=== PATIENT | female | born 1945 | race Caucasian/White ===

== ENCOUNTER 2018-04-18 14:56 | Emergency (ER) | payer MEDICARE, SELFPAY ==
[2018-04-18 14:58] VITALS: BP 185/83; PULSE 73; RESP 18; TEMP 36.8; O2SAT 100; BMI 26.8
--- NOTE | 2018-04-18 15:25 | RAD_ITS ---
STUDY: X-RAY CHEST REASON FOR EXAM: Female, 73 years old. Fever TECHNIQUE: PA and lateral COMPARISON: None. FINDINGS: Lungs appear mildly hyperinflated and there is mild bilateral perihilar interstitial thickening. There is no demonstrated pleural abnormality. Heart is upper normal size Normal mediastinum and tanja. Normal visualized pulmonary arteries. Mildly calcified aortic arch and descending thoracic aorta. Dorsal spine demonstrates mild spondylosis. There appears to be a hemangioma within one of the mid dorsal vertebral bodies. Normal visualized ribs, clavicles, and shoulders. There is no demonstrated abnormality of the visualized soft tissue structures of the upper abdomen. RAD/Chest PA and Lateral IMPRESSION: Mild probable chronic interstitial changes. No focal infiltrates Electronically Signed: Maurice Bullock MD at 17:07 EDT , Service support ,
--- NOTE | 2018-04-18 15:39 | ED.DCSUM_ITS ---
- ER Visit Summary Date of Service: 04/18/18 Chief Complaint: [] Fever History of Present Illness: The patient is a 73 F [] complaining of subjective fever, mild sore throat, mild urinary symptoms, mild abdominal discomfort. Patient appears very well and is conversational. Denies difficulty swallowing. Denies dysuria. Denies nausea/vomiting. No other complaints at this time. Physical Examination: [] Afebrile, vital signs stable. Physical exam is unremarkable. Test Results: [] Chest x-ray 2 views: Labs: White blood cell count 12.7, otherwise negative. BMP negative. LFTs negative. Lipase negative. Urinalysis shows leukocytes with 5-10 white blood cells. Rapid strep negative. Chest x-ray 2 views negative per my interpretation. Emergency Department Course and Treatment: [] Patient evaluated for sore throat, fever, urinary symptoms. She does report that her at the bedside was diagnosed with flu several weeks ago. She appears well. She will be treated for a few days with Keflex 500 mg #12 for possible early UTI. She was encouraged to follow-up with her primary care physician. Treatment Plan: [] Outpatient antibiotics and outpatient follow-up. Disposition: [] Discharge, stable. Impression: [] UTI Sore throat This note was generated with [employer] dictation software. It may contain incorrect words, spelling, and punctuation that were not noted in review of the chart prior to signing ED Disposition - Plan for ED Patient: Disposition: Home or Assisted Living Chief Complaint: Fever Instructions: ED UTI Cystitis Female Prescriptions: Cephalexin [Keflex] 500 mg PO Q6 #12 cap Referrals: Venecia Hansen MD [Primary Care Provider] -
[2018-04-18 16:08] LABS: Bacteria 0 SEEN /hpf (None Seen); Mucous, Urine 0 SEEN /hpf (<or=2+)
[2018-04-18 16:15] LABS: Absolute Neutrophil Count 10.6 X10^3/uL (2.0-7.7); Basophil# 0.01 X10^3/uL; Basophil% 0.1 % (0-1); Eosinophil# 0.01 X10^3/uL; Eosinophils% 0.1 % (0-5); Hematocrit 38.3 % (37-47); Hemoglobin 12.7 g/dl (12.0-15.0); Lymphocyte % 11.1 % (19-41); Mean Corp Hgb Conc 33.2 g/gl (32-36); Mean Corpuscular Volume 96.5 fL (81-99); Mean Platelet Vol. 10.2 fl (6.2-12.0); Monocyte# 0.61 X10^3/uL; Monocyte% 4.8 % (0-10); Neutrophil % 83.7 % (47-70); Platelet Count 196 K/mm3 (150-450); RBC Distribution Width CV 12.1 % (11.6-14.6); RBC Distribution Width SD 42.6 fl (35.1-43.9); Red Blood Count 3.97 M/mm3 (4.2-5.4); White Blood Count 12.7 K/mm3 (4.4-11.0)
[2018-04-18 16:17] LABS: Color, Urine Straw (Yellow); Glucose, Dipstick Normal (Normal); Ketone-Dipstick Negative (Negative); Leukocyte Esterase-Dipstick 500 /ul (Negative); Nitrite-Dipstick Negative (Negative); Occult Blood-Urine 25 /ul (Negative); Protein-Dipstick Negative (Negative); Urine Bilirubin Dipstick Negative (Negative); Urine Clarity Sl. Cloudy (Clear); Urine Urobilinogen Normal (Normal)
[2018-04-18 16:19] LABS: POSITIVE COUNT NO; POSITIVE DIFFERENTIAL NO; POSITIVE MORPHOLOGY NO
[2018-04-18 16:23] LABS: Squamous Epithelial Cells - UA 0-5 SEEN /hpf (5-10)
[2018-04-18 16:25] LABS: ALB/GLOB Ratio 1.1 RATIO (0.9-2.4); AST(SGOT) 25 U/L (15-37); Alanine Aminotransfer ALT/SGPT 26 U/L (13-56); Albumin, Serum 4.3 g/dL (3.2-5.0); Alkaline Phosphatase 90 U/L (45-117); Anion Gap 8 (5-15); BUN 10 mg/dL (7-18); BUN/Creat Ratio 11.5 RATIO (10-20); Chloride 102 mmol/L (98-107); Creatinine, Serum 0.87 mg/dL (0.55-1.02); EST Glomerular Filtration Rate 68 mL/min (>60); Est Glom Filt Rate - Afr Amer 82 mL/min (>60); Estimated Creatinine Clearance 42.16 ml/min; Globulin 3.8 g/dL (2.2-4.2); Glucose 101 mg/dL (74-106); Lipase 233 U/L (73-393); Potassium 3.5 mmol/L (3.5-5.1); Protein, Total 8.1 g/dL (6.4-8.2); Red Blood Cells-Urine 0-5 SEEN /hpf (0-5); Sodium Level 137 mmol/L (136-145); White Blood Cells 5-10 SEEN /hpf (0-5)
--- NOTE | 2018-04-18 17:13 | ED.DEP ---
ED Disposition - Plan for ED Patient: Disposition: Home or Assisted Living Chief Complaint: Fever Instructions: ED UTI Cystitis Female Prescriptions: Cephalexin [Keflex] 500 mg PO Q6 #12 cap Referrals: Venecia Hansen MD [Primary Care Provider] -
[2018-04-18 17:49] VITALS: BP 159/91; PULSE 79; RESP 16; O2SAT 98
== END 2018-04-18 17:50 | disposition home or self-care (01) ==
PROVIDERS: Emergency Provider Emergency Medicine; Family Provider Internal Medicine; PCP Internal Medicine
DX: N39.0 Urinary tract infection, site not specified (principal); J02.9 Acute pharyngitis, unspecified; I10 Essential (primary) hypertension; F41.9 Anxiety disorder, unspecified; D18.02 Hemangioma of intracranial structures; Z79.899 Other long term (current) drug therapy
CPT/HCPCS: 71046; 80053; 81001; 83690; 85025; 87880; 99284; A4216

== ENCOUNTER 2019-06-12 22:16 | Emergency (ER) | payer MEDICARE, SELFPAY ==
[2019-06-12 22:17] VITALS: BP 209/82; PULSE 65; RESP 16; TEMP 36.4; O2SAT 100; BMI 27.0
[2019-06-12 22:38] VITALS: BP 222/93; PULSE 58; RESP 14; O2SAT 98
--- NOTE | 2019-06-12 22:38 | CT_ITS ---
STUDY: CT BRAIN WITHOUT CONTRAST REASON FOR EXAM: Female, 74 years old. Headache since yesterday RADIATION DOSAGE (If Supplied By Facility): CTDIvol = ( 44.99 ) mGy, DLP = ( 779.24 ) mGycm TECHNIQUE: Transaxial CT imaging of the brain was performed without administration of intravenous contrast material. Individualized dose optimization techniques were used for this CT. COMPARISON: 04/19/2015 FINDINGS: Normal soft tissue structures. Normal calvarium. Normal size ventricles and extra-axial spaces for the patient's age. Normal white matter tracts of the cerebral hemispheres. Normal basal ganglia and thalami. Normal brainstem. Stable subcentimeter calcification in the right cerebellum. There is no intracranial hemorrhage. There are no findings of an acute ischemic infarction. Normal visualized paranasal sinuses. CT/Brain/Head without Contrast IMPRESSION: No evidence of acute infarct or intracranial hemorrhage. Electronically Signed: Montana Wu MD at 23:45 EDT Tel , Service support ,
--- NOTE | 2019-06-12 22:44 | ED.VISSUMM ---
- ER Visit Summary Date of Service: 06/12/19 Chief Complaint: Headache History of Present Illness: The patient is a 74 F who presents with a headache that has been intermittent since yesterday. Patient states the pain is sharp and localized to the left samaritan area. Patient states the pain radiates to the top of her head. Patient states she has a history of cavernous hemangioma. Patient states this has been stable for approximately 5 years. Patient states the pain comes and goes. Patient states the pain lasts approximately 5 minutes. Patient states that yesterday it was only lasting approximately 30 seconds. Patient denies any fevers or chills. Patient denies any nausea or vomiting. Patient denies any sore throat or sinus pressure. Physical Examination: Vital signs are stable except for an elevated blood pressure of 209/82. Patient is afebrile. Patient is in no acute distress. Head is normocephalic. There is no tenderness over the temporal arteries. Pupils are equal, round, and reactive to light bilaterally. Extraocular muscles are intact. Funduscopic examination was benign. Oral mucosa is pink and moist. Neck is supple. Trachea is midline. There is no JVD noted. Heart was regular rate and rhythm. Lungs are clear and equal bilateral. Abdomen is soft. Bowel sounds are normal. There is no tenderness. There is no guarding noted. Skin is warm dry. Cranial nerves II through XII are intact. There are no focal motor or sensory deficits noted. The remaining physical exam is within normal limits. Test Results: CBC and basic metabolic profile were normal. Sed rate was normal at 6. CT scan of the brain was obtained. There is no acute intracranial bleeding noted. Emergency Department Course and Treatment: Patient was given Reglan and Benadryl here. Patient was initially ordered labetalol for her elevated blood pressure however, her blood pressure has improved without any medication. Patient felt better on reevaluation. Patient states her headache was gone. Given the intermittent nature of her headache and no meningeal signs, I do not feel this is a subarachnoid hemorrhage. Patient was instructed to follow-up with her primary care physician in 5 to 7 days. Patient understood and was agreeable with the plan. All questions were answered. Disposition: Discharge home Impression: Headache This note was generated with [employer] dictation software. It may contain incorrect words, spelling, and punctuation that were not noted in review of the chart prior to signing ED Disposition - Plan for ED Patient: Disposition: Home or Assisted Living Diagnosis: Headache Instructions: HEADACHE, Unspecified Referrals: Venecia Hansen MD [Primary Care Provider] - 5-7 Days
[2019-06-12] MEDS: Metoclopramide 10 MG/2 ML Vial IV (23:08)
[2019-06-12] MEDS: DiphenhydrAMINE 50 MG/ML Syringe 25 MG IV (23:08)
[2019-06-12 23:11] VITALS: BP 155/84
[2019-06-12 23:26] LABS: Absolute Lymphocyte Count 1.79 X10^3/ul (0.83-4.51); Absolute Neutrophil Count 2.5 X10^3/uL (2.0-7.7); Basophil# 0.02 X10^3/uL; Basophil% 0.4 % (0-1); Eosinophil# 0.12 X10^3/uL; Eosinophils% 2.5 % (0-5); Hematocrit 36.5 % (37-47); Hemoglobin 12.2 g/dl (12.0-15.0); Lymphocyte # 1.79 X10^3/ul (4.0); Lymphocyte % 36.8 % (19-41); Mean Corp Hgb Conc 33.4 g/gl (32-36); Mean Corpuscular Hgb 32.4 pg (27.0-32.0); Mean Corpuscular Volume 97.1 fL (81-99); Mean Platelet Vol. 10.5 fl (6.2-12.0); Monocyte# 0.44 X10^3/uL; Monocyte% 9.1 % (0-10); Neutrophil # 2.49 X10^3/uL (2.7-7.7); Neutrophil % 51.2 % (47-70); Platelet Count 204 K/mm3 (150-450); RBC Distribution Width CV 12.2 % (11.6-14.6); RBC Distribution Width SD 43.1 fl (35.1-43.9); Red Blood Count 3.76 M/mm3 (4.2-5.4); White Blood Count 4.9 K/mm3 (4.4-11.0)
[2019-06-12 23:31] LABS: POSITIVE COUNT NO; POSITIVE DIFFERENTIAL NO; POSITIVE MORPHOLOGY NO
[2019-06-12 23:32] LABS: Anion Gap 6 (5-15); BUN 19 mg/dL (7-18); BUN/Creat Ratio 19.7 RATIO (10-20); Calcium,Total 8.7 mg/dL (8.5-10.1); Chloride 104 mmol/L (98-107); Creatinine, Serum 0.97 mg/dL (0.55-1.02); EST Glomerular Filtration Rate 60 mL/min (>60); Erythrocyte Sedimentation Rate 6 mm/hr (0-30); Est Glom Filt Rate - Afr Amer 72 mL/min (>60); Estimated Creatinine Clearance 37.23 ml/min; Glucose 115 mg/dL (74-106); Potassium 4.3 mmol/L (3.5-5.1); Sodium Level 139 mmol/L (136-145)
[2019-06-13 00:11] VITALS: BP 124/56; PULSE 61; RESP 16; O2SAT 100
== END 2019-06-13 00:12 | disposition home or self-care (01) ==
PROVIDERS: Emergency Provider Emergency Medicine; Family Provider Internal Medicine; PCP Internal Medicine
DX: R51 Headache (principal); R19.7 Diarrhea, unspecified; I10 Essential (primary) hypertension; D18.00 Hemangioma unspecified site; F41.9 Anxiety disorder, unspecified; Z79.899 Other long term (current) drug therapy
CPT/HCPCS: 70450; 80048; 85025; 85652; 96374; 96375; 99283; A4216

== ENCOUNTER → 2023-02-12 | Outpatient (CLI) | payer MEDICARE, SELFPAY ==
--- NOTE | 2023-02-12 06:22 | ECHOD_ITS ---
Reason For Study: HTN Procedure This was a 2D Doppler, Color Flow transthoracic echocardiogram. Exam performed in department. Left Ventricle Normal LV size. Left ventricular systolic function is normal. The estimated ejection fraction is 55 %. Normal diastology for age. No regional wall motion abnormalities noted. Right Ventricle Normal RV size. Normal systolic function. Atria Normal left atrium. Normal right atrium. Mitral Valve Normal mitral valve. Mild-Moderate (1-2+) eccentric mitral valve insufficiency. Tricuspid Valve Normal tricuspid valve. Mild (1+) tricuspid valve insufficiency. Pulmonary artery systolic pressure is 40 mmHg. Aortic Valve Normal aortic valve. Trisinus/trileaflet aortic valve. Pulmonic Valve Normal pulmonic valve. Great Vessels Normal aortic root. The pulmonary artery is normal size. Normal inferior vena cava. Pericardium/Pleural No pericardial effusion. MMode/2D Measurements & Calculations LVIDd: 4.2 cm IVSd: 0.93 cm Ao root diam: 3.0 cm LVIDs: 2.6 cm LVPWd: 0.96 cm LA dimension: 3.5 cm RVDd: 3.3 cm FS: 38.6 % LAV(MOD-bp): 54.6 ml LVAd ap4: 23.4 cm2 SV(MOD-sp4): 41.1 ml LAV(MOD-bp) Indexed: 34.1 ml/m2 LVLd ap4: 7.3 cm LAV(MOD-sp2): 49.0 ml EDV(MOD-sp4): 62.6 ml LAV(MOD-sp4): 57.4 ml EDV(sp4-el): 64.2 ml LVAs ap4: 12.0 cm2 LVLs ap4: 5.9 cm ESV(MOD-sp4): 21.5 ml ESV(sp4-el): 20.9 ml EF(MOD-sp4): 65.7 % EF(sp4-el): 67.5 % SV(sp4-el): 43.3 ml LA A4 area: 19.0 cm2 RA A4 area: 15.2 cm2 Time Measurements MV dec time: 0.15 sec Doppler Measurements & Calculations MV E max brennan: 93.7 cm/sec Lat Peak E' Brennan: 6.7 cm/sec Med Peak E' Brennan: 8.3 cm/sec MV A max brennan: 74.0 cm/sec E/E' lat: 14.0 E/E' med: 11.3 MV E/A: 1.3 MV V2 max: 95.9 cm/sec Ao V2 max: 138.2 cm/sec MV max P.7 mmHg MV dec slope: 637.9 cm/sec2 Ao max P.6 mmHg MV V2 mean: 52.0 cm/sec Ao V2 mean: 92.6 cm/sec MV mean P.3 mmHg Ao mean P.9 mmHg MV V2 VTI: 40.0 cm Ao V2 VTI: 39.3 cm AV (velocity ratio): 0.72 LV V1 max: 93.9 cm/sec MR max brennan: 566.2 cm/sec PA V2 max: 82.8 cm/sec LV V1 max P.5 mmHg MR max P.2 mmHg LV V1 mean P.9 mmHg MR mean brennan: 492.8 cm/sec LV V1 mean: 64.8 cm/sec MR mean P.8 mmHg LV V1 VTI: 28.4 cm MR VTI: 264.7 cm TR max brennan: 302.4 cm/sec TR max P.6 mmHg ECHO/Echo Complete Interpretation Summary Normal LV size. Left ventricular systolic function is normal. The estimated ejection fraction is 55 %. Mild-Moderate (1-2+) eccentric mitral valve insufficiency. Pulmonary artery systolic pressure is 40 mmHg. Ordering Physician: Viviana Ojeda Referring Physician: Venecia Hansen M.D. Performed By: Brien Cortes RCS
--- NOTE | 2023-02-12 12:09 | STRESSREP ---
Stress Test Report Exercise myocardial perfusion stress test. 77-year-old lady with a history of chest pain Stress protocol: Resting EKG demonstrates sinus bradycardia with a rate of 58 bpm resting blood pressure is 116/82 mmHg. The patient exercised according to the regular Baron protocol for a total duration of 6 minutes and 15 seconds attaining a maximum heart rate of 123 bpm which was 87% of maximum predicted heart rate; the maximum workload was 7.7 metabolic equivalents. At rest there were no ST or T wave changes noted to suggest ischemia and at peak exercise upsloping ST changes only were noted which did not meet the criteria for ischemia. No clinical angina was noted the test was terminated due to the target heart rate being achieved/fatigue. The peak blood pressure was 170/70 mmHg. Rate-pressure product was [16,600]. Myocardial perfusion protocol. 11.0 mCi of technetium 99m sestamibi was injected at rest. The patient exercised according to regular Baron protocol for total duration of 6 minutes and 15 seconds and at peak exercise 36 mCi of technetium 99m sestamibi was injected stress images were obtained stress and rest images were reconstructed in comparing the short axis vertical long and horizontal long axis. Gated images were also obtained. Perfusion SPECT analysis: Review of the stress images demonstrate normal uptake of tracer noted in all areas of the myocardium. The resting images similarly demonstrate normal uptake of tracer noted in all areas of the myocardium. No areas of reversibility are noted to suggest ischemia no previous infarct was noted. Gated SPECT analysis: The gated ejection fraction is 83%. Conclusion: Normal exercise myocardial perfusion stress test at a moderate workload Preserved ejection fraction.
== END | disposition home or self-care (01) ==
LOC: CVS 06:15
PROVIDERS: PCP Internal Medicine; Referring Provider Nurse Practitioner Gerontology; Visit Provider Nurse Practitioner Gerontology
DX: I10 Essential (primary) hypertension (principal); I47.1 Supraventricular tachycardia; R94.31 Abnormal electrocardiogram [ECG] [EKG]
CPT/HCPCS: 78452; 93017; 93306; A9500

== ENCOUNTER 2024-02-20 11:49 | Emergency (ER) | payer MEDICARE, SELFPAY ==
[2024-02-20 11:49] VITALS: BP 155/78; PULSE 65; RESP 14; TEMP 36.2; O2SAT 99; BMI 26.2
--- NOTE | 2024-02-20 12:28 | EKG12_ITS ---
Test Reason : DIZZINESS Blood Pressure : / mmHG Vent. Rate : 059 BPM Atrial Rate : 059 BPM P-R Int : 160 ms QRS Dur : 078 ms QT Int : 462 ms P-R-T Axes : 052 032 064 degrees QTc Int : 457 ms Sinus bradycardia with sinus arrhythmia Otherwise normal ECG Confirmed by Agustín Castrejon ([id number]), greeting card editor SHANON PARRA ([id number]) on 02/23/2024 9:02:16 AM Referred By: Confirmed By:Agustín Castrejon
--- NOTE | 2024-02-20 12:31 | EX.ED.DYSGE1 ---
HPI <DICK Milner - Last Filed: 02/20/24 16:34> History of Present Illness Chief Complaint: Dizziness Narrative Narrative: 78-year-old female with PMH of HTN states she woke up around 4:30 AM and immediately felt the room spinning. She had to urinate and walk to the bathroom and felt slightly off balance due to the spinning. She states she had to urinate twice. The spinning would resolve when lying down and closing her eyes. She tried to take her blood pressure pill and lorazepam but developed dry heaving and threw it up. The spinning has completely resolved but she still feels nauseated. No chest pain or shortness of breath. She had similar vertiginous symptoms many years ago but does not recall the details of the workup. She states she has seen a neurologist in the past due to whooshing sound in her head and had MRI showing a small brain hemangioma. PFSH <DICK Milner - Last Filed: 02/20/24 16:34> [facility] Medical History Cerebellar hemangioma (2003) Epilepsy Essential hypertension Hiatal hernia History of depression Hyperlipidemia IBS (irritable bowel syndrome) Leiomyoma of uterus Mumps Nonsustained paroxysmal supraventricular tachycardia Occipital neuralgia Uterine prolapse Varicella Vitamin D deficiency Vitreous detachment Home Medications citalopram 20 mg tablet 20 mg PO DAILY 01/31/14 [History Last Taken Unknown] lorazepam 1 mg tablet 1 mg PO TID PRN Anxiety #10 TABLETS 09/26/16 [Rx Last Taken Unknown] losartan 100 mg tablet 100 mg PO QDAY #90 tabs 01/05/18 [Rx Last Taken Unknown] metoprolol succinate 50 mg tablet,extended release 24 hr 50 mg PO QDAY #90 tabs 12/14/18 [Rx Last Taken Unknown] calcium citrate 315 mg-vitamin D3 5 mcg (200 unit) tablet (Calcium Citrate + D) 1 tab PO DAILY 07/29/22 [History Last Taken Unknown] cholecalciferol (vitamin D3) 50 mcg (2,000 unit) tablet 50 mcg PO DAILY 07/29/22 [History Last Taken Unknown] zmkskyhc-rep-aznht ac 400 mcg-calcium carb 500 mg-vit K1 20 mcg tablet (Women's 50 Plus Multivitamin) 1 tab PO DAILY 07/29/22 [History Last Taken Unknown] spironolactone 25 mg tablet 25 mg PO DAILY 07/29/22 [History Last Taken Unknown] Allergy/AdvReac Type Severity Reaction Status Date / Time hydrochlorothiazide Allergy Unknown Rash Verified 02/20/24 11:51 Tetracyclines Allergy Unknown Diarrhea Verified 02/20/24 11:51 amlodipine AdvReac Hives Verified 02/20/24 11:51 erythromycin base AdvReac Abd Verified 02/20/24 11:51 [Erythromycin Base] cramps/diarrhea fluorescein AdvReac Hives Verified 02/20/24 11:51 Gadolinium-MRI Contrast AdvReac Other Verified 02/20/24 11:51 Medium [Gadolinium-Contrast Medium - MRI] Iodinated Contrast Media AdvReac Hives Verified 02/20/24 11:51 [iodine contrast] Sulfa (Sulfonamide AdvReac Abd Verified 02/20/24 11:51 Antibiotics) cramps/diarrhea tramadol AdvReac Unknown Verified 02/20/24 11:51 Family History Sister CAD (coronary artery disease) Thyroid disorder Diabetes Mother Hypertension Father Heart disease Myocardial infarction Hypertension Cancer skin Emphysema lung Brother Diabetes Paranoid schizophrenia Migraines Grandmother Diabetes Grandfather Cancer stomach Grandmother Leukemia Surgical History History of colonoscopy History of esophagogastroduodenoscopy (EGD) History of excision of lesion History of hand surgery History of tonsillectomy and adenoidectomy Social History Smoking Status: Never smoker alcohol intake: never substance use type: does not use ROS <DICK Milner - Last Filed: 02/20/24 16:34> ROS ED ROS Narrative Constitutional: Negative for fever, chills, malaise. Eyes: Negative for visual change. CVS: Negative for palpitations, chest pain, syncope. Respiratory: Negative for shortness of breath. GI: Positive for nausea, vomiting. Neuro: Negative for headache, motor/sensory dysfunction. EXAM <DICK Milner - Last Filed: 02/20/24 16:34> Physical Exam Narrative Exam Narrative: CONST: Patient sitting in no acute distress. EYES: Normal inspection. PERRL, 3 beats rightward horizontal nystagmus. ENT: Normal inspection, moist mucous membranes. Normal TMs bilaterally. NECK: Normal inspection. RESP: No respiratory distress, CTAB. CVS: Regular rate and rhythm, no murmur, no gallop. SKIN: Color normal, no rash, warm, dry, intact. EXTREMITIES: Normal appearance, no pedal edema. NEURO: Oriented x4. Face symmetric, cranial nerves II through XII intact. Mild chronic left arm tremor. 5/5 upper and lower extremity strength, normal finger-nose and [id number], normal gait. PSYCH: Normal affect. Const Vital Signs: 02/20/24 11:49 02/20/24 11:49 02/20/24 13:27 Temperature 97.2 F L 97.2 F L Temperature Source Temporal Temporal Pulse Rate 65 65 Respiratory Rate 14 14 Respiratory Effort Normal Respiratory Pattern Normal Blood Pressure 155/78 H 155/78 H Blood Pressure Mean 103 103 Pulse Ox 99 99 Oxygen Delivery Method Room Air Room Air 02/20/24 13:49 02/20/24 15:00 02/20/24 15:42 Temperature 98.6 F Temperature Source Pulse Rate 68 68 87 Respiratory Rate 15 17 17 Respiratory Effort Respiratory Pattern Blood Pressure 113/81 H 118/79 116/89 H Blood Pressure Mean 91 92 98 Pulse Ox 97 97 98 Oxygen Delivery Method Room Air Room Air <Dr. Solitario Oakes MD - Last Filed: 02/20/24 15:44> Physical Exam Const Vital Signs: 02/20/24 11:49 02/20/24 11:49 02/20/24 13:27 Temperature 97.2 F L 97.2 F L Temperature Source Temporal Temporal Pulse Rate 65 65 Respiratory Rate 14 14 Respiratory Effort Normal Respiratory Pattern Normal Blood Pressure 155/78 H 155/78 H Blood Pressure Mean 103 103 Pulse Ox 99 99 Oxygen Delivery Method Room Air Room Air 02/20/24 13:49 02/20/24 15:00 02/20/24 15:42 Temperature 98.6 F Temperature Source Pulse Rate 68 68 87 Respiratory Rate 15 17 17 Respiratory Effort Respiratory Pattern Blood Pressure 113/81 H 118/79 116/89 H Blood Pressure Mean 91 92 98 Pulse Ox 97 97 98 Oxygen Delivery Method Room Air Room Air MDM <DICK Milner - Last Filed: 02/20/24 16:34> MDM MDM Narrative Medical decision making narrative: History gathered from: Patient and spouse Patient had room spinning with head movements this morning that stopped with lying down and closing eyes. At symptoms have resolved on arrival but she still feels nauseated. No chest pain or shortness of breath. She appears well and nontoxic and is afebrile with normal vital signs. She has no focal neurological deficits. She has normal coordination and normal gait. CBC and BMP overall unremarkable. EKG sinus rhythm with no ischemic changes. Urinalysis negative. She has had similar symptoms in the past while and reports having an MRI for neurology for an unrelated issue which showed a small hemangioma but no other acute abnormalities. I do not think she requires emergent imaging. Symptoms sound consistent with BPPV and she has remained asymptomatic here. I discussed follow-up and return precautions and she was discharged in stable condition. Lab Data Attestation: I reviewed the patient's lab results. Labs: Laboratory Results - last 24 hr 02/20/24 02/20/24 12:51 14:30 WBC 7.1 RBC 3.88 L Hgb 12.4 Hct 37.8 MCV 97.4 MCH 32.0 MCHC 32.8 RDW Std Deviation 41.9 RDW Coeff of Myriam 11.8 Plt Count 241 MPV 10.7 Immature Gran % (Auto) 0.300 Neut % (Auto) 76.8 H Lymph % (Auto) 16.4 L [place] % (Auto) 5.2 Eos % (Auto) 0.7 Baso % (Auto) 0.6 Absolute Neuts (auto) 5.4 Absolute Lymphs (auto) 1.16 Nucleated RBC % 0 Sodium 138 Potassium 4.2 Chloride 106 Carbon Dioxide 26.0 Anion Gap 6 BUN 19 H Creatinine 1.07 H Estim Creat Clear Calc 35.63 Est GFR (MDRD) Af Amer 63 Est GFR (MDRD) Non-Af 52 L BUN/Creatinine Ratio 17.8 Glucose 121 H Calcium 8.9 Urine Color Yellow Urine Clarity Clear Urine pH 6.5 Ur Specific Barnhart 1.010 Urine Protein 15 H Urine Glucose (UA) Normal Urine Ketones Negative Urine Occult Blood 25 H Urine Nitrite Negative Urine Bilirubin Negative Urine Urobilinogen Normal Ur Leukocyte Esterase Negative Urine RBC 0-5 SEEN Urine WBC 0 SEEN Ur Squamous Epith Cells 0-5 SEEN Urine Bacteria 0 SEEN Urine Mucus 0 SEEN EKG Initial EKG: Attestation: I personally reviewed and interpreted this EKG as follows: Interpretation: Sinus Rhythm and No Acute Injury Pattern Comments: Sinus bradycardia with sinus arrhythmia at 59 bpm Normal intervals, no acute ischemic changes <Dr. Solitario Oakes MD - Last Filed: 02/20/24 15:44> [facility] Narrative Medical decision making narrative: History gathered from: Patient and spouse Patient had room spinning with head movements this morning that stopped with lying down and closing eyes. At symptoms have resolved on arrival but she still feels nauseated. No chest pain or shortness of breath. She appears well and nontoxic and is afebrile with normal vital signs. She has no focal neurological deficits. She has normal coordination and normal gait. CBC and BMP overall unremarkable. EKG sinus rhythm with no ischemic changes. Urinalysis negative. She has had similar symptoms in the past while and reports having an MRI for neurology for an unrelated issue which showed a small hemangioma but no other acute abnormalities. I do not think she requires emergent imaging. Symptoms sound consistent with BPPV and she has remained asymptomatic here. I discussed follow-up and return precautions and she was discharged in stable condition. I have personally performed a face to face assessment of the patient and have reviewed the [place] Note. I performed a substantive portion of the visit including all aspects of the following. My harmon findings include: History is remarkable for abrupt onset of vertigo upon arising from bed. Symptoms improved/resolved with closing her eyes. She had no double vision, blurred vision loss of vision. No trouble speech or swallowing. She was not diaphoretic. She had dry heaves according to patient and . She had recurrent symptoms for approximately an hour. She is presently symptom free. Exam is unremarkable. Initial blood pressure was elevated. Head is atraumatic normocephalic. Ears normal. TMs normal. Nares patent. Posterior pharynx normal. Alert orient x 3. Cranials 2 through 12 intact. No dysmetria. Negative eye askew test and hints test. Librado-Hallpike maneuver was negative as well. Medical Decision Making since symptoms were read current and related to change in position and the fact that she is symptom-free now with a normal neurologic exam imaging was not obtained. Blood work revealed no significant abnormality. She was discharged to home with diagnosis of benign paroxysmal positional vertigo. Other additions or changes: [None] Lab Data Lab results narrative: CBC is normal. Basic metabolic panel with slight elevation of creatinine of 1.07 with an estimated GFR 52. Glucose is elevated 121 with normal CO2 anion gap. UA is unremarkable. Labs: Laboratory Results - last 24 hr 02/20/24 02/20/24 12:51 14:30 WBC 7.1 RBC 3.88 L Hgb 12.4 Hct 37.8 MCV 97.4 MCH 32.0 MCHC 32.8 RDW Std Deviation 41.9 RDW Coeff of Myriam 11.8 Plt Count 241 MPV 10.7 Immature Gran % (Auto) 0.300 Neut % (Auto) 76.8 H Lymph % (Auto) 16.4 L [place] % (Auto) 5.2 Eos % (Auto) 0.7 Baso % (Auto) 0.6 Absolute Neuts (auto) 5.4 Absolute Lymphs (auto) 1.16 Nucleated RBC % 0 Sodium 138 Potassium 4.2 Chloride 106 Carbon Dioxide 26.0 Anion Gap 6 BUN 19 H Creatinine 1.07 H Estim Creat Clear Calc 35.63 Est GFR (MDRD) Af Amer 63 Est GFR (MDRD) Non-Af 52 L BUN/Creatinine Ratio 17.8 Glucose 121 H Calcium 8.9 Urine Color Yellow Urine Clarity Clear Urine pH 6.5 Ur Specific Barnhart 1.010 Urine Protein 15 H Urine Glucose (UA) Normal Urine Ketones Negative Urine Occult Blood 25 H Urine Nitrite Negative Urine Bilirubin Negative Urine Urobilinogen Normal Ur Leukocyte Esterase Negative Urine RBC 0-5 SEEN Urine WBC 0 SEEN Ur Squamous Epith Cells 0-5 SEEN Urine Bacteria 0 SEEN Urine Mucus 0 SEEN Discharge Plan Triage Chief Complaint: Dizziness ED Midlevel Provider: Jina Still ED Provider: Solitario Oakes Dx/Rx/DC Orders Clinical Impression: Benign paroxysmal positional vertigo Instructions: BPPV Prescriptions: No Action spironolactone 25 mg tablet 25 mg PO DAILY Women's 50 Plus Multivitamin 400 mcg-500 mg calcium-20 mcg tablet 1 tab PO DAILY calcium citrate-vitamin D3 [Calcium Citrate + D] 315 mg-5 mcg (200 unit) tablet 1 tab PO DAILY cholecalciferol (vitamin D3) 50 mcg (2,000 unit) tablet 50 mcg PO DAILY citalopram 20 MG tablet 20 mg PO DAILY lorazepam 1 MG tablet 1 mg PO TID PRN (Reason: Anxiety) Qty: 10 0RF losartan 100 mg tablet 100 mg PO QDAY Qty: 90 3RF metoprolol succinate 50 mg tablet extended release 24 hr 50 mg PO QDAY Qty: 90 3RF Primary Care Provider: Venecia Hansen Referrals: Venecia Hansen MD [Primary Care Provider] - Activity Restrictions/Additional Instructions: Your symptoms sound consistent with vertigo. Follow-up with your PCP, if symptoms worsen return to ER Disposition Disposition: Home, Self Care Discharge Date/Time: 02/20/24 15:45
[2024-02-20 12:58] LABS: Absolute Lymphocyte Count 1.16 X10^3/uL (0.83-4.51); Absolute Neutrophil Count 5.4 X10^3/uL (2.0-7.7); Basophil# 0.04 X10^3/uL; Basophil% 0.6 % (0-1); Eosinophil# 0.05 X10^3/uL; Eosinophils% 0.7 % (0-5); Hematocrit 37.8 % (37-47); Hemoglobin 12.4 g/dL (12.0-15.0); Lymphocyte # 1.16 X10^3/ul (0.83-4.51); Lymphocyte % 16.4 % (19-41); Mean Corp Hgb Conc 32.8 g/dL (32-36); Mean Corpuscular Volume 97.4 fL (81-99); Mean Platelet Vol. 10.7 fl (6.2-12.0); Monocyte# 0.37 X10^3/uL; Monocyte% 5.2 % (0-10); NRBC Flagged by Analyzer 0 % (0-5); Neutrophil # 5.43 X10^3/uL (2.7-7.7); Neutrophil % 76.8 % (47-70); Platelet Count 241 K/mm3 (150-450); RBC Distribution Width CV 11.8 % (11.6-14.6); RBC Distribution Width SD 41.9 fl (35.1-43.9); Red Blood Count 3.88 M/mm3 (4.2-5.4); White Blood Count 7.1 K/mm3 (4.4-11.0)
[2024-02-20 13:10] LABS: Anion Gap 6 (5-15); BUN 19 mg/dL (7-18); BUN/Creat Ratio 17.8 RATIO (10-20); Calcium,Total 8.9 mg/dL (8.5-10.1); Chloride 106 mmol/L (98-107); Creatinine, Serum 1.07 mg/dL (0.55-1.02); EST Glomerular Filtration Rate 52 mL/min (>60); Est Glom Filt Rate - Afr Amer 63 mL/min (>60); Estimated Creatinine Clearance 35.63 ml/min; Glucose 121 mg/dL (74-106); Potassium 4.2 mmol/L (3.5-5.1); Sodium Level 138 mmol/L (136-145)
[2024-02-20 13:49] VITALS: BP 113/81; PULSE 68; RESP 15; O2SAT 97
[2024-02-20 14:36] LABS: Bacteria 0 SEEN /hpf (None Seen); Mucous, Urine 0 SEEN /hpf (<or=2+); White Blood Cells 0 SEEN /hpf (0-5)
[2024-02-20 14:47] LABS: Color, Urine Yellow (Yellow); Glucose, Dipstick Normal (Normal); Ketone-Dipstick Negative (Negative); Leukocyte Esterase-Dipstick Negative /ul (Negative); Nitrite-Dipstick Negative (Negative); Occult Blood-Urine 25 /ul (Negative); Protein-Dipstick 15 mg/dl (Negative); Urine Bilirubin Dipstick Negative (Negative); Urine Clarity Clear (Clear); Urine Urobilinogen Normal (Normal); Urine pH 6.5 (5.0 - 8.0)
[2024-02-20 14:54] LABS: Red Blood Cells-Urine 0-5 SEEN /hpf (0-5); Squamous Epithelial Cells - UA 0-5 SEEN /hpf (5-10)
[2024-02-20 15:00] VITALS: BP 118/79; PULSE 68; RESP 17; O2SAT 97
[2024-02-20 15:42] VITALS: BP 116/89; PULSE 87; RESP 17; TEMP 37; O2SAT 98
== END 2024-02-20 15:45 | disposition home or self-care (01) ==
PROVIDERS: Physician Assistant; Emergency Provider Emergency Medicine; PCP Internal Medicine; Visit Provider Emergency Medicine
DX: H81.10 Benign paroxysmal vertigo, unspecified ear (principal)
CPT/HCPCS: 80048; 81001; 85025; 93005; 99283; A4216; J2405

== ENCOUNTER 2024-06-07 20:30 | Emergency (ER) | payer MEDICARE, SELFPAY ==
[2024-06-07 20:30] VITALS: BP 159/69; PULSE 50; RESP 18; TEMP 36.4; O2SAT 100; BMI 25.8
--- NOTE | 2024-06-07 21:32 | CT_ITS ---
EXAM: CT HEAD WITHOUT INTRAVENOUS CONTRAST CLINICAL INDICATION: head trauma TECHNIQUE: Multiple axial images were obtained of the head without intravenous contrast. This CT exam was performed using one or more of the following dose reduction techniques: automated exposure control, adjustment of the mA and/or kV according to patient size, and/or use of iterative reconstruction technique. COMPARISON: 06/12/2019 FINDINGS: BRAIN AND EXTRA-AXIAL SPACES: Unremarkable. No intra- or extra-axial hemorrhage. No evidence of acute infarct. No intracranial mass or mass effect. There is preservation of the vera/white matter interface. Posterior fossa structures are unremarkable. Ventricles are appropriate for age. No hydrocephalus. Basal cisterns are patent. BONES/JOINTS: Unremarkable. No discrete lytic or blastic abnormalities. SINUSES: Unremarkable as visualized. Clear. MASTOID AIR CELLS: Unremarkable. Clear. ORBITS: Visualized globes, extraocular muscles, optic nerves and retrobulbar fat appear unremarkable. CT/Brain/Head without Contrast IMPRESSION: Negative head/brain CT without intravenous contrast. Electronically Signed: Dago Alvarenga MD at 22:28 EDT ,
--- NOTE | 2024-06-07 21:33 | EDS_ITS ---
HPI HPI - Fall History of Present Illness Chief Complaint: Fall Informant: patient and spouse/S.O. Occured/Mechanism Occurred: Today and Hours Mechanism/Context: Yes trip Usually ambulates: Without assistance Pain/Injury Pain Location: head and chest Quality of Pain: Dull and Aching Current Severity: Mild Maximum Severity: Mild Associated Symptoms Associated Symptoms: Negative for Parasthesias, Weakness, Loss of function, Inability to ambulate, Loss of consciousness or Amnesia Narrative Narrative: 79-year-old female with history of hypertension. Was having her grass today felt fine and when she backed up with the lawnmower she was pushing she tripped over a root fell into about a 4 foot deep hole that the [employer] had dug in her yard never filled it in. She has a history of a hemangioma on her brain and due to the head trauma she wanted that evaluated. She denies any LOC. No vomiting. She is on no blood thinners. Denies any neck pain. She also has mild right rib cage pain. No abdominal pain. No pain to her extremities. Prior similar symptoms: No Recent Illness/Hospitalization: No PFSH PFSH Medical History Nonsustained paroxysmal supraventricular tachycardia Vitreous detachment Occipital neuralgia Essential hypertension Hyperlipidemia Vitamin D deficiency Uterine prolapse Varicella Mumps Leiomyoma of uterus IBS (irritable bowel syndrome) Hiatal hernia Epilepsy Cerebellar hemangioma (2003) History of depression Home Medications ?Medication ?Instructions ?Recorded ?Last Taken ?Type citalopram 20 mg tablet 20 mg PO DAILY 01/31/14 Unknown History lorazepam 1 mg tablet 1 mg PO TID PRN Anxiety #10 TABLETS 09/26/16 Unknown Rx losartan 100 mg tablet 100 mg PO QDAY #90 tabs 01/05/18 Unknown Rx metoprolol succinate 50 mg 50 mg PO QDAY #90 tabs 12/14/18 Unknown Rx tablet,extended release 24 hr calcium citrate 315 mg-vitamin D3 1 tab PO DAILY 07/29/22 Unknown History 5 mcg (200 unit) tablet (Calcium Citrate + D) cholecalciferol (vitamin D3) 50 50 mcg PO DAILY 07/29/22 Unknown History mcg (2,000 unit) tablet xymnjtql-yoc-zxcpj ac 400 1 tab PO DAILY 07/29/22 Unknown History mcg-calcium carb 500 mg-vit K1 20 mcg tablet (Women's 50 Plus Multivitamin) spironolactone 25 mg tablet 25 mg PO DAILY 07/29/22 Unknown History Allergy/AdvReac Type Severity Reaction Status Date / Time hydrochlorothiazide Allergy Unknown Rash Verified 06/07/24 20:30 Tetracyclines Allergy Unknown Diarrhea Verified 06/07/24 20:30 amlodipine AdvReac Hives Verified 06/07/24 20:30 erythromycin base AdvReac Abd Verified 06/07/24 20:30 (Erythromycin Base) cramps/diarrhea fluorescein AdvReac Hives Verified 06/07/24 20:30 Gadolinium-MRI Contrast AdvReac Other Verified 06/07/24 20:30 Medium (Gadolinium-Contrast Medium - MRI) Iodinated Contrast Media AdvReac Hives Verified 06/07/24 20:30 (iodine contrast) Sulfa (Sulfonamide AdvReac Abd Verified 06/07/24 20:30 Antibiotics) cramps/diarrhea tramadol AdvReac Unknown Verified 06/07/24 20:30 Family History Sister CAD (coronary artery disease) Thyroid disorder Diabetes Mother Hypertension Father Heart disease Myocardial infarction Hypertension Cancer skin Emphysema lung Brother Diabetes Paranoid schizophrenia Migraines Grandmother Diabetes Grandfather Cancer stomach Grandmother Leukemia Surgical History History of hand surgery History of excision of lesion History of colonoscopy History of esophagogastroduodenoscopy (EGD) History of tonsillectomy and adenoidectomy Social History Smoking Status: Never smoker alcohol intake: never substance use type: does not use ROS ROS ED ROS Narrative Denies recent illness. Review of Systems ROS Unobtainable: Denies due to encephalopathy Constitutional Constitutional ED: Denies chills or fever(s) Eyes Eyes: Denies blurry vision ENT ENT ED: Denies ear pain Cardiovascular Cardiovascular: Denies chest pain Respiratory/Chest Respiratory/Chest: Denies cough Gastrointestinal Gastrointestinal: Denies abdominal pain Genitourinary Genitourinary ED: Denies hematuria Musculoskeletal Musculoskeletal: Denies arthralgias Integumentary Denies abscess Neurologic Neurologic: Denies headache(s) or paresthesias Psychiatric Psychiatric: Denies anxiety Endocrine Endocrinology: Denies polydipsia Hematologic/Lymphatic Hematologic/Lymphatic: Denies easy bleeding Allergic/Immunologic Allergic/Immunologic ED: Denies mouth swelling, tongue swelling or urticaria EXAM Physical Exam Narrative Exam Narrative: Well-appearing 79-year-old female. Vital signs are stable afebrile. Pulse ox 100% on room air no signs hypoxia. She is no distress. at bedside. H EENT exam pupils round react light. No facial trauma. No significant patellar laceration. Neck nontender. Full range of motion. Trachea midline. Back nontender. Spine nontender. Lungs clear to auscultation bilaterally. Heart regular rhythm rate about 50 no murmur. Chest wall and ribs she has mild tenderness to her right lateral rib cage. There is no ecchymosis or bruising. No subcu air or crepitance. Abdomen soft nontender. Normal bowel sounds no peritoneal signs. No signs of trauma. No bruising. Pelvic girdle intact. Moving all 4 extremities. Normal range of motion. Nontender. No deformity. Neurologically she is awake and alert. GCS of 15. Const Vital Signs: 06/07/24 20:30 06/07/24 21:08 Temperature 97.5 F L Temperature Source Temporal Pulse Rate 50 L Respiratory Rate 18 Respiratory Effort Normal Non-Labored Respiratory Depth Normal Respiratory Pattern Normal Blood Pressure 159/69 H Blood Pressure Mean 99 Pulse Ox 100 Oxygen Delivery Method Room Air Room Air Positive well nourished and well developed; Negative for obese, cachectic, contractures or unkempt General Appearance ED: well developed and NAD; Negative for unkempt, cachectic or contractures Nutritional Appearance: Negative for cachectic or obese HEENT Reports normocephalic HEENT Narrative: No hematoma or laceration to her scalp. trauma; Negative for atraumatic, contusion, hematoma or tenderness Eyes PERRL and EOMs intact bilaterally General Eye ED: Negative for pale conjunctiva or scleral icterus Neck full ROM, no lymphadenopathy and supple General: Negative for tenderness Chest Wall inspection of chest normal; Negative for palpation of chest normal Chest Narrative: Mild tenderness right lateral rib cage. No crepitus or subcu air. No present Resp normal respiratory effort, no retractions and clear to auscultation bilaterally Auscultation: Negative for rales, rhonchi, wheezes or diminished lung sounds Cardio regular rate, regular rhythm, S1 normal heart sound and no murmurs Rate: Negative for bradycardia or tachycardic Rhythm: Negative for abnormal rhythm Bruits: Negative for other GI non-tender, non-distended and no masses Inspection: Negative for abdominal distention Auscultation: normoactive bowel sounds Palpation: soft; Negative for guarding or rebound tenderness present Back/Spine no CVA tenderness General Back: Negative for CVA tenderness Cervical Spine: Negative for cervical spine tenderness Thoracic Spine / Upper Back: Negative for ROM limited Lumbar Spine / Lower Back: Negative for lumbar spinal tenderness or paraspinal muscle tenderness Extremity Extremity Narrative: Nontender. Normal range of motion. Neuro oriented x3, CN's II-XII intact bilaterally, moves all extremities and no focal motor deficits Yonis Coma Scale: document GCS findings Spontaneous Obeys Commands Oriented 15 Sensorium / Orientation: alert, oriented to person, oriented to place and oriented to time; Negative for orientation impaired or confused Motor Exam: strength 5/5 throughout Psych mental status grossly normal and thought process normal Appearance: Negative for unkempt Attitude: No agitated Mood & Affect: Negative for depressed, anxious or tearful Skin Lesions: no lesions Rashes: no rashes Trauma: Negative for abrasion MDM MDM MDM Narrative Medical decision making narrative: 79-year-old female fell into a hole that was in her yard hitting her head but no LOC. Her and her were requesting evaluation of her brain due to known hemangioma. She also hit her right rib cage and I will obtain a chest x-ray. She is not waiting for pain. Clinically she looks very well. Repeat exam patient doing well at 10:[address] results. Repeat exam unchanged. We discussed her chest x-ray results. History & Record Review Discussion w/independent historian: Patient and Family Additional record(s) reviewed:: Prior inpatient record, Prior outpatient record, Prior ED visit and Prior labs Radiography Chest X-Ray - ED: 2 View, Read by ED Physician, Normal, Heart, Lungs, Mediastinum, Bony Structures, No Acute Disease and Chronic Changes Diagnostic Testing: Chest x-ray, 2 views, interpreted by myself shows no acute abnormality. Normal cardiac silhouette. Normal lungs. No hemo or pneumothorax. No obvious rib fractures. I did go over the x-ray results with the patient. Discharge Plan Triage Chief Complaint: Fall ED Provider: Ledesma,Ottoniel Dx/Rx/DC Orders Clinical Impression: Fall, Head injury, Chest wall contusion Instructions: ED Chest Wall Contusion, ED Head Injury (Adult) Prescriptions: No Action spironolactone 25 mg tablet 25 mg PO DAILY Women's 50 Plus Multivitamin 400 mcg-500 mg calcium-20 mcg tablet 1 tab PO DAILY calcium citrate-vitamin D3 [Calcium Citrate + D] 315 mg-5 mcg (200 unit) tablet 1 tab PO DAILY cholecalciferol (vitamin D3) 50 mcg (2,000 unit) tablet 50 mcg PO DAILY citalopram 20 MG tablet 20 mg PO DAILY lorazepam 1 MG tablet 1 mg PO TID PRN (Reason: Anxiety) Qty: 10 0RF losartan 100 mg tablet 100 mg PO QDAY Qty: 90 3RF metoprolol succinate 50 mg tablet extended release 24 hr 50 mg PO QDAY Qty: 90 3RF Primary Care Provider: Venecia Hansen Referrals: Venecia Hansen MD [Primary Care Provider] - As Needed Activity Restrictions/Additional Instructions: Tylenol for pain. Ice all sore areas. Follow-up if not improving. Print Language: Amharic Disposition Disposition: Home, Self Care
--- NOTE | 2024-06-07 21:45 | RAD_ITS ---
EXAM: XR CHEST, 2 VIEWS CLINICAL INDICATION: right rib cage injury TECHNIQUE: Frontal and lateral views of the chest. COMPARISON: 04/18/2018 FINDINGS: LUNGS AND PLEURAL SPACES: Unremarkable. No consolidation or edema. No pneumothorax. No effusion. HEART: Unremarkable. Cardiac silhouette not enlarged. MEDIASTINUM: Central airways and mediastinal contour are unremarkable. BONES/JOINTS: Unremarkable. No acute fracture. SOFT TISSUES: Unremarkable. RAD/Chest PA and Lateral IMPRESSION: No radiographic evidence of acute cardiopulmonary disease. Electronically Signed: Dago Alvarenga MD at 22:29 EDT ,
[2024-06-07 22:41] VITALS: BP 166/52; PULSE 52; RESP 17; TEMP 36.3; O2SAT 98
== END 2024-06-07 22:49 | disposition home or self-care (01) ==
PROVIDERS: Emergency Provider Emergency Medicine; PCP Internal Medicine; Visit Provider Emergency Medicine
DX: S09.90XA Unspecified injury of head, initial encounter (principal); S20.20XA Contusion of thorax, unspecified, initial encounter; W19.XXXA Unspecified fall, initial encounter
CPT/HCPCS: 70450; 71046; 99282

== ENCOUNTER 2025-05-06 00:46 | Emergency (ER) | payer MEDICARE, SELFPAY ==
[2025-05-06 00:46] VITALS: BP 189/72; PULSE 68; RESP 18; TEMP 37.1; O2SAT 100; BMI 27.4
[2025-05-06 01:32] VITALS: BP 131/72; PULSE 66; RESP 12; O2SAT 100
--- NOTE | 2025-05-06 01:37 | ED.VIS.GI ---
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 This is according to the patient. She has not had a bowel movement since her surgery yet, feels like she needs to do night and started having pain yesterday but it got really bad tonight. Nausea but no vomiting associated with this pain. Prior to my seeing her in the ER, she was in the restroom here and had a large bowel movement states she feels much better now. She still has some pain, the pain was lower abdomen. [facility] Medical History Nonsustained paroxysmal supraventricular tachycardia Vitreous detachment Occipital neuralgia Essential hypertension Hyperlipidemia Vitamin D deficiency Uterine prolapse Varicella Mumps Leiomyoma of uterus IBS (irritable bowel syndrome) Hiatal hernia Epilepsy Cerebellar hemangioma (2003) History of depression Home Medications ?Medication ?Instructions ?Recorded ?Last Taken ?Type citalopram 20 mg tablet 20 mg PO DAILY 01/31/14 Unknown History lorazepam 1 mg tablet 1 mg PO TID PRN Anxiety #10 TABLETS 09/26/16 Unknown Rx losartan 100 mg tablet 100 mg PO QDAY #90 tabs 01/05/18 Unknown Rx metoprolol succinate 50 mg 50 mg PO QDAY #90 tabs 12/14/18 Unknown Rx tablet,extended release 24 hr calcium 315 mg (as 1 tab PO DAILY 07/29/22 Unknown History citrate)-vitamin D3 5 mcg (200 unit) tablet (Calcium Citrate + D) cholecalciferol (vitamin D3) 50 50 mcg PO DAILY 07/29/22 Unknown History mcg (2,000 unit) tablet [id number] ac 400 1 tab PO DAILY 07/29/22 Unknown History mcg-calcium carb 500 mg-vit K1 20 mcg tablet (Women's 50 Plus Multivitamin) spironolactone 25 mg tablet 25 mg PO DAILY 07/29/22 Unknown History Allergy/AdvReac Type Severity Reaction Status Date / Time hydrochlorothiazide Allergy Unknown Rash Verified 05/06/25 00:46 Tetracyclines Allergy Unknown Diarrhea Verified 05/06/25 00:46 amlodipine AdvReac Hives Verified 05/06/25 00:46 erythromycin base AdvReac Abd Verified 05/06/25 00:46 (Erythromycin Base) cramps/diarrhea fluorescein AdvReac Hives Verified 05/06/25 00:46 Gadolinium-MRI Contrast AdvReac Other Verified 05/06/25 00:46 Medium (Gadolinium-Contrast Medium - MRI) Iodinated Contrast Media AdvReac Hives Verified 05/06/25 00:46 (iodine contrast) Sulfa (Sulfonamide AdvReac Abd Verified 05/06/25 00:46 Antibiotics) cramps/diarrhea tramadol AdvReac Unknown Verified 05/06/25 00:46 Family History (Reviewed 04/06/25 @ 09:05 by Viviana Ojeda GAS DISTRIBUTION AND EMERGENCY CLERK, G[employer] DISTRI[employer]ION AND EMERGENCY CLERK-C) Sister CAD (coronary artery disease) Thyroid disorder Diabetes Mother Hypertension Father Heart disease Myocardial infarction Hypertension Cancer skin Emphysema lung Brother Diabetes Paranoid schizophrenia Migraines Grandmother Diabetes Grandfather Cancer stomach Grandmother Leukemia Surgical History (Updated 05/06/25 @ 04:[address] Freeman Gonzalez MD) H/O: hysterectomy History of hand surgery History of excision of lesion History of colonoscopy History of esophagogastroduodenoscopy (EGD) History of tonsillectomy and adenoidectomy Social History (Reviewed 04/06/25 @ 09:05 by Viviana Ojeda GAS DISTRIBUTION AND EMERGENCY CLERK, G[employer] DISTRI[employer]ION AND EMERGENCY CLERK-C) Smoking Status: Never smoker alcohol intake: never substance use type: does not use ROS ROS ED Constitutional Constitutional ED: Denies chills or fever(s) Eyes Eyes: Denies change in vision or diplopia ENT ENT ED: Denies rhinorrhea or sore throat Cardiovascular Cardiovascular: Denies chest pain or palpitations Respiratory/Chest Respiratory/Chest: Denies cough or dyspnea Gastrointestinal Gastrointestinal: Reports abdominal pain and nausea; Denies diarrhea or vomiting Genitourinary Genitourinary ED: Denies dysuria or hematuria Musculoskeletal Musculoskeletal: Denies back pain or neck pain Integumentary Denies abscess or rash Neurologic Neurologic: Denies headache(s), paresthesias or weakness Psychiatric Psychiatric: Denies anxiety or suicidal thoughts EXAM Physical Exam Const Vital Signs: 05/06/25 00:46 05/06/25 01:32 05/06/25 03:00 Temperature 98.7 F Temperature Source Oral Pulse Rate 68 66 58 L Respiratory Rate 18 12 14 Blood Pressure 189/72 H 131/72 H 161/57 H Blood Pressure Mean 111 91 91 Pulse Ox 100 100 98 Oxygen Delivery Method Room Air Positive well nourished and well developed General Appearance ED: well developed and NAD HEENT Reports moist mucous membranes normocephalic and atraumatic Eyes PERRL and EOMs intact bilaterally Neck full ROM and supple Resp normal respiratory effort and clear to auscultation bilaterally Cardio regular rate, regular rhythm and no murmurs GI non-distended GI Narrative: Very tender in both lower quadrants, some voluntary guarding. No rebound tenderness. Incisions benign and well-healing. No upper abdominal tenderness. Good bowel sounds present. Auscultation: normoactive bowel sounds Palpation: soft Back/Spine no CVA tenderness General Back: other FROM Extremity normal to inspection General Extremety ED: Negative for edema, pulses abnormal or tenderness General Extremity: Negative for edema or pulses abnormal Neuro oriented x3, CN's II-XII intact bilaterally and no sensory deficits noted Sensorium / Orientation: awake and alert Motor Exam: strength 5/5 throughout Skin no rashes or lesions noted and no wounds MDM MDM MDM Narrative Medical decision making narrative: I examined patient just after she had a large bowel movement, and she felt better but she is still quite tender in her lower abdomen. The rest of her abdomen was quite benign. For this reason I thought better to obtain imaging and labs to put in the context. The radiologist called me and discussed his findings, the most concerning of which was subcutaneous air in the abdominal wall including the rectus sheath tracking down into the groin. There is also a small amount of air in the bladder, she has had no urinary issues, and she confirms that she had a catheter during the surgery. I suspect this is probably related to the catheter rather than a urinary infection. Also some inflammation in the sigmoid colon, and gallbladder abnormality without radiographic evidence of stones. I reviewed the images and the report which I agree with. On reexamination after receiving these test results, the patient is feeling much much better without additional treatment for her pain. I reexamined her. I do not feel subcutaneous emphysema. There is no evidence of cellulitis of the abdominal wall or the proximal thighs, and she has no reproducible tenderness now and feels well. This includes the left side of the abdomen and she never had any tenderness in the upper abdomen to suggest acute cholecystitis. My suspicion is that this subcutaneous tracking air is related to port placement as opposed to necrotizing fasciitis given all of this. I did speak with the wine maker on-call for her surgeon Dr. Jina Avila, Dr. Horne, who agrees and also advises giving the patient return precautions, and he did also offer to observe the patient. She is comfortable going home at this time, so I am comfortable letting her and follow-up after the weekend. Lab Data Attestation: I reviewed the patient's lab results. Labs: Laboratory Results - last 24 hr 05/06/25 01:36 WBC 14.1 H RBC 3.17 L Hgb 10.7 L Hct 31.7 L MCV 100.0 H MCH 33.8 H MCHC 33.8 RDW Std Deviation 42.3 RDW Coeff of Myriam 11.6 Plt Count 213 MPV 10.7 Immature Gran % (Auto) 0.300 Neut % (Auto) 85.0 H Lymph % (Auto) 5.8 L [place] % (Auto) 8.3 Eos % (Auto) 0.5 Baso % (Auto) 0.1 Absolute Neuts (auto) 12.0 H Absolute Lymphs (auto) 0.81 L Nucleated RBC % 0 Sodium 138 Potassium 4.4 Chloride 102 Carbon Dioxide 22.3 Anion Gap 14 BUN 31 H Creatinine 1.27 H Estim Creat Clear Calc 28.46 L Est GFR (MDRD) Non-Af 42 L BUN/Creatinine Ratio 24.3 H Glucose 127 H Calcium 9.7 Radiography Diagnostic Testing: Clinical Impression(s) from Imaging Studies Abdomen/Pelvis CT 05/06/25 02:57 IMPRESSION: 1. There is extensive subcutaneous emphysema throughout the chest and abdominal wall, and tracking into the groin and thigh. This includes air within the left rectus sheath and deep between the thigh musculature. Recommend ROTARY OPERATOR consultation. Additionally, correlate with symptoms to exclude necrotizing fasciitis. 2. Wall thickening and inflammatory stranding at the splenic flexure of the colon may represent colitis (which may be of infectious, ischemic, or inflammatory etiology). 3. Small amount of intraluminal urinary bladder air may be the result of recent instrumentation, otherwise consider emphysematous cystitis. 4. Small amount of pelvic free fluid is likely postoperative. 5. Borderline thickening of the gallbladder wall, without radiodense stones. Consider ultrasound if there is concern for acute cholecystitis. 6. Mild cardiomegaly with small pericardial effusion. [place] Alert: Extensive subcutaneous emphysema The critical information above was relayed directly by me by telephone to Freeman Gonzalez on 05/06/2025 at 3:23 am with readback verification. Reading Location: [id number] Management Discussion w/another healthcare provider: [facility] (Dr. Horne gynecology) and Radiologist Discharge Plan Triage Chief Complaint: Abd Pain ED Provider: Freeman Gonzalez Dx/Rx/DC Orders Clinical Impression: Acute bilateral lower abdominal pain, Constipation, S/P laparoscopic surgery, Colitis Instructions: ED Constipation (Adult) Prescriptions: No Action spironolactone 25 mg tablet 25 mg PO DAILY Women's 50 Plus Multivitamin 400 mcg-500 mg calcium-20 mcg tablet 1 tab PO DAILY calcium citrate-vitamin D3 [Calcium Citrate + D] 315 mg-5 mcg (200 unit) tablet 1 tab PO DAILY cholecalciferol (vitamin D3) 50 mcg (2,000 unit) tablet 50 mcg PO DAILY citalopram 20 MG tablet 20 mg PO DAILY lorazepam 1 MG tablet 1 mg PO TID PRN (Reason: Anxiety) Qty: 10 0RF losartan 100 mg tablet 100 mg PO QDAY Qty: 90 3RF metoprolol succinate 50 mg tablet extended release 24 hr 50 mg PO QDAY Qty: 90 3RF Primary Care Provider: Venecia Hansen Referrals: Jina Stearns MD [Non-Staff] - As soon as possible (after the weekend) Activity Restrictions/Additional Instructions: If you have any fevers, or significant increase in your pain, return to the ER for reevaluation and/or call your surgeon. Drink plenty of fluids. Consider taking a capful of MiraLAX once daily, docusate sodium 100 mg twice daily, or all of the above. Print Language: Gu[place]ese Disposition Disposition: Home, Self Care
[2025-05-06] MEDS: DiphenhydrAMINE 50 MG/ML Syringe 25 MG IV (01:45)
[2025-05-06 01:49] LABS: Absolute Lymphocyte Count 0.81 X10^3/uL (0.83-4.51); Basophil# 0.02 X10^3/uL; Basophil% 0.1 % (0-1); Eosinophil# 0.07 X10^3/uL; Eosinophils% 0.5 % (0-5); Hematocrit 31.7 % (37-47); Hemoglobin 10.7 g/dL (12.0-15.0); Lymphocyte # 0.81 X10^3/ul (0.83-4.51); Lymphocyte % 5.8 % (19-41); Mean Corp Hgb Conc 33.8 g/dL (32-36); Mean Corpuscular Hgb 33.8 pg (27.0-32.0); Mean Platelet Vol. 10.7 fl (6.2-12.0); Monocyte# 1.17 X10^3/uL; Monocyte% 8.3 % (0-10); NRBC Flagged by Analyzer 0 % (0-5); Neutrophil # 11.97 X10^3/uL (2.7-7.7); Platelet Count 213 K/mm3 (150-450); RBC Distribution Width CV 11.6 % (11.6-14.6); RBC Distribution Width SD 42.3 fl (35.1-43.9); Red Blood Count 3.17 M/mm3 (4.2-5.4); White Blood Count 14.1 K/mm3 (4.4-11.0)
--- OUTSIDE RECORDS SUMMARY | 2025-05-06 01:51 | XMS RPT_ITS | CCD ---
Author Organization [facility] CliniSyla Care Team Providers Care Customer Account Specialist Name Role Phone Melissa FAY, Elva Tai Unavailable Unavailable Sabine Ribeiro Unavailable NYA Merrill, Domi Franks Unavailable Unavailabl e Sabine Ribeiro Unavailable Melissa FAY, Elva Tai Unavailable Unavailable Chip Wiley MD Primary Care Provider Chip Wiley MD Primary Care Provider Chip Wiley MD Primary Care Provider Dr. Chip Wiley Primary Care Provider Dr. Chip Wiley Referring Provider Rusty GONZALES, SINTIA Michelle Attending Provider Dr. Nadeem Richardson Attending Provider Chip Wiley MD Primary Care Provider Dickerson AIR TWIST OPERATOR.FINANCE BROKER, Yaquelin Unavailable Yuly AIR TWIST OPERATOR.HEMATOLOGY NURSE, Joanna Unavailable Yuly AIR TWIST OPERATOR.HEMATOLOGY NURSE, Joanna Unavailable Yuly AIR TWIST OPERATOR.HEMATOLOGY NURSE, Joanna Unavailable Chip Wiley Referring Unavailable Viviana Ojeda NP Attending Unavailable Chip Wiley Primary Care Unavailable Talampelayne, Chip D Primary Care Unavailable Ottoniel Ledesma Attending Unavailable MADELINE RESTREPO Attending Unavailable DONTRELLAMPCHIP AL Primary Care Unavailable SELF Referring Unavailable TALAMPAS, CHIP D Primary Care Unavailable JOANNA ORTIZ Attending Unavailable JOANNA ORTIZ Referring Unavailable TALAMPELAYNE, CHIP D Primary Care Unavailable DONTRELLAMPELAYNE, CHIP D Primary Care Unavailable MADELINE RESTREPO Referring Unavailable SOUTH, JOANNE M Referring Unavailable LUISA BARROS Attending Unavailable TALAMPAS, CHIP D Primary Care Unavailable TALAMPAS, CHIP D Primary Care Unavailable SOUTH, JOANNE M Attending Unavailable TALAMPAS, CHIP D Primary Care Unavailable TALAMPAS, CHIP D Primary Care Unavailable SOUTH, JOANNE M Referring Unavailable TALAMPAS, CHIP D Primary Care Unavailable TALAMPAS, CHIP D Primary Care Unavailable TALAMPAS, CHIP D Attending Unavailable TALAMPAS, CHIP D Referring Unavailable TALAMPAS, CHIP D Primary Care Unavailable MADELINE RESTREPO Attending Unavailable SOUTH, JOANNE M Referring Unavailable TALAMPAS, CHIP D Primary Care Unavailable TALAMPAS, CHIP D Primary Care Unavailable KALEIGH PHAM Attending Unavailable TALAMPAS, CHIP D Primary Care Unavailable TALAMPAS, CHIP D Primary Care Unavailable TALAMPAS, CHIP D Primary Care Unavailable SOUTH, JOANNE M Attending Unavailable SOUTH, JOANNE M Referring Unavailable TALAMPAS, CHIP D Primary Care Unavailable SOUTH, JOANNE M Referring Unavailable TALAMPAS, CHIP D Primary Care Unavailable RAUH-ERLIN, JINA A Referring Unavailable TALAMPAS, CHIP D Primary Care Unavailable RAUH-ERLIN, JINA A Admitting Unavailable RA-ERLIN, JINA A Attending Unavailable RA-ERLIN, JINA A Referring Unavailable TALAMPAS, CHIP D Primary Care Unavailable SOUTH, JOANNE M Admitting Unavailable SOUTH, JOANNE M Attending Unavailable SOUTH, JOANNE M Referring Unavailable TALAMPAS, CHIP D Primary Care Unavailable RA-ERLIN, JINA A Attending Unavailable RA-ERLIN, JINA A Referring Unavailable TALAMPAS, CHIP D Primary Care Unavailable YESSI OSORIO Referring Unavailable TALAMPAS, CHIP D Primary Care Unavailable [place] AIR TWIST OPERATOR.FINANCE BROKER, Yaquelin Unavailable Allergies Allergy Classification Reported Allergen(s) Allergy Type Date of Onset Reaction(s) Facility (20 sources) amLODIPine; Translations: [amlodipine] drug allergy 11-25-20 16 Swelling [facility] Work Phone: (5 sources) Contrast media drug allergy 08-15-20 11 Hives [facility] Work Phone: (5 sources) erythromycin drug allergy 08-15-20 11 Rash, GI upset [facility] Work Phone: (20 sources) hydroCHLOROthiazid e; Translations: [hydrochlorothiazi de] drug allergy 11-25-20 16 Rash [facility] Work Phone: (5 sources) lisinopril drug allergy 08-15-20 11 [facility] Work Phone: (5 sources) Sulfonamides (Antibiotic) drug allergy 08-15-20 11 Rash, GI upset [facility] Work Phone: [phone] (20 sources) tetracycline; Translations: [TETRACYCLINE] drug allergy 06-28-20 03 Severe diarrhea [facility] Work Phone: [phone] (20 sources) traMADol; Translations: [TRAMADOL] food allergy 02-17-20 06 Hives, sweats, pablo, rash, Unknown [facility] Work Phone: [phone] (5 sources) AMLOID drug allergy 11-25-20 16 swollen legs [facility] Work Phone: [phone] (5 sources) GADOLINIUM drug allergy 08-15-20 11 [facility] Work Phone: [phone] (5 sources) FLOURESCEIN drug allergy 08-15-20 11 [facility] Work Phone: [phone] (20 sources) Contrast media; Translations: [CONTRAST DYE] Propensity to adverse reactions 04-22-20 10 Hives [facility] Work Phone: (20 sources) Erythromycin; Translations: [ERYTHROMYCIN BASE] Drug Allergy 06-28-20 03 Abd cramps/diarrhe a [facility] (20 sources) Fluorescein; Translations: [FLUORESCEIN] Drug Allergy 09-28-20 08 Hives [facility] Work Phone: (20 sources) POISON YAZ EXTRACT; Translations: [POISON YAZ] Drug Allergy 08-01-20 11 Hives, Intolerance, Itching [facility] (20 sources) Sulfonamides (Antibiotic); Translations: [SULFA (SULFONAMIDE ANTIBIOTICS)] Drug Allergy 06-28-20 03 [facility] (20 sources) Gadolinium-Contain ing Contrast Media; Translations: [GADOLINIUM-CONTAI KELSY CONTRAST MEDIA] Propensity to adverse reactions 09-30-20 05 [facility] (2 sources) Sulfonamides (Antibiotic) Propensity to adverse reactions 02-05-20 Abd cramps/diarrhe a [facility] (2 sources) Tetracyclines Allergy to substance 02-05-20 Diarrhea [facility] (2 sources) Gadolinium-MRI Contrast Medium Propensity to adverse reactions 02-05-20 Other [facility] (1 source) ANGIOGRAM FA Propensity to adverse reactions 02-05-20 [facility] (1 source) Triiodobenzoic Acids Propensity to adverse reactions 02-20-20 [facility] (20 sources) Gadolinium-Contain ing Contrast Media Propensity to adverse reactions 09-30-20 [facility] (1 source) Erythromycin Drug Allergy 04-06-20 [facility] (1 source) Fluorescein Drug Allergy 04-06-20 [facility] (1 source) Sulfonamides (Antibiotic) Drug allergy (disorder) 04-06-20 [facility] (1 source) Tetracyclines Drug allergy (disorder) 04-06-20 [facility] (1 source) Iodinated Contrast Media Drug allergy (disorder) 04-06-20 [facility] (1 source) Gadolinium-MRI Contrast Medium Drug allergy (disorder) 04-06-20 [facility] Medications Current Medications Medication Drug Class(es) Dates Sig (Normalized) Sig (Original) calcium citrate 1500 mg / cholecalciferol 200 unt oral tablet (2 sources) Vitamin D Start: 07-29-2022 take 1 tablet by mouth once daily Calcium Citrate-Vitamin D3 (Calcium Citrate + D) 315 mg-5 mcg (200 unit) tablet Active 1 TABLET PO DAILY July 29, 2022 12:00am CALCIUM CITRATE/VITAMIN D3 (CALCIUM CITRATE + ORAL) (20 sources) CALCIUM CITRATE/VITAMIN D3 (CALCIUM CITRATE + ORAL) Take by mouth. Active CALCIUM CITRATE/ VITAMIN D3 (CALCIUM CITRATE + ORAL) Take by mouth. 0 Active Comment on above: Take by mouth. cephalexin 500 mg oral capsule (1 source) Cephalosporin Antibacterial Start: 025 End: 025 take 1 capsule by mouth twice daily cephALEXin (KEFLEX) 500 mg capsule Take 1 capsule by mouth two times a day for 5 days. 10 capsule 12/24/2024 12/29/2024 Active cholecalciferol 0.05 mg oral tablet (12 sources) Vitamin D Start: take 50 ug by mouth once daily Cholecalciferol (Vitamin D3) Active 50 MCG PO DAILY July 29, 2022 12:00am Start: 04-29-2019 End: 06-20-2021 take 2 capsules by mouth once daily Cholecalciferol, Vitamin D3, 1,000 unit cap Indications: Vitamin D deficiency Take 2 capsules by mouth once daily. 04/29/2019 06/20/2021 Discontinued (Discontinued by Patient) Start: 10-06-2013 End: 04-10-2017 take 1 tablet by mouth once daily VITAMIN D 2000 UNIT TABS One tablet by mouth daily CHOLECALCIFEROL [id number] Nadeem Richardson MD citalopram 20 mg oral tablet (20 sources) Serotonin Reuptake Inhibitor Start: 10-06-2013 End: 07-04-2024 take 1 tablet by mouth once daily citalopram (CELEXA) 20 mg tablet Indications: Anxiety Take 1 tablet by mouth once daily. 90 tablet 3 07/04/2024 Active Start: 10-12-2012 CITALOPRAM HYD ROBROMIDE 20 MG TABS 1/2 tablet once a day CITALOPRAM HYDROBROMIDE [id number] Elva Torres RN Comment on above: Take 1 tablet by melissa th once daily. diphenhydrAMINE hydrochloride 50 mg oral capsule (5 sources) Histamine-1 Receptor Antagonist Start: take 1 capsule by mouth every hour diphenhydrAMINE (BENADRYL) 50 mg capsule Indications: Granulosa cell tumor Take 1 capsule by mouth as directed for 1 dose. one (1) hour prior to exam. 1 capsule 03/17/2025 Active iv contrast (will be provided with radiology test) (5 sources) Start: iv contrast (will be provided with radiology test) Indications: Granulosa cell tumor CT ABD/PEL -Inject, intravenously, once for 1 dose.No IV access, insert saline lock prior to the beginning of sedation, infusion, injection of imaging exam. Discontinue saline lock post exam. If Pt. has a central line or IVAD, may access for administration according to line specific nursing protocol. Once exam is complete flush line and de-access according to line specific nursing protocol in the CT contrast administration guidelines link. 1 each 03/17/2025 Active LORazepam 1 mg oral tablet (20 sources) Benzodiazepine Start: End: LORazepam (ATIVAN) 1 mg tablet Indications: Anxiety state Take 0.5-1 tablets by mouth three times daily as needed for anxiety for up to 196 days. Do not start before August 23, 2021. 10 tablet 08/23/2021 07/29/2021 Discontinued Start: 07-30-2021 End: 07-22-2023 LORazepam (ATIVAN) 1 mg tabl et Indications: Anxiety state Take 0.5-1 tablets by mouth three times daily as needed for anxiety for up to 90 days. Do not start before July 30, 2021. 10 tablet 0 07/30/2021 07/22/2023 Discontinued Start: 02-02-2014 ATIVAN 0.5 MG TABS as needed LORAZEPAM [id number] Domi Merrill RN Start: 11-25-2011 End: 02-24-2012 take 1 tablet by mouth three times daily as needed ATIVAN 0.5 MG TABS One tablet by mouth three times daily as needed LORAZEPAM [id number] Nadeem Richardson MD Start: 08-15-2011 End: 08-10-2024 take 0.5-1 tablets by mouth three times daily as needed for anxiety LORazepam (ATIVAN) 1 mg tablet Indications: Anxiety state Take 0.5-1 tablets by mouth three times a day as needed for anxiety for up to 90 days. 10 tablet 05/12/2024 Active Comment on above: Take 0.5-1 tablets b y mouth three times daily as needed for anxiety for up to 90 days. Do not start before July 30, 2021. Take 0.5-1 tablets b y mouth three times daily as needed for anxiety for up to 90 days. losartan potassium 100 mg oral tablet (20 sources) Angiotensin 2 Receptor Patti Start: 8 End: take 1 tablet by mouth once daily losartan (COZAAR) 100 mg tablet Indications: Primary hypertension Take 1 tablet by mouth once daily. 90 tablet 3 07/04/2024 Active Start: 02-02-2014 End: 01-05-2018 take 100 mg by mouth once daily Losartan Discontinued 100 MG PO DAILY February 02, 2014 1:00am January 05, 2018 4:26pm Start: 02-02-2014 take 1 tablet by melissa th once daily LOSARTAN POTASSIUM 100 MG TABS One tablet by mouth daily LOSARTAN POTASSIUM [id number] Nadeem Richardson MD Start: 01-12-2014 take 1 tablet by melissa th once daily LOSARTAN POTASSIUM 50 MG TABS One tablet by mouth daily LOSARTAN POTASSIUM [id number] Nadeem Richardson MD Comment on above: Take 1 tablet by melissa th once daily. 24 hr metoprolol succinate 50 mg extended release oral tablet (20 sources) beta-Adrenergic Patti Start: 07-22-2021 End: 12-16-2021 take 1 tablet by mouth once daily metoprolol succinate ER (TOPROL XL) 25 mg 24 hr tablet Indications: Tachycardia, unspecified Take 1 tablet by mouth once daily. 90 tablet 3 07/22/2021 12/16/2021 Discontinued Start: 01-05-2018 End: 07-04-2024 take 1 tablet by mouth once daily metoprolol succinate ER (TOPROL XL) 50 mg 24 hr tablet Indications: Primary hypertension , Tachycardia, unspecified Take 1 tablet by mouth once daily. 90 tablet 3 07/04/2024 Active Start: 07-12-2013 take 1 tablet by melissa th once daily METOPROLOL SUCCINATE ER 25 MG [id number] One tablet by mouth daily METOPROLOL SUCCINATE [id number] Nadeem Richardson MD Start: 07-12-2013 take 1 tablet by melissa th once daily TOPROL XL 50 MG [id number] One tablet by mouth daily METOPROLOL SUCCINATE [id number] Nadeem Richardson MD Start: 07-12-2013 take 0.5 tablet by m outh once daily TOPROL XL 50 MG [id number] One-half tablet by mouth daily METOPROLOL SUCCINATE [id number] Libra Lindsay RN Start: 02-14-2013 take 1 tablet by melissa th once daily TOPROL XL 50 MG [id number] (ER) One and one half tablet by mouth daily METOPROLOL SUCCINATE [id number] Donna Gonzalez PA-C Start: 02-02-2013 End: 01-05-2018 take 25 mg by mouth once daily Metoprolol Succinate Di scontinued 25 MG PO DAILY January 31, 2014 1:00am January 05, 2018 4:24pm Start: 08-15-2011 take 1 tablet by melissa th once daily TOPROL XL 50 MG [id number] One tablet by mouth daily METOPROLOL SUCCINATE [id number] Nadeem Richardson MD Comment on above: Take 1 tablet by melissa th once daily. Te-Oos-Tomiz-Calciu m Carb-K1 (Women's 50 Plus Multivitamin) 400 mcg-500 mg calcium-20 mcg tablet (2 sources) Start: 07-29-2022 take 1 tablet by mouth once daily Tm-Ibw-Fncrp-Calci um Carb-K1 (Women's 50 Plus Multivitamin) 400 mcg-500 mg calcium-20 mcg tablet Active 1 TABLET PO DAILY July 29, 2022 12:00am MV-MN/IRON FUM/FA/OMEGA3,6,9#3 (WOMEN'S MULTI ORAL) (20 sources) take 1 tablet by mouth once daily MV-MN/IRON FUM/FA/OMEGA3,6,9# 3 (WOMEN'S MULTI ORAL) Take 1 tablet by mouth once daily. Active MV-MN/IRON FUM/F A/OMEGA3,6,9#3 (WOMEN'S MULTI ORAL) Take by mouth. Active MV-MN/IRON FUM/F A/OMEGA3,6,9#3 (WOMEN'S MULTI ORAL) Take by mouth. 0 Active Comment on above: Take by mouth. naproxen 500 mg oral tablet (3 sources) Nonsteroidal Anti-inflammatory Drug Start: 09-27-2024 End: 10-11-2024 take 1 tablet by mouth twice daily at mealtime naproxen (NAPROSYN) 500 mg tablet Indications: Right hip pain Take 1 tablet by mouth two times a day with meals for 14 days. Take with food. 28 tablet 09/27/2024 10/11/2024 Active Start: 02-26-2021 End: 06-20-2021 take 1-2 tablets by mouth twice daily at mealtime for pain naproxen sodium (ALEVE) 220 mg tablet Indications: Fall, initial encounter , Tailbone injury, initial encounter Take 1-2 tablets by mouth twice daily with meals. TAKE WITH FOOD for the next few days for pain 02/26/2021 06/20/2021 Discontinued (Course of therapy completed) nystatin 100 unt/mg / triamcinolone acetonide 0.001 mg/mg topical ointment (2 sources) Polyene Antifungal, Corticosteroid Start: 11-12-2022 End: 11-26-2022 nystatin-triamcinolone (MYCOLOG) ointment Indications: Yeast dermatitis Apply to affected area three times daily for 14 days. 30 g 0 11/12/2022 11/26/2022 Active Comment on above: Apply to affected ar ea three times daily for 14 days. ondansetron 4 mg disintegrating oral tablet (12 sources) Serotonin-3 Receptor Antagonist Start: 03-06-2025 End: 05-13-2025 take 1 tablet by mouth every eight hours as needed ondansetron orally disintegrating (ZOFRAN ODT) 4 mg disintegrating tablet Take 1 tablet by mouth every 8 hours as needed for nausea/vomiting for up to 30 doses. 30 tablet 05/03/2025 11:33 AM EDT 05/03/2025 05/13/2025 Active Start: 01-23-2025 End: 01-26-2025 take 1 tablet by mouth every eight hours as needed for nausea ondansetron (ZOFRAN) 4 mg tablet Indications: Uterovaginal prolapse, incomplete Take 1 tablet by mouth every 8 hours as needed for nausea/vomiting for up to 3 days. 9 tablet 01/23/2025 01/26/2025 Active perflutren lipid microspheres 1.3 mL in NaCl (PF) 0.9% 10 mL injection (DEFINITY) (19 sources) Start: 05-27-2022 End: 08-26-2023 perflutren lipid microspheres 1.3 mL in NaCl (PF) 0.9% 10 mL injection (DEFINITY) scopolamine - REMOVE PATCH (1 source) Start: 05-06-2025 End: 05-04-2025 scopolamine - REMOVE PATCH 125 ml sodium chloride 9 mg/ml prefilled syringe (19 sources) Start: 05-27-2022 End: 08-26-2023 sodium chloride 0.9 % (flush) 10 mL (BD POSIFLUSH) spironolactone 25 mg oral tablet (20 sources) Aldosterone Antagonist Start: 05-27-2022 End: 07-04-2024 take 1 tablet by mouth once daily spironolactone (ALDACTONE) 25 mg tablet Take 1 tablet by mouth once daily. For BP 90 tablet 3 07/04/2024 Active Comment on above: Take 1 tablet by melissa once daily. For BP Take 1 tablet by melissa once daily. Short term supply until patient receives mail order triamcinolone acetonide 1 mg/ml topical cream (12 sources) Corticosteroid Start: 01-27-2023 End: 02-10-2023 triamcinolone acetonide (KENALOG) 0.1 % cream Indications: Skin lesions , Family history of skin cancer Apply 1 application to affected area twice daily for 14 days. Apply to affected area. Apply to itchy skin as needed 15 g 1 01/27/2023 02/10/2023 Active Start: 10-12-2012 End: 02-02-2014 TRIAMCINOLONE ACETONIDE 0.02 5 % CREA apply to affected area three times a day as needed TRIAMCINOLONE ACETONIDE [id number] Domi Merrill RN Comment on above: Apply 1 application to affected area twice daily for 14 days. Apply to affected area. Apply to itchy skin as needed Completed/Discontinued Medications Medication Drug Class(es) Dates Sig (Normalized) Sig (Original) acetaminophen 325 mg oral tablet (1 source) Start: 05-03-2025 End: 05-03-2025 take 1 dose by mouth once 975 mg, ORAL, PRE-OP ONCE, 1 dose, On Thu05/03/25 at 1100, Preprocedure Start: 05-03-2025 End: 05-03-2025 take 1 dose by mouth once 975 mg, ORAL, PRE-OP ONCE, 1 dose, On Thu05/03/25 at 1100, Preprocedure ALPRAZolam 0.5 mg oral tablet (10 sources) Benzodiazepine Start: 10-06-2013 End: 02-02-2014 ALPRAZOLAM 0.5 MG TABS as needed ALPRAZOLAM [id number] Nadeem Richardson MD amLODIPine 10 mg oral tablet (20 sources) Dihydropyridine Calcium Channel Patti Start: 08-06-2016 take 1 tablet by mouth once daily AMLODIPINE BESYLATE 5 MG TABS One tablet by mouth daily AMLODIPINE BESYLATE [id number] Nadeem Richardson MD Start: 08-06-2016 End: 11-25-2016 take 0.5 tablet by mouth once daily AMLODIPINE BESYLATE 10 MG TABS One-half tablet by mouth daily AMLODIPINE BESYLATE [id number] Libra Lindsay RN Start: 08-05-2016 End: 09-26-2016 take 10 mg by mouth once daily Amlodipine Discontinued 10 MG PO DAILY August 05, 2016 12:00am September 26, 2016 4:00am calcium carbonate 1500 mg / cholecalciferol 200 unt oral tablet (4 sources) Vitamin D Start: 10-12-2012 End: 10-03-2014 take 1 tablet by mouth twice daily CALCIUM + D 600-200 MG-UNIT TABS One tablet by mouth twice daily CALCIUM CARBONATE-VITAMIN D [id number] Elva Torres RN calcium carbonate / vitamin D (10 sources) Start: 04-10-2017 take 1 tablet by mouth once daily CALCIUM + D 600-200 MG-UNIT TABS One tablet by mouth daily 400iu D3 CALCIUM CARBONATE-VITAMIN D Nadeem Richardson MD Start: 10-12-2012 take 1 tablet by melissa th twice daily CALCIUM + D 600-200 MG-UNIT TABS One tablet by mouth twice daily CALCIUM CARBONATE-VITAMIN D [id number] Elva Torres RN Start: 10-12-2012 End: 10-03-2014 take 1 tablet by mouth twice daily CALCIUM + D 600-200 MG-UNIT TABS One tablet by mouth twice daily CALCIUM CARBONATE-VITAMIN D [id number] Nadeem Richardson MD calcium chloride 0.0014 meq/ml / potassium chloride 0.004 meq/ml / sodium chloride 0.103 meq/ml / sodium lactate 0.028 meq/ml injectable solution (1 source) Start: 05-03-2025 End: 05-04-2025 take 5-30 mL intravenously every hour 5-30 mL/hr, INTRAVENOUS, CONTINUOUS, Starting on Thu05/03/25 at 1300, Until Thu05/04/25 at 0303, Recovery or Phase I (only) celecoxib 200 mg oral capsule (1 source) Nonsteroidal Anti-inflammatory Drug Start: 05-03-2025 End: 05-03-2025 take 1 dose by mouth once 400 mg, ORAL, PRE-OP ONCE, 1 dose, On Thu05/03/25 at 1100, Preprocedure Start: 05-03-2025 End: 05-03-2025 take 1 dose by mouth once 400 mg, ORAL, PRE-OP ONCE, 1 dose, On Thu05/03/25 at 1100, Preprocedure clotrimazole 10 mg/ml topical solution (10 sources) Azole Antifungal Start: 10-12-2012 End: 10-09-2015 CLOTRIMAZOLE 1 % SOLN Apply topically to rash Twice daily as needed CLOTRIMAZOLE [id number] Elva Torres RN ergocalciferol 67141 unt oral tablet (5 sources) Provitamin D2 Compound Start: 10-06-2013 take 1 tablet by mouth every week VITAMIN D (ERGOCALCIFEROL) 18714 UNIT CAPS 1 tablet by mouth weekly ERGOCALCIFEROL [id number] Nadeem Richardson MD estrogens 2 mg/ml injectable suspension (10 sources) Start: 08-15-2011 ESTROGENS 2MG/ML Apply vaginally 3 X a week ESTROGENS 2MG/ML Anna Marie Pat Start: 08-15-2011 End: 11-25-2011 ESTROGENS 2MG/ML Apply vagin ally 3 X a week ESTROGENS 2MG/ML Elva Torres RN 1 ml fentaNYL 0.05 mg/ml injection (1 source) Opioid Agonist Start: 05-03-2025 End: 05-03-2025 50 mcg, INTRAVENOUS, EVERY 5 MINUTES NEEDED, 2 doses, Starting on Thu05/03/25 at 1237, Until Thu05/03/25 at 1311, FIRST LINE THERAPY for mild, moderate, or severe pain, Every 5 minutes. Use if patient unable to tolerate oral therapy. Hold for respiratory rate less than 12 Max total dose: 100 mcg, Recovery or Phase I (only) fluconazole 150 mg oral tablet (2 sources) Azole Antifungal Start: 11-21-2022 End: 11-21-2022 fluconazole (DIFLUCAN) 150 mg tablet Indications: Yeast dermatitis Take 1 tablet by mouth one time only for 1 dose. Repeat in 3 days as needed. 2 tablet 0 11/21/2022 11/21/2022 Start: 11-12-2022 End: 11-12-2022 fluconazole (DIFLUCAN) 150 m g tablet Indications: Yeast dermatitis Take 1 tablet by mouth one time only for 1 dose. Repeat in 3 days as needed. 2 tablet 0 11/12/2022 11/12/2022 Active Comment on above: Take 1 tablet by melissa one time only for 1 dose. Repeat in 3 days as needed. 1 ml heparin sodium, porcine 5000 unt/ml injection (1 source) Unfractionated Heparin, Anti-coagulant Start: 05-03-20 End: 05-03-20 inject 1 dose by subcutaneous injection once daily 5,000 Units, SUBCUTANEOUS, PRE-OP ONCE, 1 dose, On Thu05/03/25 at 1100, ADMINISTER IN PRE-OP AREA Day of Surgery Pre Op Order, Preprocedure Start: 05-03-2025 End: 05-03-2025 inject 1 dose by subcutaneous injection once daily 5,000 Units, SUBCUTANEOUS, PRE-OP ONCE, 1 dose, On Thu05/03/25 at 1100, ADMINISTER IN PRE-OP AREA Day of Surgery Pre Op Order, Preprocedure hydroCHLOROthiazide 12.5 mg oral tablet (10 sources) Thiazide Diuretic Start: 10-28-2016 End: 11-25-2016 take 1 tablet by mouth once daily HYDROCHLOROTHIAZIDE 12.5 MG TABS One tablet by mouth daily HYDROCHLOROTHIAZIDE [id number] Nadeem Richardson MD 0.5 ml HYDROmorphone hydrochloride 1 mg/ml prefilled syringe (1 source) Opioid Agonist Start: 05-03-2025 End: 05-04-2025 0.5 mg, INTRAVENOUS, EVERY 10 MINUTES NEEDED, 4 doses, Starting on Thu05/03/25 at 1237, Until Thu05/04/25 at 0303, SECOND LINE THERAPY for mild, moderate, or severe pain, Every 10 minutes. Use if patient unable to tolerate oral therapy. Hold for respiratory rate less than 12 Max total dose: 2 mg Caution: IV hydromorphone is approximately 8 times MORE POTENT than IV morphine. For example, hydromorphone 1mg IV = morphine 8mg IV, Recovery or Phase I (only) MULTIPLE VITAMIN (10 sources) Start: 04-10-2017 take 1 tablet by mouth once daily MULTIVITAMINS TABS One tablet by mouth daily MULTIPLE VITAMIN Nadeem Richardson MD Start: 10-12-2012 End: 02-02-2014 take 1 tablet by mouth once daily MULTIVITAMINS TABS One tablet by mouth daily MULTIPLE VITAMIN [id number] Domi Merrill RN Start: 10-12-2012 take 1 tablet by melissa th once daily MULTIVITAMINS TABS One tablet by mouth daily MULTIPLE VITAMIN [id number] Elva Torres RN MULTIPLE VITAMIN (4 sources) Start: 10-12-2012 End: 02-02-2014 take 1 tablet by mouth once daily MULTIVITAMINS TABS One tablet by mouth daily MULTIPLE VITAMIN [id number] Domi Merrill RN Start: 10-12-2012 take 1 tablet by melissa th once daily MULTIVITAMINS TABS One tablet by mouth daily MULTIPLE VITAMIN [id number] Elva Torres RN nitrofurantoin, macrocrystals 25 mg / nitrofurantoin, monohydrate 75 mg oral capsule (10 sources) Nitrofuran Antibacterial Start: 12-22-2024 End: 12-27-2024 take 1 capsule by mouth twice daily nitrofurantoin monohydrate and macrocrystal (MACROBID) 100 mg capsule Indications: Dysuria Take 1 capsule by mouth two times a day for 5 days. 10 capsule 12/22/2024 12/27/2024 Discontinued Start: 07-12-2024 End: 07-17-2024 take 1 capsule by mouth twice daily nitrofurantoin monohydrate and macrocrystal (MACROBID) 100 mg capsule Indications: Burning with urination Take 1 capsule by mouth two times a day for 5 days. 10 capsule 0 07/12/2024 07/17/2024 Active Start: 03-10-2023 End: 03-15-2023 take 1 capsule by mouth twice daily nitrofurantoin monohydrate and macrocrystal (MACROBID) 100 mg capsule Take 1 capsule by mouth twice daily for 5 days. 10 capsule 0 03/10/2023 03/15/2023 Active Start: 08-13-2022 End: 08-20-2022 take 1 capsule by mouth twice daily nitrofurantoin monohydrate and macrocrystal (MACROBID) 100 mg capsule Indications: Burning with urination Take 1 capsule by mouth twice daily for 7 days. 14 capsule 0 08/13/2022 08/20/2022 Active Comment on above: Take 1 capsule by mo ut twice daily for 7 days. Take 1 capsule by mo [facility] twice daily for 5 days. oxyCODONE hydrochloride 5 mg oral tablet (3 sources) Opioid Agonist Start: 05-03-2025 End: 05-04-2025 5 mg, ORAL, NEEDED, 1 dose, Starting on Thu05/03/25 at 1237, Until Aide 05/04/25 at 0303, Moderate Pain (4-6) - Enteral, Recovery or Phase I (only) Start: 01-23-2025 End: 01-26-2025 take 1 tablet by mouth every six hours as needed for pain oxyCODONE IR (ROXICODONE) 5 mg immediate release tablet Indications: Uterovaginal prolapse, incomplete Take 1 tablet by mouth every 6 hours as needed for pain (after surgery) for up to 3 days. For pain after surgery as needed. Best to use tylenol and ibuprofen first and then add oxycodone in as needed. 12 tablet 01/23/2025 01/26/2025 Active predniSONE 20 mg oral tablet (10 sources) Corticosteroid Start: 10-09-2016 End: 11-25-2016 PREDNISONE 20 MG TABS Two and one half tablets 13 hours, 7 hours and [address] scan PREDNISONE [id number] Elva Torres RN prochlorperazine 5 mg/ml injectable solution (1 source) Phenothiazine Start: 05-03-2025 End: 05-04-2025 5 mg, INTRAVENOUS, NEEDED, 1 dose, Starting on Thu05/03/25 at 1237, Until Aide 05/04/25 at 0303, Nausea/Vomiting - First Line - Parenteral, If still nauseated 10 min after first line antiemetic dose, proceed to second line antiemetic Protect From Light, Recovery or Phase I (only) 72 hr scopolamine 0.0139 mg/hr transdermal system (1 source) Anticholinergic Start: 05-03-2025 End: 05-03-2025 1 patch, TRANSDERMAL, EVERY 72 HOURS, First dose on Thu05/03/25 at 1030, Until Discontinued, Apply patch behind ear. Each time a new patch is needed it should be placed behind the alternate ear from the previous patch. Remove old patch. Each transdermal system contains 1.5 mg scopolamine base and delivers 1 mg over 3 days., Preprocedure valsartan 160 mg oral tablet (15 sources) Angiotensin 2 Receptor Patti Start: 02-02-2014 take 1 tablet by mouth once daily DIOVAN 160 MG TABS One tablet by mouth daily VALSARTAN [id number] Domi Merrill RN Start: 08-15-2011 End: 01-12-2014 take 1 tablet by mouth at bedtime DIOVAN 80 MG TABS One tablet by mouth at bedtime. VALSARTAN [id number] Anna Marie Pat Problems Active Problems Problem Classification Problem Date Documented Date Episodic/Chronic Anxiety disorders (20 sources) Anxiety state; Translations: [Generalized anxiety disorder] Onset: 11-04-2005 10-13-2016 Chronic Cardiac dysrhythmias (20 sources) Paroxysmal supraventricular tachycardia; Translations: [Nonsustained paroxysmal supraventricular tachycardia] Onset: 08-15-2011 08-15-2011 Chronic Conditions associated with dizziness or vertigo (1 source) Benign paroxysmal positional vertigo; Translations: [Benign paroxysmal vertigo, unspecified ear] 02-20-2024 Episodic Disorders of lipid metabolism (20 sources) Hypercholesterolemia; Translations: [Pure hypercholesterolemia, unspecified] Onset: 02-28-2013 Resolved: 04-28-2018 Chronic E Codes: Fall (2 sources) Fall; Translations: [Unspecified fall, initial encounter] 07-29-2021 Episodic Epilepsy; convulsions (20 sources) Localization-related epilepsy; Translations: [Localization-related (focal) (partial) symptomatic epilepsy and epileptic syndromes with simple partial seizures, not intractable, without status epilepticus] Onset: 02-19-2010 Resolved: 05-08-2018 05-08-2018 Chronic Essential hypertension (20 sources) Hypertensive disorder; Translations: [Essential (primary) hypertension] Onset: 08-15-2011 08-15-2011 Chronic Fracture of lower limb (1 source) Closed fracture of phalanx of foot; Translations: [Displaced unspecified fracture of right lesser toe(s), initial encounter for closed fracture] 10-23-2023 Episodic Genitourinary symptoms and ill-defined conditions (19 sources) Urinary incontinence; Translations: [Unspecified urinary incontinence] Onset: 01-23-2025 01-23-2025 Chronic Genitourinary symptoms and ill-defined conditions (6 sources) Scalding pain on urination ; Translations: [Dysuria] Episodic Headache; including migraine (2 sources) Headache; Translations: [Headache] 06-14-2019 Episodic Mycoses (2 sources) Candidiasis of skin; Translations: [Candidiasis of skin and nail] Episodic Nausea and vomiting (2 sources) Postoperative nausea and vomiting; Translations: [Nausea with vomiting, unspecified] Onset: 04-14-2025 04-14-2025 Episodic Neoplasms of unspecified nature or uncertain behavior (12 sources) Neoplastic disease of uncertain behavior; Translations: [Neoplasm of uncertain behavior of unspecified ovary] Onset: 03-17-2025 03-17-2025 Episodic Nutritional deficiencies (20 sources) Vitamin D deficiency; Translations: [Vitamin D deficiency, unspecified] Onset: 02-28-2013 02-28-2013 Chronic Other aftercare (1 source) Long-term current use of drug therapy; Translations: [Other lobsterman (current) drug therapy] 07-04-2024 Episodic Other connective tissue disease (2 sources) Swelling of lower limb; Translations: [Other specified soft tissue disorders] Episodic Other connective tissue disease (1 source) Pain in right foot; Translations: [Pain in right foot] 10-23-2023 Episodic Other connective tissue disease (1 source) Pain of left hand; Translations: [Pain in left hand] 07-29-2021 Episodic Other eye disorders (20 sources) Vitreous detachment; Translations: [Vitreous degeneration, unspecified eye] Onset: 02-19-2010 02-19-2010 Chronic Other female genital disorders (1 source) Pruritus of vagina; Translations: [Other specified noninflammatory disorders of vagina] Episodic Other injuries and conditions due to external causes (1 source) Injury of coccyx; Translations: [Unspecified injury of lower back, initial encounter] 02-26-2021 Episodic Other non-traumatic joint disorders (1 source) Pain of left wrist; Translations: [Pain in left wrist] 07-29-2021 Episodic Other non-traumatic joint disorders (3 sources) Hip pain; Translations: [Pain in right hip] 09-21-2024 Episodic Other screening for suspected conditions (not mental disorders or infectious disease) (3 sources) Serum creatinine raised; Translations: [Other specified abnormal findings of blood chemistry] Episodic Other skin disorders (1 source) Skin lesion; Translations: [Disorder of the skin and subcutaneous tissue, unspecified] Episodic Other skin disorders (2 sources) Lump on finger; Translations: [Localized swelling, mass and lump, upper limb, bilateral] Episodic Prolapse of female genital organs (20 sources) Uterine prolapse; Translations: [Uterovaginal prolapse, unspecified] Onset: 08-01-2011 08-01-2011 Chronic Residual codes; unclassified (1 source) Family history of malignant neoplasm of skin; Translations: [Family history of malignant neoplasm of other organs or systems] Episodic Residual codes; unclassified (2 sources) H/O: Disorder; Translations: [Personal history of other specified conditions] 07-29-2022 Episodic Residual codes; unclassified (1 source) Procedure not done; Translations: [Procedure and treatment not carried out, unspecified reason] 02-20-2024 Episodic Residual codes; unclassified (2 sources) Postoperative state; Translations: [Other specified postprocedural states] 03-07-2025 Episodic Residual codes; unclassified (2 sources) Other specified postprocedural states; Translations: [Post-operative state] Onset: 03-28-2025 Episodic Unclassified (1 source) Nonsustained paroxysmal supraventricular tachycardia (HCC); Translations: [Nonsustained paroxysmal supraventricular tachycardia (HCC)] Onset: 02-27-2025 Past or Other Problems Problem Classification Problem Date Documented Da te Episodic/Chronic Abdominal pain (3 sources) Lower abdominal pain; Translations: [Lower abdominal pain, unspecified] Onset: 12-30-2024 12-27-2024 Episodic Cardiac dysrhythmias (20 sources) Palpitations; Translations: [Tachycardia] Onset: 11-04-2005 Resolved: 09-08-2023 11-06-2016 Episodic Gastritis and duodenitis (20 sources) Acute gastritis; Translations: [Acute gastritis without bleeding] Onset: 03-07-2011 Resolved: 05-08-2018 05-08-2018 Episodic Immunizations and screening for infectious disease (8 sources) Patient encounter status; Translations: [Encounter for immunization] Onset: 07-04-2024 Episodic Other aftercare (1 source) Other lobsterman (current) drug therapy; Translations: [Encounter for long-term current use of medication] Onset: 07-04-2024 Episodic Other and unspecified benign neoplasm (20 sources) Cavernous hemangioma; Translations: [Hemangioma unspecified site] Onset: 02-19-2010 02-19-2010 Episodic Other and unspecified benign neoplasm (20 sources) Hemangioma of intracranial structure; Translations: [Hemangioma of intracranial structures] Onset: 11-30-2003 02-04-2021 Episodic Other and unspecified benign neoplasm (1 source) Hemangioma of intracranial structures; Translations: [Cerebellar hemangioma (HCC)] Onset: 02-04-2021 Episodic Other and unspecified benign neoplasm (1 source) Hemangioma unspecified site; Translations: [Cavernous hemangioma] Onset: 02-19-2010 Episodic Other bone disease and musculoskeletal deformities (20 sources) Osteopenia; Translations: [Other specified disorders of bone density and structure, unspecified site] Onset: 02-19-2010 02-19-2010 Episodic Other circulatory disease (8 sources) Elevated blood-pressure reading without diagnosis of hypertension; Translations: [Carotid bruit] Onset: 12-04-2016 12-04-2016 Episodic Other circulatory disease (2 sources) Carotid bruit; Translations: [Other specified symptoms and signs involving the circulatory and respiratory systems] Onset: 12-04-2016 12-04-2016 Episodic Other diseases of bladder and urethra (20 sources) Urethral caruncle; Translations: [Urethral caruncle] Onset: 08-01-2011 08-01-2011 Episodic Other lower respiratory disease (1 source) Pleurodynia; Translations: [Pleurodynia] Onset: 06-23-2024 Episodic Other nervous system disorders (20 sources) Skin sensation disturbance; Translations: [Unspecified disturbances of skin sensation] Onset: 06-30-2003 Resolved: 04-24-2015 04-24-2015 Episodic Other non-traumatic joint disorders (1 source) Pain in right hip; Translations: [Right hip pain] Onset: 09-21-2024 Episodic Other nutritional; endocrine; and metabolic disorders (5 sources) Body mass index (BMI) 25.0-25.9, adult; Translations: [Body mass index (BMI) 25.0-25.9, adult] Onset: 10-06-2013 10-06-2013 Episodic Screening and history of mental health and substance abuse codes (3 sources) H/O: depression; Translations: [Personal history of other mental and behavioral disorders] Onset: 07-04-2024 07-29-2022 Episodic Spondylosis; intervertebral disc disorders; other back problems (20 sources) Cervico-occipital neuralgia; Translations: [Occipital neuralgia] Onset: 03-23-2014 03-23-2014 Episodic Unclassified (5 sources) Family history of stroke; Translations: [Family history of stroke] 10-03-2014 Episodic Results Test Name Value Interpretation Reference Range Facility ANES POSTPROC EVALon 025 ANES POSTPROC EVAL HNO ID: [id number] Author: ROBBIE SINGH DO Service: Anesthesiology Author Type: Physician Type: Anesthesia Postprocedure Evaluation Filed: 05/03/2025 15:24 Note Text: POST ANESTHESIA EVALUATION NOTE : 1945 Procedure Summary Date: 05/03/25 Room / Location: [place] Anesthesia Start: 1053 Anesthesia Stop: 1257 Procedures: LAPAROSCOPY WITH OOPHORECTOMY AND SALPINGECTOMY (Bilateral: Pelvis) EXAM UNDER ANESTHESIA PELVIC / VAGINAL (Pelvis) LAPAROSCOPY OF PERITONEAL CAVITY W/ BIOPSY (Pelvis) LAPAROSCOPIC OMENTECTOMY (Pelvis) 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 Post Anesthesia Patient Status Anticipated Disposition: phase 2 then home. Neurological Status: aware and responsive. Pulmonary Status: breathing comfortably on room air Airway Control: returned to baseline unsupported. Cardiovascular Status: stable. Pain Management: clinically adequate - multimodal analgesia pain management approach Postoperative Hydration: acceptable. Intraoperative Events: no significant anesthesia events Post Operative Nausea/Vomiting Status: no significant post operative nausea or vomiting Recommendation: continue current plan of care. Anesthesia Observations No Documentation SIGNATURE: Robbie Singh DO PATIENT NAME: Mer Allen DATE: May 03, 2025 TIME: 3:24 PM CSN: [id number] Normal [facility] ANES PRE-OPon 05-03-2025 ANES PRE-OP HNO ID: [id number] Author: RENETTA CLARK MD Service: Anesthesiology Author Type: Anesthesiologist Type: Anesthesia Preprocedure Evaluation Filed: 05/03/2025 10:10 Note Text: ANESTHESIOLOGY DAY OF SURGERY NOTE : 1945 Procedure Information Date/Time: 05/03/25 1045 Procedures: LAPAROSCOPY WITH OOPHORECTOMY AND SALPINGECTOMY (Bilateral: Pelvis) EXAM UNDER ANESTHESIA PELVIC / VAGINAL (Pelvis) LAPAROSCOPY OF PERITONEAL CAVITY W/ BIOPSY (Pelvis) LAPAROSCOPIC OMENTECTOMY (Pelvis) Location: [place] Surgeons: Jina Stearns MD Estimated body mass index is 25.39 kg/m? as calculated from the following: Height as of 04/14/25: 152.4 cm (5'). Weight as of 04/14/25: 59 kg (130 lb). Most recent hematocrit and potassium results: Hematocrit 34.2 04/14/2025 Potassium 4.4 04/14/2025 Relevant Problems CARDIO (+) Cerebellar hemangioma (HCC) (+) HTN (hypertension) (+) Nonsustained paroxysmal supraventricular tachycardia (HCC) NEURO-PSYCH (+) Occipital neuralgia (+) Partial seizure disorder (HCC) HTN - losartan (took yesterday), metop, spironolactone Seizures 20 years ago Cavernous hemangioma SVT- took metop Neg stress echo 2022 EF = 55% 2+ MR, 1+ TR I - PHYSICAL EVALUATION AIRWAY Patient intubated: No. Tracheostomy tube not present Mallampati: III. TM distance: >3 FB. Neck ROM: full ROM without neurological symptoms. Mouth opening: adequate. Short neck: no. Thick neck: no DENTAL Dental findings: teeth intact. II - ANESTHESIA PLAN ASA Score: 3 Anesthetic Plan: general Airway type: ETT The patient is not a current smoker. NPO Status: adequate Beta Patti Monitoring Plan Monitoring plan: standard ASA. Post Procedure Analgesic Plan Postoperative analgesic plan: parenteral or oral opioids and multimodal analgesia. Informed Consent Anesthetic risks, benefits, alternatives, personnel and consent discussed: yes. Patient / Responsible Republican agrees to proceed: yes Patient / Surrogate agrees to blood products: Yes Potential Anesthesia issues that may suggest increased risk of complications or contraindication to planned procedure: none. Vitals Value Taken Time BP 171/68 05/03/25 1005 Pulse 55 05/03/25 0954 Resp 16 05/03/25 0954 Temp 36.6 ?C (97.9 ?F) 05/03/25 0954 SpO2 100 % 05/03/25 0954 Vitals shown include unfiled device data. Facility-Administered Medications as of 05/03/2025 Medication Dose Route Frequency lidocaine (PF) 10 mg/mL (1 %) 1-2 mg injection (XYLOCAINE) 0.1-0.2 mL INTRADERMAL PRN lactated ringers iv infusion 5-30 mL/hr INTRAVENOUS CONTINUOUS NaCl 0.9% iv flush bag 20 mL INTRAVENOUS PRN [COMPLETED] heparin 5,000 Units injection 5,000 Units SUBCUTANEOUS Pre-Op Once [COMPLETED] acetaminophen 975 mg tab(s) (TYLENOL) 975 mg ORAL Pre-Op Once [COMPLETED] celecoxib 400 mg cap(s) (CeleBREX) 400 mg ORAL Pre-Op Once ceFAZolin iv piggyback 2 g in D5W (iso-osmotic) 100 mL (ANCEF) 2 g INTRAVENOUS Pre-Op Once Outpatient Medications as of 05/03/2025 Medication Sig citalopram (CELEXA) 20 mg tablet Take 1 tablet by mouth once daily. losartan (COZAAR) 100 mg tablet Take 1 tablet by mouth once daily. metoprolol succinate ER (TOPROL XL) 50 mg 24 hr tablet Take 1 tablet by mouth once daily. MV-MN/IRON FUM/FA/OMEGA3,6,9#3 (WOMEN'S MULTI ORAL) Take 1 tablet by mouth once daily. CALCIUM CITRATE/VITAMIN D3 (CALCIUM CITRATE + ORAL) Take by mouth. iv contrast (will be provided with radiology test) CT ABD/PEL -Inject, intravenously, once for 1 dose.No IV access, insert saline lock prior to the beginning of sedation, infusion, injection of imaging exam. Discontinue saline lock post exam. If Pt. has a central line or IVAD, may access for administration according to line specific nursing protocol. Once exam is complete flush line and de-access according to line specific nursing protocol in the CT contrast administration guidelines link. diphenhydrAMINE (BENADRYL) 50 mg capsule Take 1 capsule by mouth as directed for 1 dose. one (1) hour prior to exam. ondansetron orally disintegrating (ZOFRAN ODT) 4 mg disintegrating tablet Take 1 tablet by mouth every 8 hours as needed for nausea/vomiting. spironolactone (ALDACTONE) 25 mg tablet Take 1 tablet by mouth once daily. For BP I have interviewed and examined the patient. I have reviewed the medical record and/or the pre-anesthesia evaluation, pertinent labs, and test results. This contains updated information obtained within 48 hours of Surgery/Procedure. SIGNATURE: Renetta Clark MD PATIENT NAME: Mer Allen DATE: May 03, 2025 TIME: 10:09 AM CSN: [id number] [facility] BRIEF OP NOTon 05-03-2025 BRIEF OP NOT HNO ID: [id number] Author: MACY SEVERINO MD Service: Gynecology Oncology Author Type: Resident Type: Brief Op Note Filed: 05/03/2025 13:17 Note Text: Attestation signed by Jina Stearns MD at 05/03/2025 2:18 PM Attending Note I personally saw and examined the patient. I reviewed the resident's note. I agree with the resident's assessment and plan unless otherwise noted. Signature: Jina Stearns MD Date: 05/03/2025 Time: 2:18 PM BRIEF OPERATIVE / PROCEDURE NOTE LOG ID: [id number] SURGERY/PROCEDURE DATE: 05/03/2025 INCISION/PROCEDURE START TIME: 11:24 AM INCISION CLOSE/PROCEDURE END TIME: 12:41 PM SURGEON(S)/PROCEDURALIST(S) AND MANAGER DIESEL(S): Surgeons and Role: * Jina Stearns MD - Primary * Macy Severino MD - Resident - Assisting Music Education Adjunct Professor: Shukri Giles SA SURGERY/PROCEDURE(S): Bilateral - LAPAROSCOPY WITH OOPHORECTOMY AND SALPINGECTOMY - Wound Class: Clean - Incision Closure: Deep and Superficial Layers EXAM UNDER ANESTHESIA PELVIC / VAGINAL - Wound Class: Clean Contaminated - Incision Closure: No Incision / NA LAPAROSCOPY OF PERITONEAL CAVITY W/ BIOPSY - Wound Class: Clean - Incision Closure: Deep and Superficial Layers LAPAROSCOPIC OMENTECTOMY - Wound Class: Clean ANESTHESIA: General FINDINGS: See final operative report ESTIMATED BLOOD LOSS: 20 mls SPECIMENS: ID Type Source Tests Collected by Time Destination A : Pelvic Washings Wash Pelvic CYTOLOGY NON-REGULATION SUPERVISOR Jina Stearns MD 05/03/2025 11:29 AM B : RIGHT OVARY AND PORTION OF RIGHT FALLOPIAN TUBE Tissue Ovary, Right, Resection SURGICAL PATHOLOGY Jina Stearns MD 05/03/2025 11:46 AM C : LEFT OVARY AND PORTION OF LEFT FALLOPIAN TUBE Tissue Ovary, Left, Resection SURGICAL PATHOLOGY Jina Stearns MD 05/03/2025 12:05 PM D : BLADDER PERITONEUM BIOPSY Tissue Peritoneum, Biopsy SURGICAL PATHOLOGY Jina Stearns MD 05/03/2025 12:06 PM E : PERITONEUM RIGHT PARACOLIC GUTTER Tissue Peritoneum, Biopsy SURGICAL PATHOLOGY Jina Stearns MD 05/03/2025 12:09 PM F : PERITONEUM LEFT PARACOLIC GUTTER Tissue Peritoneum, Biopsy SURGICAL PATHOLOGY Jina Stearns MD 05/03/2025 12:12 PM G : OMENTUM Tissue Omentum, Biopsy SURGICAL PATHOLOGY Jina Stearns MD 05/03/2025 12:21 PM COMPLICATIONS: None CLOSURE TECHNIQUE: Primary PRE-OP/PRE-PROCEDURE DIAGNOSIS: Granulosa cell tumor POST-OP/POST-PROCEDURE DIAGNOSIS: Same as Preop Patient was accompanied to the next level of care by a licensed practitioner from the surgical team pending completion of this brief op note (or operative note) SIGNATURE: Macy Severino MD PATIENT NAME: Mer Allen DATE: May 03, 2025 TIME: 1:16 PM Normal [facility] CONFIRM BLOOD TYPEon 025 ABO group Nom (Bld) A [facility] Rh Nom (Bld) Positive [facility] ABO A Normal [facility] Comment on above: Order Comment: Speci men Type: BLOOD SPECIMENOrdering Facility: [facility] Address: [address] [place] [address] Performed By: #### C ONABO ####[facility] BLOOD BANKCLIA [id number] [address] Rh Nom (Bld) Positive Normal [facility] Comment on above: Order Comment: Speci men Type: BLOOD SPECIMENOrdering Facility: [facility] Address: [address] [place] [address] Performed By: #### C ONABO ####[facility] BLOOD BANKCLIA [id number] [address] [place] HISTORY PHYSICALon HISTORY PHYSICAL HNO ID: [id number] Author: JINA STEARNS MD Service: Gynecology Oncology Author Type: Physician Type: H&P Filed: 05/03/2025 10:39 Note Text: UPDATED HISTORY AND PHYSICAL EXAMINATION SERVICE DATE: 05/03/2025 SERVICE TIME: 1038 PHYSICAL EXAM MUST BE COMPLETED ON ADMISSION The History and Physical (completed in the past 30 days) has been reviewed and the patient has been examined. The contents accurately reflect the patient's condition with the following additions or revisions since the HANDP was completed. Examination indicates no changes. LUNGS: Lungs clear to auscultation, Good diaphragmatic excursion CARDIAC: Normal S1 and S2; no rubs, murmurs, or gallops Provisional Diagnosis/Treatment Plan: Procedure(s) (LRB): LAPAROSCOPY WITH OOPHORECTOMY AND SALPINGECTOMY (Bilateral) EXAM UNDER ANESTHESIA PELVIC / VAGINAL (N/A) LAPAROSCOPY OF PERITONEAL CAVITY W/ BIOPSY (N/A) LAPAROSCOPIC OMENTECTOMY (N/A) This HANDP can be found in the Electronic Medical Record dated 04/13/25. SIGNATURE: Jina Stearns MD PATIENT NAME: Mer Allen DATE: May 03, 2025 TIME: 10:38 AM Normal [facility] OPERATIVE NOon 05-03-2025 OPERATIVE NO HNO ID: [id number] Author: JINA STEARNS MD Service: Gynecology Oncology Author Type: Physician Type: Operative Report Filed: 05/03/2025 14:34 Note Text: OPERATIVE/PROCEDURE REPORT LOG ID: [id number] SURGERY/PROCEDURE DATE: 05/03/2025 INCISION/PROCEDURE START TIME: 11:24 AM INCISION CLOSE/PROCEDURE END TIME: 12:41 PM SURGEON(S)/PROCEDURALIST(S) AND MANAGER DIESEL(S): Surgeons and Role: * Jina Stearns MD - Primary * Macy Severino MD - Resident - Assisting Music Education Adjunct Professor: Shukri Giles SA SURGERY/PROCEDURE(S): Exam under anesthesia Laparoscopic bilateral salpingo-oophorectomy Peritoneal biopsies Infracolic omentectomy PREOPERATIVE 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 Grossly normal upper abdomen. Cecum with moderately dense adherents to right pelvic brim. Bilateral ovaries densely adhere to vaginal cuff. No obvious disease. No ascites. SPECIMENS: Pelvic washings, right ovary and portion of fallopian tube, left ovary and portion of fallopian tube, omentum, bladder peritoneum, right and left paracolic gutter peritoneum EBL: 15 cc UOP: 150 cc COMPLICATIONS: None INDICATIONS FOR PROCEDURE: This is a 80 yo s/p TVH/BS found to have a posterior cul de sac mass consistent with adult type granulosa cell tumor. Postop CT did not show metastatic disease and tumor markers were normal however given retention of ovaries, I recommended return to OR to remove ovaries and complete surgical staging. After discussion of risks/benefits, she agreed. SURGERY DETAILS: Huddle was performed in preop and we confirmed administration of heparin. She was brought to the OR where general anesthesia was induced. SCDs were placed in bilateral lower extremities and legs in yellow fin stirrups. Arms were carefully tucked at sides. She was prepped and draped in the usual sterile fashion and timeout was performed. We confirmed administration of Ancef and OG tube in place. A 5 mm incision was made at Sen's point and veress needle introduced. Opening pressure was high and this was repeated with same result. Instead, a 5 mm port was placed using optiview technique. Once a pressure of 15 was reached, abdomen and pelvis were inspected - entry was atraumatic and no metastatic disease was seen. 3 additional ports were placed - 5 mm port in LLQ and above umbilicus and 11 mm port in RLQ. She was placed in Trendelenburg and washings were obtained. Ca was also placed at this time. The right round was transected and retroperitoneum developed. IP was skeletonized and coagulated and cut after ureteral course ascertained. The ovary was densely adherent to the vaginal cuff. A combination of Ligasure and blunt dissection was used to free the ovary; it was then placed in an endobag and removed from the body. This was repeated on the left side in the same fashion. Ligasure was then used to take peritoneal biopsies. The pelvis was irrigated and Chanda placed with good hemostasis. She was then flattened out and infracolic omentum found. We performed an infracolic omentectomy from the hepatic to splenic flexure with direct visualization of the transverse colon at all times. This was placed in an endobag and removed. Gas was shut off and ports were removed. The RLQ fascia was closed with a 0 vicryl figure of eight stitch. Skin was closed with 4-0 monocryl, skin glue. She was taken out of lithotomy, extubated, and taken to PACU in good condition after all counts were correct. Ca was removed prior to extubation. A digital sweep of the vaginal canal was performed by myself and it was ascertained that no instruments or other foreign bodies are retained within the cavity. PARTICIPATION IN SURGERY/PROCEDURE: I/primary surgeon/proceduralist performed the procedure with assistance. Jina Stearns MD, MPH Gynecologic Oncologist [facility] 05-02-2025 CNPN Telephone (REGGIE Harris) MER ALLEN ([id number]) 1945 F Date Time Provider Department 05/02/25 JINA STEARNS During your visit today, we recorded the following information about you: Ivis Patel MA 05/02/2025 3:25 PM Signed Left a detailed message for patient to remind of surgery tomorrow 05/03/25 arrival time as 8:45 procedure time as 10:45 am. No eating or drinking after midnight . Ivis Patel MA Allergies As of Date: 05/02/2025 Noted Allergy Reaction POISON YAZ 08/01/2011 4 - Hives 5 - Intolerance 9 - Itching HCTZ (HYDROCHLOROTHIAZIDE) 10/28/2017 2 - Rash Comments: Rash (took after tried on amlodipine) AMLODIPINE 10/28/2017 7 - Swelling Comments: Caused severe leg swelling ERYTHROMYCIN BASE 06/28/2003 Comments: rash, gi upset FLUORESCEIN 09/28/2008 GADOLINIUM-CONTAINING CONTRAST ME*09/30/2005 IV CONTRAST DYE (CONTRAST DYE) 04/22/2010 4 - Hives SULFA (SULFONAMIDE ANTIBIOTICS) 06/28/2003 Comments: rash, gi upset TETRACYCLINE 06/28/2003 Comments: severe diarrhea TRAMADOL 02/16/2006 Comments: hives, pablo, sweats,, rash Date Reviewed: 04/14/2025 Reviewed by: Jorge, Ivis, MA - Fully Assessed Reason for Visit: Preparations For Surgery [898] Prescriptions as of 05/02/2025 - iv contrast (will be provided with radiology test) CT ABD/PEL -Inject, intravenously, once for 1 dose.No IV access, insert saline lock prior to the beginning of sedation, infusion, injection of imaging exam. Discontinue saline lock post exam. If Pt. has a central line or IVAD, may access for administration according to line specific nursing protocol. Once exam is complete flush line and de-access according to line specific nursing protocol in the CT contrast administration guidelines link. - diphenhydrAMINE (BENADRYL) 50 mg capsule Take 1 capsule by mouth as directed for 1 dose. one (1) hour prior to exam. - ondansetron orally disintegrating (ZOFRAN ODT) 4 mg disintegrating tablet Take 1 tablet by mouth every 8 hours as needed for nausea/vomiting. - citalopram (CELEXA) 20 mg tablet Take 1 tablet by mouth once daily. - losartan (COZAAR) 100 mg tablet Take 1 tablet by mouth once daily. - metoprolol succinate ER (TOPROL XL) 50 mg 24 hr tablet Take 1 tablet by mouth once daily. - spironolactone (ALDACTONE) 25 mg tablet Take 1 tablet by mouth once daily. For BP - LORazepam (ATIVAN) 1 mg tablet Take 0.5-1 tablets by mouth three times a day as needed for anxiety for up to 90 days. - MV-MN/IRON FUM/FA/OMEGA3,6,9#3 (WOMEN'S MULTI ORAL) Take 1 tablet by mouth once daily. - CALCIUM CITRATE/VITAMIN D3 (CALCIUM CITRATE + ORAL) Take by mouth. 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] 02/19/2010 Vitreous Detachment [H43.819] 02/19/2010 Osteopenia [M85.80] 02/19/2010 Acute gastritis without mention of hemorrhage [*03/07/2011 05/08/2018 Urethral caruncle [N36.2] 08/01/2011 Uterine prolapse without mention of vaginal wal*08/01/2011 HTN (hypertension) [I10] 02/07/2013 Hyperlipidemia [E78.5] 02/28/2013 Vitamin d deficiency [E55.9] 02/28/2013 Occipital neuralgia [M54.81] 03/23/2014 Medicare annual wellness visit, initial [Z00.00]04/24/2015 05/08/2018 Cerebellar hemangioma (HCC) [D18.02] 02/04/2021 Uterovaginal prolapse, incomplete [N81.2] 01/23/2025 Urinary incontinence [R32] 01/23/2025 Pre-op examination [Z01.818] 02/22/2025 Nonsustained paroxysmal supraventricular tachyc*02/27/2025 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 Advised surgery is 11 am and she will need to arrive at 9 am and we will call her the day before to confirm time. Camacho Carson 04/18/25 Allergies As of Date: 04/18/2025 Noted Allergy Reaction POISON YAZ 08/01/2011 4 - Hives 5 - Intolerance 9 - Itching HCTZ (HYDROCHLOROTHIAZIDE) 10/28/2017 2 - Rash Comments: Rash (took after tried on amlodipine) AMLODIPINE 10/28/2017 7 - Swelling Comments: Caused severe leg swelling ERYTHROMYCIN BASE 06/28/2003 Comments: rash, gi upset FLUORESCEIN 09/28/2008 GADOLINIUM-CONTAINING CONTRAST ME*09/30/2005 IV CONTRAST DYE (CONTRAST DYE) 04/22/2010 4 - Hives SULFA (SULFONAMIDE ANTIBIOTICS) 06/28/2003 Comments: rash, gi upset TETRACYCLINE 06/28/2003 Comments: severe diarrhea TRAMADOL 02/16/2006 Comments: hives, pablo, sweats,, rash Date Reviewed: 04/14/2025 Reviewed by: Ivis Patel MA - Fully Assessed Reason for Visit: Preparations For Surgery [898] Returning Patient's Call [408] Prescriptions as of 04/18/2025 - iv contrast (will be provided with radiology test) CT ABD/PEL -Inject, intravenously, once for 1 dose.No IV access, insert saline lock prior to the beginning of sedation, infusion, injection of imaging exam. Discontinue saline lock post exam. If Pt. has a central line or IVAD, may access for administration according to line specific nursing protocol. Once exam is complete flush line and de-access according to line specific nursing protocol in the CT contrast administration guidelines link. - diphenhydrAMINE (BENADRYL) 50 mg capsule Take 1 capsule by mouth as directed for 1 dose. one (1) hour prior to exam. - ondansetron orally disintegrating (ZOFRAN ODT) 4 mg disintegrating tablet Take 1 tablet by mouth every 8 hours as needed for nausea/vomiting. - citalopram (CELEXA) 20 mg tablet Take 1 tablet by mouth once daily. - losartan (COZAAR) 100 mg tablet Take 1 tablet by mouth once daily. - metoprolol succinate ER (TOPROL XL) 50 mg 24 hr tablet Take 1 tablet by mouth once daily. - spironolactone (ALDACTONE) 25 mg tablet Take 1 tablet by mouth once daily. For BP - LORazepam (ATIVAN) 1 mg tablet Take 0.5-1 tablets by mouth three times a day as needed for anxiety for up to 90 days. - MV-MN/IRON FUM/FA/OMEGA3,6,9#3 (WOMEN'S MULTI ORAL) Take 1 tablet by mouth once daily. - CALCIUM CITRATE/VITAMIN D3 (CALCIUM CITRATE + ORAL) Take by mouth. Problem List As Of Date 04/18/2025 Noted Resolved Disturbance of skin sensation [R20.9] 06/30/2003 04/24/2015 Tachycardia, unspecified [R00.0] 11/04/2005 09/08/2023 Anxiety state [F41.1] 11/04/2005 Routine physical examination [Z00.00] 02/19/2010 08/01/2011 Cavernous Hemangioma [D18.00] 02/19/2010 Partial seizure disorder (HCC) [G40.109] 02/19/2010 Vitreous Detachment [H43.819] 02/19/2010 Osteopenia [M85.80] 02/19/2010 Acute gastritis without mention of hemorrhage [*03/07/2011 05/08/2018 Urethral caruncle [N36.2] 08/01/2011 Uterine prolapse without mention of vaginal wal*08/01/2011 HTN (hypertension) [I10] 02/07/2013 Hyperlipidemia [E78.5] 02/28/2013 Vitamin d deficiency [E55.9] 02/28/2013 Occipital neuralgia [M54.81] 03/23/2014 Medicare annual wellness visit, initial [Z00.00]04/24/2015 05/08/2018 Cerebellar hemangioma (HCC) [D18.02] 02/04/2021 Uterovaginal prolapse, incomplete [N81.2] 01/23/2025 Urinary incontinence [R32] 01/23/2025 Pre-op examination [Z01.818] 02/22/2025 Nonsustained paroxysmal supraventricular tachyc*02/27/2025 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 2 mg/dL [facility] Chloride [Moles/Vol] 102 mmol/L 98 - 10 7 mmol/L [facility] CO2 [Moles/Vol] 27 mmol/L 22 - 30 mmol/L [facility] Creatinine [Mass/Vol] 1.1 mg/dL High 0.58 - 0.96 mg/dL [facility] GFR/1.73 sq M.predicted among non-blacks MDRD (S/P/Bld) [Vol rate/Area] 51 mL/min/{1.73_m2} Low - PINF [facility] Comment on above: Estimated Glomerular Filtration Rate (eGFR) is calculated using the 2020 CKD-EPI creatinine equation. This equation utilizes serum creatinine, sex, and age as parameters. The creatinine assay has traceable calibration to isotope dilution-mass spectrometry. Refer to KDIGO guidelines for clinical interpretation. In patients with unstable renal function, e.g. those with acute kidney injury, the eGFR may not accurately reflect actual GFR. Glucose [Mass/Vol] 96 mg/dL 74 - 99 mg/dL [facility] Comment on above: The [place] Diabete s Association (ADA) provides guidance for cutoff values for fasting glucose and random glucose. The ADA defines fasting as no caloric intake for at least 8 hours. Fasting plasma glucose results between 100 to 125 mg/dL indicate increased risk for diabetes (prediabetes). Fasting plasma glucose results greater than or equal to 126 mg/dL meet the criteria for diagnosis of diabetes. In the absence of unequivocal hyperglycemia, results should be confirmed by repeat testing. In a patient with classic symptoms of hyperglycemia or hyperglycemic crisis, random plasma glucose results greater than or equal to 200 mg/dL meet the criteria for diagnosis of diabetes. Reference: Standards of Medical Care in Diabetes 2016, [place] Diabetes Association. Diabetes Care. 2016.39(Suppl 1). Interpretation and review of laboratory results Abnormal [facility] Potassium [Moles/Vol] 4.4 mmol/L 3.7 - 5.1 mmol/L [facility] Sodium [Moles/Vol] 140 mmol/L 136 - 144 mmol/L [facility] Urea nitrogen [Mass/Vol] 20 mg/dL 7 - 21 mg/dL [facility] Anion gap [Moles/Vol] 11 mmol/L Normal 8-15 Akr on [facility] Comment on above: Order Comment: Speci men Type: BLOOD SPECIMENOrdering Facility: [facility] Address: [address] [place], [place] [address] [address] Performed By: #### 2 4321-2 ####[facility] LABORATORYCLIA [id number] [place] [address] [place] Calcium [Mass/Vol] 9.2 mg/dL Normal 8.5-10.2 [facility] Comment on above: Order Comment: Speci men Type: BLOOD SPECIMENOrdering Facility: [facility] Address: [address] [place] [address] Performed By: #### 2 4321-2 ####[facility] LABORATORYCLIA [id number] [place] [address] [place] Chloride [Moles/Vol] 102 mmol/L Normal 98-107 [facility] Comment on above: Order Comment: Speci men Type: BLOOD SPECIMENOrdering Facility: [facility] Address: [address] [place] [address] Performed By: #### 2 4321-2 ####[facility] LABORATORYCLIA [id number] [place] [address] [place] CO2 [Moles/Vol] 27 mmol/L Normal 22-30 [facility] Comment on above: Order Comment: Speci men Type: BLOOD SPECIMENOrdering Facility: [facility] Address: [address] [place] [address] Performed By: #### 2 4321-2 ####[facility] LABORATORYCLIA [id number] [place] [address] [place] Creatinine [Mass/Vol] 1.10 mg/dL High 0.58-0.96 [facility] Comment on above: Order Comment: Speci men Type: BLOOD SPECIMENOrdering Facility: [facility] Address: [address] [place] [address] Performed By: #### 2 4321-2 ####[facility] LABORATORYCLIA [id number] [address] [place] Creatinine and Glomerular filtration rate.predicted panel (S/P/Bld) 51 mL/min/1.73m??? Low >=60 [facility] Comment on above: Order Comment: Speci men Type: BLOOD SPECIMENOrdering Facility: [facility] Address: [address] [place] [address] Result Comment: Nissa mated Glomerular Filtration Rate (eGFR) is calculated using the 2020 CKD-EPI creatinine equation. This equation utilizes serum creatinine, sex, and age as parameters. The creatinine assay has traceable calibration to isotope dilution-mass spectrometry. Refer to KDIGO guidelines for clinical interpretation. In patients with unstable renal function, e.g. those with acute kidney injury, the eGFR may not accurately reflect actual GFR. Performed By: #### 2 4321-2 ####[facility] LABORATORYCLIA [id number] [place] [address] [place] Glucose [Mass/Vol] 96 mg/dL Normal 74-99 [facility] Comment on above: Order Comment: Kodak anderson Type: BLOOD SPECIMENOrdering Facility: [facility] Address: [address] [place] [address] Result Comment: The [place] Diabetes Association (ADA) provides guidance for cutoff values for fasting glucose and random glucose. The ADA defines fasting as no caloric intake for at least 8 hours. Fasting plasma glucose results between 100 to 125 mg/dL indicate increased risk for diabetes (prediabetes). Fasting plasma glucose results greater than or equal to 126 mg/dL meet the criteria for diagnosis of diabetes. In the absence of unequivocal hyperglycemia, results should be confirmed by repeat testing. In a patient with classic symptoms of hyperglycemia or hyperglycemic crisis, random plasma glucose results greater than or equal to 200 mg/dL meet the criteria for diagnosis of diabetes. Reference: Standards of Medical Care in Diabetes 2016, [place] Diabetes Association. Diabetes Care. 2016.39(Suppl 1). Performed By: #### 2 4321-2 ####[facility] LABORATORYCLIA [id number] [place] [address] [place] Potassium [Moles/Vol] 4.4 mmol/L Normal 3.7-5.1 [facility] Comment on above: Order Comment: Kodak anderson Type: BLOOD SPECIMENOrdering Facility: [facility] Address: [address] [id number] Performed By: #### 2 4321-2 ####[facility] LABORATORYCLIA [id number] [address] Sodium [Moles/Vol] 140 mmol/L Normal 136-144 [facility] Comment on above: Order Comment: Speci men Type: BLOOD SPECIMENOrdering Facility: [facility] Address: [address] [place] [address] Performed By: #### 2 4321-2 ####[facility] LABORATORYCLIA [id number] [address] Urea nitrogen [Mass/Vol] 20 mg/dL Normal 7-21 [facility] Comment on above: Order Comment: Speci men Type: BLOOD SPECIMENOrdering Facility: [facility] Address: [address] [place] [address] Performed By: #### 2 4321-2 ####[facility] LABORATORYCLIA [id number] [address] STATES [facility] CBC panel Auto (Bld)on 04-14 Erythrocyte distribution width (RBC) [Ratio] 11.8 % 11.5 - 15.0 % [facility] Hematocrit (Bld) [Volume fraction] 34.2 % Low 36.0 - 46.0 % [facility] Hemoglobin (Bld) [Mass/Vol] 11 g/dL Low 11.5 - 15.5 g/dL [facility] Interpretation and review of laboratory results Abnormal [facility] MCH (RBC) [Entitic mass] 33.3 pg 26.0 - 34.0 pg [facility] MCHC (RBC) [Mass/Vol] 32.2 g/dL 30.5 - 36.0 g/dL [facility] MCV (RBC) [Entitic vol] 103.6 fL High 80.0 - 100.0 fL [facility] Nucleated RBC (Bld) [#/Vol] NINF [facility] Platelet mean volume (Bld) [Entitic vol] 10.2 fL 9.0 - 12.7 fL [facility] Platelets (Bld) [#/Vol] 237 10*3/uL [facility] RBC (Bld) [#/Vol] 3.3 10*6/uL Low 3.90 - 5.20 m/uL [facility] WBC (Bld) [#/Vol] 5.83 10*3/uL [facility] Erythrocyte distribution width (RBC) [Ratio] 11.8 % Normal 11.5-15.0 [facility] Comment on above: Order Comment: Speci men Type: BLOOD SPECIMENOrdering Facility: [facility] Address: [address] [place] [address] Performed By: #### 5 8410-2 ####[facility] LABORATORYCLIA [id number] [address] [place] Hematocrit (Bld) [Volume fraction] 34.2 % Low 36.0-46.0 [facility] Comment on above: Order Comment: Speci men Type: BLOOD SPECIMENOrdering Facility: [facility] Address: [address] [place] [address] Performed By: #### 5 8410-2 ####[facility] LABORATORYCLIA [id number] [address] [place] Hemoglobin (Bld) [Mass/Vol] 11.0 g/dL Low 11.5-15.5 [facility] Comment on above: Order Comment: Speci men Type: BLOOD SPECIMENOrdering Facility: [facility] Address: [address] [place] [address] Performed By: #### 5 8410-2 ####[facility] LABORATORYCLIA [id number] [address] [place] MCH (RBC) [Entitic mass] 33.3 pg Normal 26.0-34.0 [facility] Comment on above: Order Comment: Speci men Type: BLOOD SPECIMENOrdering Facility: [facility] Address: [address] [place] [address] Performed By: #### 5 8410-2 ####[facility] LABORATORYCLIA [id number] [address] [place] MCHC (RBC) [Mass/Vol] 32.2 g/dL Normal 30.5-36.0 [facility] Comment on above: Order Comment: Speci men Type: BLOOD SPECIMENOrdering Facility: [facility] Address: [address] [place] [address] Performed By: #### 5 8410-2 ####[facility] LABORATORYCLIA [id number] [address] [place] MCV (RBC) [Entitic vol] 103.6 fL High 80.0-100.0 [facility] Comment on above: Order Comment: Speci men Type: BLOOD SPECIMENOrdering Facility: [facility] Address: [address] [place] [address] Performed By: #### 5 8410-2 ####[facility] LABORATORYCLIA [id number] [address] [place] Nucleated RBC (Bld) [#/Vol] 10*3/uL Normal <0.01 [facility] Comment on above: Order Comment: Speci men Type: BLOOD SPECIMENOrdering Facility: [facility] Address: [address] [place] [address] Performed By: #### 5 8410-2 ####[facility] LABORATORYCLIA [id number] [address] Platelet mean volume (Bld) [Entitic vol] 10.2 fL Normal 9.0-12.7 [facility] Comment on above: Order Comment: Speci men Type: BLOOD SPECIMENOrdering Facility: [facility] Address: [address] [place] [address] Performed By: #### 5 8410-2 ####[facility] LABORATORYCLIA [id number] [address] [place] Platelets (Bld) [#/Vol] 237 10*3/uL Normal 150-400 [facility] Comment on above: Order Comment: Speci men Type: BLOOD SPECIMENOrdering Facility: [facility] Address: [address] [place] [address] Performed By: #### 5 8410-2 ####[facility] LABORATORYCLIA [id number] [address] [place] RBC (Bld) [#/Vol] 3.30 10*6/uL Low 3.90-5.20 [facility] Comment on above: Order Comment: Speci men Type: BLOOD SPECIMENOrdering Facility: [facility] Address: [address] [id number] Performed By: #### 5 8410-2 ####[facility] LABORATORYCLIA [id number] [address] [place] WBC (Bld) [#/Vol] 5.83 10*3/uL Normal 3.70-11.00 [facility] Comment on above: Order Comment: Speci men Type: BLOOD SPECIMENOrdering Facility: [facility] Address: [address] [id number] Performed By: #### 5 8410-2 ####[facility] LABORATORYCLIA [id number] [place] [id number] [facility] CNOVSPon 04-14-2025 CNOVSP Visit (SP) Office (GUANACOYNJADEPOB) MER ALLEN ([id number]) 1945 F Date Time Provider Department 04/14/25 10:00 AM JINA STEARNS During your visit today, we recorded the following information about you: Temperature Pulse Blood pressure Weight 97.3 degrees 58/minute 154/79 59 kg Height 1.524 m Jina Stearns MD 04/14/2025 11:00 AM Signed Gynecologic Oncology Consultation Note [facility] Referring provider: Dr. 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 She was noted to have a firm mass in the posterior cul de sac at time of recent TVH - this was removed and was noted to be an adult granulosa cell tumor. Preop US in Nov 2024 noted this hypoechoic slowly enlarging mass - noted back as early as 2019. She was referred given path findigs. Patient reports not feeling back to her pre-surgery self, with decreased appetite and loose bowel movements since the procedure. Denies N/V except for day of surgery. She experiences soreness when leaning or arching her back but denies significant pain or bleeding. Bladder function remains normal. She is slowly trending back towards feeling like herself. Denies any vaginal bleeding or discharge. Of note, she had severe nausea after anesthesia last time. Here today with her of 60 years. ROS: 14 point ROS negative unless indicated in above HPI. Medical history: PAST MEDICAL HISTORY Diagnosis Date - Cerebellar hemangioma (HCC) 2003 stable 2009 MRI (symptom was that felt like was being pushed forward) - Chronic tonsillitis resolved with tonsillectomy - Dyskinesia of esophagus - Dyspepsia and other specified disorders of function of stomach Dyspepsia - Epilepsy (HCC) - Essential hypertension, benign - Granulosa cell tumor - Hiatal hernia 2009 - Hyperlipidemia - Internal hemorrhoids without mention of complication - Irritable bowel syndrome colitis - had colonoscopy, otherwise benign - Mumps without mention of complication Mumps - Other specified cardiac dysrhythmias(427.89) 2003 tachycardia - benign on stress test; Dr. Richardson following - H - PAST MEDICAL HISTORY OF Epiretinal Membrane - Unspecified hemorrhoids without mention of complication 2001 Hemorrhoids - Unspecified visual loss 05/21/2005 - Varicella without mention of complication Chickenpox 2 seizure episodes ever. Surgical history: PAST SURGICAL HISTORY Procedure Laterality Date - ANES NRV/MUS/TND/FASC LOWER LEG/ANKLE/FOOT NOS benign growth excised from back of left leg - COLONOSCOPY FLX DX W/COLLJ SPEC WHEN PFRMD 2000 Colonoscopy - COLONOSCOPY FLX DX W/COLLJ SPEC WHEN PFRMD 03/07/11 - COLONOSCOPY FLX DX W/COLLJ SPEC WHEN PFRMD 07/02/16 Colonoscopy (MAC) - DILATION AND CURETTAGE DXAND/THER NONOBSTETRIC 1974 after spontaneous miscarriage - EGD TRANSORAL BIOPSY SINGLE/MULTIPLE 03/07/11 - ESOPHAGOGASTRODUODENOSCOPY TRANSORAL DIAGNOSTIC 07/02/16 EGD (MAC) - EXC CYST/ABERRANT BREAST TISSUE OPEN 1/> LESION benign growth excised left breast - OSTEOTOMY PHALANX FINGER EACH 2001 excision benign growth on left index finger twice - TONSILLECTOMY AND ADENOIDECTOMY Tonsil/adenoidectomy - UNLISTED SPECIAL DERMATOLOGICAL SERVICE/PROCED 1961 benign moles removed from thorax - UNLISTED SPECIAL DERMATOLOGICAL SERVICE/PROCED 2000 benign moles removed from left thigh AND rt. 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 No abnormal pap tests. No HRT. Family history: Family History Problem Relation Age of Onset - Hypertension Mother - Emphysema Father - Ischemic Heart Disease Father enlarged heart, of [place] - Coronary Artery Disease Father - Cancer Father skin cancer - Hypertension Father - Lipids Father - Coronary Artery Disease Sister - Thyroid Sister - Diabetes Sister - Diabetes Brother - Psychiatry Brother diagnosed in teens as paranoid schizophrenic - other (migraines) Brother - Diabetes Maternal Grandmother of complications of Type II diabetes - Cancer Maternal Grandfather Stomach - Blood Disease Paternal Grandmother Leukemia in 70's - Genitourinary () Son born with misplaced ureter; has enlarged kidneys Social history: Social History Tobacco Use - Smoking status: Never - Smokeless tobacco: Never - Tobacco comments: exposed to father smoking when she was a child. Also her smoked for 12 years when they were first . Vaping Use - Vaping status: Never Used Substance Use Topics - Alcohol use: No - Drug use: No . Medications: Current Outpatient Medications Medication Sig Dispense Refill - iv contrast (will be provided with radiology test) CT ABD/PEL -Inject, intravenousl (more content not included)... Normal [facility] TYPE AND SCREEN,30 DAYon ABO group Nom (Bld) A [facility] Blood group antibody screen Ql Negative [facility] Rh Nom (Bld) Positive [facility] ABO A Normal [facility] Comment on above: Order Comment: Speci men Type: BLOOD SPECIMENOrdering Facility: [facility] Address: [address] [place] [address] Performed By: #### T [id number] ####[facility] BLOOD BANKCLIA [id number] [place] [address] [place] Rh Nom (Bld) Positive Normal [facility] Comment on above: Order Comment: Speci men Type: BLOOD SPECIMENOrdering Facility: [facility] Address: [address] [place], [place] [address] [address] Performed By: #### T SCR30 ####[facility] BLOOD BANKIA [id number] [place] [address] [place] Cardiology Visit Reporton Cardiology Visit Report [facility] [address] [place], [place] [id number] OFFICE VISIT Date of Service: 04/06/25 MR#: [id number] Acct: [id number] Name: MER ALLEN Rep #: [id number] : 1945 Provider: SINTIA burrell Age/Sex: 79/F Location: [facility] Status: Signed HPI HPI History of Present Illness Details: This is a 79-year-old lady who presents to the office today for a cardiovascular follow-up visit. She has a history of hypertension, seizure disorder, cerebellar hemangioma who presents for cardiac evaluation. She does have a history of hypertension and has had some pedal edema. She has also had evidence of ambulatory blood pressure monitoring which has demonstrated elevated blood pressure in 2011 as well as 2017. She had had some palpitations in 2014 and had a Holter monitor placed which demonstrated an average heart rate of 60 bpm and minimal 45 beats minute in sinus rhythm and a maximum of 90 bpm. She did present with mildly elevated proBNP and was put on spironolactone and this has improved her blood pressure remarkably. She just recently underwent a hysterectomy 4 weeks ago, she does tell me they found a tumor-that was positive for cancer. She states that she will need to go back in for surgery to have her ovaries removed. From a cardiac standpoint, the patient is doing well. She denies any palpitations, chest pain, pressure or heaviness. She denies SOB, Orthopnea, and PND. She does not have bleeding issues; no b lood in urine, stool, or nosebleeds. She denies any decrease in energy level, myalgias, or claudication. She does not have edema, or sudden weight gain. She denies lightheadedness, dizziness, syncopal or near syncopal episodes, and headaches. Intake Vital Signs 04/07/24 09:55 04/06/25 06:42 Height 5 ft 1 in 5 ft 1 in Weight: 131 lb BMI 24.7 BP 115/70 Blood Pressure Location Lt brachial Position Sitting Respiration 18 Pulse 53 L Pulse Source Monitor Pulse Oximetry (%) 100 Intake Visit Reasons: 1 Y FU Bariatric Nurse Required: No Is patient in pain?: No Allergies hydrochlorothiazide Allergy (Unknown, Verified 04/06/25 09:04) Rash Tetracyclines Allergy (Unknown, Verified 04/06/25 09:04) Diarrhea amlodipine Adverse Reaction (Verified 04/06/25 09:04) Hives erythromycin base (Erythromycin Base) Adverse Reaction (Verified 04/06/25 09:04) Abd cramps/diarrhea fluorescein Adverse Reaction (Verified 04/06/25 09:04) Hives Gadolinium-MRI Contrast Medium (Gadolinium-Contrast Medium - MRI) Adverse Reaction (Verified 04/06/25 09:04) Other Iodinated Contrast Media (iodine contrast) Adverse Reaction (Verified 04/06/25 09:04) Hives Sulfa (Sulfonamide Antibiotics) Adverse Reaction (Verified 04/06/25 09:04) Abd cramps/diarrhea tramadol Adverse Reaction (Verified 04/06/25 09:04) Unknown Medications ???Medication ???Instructions ???Recorded ???Confirmed ???Type citalopram 20 mg tablet 20 mg PO DAILY 01/31/14 04/06/25 H istory lorazepam 1 mg tablet 1 mg PO TID PRN Anxiety #10 TABLET S 09/26/16 04/06/25 Rx losartan 100 mg tablet 100 mg PO QDAY #90 tabs 01/05/18 0 04/06/25 Rx metoprolol succinate 50 mg 50 mg PO QDAY #90 tabs 12/14/18 Rx tablet,extended release 24 hr calcium 315 mg (as 1 tab PO DAILY 07/29/22 04/06/25 H istory citrate)-vitamin D3 5 mcg (200 unit) tablet (Calcium Citrate + D) cholecalciferol (vitamin D3) 50 50 mcg PO DAILY 07/29/22 04/06/25 History mcg (2,000 unit) tablet kosjibtk-xsu-dgwup ac 400 1 tab PO DAILY 07/29/22 04/06/25 H istory mcg-calcium carb 500 mg-vit K1 20 mcg tablet (Women's 50 Plus Multivitamin) spironolactone 25 mg tablet 25 mg PO DAILY 07/29/22 04/06/25 H istory Ejection fraction %: 55 Have you fallen in the past year?: No [facility] Medical History Nonsustained paroxysmal supraventricular tachycardia Vitreous detachment Occipital neuralgia Essential hypertension Hyperlipidemia Vitamin D deficiency Uterine prolapse Varicella Mumps Leiomyoma of uterus IBS (irritable bowel syndrome) Hiatal hernia Epilepsy Cerebellar hemangioma (2003) History of depression Surgical History History of hand surgery History of excision of lesion History of colonoscopy History of esophagogastroduodenoscopy (EGD) History of tonsillectomy and adenoidectomy Family History Sister CAD (coronary artery disease) Thyroid disorder Diabetes Mother Hypertension Father Heart disease Myocardial infarction Hypertension Cancer skin Emphysema lung Brother Diabetes Paranoid schizophrenia Migraines Grandmother Diabetes Grandfather Cance (more content not included)... [facility] 03-30-2025 [facility] Telephone (GYGENNYP) MER ALLEN ([id number]) 1945 F Date Time Provider Department 03/30/25 JOANNE BAUTISTA During your visit today, we recorded the following information about you: Ramilashannanemory Ale 03/30/2025 8:39 AM Signed Patient called in wanting results of her CT Scan from 03/21/25 Priyanka Rojas RN 03/30/2025 1:39 PM Signed Comment: Patient called in wanting results of her CT Scan from 03/21/25 CT Abdominal/ Pelvis on 03/21/2025 Impression IMPRESSION: Possible clumping of bowel loops in the pelvis. No obstruction. Attention on follow-up exam. 4 x 3.5 cm fluid collection in the right posterior pelvis. Left lower lobe tree-in-bud opacities favor infectious/inflammatory. Children'S Tutor: PSCB Transcribe Date/Time: Mar 28 2025 12:28P Dictated by : JESSICA CALI MD This examination was interpreted and the report reviewed and electronically signed by: JESSICA CALI MD on Mar 28 2025 12:48PM EST Results-Findings * * *Final Report* * * DATE OF EXAM: Mar 21 2025 10:11AM [facility] 0530 - CT ABD/PEL W IVCON / PROCEDURE REASON: Granulosa cell tumor * * * * Physician Interpretation * * * * EXAMINATION: CT ABDOMEN AND PELVIS WITH IV CONTRAST CLINICAL HISTORY: Granulosa cell tumor. Status post hysterectomy and salpingectomy TECHNIQUE: CT of the abdomen and pelvis was performed using standard technique, scanning from just above the dome of the diaphragm to the symphysis pubis. MQ: CTAP_3 Contrast: IV: 100 ml of Omnipaque 350 : ml of CT Radiation dose: Integrated Dose-length product (DLP) for this visit = 472.01 mGy*cm. CT Dose Reduction Employed: Automated exposure control(AEC) and iterative recon COMPARISON: Pelvic ultrasound 12/30/2024, CT abdomen pelvis 07/28/2012 RESULT: Liver: No mass. Biliary: No bile duct dilation. Gallbladder is unremarkable. Spleen: No mass. No splenomegaly. Pancreas: No mass or duct dilation. Adrenals: No mass. Kidneys: Left renal cyst. No hydronephrosis. GI tract: No obstruction. Possible clumping of bowel loops in the pelvis series 2 image 83. Lymph nodes: No abdominal or pelvic lymphadenopathy. Mesentery/Peritoneum: No ascites or mass. Retroperitoneum: No mass. Vasculature: Aorta is not aneurysmal. Pelvis: 4 x 3.5 cm fluid collection the right posterior pelvis image 74. Bones/Soft Tissues: No acute osseous findings. Bones are osteopenic. Degenerative changes. Lower thorax: Mild tree-in-bud type opacities in the left lower lobe. Localizer images: No additional findings. Priyanka Rojas RN March 30, 2025 1:37 PM Joanne Bautista MD 04/06/2025 10:38 AM Signed Called and relayed results with patient. I told her best to follow-up with Dr. Ortiz to answer any further questions about the tumor or steps moving forward. I did tell her there was no lymphadenopathy on her CT scan. She has an appointment with Dr. Ortiz on April 14. Joanne Bautista MD Allergies As of Date: 03/30/2025 Noted Allergy Reaction POISON YAZ 08/01/2011 4 - Hives 5 - Intolerance 9 - Itching HCTZ (HYDROCHLOROTHIAZIDE) 10/28/2017 2 - Rash Comments: Rash (took after tried on amlodipine) AMLODIPINE 10/28/2017 7 - Swelling Comments: Caused severe leg swelling ERYTHROMYCIN BASE 06/28/2003 Comments: rash, gi upset FLUORESCEIN 09/28/2008 GADOLINIUM-CONTAINING CONTRAST ME*09/30/2005 IV CONTRAST DYE (CONTRAST DYE) 04/22/2010 4 - Hives SULFA (SULFONAMIDE ANTIBIOTICS) 06/28/2003 Comments: rash, gi upset TETRACYCLINE 06/28/2003 Comments: severe diarrhea TRAMADOL 02/16/2006 Comments: hives, pablo, sweats,, rash Date Reviewed: 03/28/2025 Reviewed by: Kelly Kelley MA - Fully Assessed Prescriptions as of 04/06/2025 - iv contrast (will be provided with radiology test) CT ABD/PEL -Inject, intravenously, once for 1 dose.No IV access, insert saline lock prior to the beginning of sedation, infusion, injection of imaging exam. Discontinue saline lock post exam. If Pt. has a central line or IVAD, may access for administration according to line specific nursing protocol. Once exam is complete flush line and de-access according to line specific nursing protocol in the CT contrast administration guidelines link. - diphenhydrAMINE (BENADRYL) 50 mg capsule Take 1 capsule by mouth as directed for 1 dose. one (1) hour prior to exam. - ondansetron orally disintegrating (ZOFRAN ODT) 4 mg disintegrating tablet Take 1 tablet by mouth every 8 hours as needed for nausea/vomiting. - citalopram (CELEXA) 20 mg tablet Take 1 tablet by mouth once daily. - losartan (COZAAR) 100 mg tablet Take 1 tablet by mouth once daily. - metoprolol succinate ER (TOPROL XL) 50 mg 24 hr tablet Take 1 tablet by mouth once daily. - spironolactone (ALDACTONE) 25 mg tablet Take 1 (more content not included)... Normal [facility] CNOVon 03-28-2025 CNOV Office Visit (GYURWP ) MER ALLEN ([id number]) 1945 F Date Time Provider Department 03/28/25 10:00 AM MADELINE RESTREPO During your visit today, we recorded the following information about you: Weight Height 60.8 kg 1.524 m Madeline Restrepo, AIR TWIST OPERATOR.HEMATOLOGY NURSE 03/28/2025 9:48 AM Signed Female Pelvic Medicine AND Reconstructive Surgery Post-Op Visit Recording using [employer] software for draft documentation of the visit was discussed with the patient/authorized sales representatives; all questions welcomed and answered. Patient/authorized sales representatives agreed to proceed Mer Allen is a 79 year old female who presents for a 3 Week post-op check s/p HYSTERECTOMY VAGINAL UTERUS 250G OR LESS REMOVAL TUBE(S) AND/OR OVARY(S) CYSTOSCOPY COMBINED ANTERIOPOSTERIOR COLPORRHAPHY W/ENTEROCELE REPAIR INCLUDING CYSTOURETHROSCOPY WHEN PERFORMED VAGINECTOMY PARTIAL. HPI: The patient is a 79-year-old female presenting for follow-up after recent surgery. The patient reports significant improvement in pain following recent surgery. She notes that the severe pain she experienced for months prior to the surgery has resolved. She mentions a phone call from her surgeon who discussed the tumor and mentioned the word cancer, describing it as slow-growing. The patient expresses a wish that her ovaries had been removed during the initial surgery, as she has been informed that further surgery to remove them may be necessary. She reports a small amount of light pinkish blood in her urine but denies any issues with bowel movements. She also notes mild itching and soreness, which she attributes to the sutures. CT A/P pending. Seeing Dr. Stearns in March. Post-op complications: no Bleeding: yes light and pink Pain: no Abnormal vaginal discharge: no Pathology: A. Soft tissue, left cul-de-sac, excision: - Granulosa cell tumor, adult type. - Minute fragment of fimbriated end of fallopian tube with no significant diagnostic alteration. - See comment. B. Uterus and cervix, hysterectomy: Cervix: - Cervix with changes consistent with uterovaginal prolapse. Endometrium: - Inactive endometrium. - Benign endometrial polyp. Myometrium: - Leiomyomata (2.4 cm in greatest dimension) with degenerative changes including calcific degeneration. Serosa: -Unremarkable serosal surface. C. Fallopian tube, left, salpingectomy: - Fallopian tube with benign paratubal cysts. D. Fallopian tube, right, salpingectomy: - Unremarkable fallopian tube. Metal Dresser offered:Patient declines SENSITIVE EXAM: The sensitive examination was discussed with the Patient or Patient's Authorized Foam Rubber Curer. As applicable, any other physician, advance practice provider, medical student, or other health professional student that will be observing or involved in the sensitive examination for educational or training purposes was discussed with the Patient or Authorized Foam Rubber Curer. The Patient or Authorized Foam Rubber Curer has agreed to proceed with the sensitive examination. (Sensitive examination includes inspection and/or palpation of the breasts, pelvis, prostate and anorectal regions). PFDI-20 Do you: Usually experience pressure in the lower abdomen? No (0) Usually experience heaviness or dullness in the pelvic area? No (0) Usually have a bulge or something falling out that you can see or feel in your vaginal area? No (0) Ever have to push on the vagina or around the rectum to have or complete a bowel movement? No (0) Usually experience a feeling of incomplete bladder emptying? No (0) Ever have to push up on a bulge in the vaginal area with your fingers to start or complete urination? No (0) Feel you need to strain too hard to have a bowel movement? No (0) Feel you have not completely emptied your bowels at the end of a bowel movement? Yes, not at all bothersome (1) Usually lose stool beyond your control if your stool is well formed? No (0) Usually lose stool beyond your control if your stool is loose? No (0) Usually lose gas from the rectum beyond your control? No (0) Usually have pain when you pass your stool? No (0) Experience a strong sense of urgency and have to de leon to the bathroom to have a bowel movement? No (0) Does part of your bowel ever pass through the rectum and bulge outside during or after a bowel movement? No (0) Usually experience frequent urination? No (0) Usually experience urine leakage associated with a feeling of urgency, that is, a strong sensation of needing to go to the bathroom? No (0) Usually experience urine leakage related to coughing, sneezing or laughing? No (0) Usually experience small amounts of urine leakage (that is, drops)? Yes, not at all bothersome (1) Usually experience difficulty emptying your bladder? No (0) Usually experience pain or discomfort in the lower abdomen or genital (more content not included)... Normal [facility] Creatinine + eGFR Pnl SerPlB ldon 03-22-2025 Creatinine and Glomerular filtration rate.predicted panel (S/P/Bld) 39 mL/min/1.73m??? Low >=60 [facility] Comment on above: Order Comment: Speci men Type: BLOOD SPECIMENOrdering Facility: [facility] Address: [address] [place] [address] Result Comment: Nissa mated Glomerular Filtration Rate (eGFR) is calculated using the 2020 CKD-EPI creatinine equation. This equation utilizes serum creatinine, sex, and age as parameters. The creatinine assay has traceable calibration to isotope dilution-mass spectrometry. Refer to KDIGO guidelines for clinical interpretation. In patients with unstable renal function, e.g. those with acute kidney injury, the eGFR may not accurately reflect actual GFR. Performed By: #### 4 [id number] ####[facility] LABCLIA [id number] [place] [address] [place] Creatinine and Glomerular fi ltration rate.predicted panel (S/P/Bld)on 03-22-2025 Creatinine [Mass/Vol] 1.38 mg/dL High 0.58-0.96 [facility] Comment on above: Order Comment: Speci men Type: BLOOD SPECIMENOrdering Facility: [facility] Address: [address] [place] [address] Performed By: #### 4 [id number] ####[facility] LABIA [id number] [address] [place] Inhibin B IA [Mass/Vol]on Inhibin B [Mass/Vol] 4.0 pg/mL Normal <=11.0 [facility] Comment on above: Order Comment: Speci men Type: BLOOD SPECIMENOrdering Facility: [facility] Address: [address] [place] [address] Performed By: #### 5 [id number] ####[facility] [id number] [address] [place] CT ABD/PEL W IVCONon 025 CT ABD/PEL W IVCON * * *Final Report* * * DATE OF EXAM: Mar 21 2025 10:11AM [facility] 0530 - CT ABD/PEL W IVCON / PROCEDURE REASON: Granulosa cell tumor * * * * Physician Interpretation * * * * EXAMINATION: CT ABDOMEN AND PELVIS WITH IV CONTRAST CLINICAL HISTORY: Granulosa cell tumor. Status post hysterectomy and salpingectomy TECHNIQUE: CT of the abdomen and pelvis was performed using standard technique, scanning from just above the dome of the diaphragm to the symphysis pubis. MQ: CTAP_3 Contrast: IV: 100 ml of Omnipaque 350 : ml of CT Radiation dose: Integrated Dose-length product (DLP) for this visit = 472.01 mGy*cm. CT Dose Reduction Employed: Automated exposure control(AEC) and iterative recon COMPARISON: Pelvic ultrasound 12/30/2024, CT abdomen pelvis 07/28/2012 RESULT: Liver: No mass. Biliary: No bile duct dilation. Gallbladder is unremarkable. Spleen: No mass. No splenomegaly. Pancreas: No mass or duct dilation. Adrenals: No mass. Kidneys: Left renal cyst. No hydronephrosis. GI tract: No obstruction. Possible clumping of bowel loops in the pelvis series 2 image 83. Lymph nodes: No abdominal or pelvic lymphadenopathy. Mesentery/Peritoneum: No ascites or mass. Retroperitoneum: No mass. Vasculature: Aorta is not aneurysmal. Pelvis: 4 x 3.5 cm fluid collection the right posterior pelvis image 74. Bones/Soft Tissues: No acute osseous findings. Bones are osteopenic. Degenerative changes. Lower thorax: Mild tree-in-bud type opacities in the left lower lobe. Localizer images: No additional findings. IMPRESSION: Possible clumping of bowel loops in the pelvis. No obstruction. Attention on follow-up exam. 4 x 3.5 cm fluid collection in the right posterior pelvis. Left lower lobe tree-in-bud opacities favor infectious/inflammatory. Children'S Tutor: PSCB Transcribe Date/Time: Mar 28 2025 12:28P Dictated by : JESSICA CALI MD This examination was interpreted and the report reviewed and electronically signed by: JESSICA CALI MD on Mar 28 2025 12:48PM EST [id number] Normal [facility] MER ALLEN ([id number]) 1945 F Date Time Provider Department 03/17/25 JOANNE BAUTISTA During your visit today, we recorded the following information about you: Jina Rincon 03/17/2025 1:02 PM Signed Pt had surgery about 10 days ago and talked to Dr. Bautista about 2-3 days ago regarding an issue. She was told to call back if she was still having the same issue and she is. So she would like to speak to a nurse. Please call home number. Evelyn Barrios, RN 03/17/2025 1:50 PM Signed Returned patients. Verified last name and . Patient reports that she is still having some vaginal bleeding and wanted to let the office know. Patient reports quarter size drops of reddish-brown blood on her pad, especially when she stands up. Patient is changing her pad 3, sometimes 4 times a day. Patient denies bright red blood and saturating pads at this time. Patient states that outside of this she is feeling well, denies any additional symptoms at this time and just worries about everything. This RN offered reassurance to the patient and answered all patient questions. Instructed patient to call back if she has additional questions or concerns. Patient stated understanding and was appreciative of the call back. Evelyn Barrios RN Allergies As of Date: 03/17/2025 Noted Allergy Reaction POISON YAZ 08/01/2011 4 - Hives 5 - Intolerance 9 - Itching HCTZ (HYDROCHLOROTHIAZIDE) 10/28/2017 2 - Rash Comments: Rash (took after tried on amlodipine) AMLODIPINE 10/28/2017 7 - Swelling Comments: Caused severe leg swelling ERYTHROMYCIN BASE 06/28/2003 Comments: rash, gi upset FLUORESCEIN 09/28/2008 GADOLINIUM-CONTAINING CONTRAST ME*09/30/2005 IV CONTRAST DYE (CONTRAST DYE) 04/22/2010 4 - Hives SULFA (SULFONAMIDE ANTIBIOTICS) 06/28/2003 Comments: rash, gi upset TETRACYCLINE 06/28/2003 Comments: severe diarrhea TRAMADOL 02/16/2006 Comments: hives, pablo, sweats,, rash Date Reviewed: 03/07/2025 Reviewed by: Joanne Bautista MD - Fully Assessed Reason for Visit: Patient Question [4496] Prescriptions as of 03/17/2025 - ondansetron orally disintegrating (ZOFRAN ODT) 4 mg disintegrating tablet Take 1 tablet by mouth every 8 hours as needed for nausea/vomiting. - citalopram (CELEXA) 20 mg tablet Take 1 tablet by mouth once daily. - losartan (COZAAR) 100 mg tablet Take 1 tablet by mouth once daily. - metoprolol succinate ER (TOPROL XL) 50 mg 24 hr tablet Take 1 tablet by mouth once daily. - spironolactone (ALDACTONE) 25 mg tablet Take 1 tablet by mouth once daily. For BP - LORazepam (ATIVAN) 1 mg tablet Take 0.5-1 tablets by mouth three times a day as needed for anxiety for up to 90 days. - MV-MN/IRON FUM/FA/OMEGA3,6,9#3 (WOMEN'S MULTI ORAL) Take 1 tablet by mouth once daily. - CALCIUM CITRATE/VITAMIN D3 (CALCIUM CITRATE + ORAL) Take by mouth. Problem List As Of Date 03/17/2025 Noted Resolved Disturbance of skin sensation [R20.9] 06/30/2003 04/24/2015 Tachycardia, unspecified [R00.0] 11/04/2005 09/08/2023 Anxiety state [F41.1] 11/04/2005 Routine physical examination [Z00.00] 02/19/2010 08/01/2011 Cavernous Hemangioma [D18.00] 02/19/2010 Partial seizure disorder (HCC) [G40.109] 02/19/2010 Vitreous Detachment [H43.819] 02/19/2010 Osteopenia [M85.80] 02/19/2010 Acute gastritis without mention of hemorrhage [*03/07/2011 05/08/2018 Urethral caruncle [N36.2] 08/01/2011 Uterine prolapse without mention of vaginal wal*08/01/2011 HTN (hypertension) [I10] 02/07/2013 Hyperlipidemia [E78.5] 02/28/2013 Vitamin d deficiency [E55.9] 02/28/2013 Occipital neuralgia [M54.81] 03/23/2014 Medicare annual wellness visit, initial [Z00.00]04/24/2015 05/08/2018 Cerebellar hemangioma (HCC) [D18.02] 02/04/2021 Uterovaginal prolapse, incomplete [N81.2] 01/23/2025 Urinary incontinence [R32] 01/23/2025 Pre-op examination [Z01.818] 02/22/2025 Nonsustained paroxysmal supraventricular tachyc*02/27/2025 Encounter Status:Closed by EVELYN BARRIOS on 03/17/25 [facility] Javi 03-15-2025 [facility] Telephone (WHQ) MER ALLEN ([id number]) 1945 F Date Time Provider Department 03/15/25 JOANNE BAUTISTA WHQ During your visit today, we recorded the following information about you: Yoel Wells 03/15/2025 8:48 AM Signed PT just had hysterectomy and is experiencing bright red blood when she is urinating. Alva Jennings RN 03/15/2025 9:38 AM Signed S: Post-op Pt with vaginal bleeding vs. Hematuria. Patient identified by name and . 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 She had a small spotting amount until yesterday when it increased to where the toilet is full of blood when she voids, period-like bleeding and she is changing pads every 2-3 hrs. Blood is bright to dark red with clots. Denies SOB, chest pain, lightheadedness, infection s/s, urinary symptoms. Denies pain. R: Advised that OV would be best to determine where bleeding is coming from and make emory her surgery sites are alright. Offered Visit tomorrow at [facility] with [facility]. Pt prefers to wait to hear Dr. Bautista's recommendation. Advised her to: -monitor bleeding, call back if it increases -stay hydrated - monitor for s/s infection - ED precautions discussed Will forward to Dr. Bautista. NYA Sanders Mary M, MD 03/15/2025 11:07 AM Signed I called and spoke to the patient. She had some bright red spotting but now it is just dark blood. She only changed her pads three times per day. She has not burning or pain with urination. She is otherwise doing well. She notices the blood most when she is up moving around. She is not on any blood thinners. I gave her reassurance as well as bleeding precautions. She will contact us or proceed to the ER if her bleeding worsens. Joanne Bautista MD Allergies As of Date: 03/15/2025 Noted Allergy Reaction POISON YAZ 08/01/2011 4 - Hives 5 - Intolerance 9 - Itching HCTZ (HYDROCHLOROTHIAZIDE) 10/28/2017 2 - Rash Comments: Rash (took after tried on amlodipine) AMLODIPINE 10/28/2017 7 - Swelling Comments: Caused severe leg swelling ERYTHROMYCIN BASE 06/28/2003 Comments: rash, gi upset FLUORESCEIN 09/28/2008 GADOLINIUM-CONTAINING CONTRAST ME*09/30/2005 IV CONTRAST DYE (CONTRAST DYE) 04/22/2010 4 - Hives SULFA (SULFONAMIDE ANTIBIOTICS) 06/28/2003 Comments: rash, gi upset TETRACYCLINE 06/28/2003 Comments: severe diarrhea TRAMADOL 02/16/2006 Comments: hives, pablo, sweats,, rash Date Reviewed: 03/07/2025 Reviewed by: Joanne Bautista MD - Fully Assessed Reason for Visit: Patient Question [1477] Prescriptions as of 03/15/2025 - ondansetron orally disintegrating (ZOFRAN ODT) 4 mg disintegrating tablet Take 1 tablet by mouth every 8 hours as needed for nausea/vomiting. - citalopram (CELEXA) 20 mg tablet Take 1 tablet by mouth once daily. - losartan (COZAAR) 100 mg tablet Take 1 tablet by mouth once daily. - metoprolol succinate ER (TOPROL XL) 50 mg 24 hr tablet Take 1 tablet by mouth once daily. - spironolactone (ALDACTONE) 25 mg tablet Take 1 tablet by mouth once daily. For BP - LORazepam (ATIVAN) 1 mg tablet Take 0.5-1 tablets by mouth three times a day as needed for anxiety for up to 90 days. - MV-MN/IRON FUM/FA/OMEGA3,6,9#3 (WOMEN'S MULTI ORAL) Take 1 tablet by mouth once daily. - CALCIUM CITRATE/VITAMIN D3 (CALCIUM CITRATE + ORAL) Take by mouth. Problem List As Of Date 03/15/2025 Noted Resolved Disturbance of skin sensation [R20.9] 06/30/2003 04/24/2015 Tachycardia, unspecified [R00.0] 11/04/2005 09/08/2023 Anxiety state [F41.1] 11/04/2005 Routine physical examination [Z00.00] 02/19/2010 08/01/2011 Cavernous Hemangioma [D18.00] 02/19/2010 Partial seizure disorder (HCC) [G40.109] 02/19/2010 Vitreous Detachment [H43.819] 02/19/2010 Osteopenia [M85.80] 02/19/2010 Acute gastritis without mention of hemorrhage [*03/07/2011 05/08/2018 Urethral caruncle [N36.2] 08/01/2011 Uterine prolapse without mention of vaginal wal*08/01/2011 HTN (hypertension) [I10] 02/07/2013 Hyperlipidemia [E78.5] 02/28/2013 Vitamin d deficiency [E55.9] 02/28/2013 Occipital neuralgia [M54.81] 03/23/2014 Medicare annual wellness visit, initial [Z00.00]04/24/2015 05/08/2018 Cerebellar hemangioma (HCC) [D18.02] 02/04/2021 Uterovaginal prolapse, incomplete [N81.2] 01/23/2025 Urinary incontinence [R32] 01/23/2025 Pre-op examination [Z01.818] 02/22/2025 Nonsustained paroxysmal supraventricular (more content not included)... Normal [facility] ANES POSTPROC EVALon 025 ANES POSTPROC EVAL HNO ID: [id number] Author: ANGELIQUE FISCHER MD Service: Anesthesiology Author Type: Physician Type: Anesthesia Postprocedure Evaluation Filed: 03/07/2025 09:00 Note Text: POST ANESTHESIA EVALUATION NOTE : 1945 Procedure Summary Date: 03/06/25 Room / Location: [place] OR 16 / [place] Anesthesia Start: 1326 Anesthesia Stop: 1523 Procedures: HYSTERECTOMY VAGINAL UTERUS 250G OR LESS REMOVAL TUBE(S) AND/OR OVARY(S) CYSTOSCOPY (Pelvis) COMBINED ANTERIOPOSTERIOR COLPORRHAPHY W/ENTEROCELE REPAIR INCLUDING CYSTOURETHROSCOPY WHEN PERFORMED (Bilateral) VAGINECTOMY PARTIAL (Bilateral) Diagnosis: Uterovaginal prolapse, incomplete Urinary incontinence, unspecified type (Uterovaginal prolapse, incomplete [N81.2]) (Urinary incontinence, unspecified type [R32]) Surgeons: Joanne Bautista MD Responsible Provider: Angelique Fischer MD Anesthesia Type: general ASA Status: 3 Anesthesia Type: general Airway Type: ETT Last Vitals Vitals Value Taken Time BP 134/57 03/06/25 1900 Temp 36.3 ?C (97.3 ?F) 03/06/25 1730 HR SpO2 66 03/06/25 1901 Resp 16 03/06/25 1901 SpO2 100 % 03/06/25 190 Vitals shown include unfiled device data. Post Anesthesia Patient Status Patient Evaluation: PACU. PACU/ICU Patient Condition: stable. Anticipated Disposition: phase 2 then home. Neurological Status: aware and responsive. Pulmonary Status: breathing comfortably on room air Airway Control: returned to baseline unsupported. Cardiovascular Status: stable. Pain Management: clinically adequate Postoperative Hydration: acceptable. Intraoperative Events: no significant anesthesia events Post Operative Nausea/Vomiting Status: no significant post operative nausea or vomiting Recommendation: continue current plan of care. Anesthesia Observations No Documentation SIGNATURE: Angelique Fischer MD PATIENT NAME: eMr Pizarro Alejandro DATE: March 07, 2025 TIME: 8:59 AM CSN: [id number] [facility] 03-07-2025 [facility] Telephone ([place]) ALEJANDROMER ([id number]) 1945 F Date Time Provider Department 03/07/25 JOANNE BAUTISTA During your visit today, we recorded the following information about you: Joanne Bautista MD 03/07/2025 9:12 AM Signed Called patient because she left a voicemail message on my phone that she was having a lot of pain from her surgery yesterday. She is status post Total vaginal hysterectomy Colpocleisis, perineoplasty and cystoscopy (anterior colporrhaphy, posterior colporrhaphy and enterocele repair with vaginectomy). She is now POD 1 and doing well. She had not taken pain medicine. Once she took an oxycodone she slept well. She just took two ibuprofen. We reviewed how to take pain meds. She has not other complaints. I told her I would be in touch with her when I have the pathology results. I answered all her questions and gave her reassurance. Joanne Bautista MD Allergies As of Date: 03/07/2025 Noted Allergy Reaction POISON YAZ 08/01/2011 4 - Hives 5 - Intolerance 9 - Itching HCTZ (HYDROCHLOROTHIAZIDE) 10/28/2017 2 - Rash Comments: Rash (took after tried on amlodipine) AMLODIPINE 10/28/2017 7 - Swelling Comments: Caused severe leg swelling ERYTHROMYCIN BASE 06/28/2003 Comments: rash, gi upset FLUORESCEIN 09/28/2008 GADOLINIUM-CONTAINING CONTRAST ME*09/30/2005 IV CONTRAST DYE (CONTRAST DYE) 04/22/2010 4 - Hives SULFA (SULFONAMIDE ANTIBIOTICS) 06/28/2003 Comments: rash, gi upset TETRACYCLINE 06/28/2003 Comments: severe diarrhea TRAMADOL 02/16/2006 Comments: hives, pablo, sweats,, rash Date Reviewed: 03/07/2025 Reviewed by: Joanne Bautista MD - Fully Assessed Prescriptions as of 03/07/2025 - ondansetron orally disintegrating (ZOFRAN ODT) 4 mg disintegrating tablet Take 1 tablet by mouth every 8 hours as needed for nausea/vomiting. - citalopram (CELEXA) 20 mg tablet Take 1 tablet by mouth once daily. - losartan (COZAAR) 100 mg tablet Take 1 tablet by mouth once daily. - metoprolol succinate ER (TOPROL XL) 50 mg 24 hr tablet Take 1 tablet by mouth once daily. - spironolactone (ALDACTONE) 25 mg tablet Take 1 tablet by mouth once daily. For BP - LORazepam (ATIVAN) 1 mg tablet Take 0.5-1 tablets by mouth three times a day as needed for anxiety for up to 90 days. - MV-MN/IRON FUM/FA/OMEGA3,6,9#3 (WOMEN'S MULTI ORAL) Take 1 tablet by mouth once daily. - CALCIUM CITRATE/VITAMIN D3 (CALCIUM CITRATE + ORAL) Take by mouth. Problem List As Of Date 03/07/2025 Noted Resolved Disturbance of skin sensation [R20.9] 06/30/2003 04/24/2015 Tachycardia, unspecified [R00.0] 11/04/2005 09/08/2023 Anxiety state [F41.1] 11/04/2005 Routine physical examination [Z00.00] 02/19/2010 08/01/2011 Cavernous Hemangioma [D18.00] 02/19/2010 Partial seizure disorder (HCC) [G40.109] 02/19/2010 Vitreous Detachment [H43.819] 02/19/2010 Osteopenia [M85.80] 02/19/2010 Acute gastritis without mention of hemorrhage [*03/07/2011 05/08/2018 Urethral caruncle [N36.2] 08/01/2011 Uterine prolapse without mention of vaginal wal*08/01/2011 HTN (hypertension) [I10] 02/07/2013 Hyperlipidemia [E78.5] 02/28/2013 Vitamin d deficiency [E55.9] 02/28/2013 Occipital neuralgia [M54.81] 03/23/2014 Medicare annual wellness visit, initial [Z00.00]04/24/2015 05/08/2018 Cerebellar hemangioma (HCC) [D18.02] 02/04/2021 Uterovaginal prolapse, incomplete [N81.2] 01/23/2025 Urinary incontinence [R32] 01/23/2025 Pre-op examination [Z01.818] 02/22/2025 Nonsustained paroxysmal supraventricular tachyc*02/27/2025 Encounter Status:Closed by JOANNE BAUTISTA on 03/07/25 [facility] ANES PRE-OPon 03-06-2025 ANES PRE-OP HNO ID: [id number] Author: ANGELIQUE FISCHER MD Service: Anesthesiology Author Type: Physician Type: Anesthesia Preprocedure Evaluation Filed: 03/07/2025 08:59 Note Text: ANESTHESIOLOGY DAY OF SURGERY NOTE Hysterectomy HTN - losartan, metop, spironolactone Seizures 20 years ago Cavernous hemangioma SVT Neg stress echo 2022 EF = 55% 2+ MR, 1+ TR N [place] : 1945 Procedure Information Date/Time: 03/06/25 1230 Procedures: HYSTERECTOMY VAGINAL UTERUS 250G OR LESS REMOVAL TUBE(S) AND/OR OVARY(S) CYSTOSCOPY (Pelvis) COMBINED ANTERIOPOSTERIOR COLPORRHAPHY W/ENTEROCELE REPAIR INCLUDING CYSTOURETHROSCOPY WHEN PERFORMED (Bilateral) VAGINECTOMY PARTIAL (Bilateral) SUSPENSION BLADDER SLING Location: [place] OR 16 / [place] Surgeons: Joanne Bautista MD Estimated body mass index is 26.25 kg/m? as calculated from the following: Height as of 02/27/25: 152.4 cm (5'). Weight as of 02/27/25: 61 kg (134 lb 6.4 oz). Most recent hematocrit and potassium results: Hematocrit 35.2 02/27/2025 Potassium 4.8 02/27/2025 Relevant Problems CARDIO (+) Cerebellar hemangioma (HCC) (+) HTN (hypertension) (+) Nonsustained paroxysmal supraventricular tachycardia (HCC) NEURO-PSYCH (+) Occipital neuralgia (+) Partial seizure disorder (HCC) I - PHYSICAL EVALUATION AIRWAY Patient intubated: No. Tracheostomy tube not present Mallampati: II. TM distance: >3 FB. Neck ROM: full ROM without neurological symptoms. Mouth opening: adequate. Short neck: no. Thick neck: no II - ANESTHESIA PLAN ASA Score: 3 Anesthetic Plan: general Airway type: ETT NPO Status: adequate Beta Patti Monitoring Plan Monitoring plan: standard ASA. Post Procedure Analgesic Plan Postoperative analgesic plan: multimodal analgesia. Informed Consent Anesthetic risks, benefits, alternatives, personnel and consent discussed: yes. Patient / Responsible Republican agrees to proceed: yes Patient / Surrogate agrees to blood products: Yes Potential Anesthesia issues that may suggest increased risk of complications or contraindication to planned procedure: none. No vitals data found for the desired time range. No current facility-administered medications on file as of 03/06/2025. Outpatient Medications as of 03/06/2025 Medication Sig citalopram (CELEXA) 20 mg tablet Take 1 tablet by mouth once daily. losartan (COZAAR) 100 mg tablet Take 1 tablet by mouth once daily. metoprolol succinate ER (TOPROL XL) 50 mg 24 hr tablet Take 1 tablet by mouth once daily. spironolactone (ALDACTONE) 25 mg tablet Take 1 tablet by mouth once daily. For BP LORazepam (ATIVAN) 1 mg tablet Take 0.5-1 tablets by mouth three times a day as needed for anxiety for up to 90 days. MV-MN/IRON FUM/FA/OMEGA3,6,9#3 (WOMEN'S MULTI ORAL) Take 1 tablet by mouth once daily. CALCIUM CITRATE/VITAMIN D3 (CALCIUM CITRATE + ORAL) Take by mouth. I have interviewed and examined the patient. I have reviewed the medical record and/or the pre-anesthesia evaluation, pertinent labs, and test results. This contains updated information obtained within 48 hours of Surgery/Procedure. SIGNATURE: Luisa Kimbrough MD PATIENT NAME: Mer Allen DATE: March 06, 2025 TIME: 10:27 AM CSN: [id number] [facility] OPERATIVE NOon 03-06-2025 OPERATIVE NO HNO ID: [id number] Author: JOANNE BAUTISTA MD Service: Urogynecology Author Type: Physician Type: Operative Report Filed: 03/07/2025 09:24 Note Text: OPERATIVE/PROCEDURE REPORT Surgery/Procedure Date: 03/06/25 LOG ID: [id number] SURGERY/PROCEDURE DATE: 03/06/2025 INCISION/PROCEDURE START TIME: 1:40 PM INCISION CLOSE/PROCEDURE END TIME: 2:54 PM Surgeon(s)/Proceduralist(s) and Diet Therapist(s): Surgeon(s): Joanne Bautista MD Rogers, Sherilyn, DO Pre-Op/Pre-Procedure Diagnosis: uterovaginal prolapse Post-Op/Post-Procedure Diagnosis: 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 The patient was placed in dorsal lithotomy position and prepped and draped in sterile fashion. general anesthesia was initiated. A ca catheter was placed in the patients bladder. Vaginal Hysterectomy: A weighted speculum was placed in the patient's vagina. A curved Bryanna was used to retract the anterior vaginal wall and bladder out of the field. The cervix was grasped with two Lisa traction forceps. The cervix was then injected with 0.25% marcaine mixed with epinephrine. A circumferential incision with a 10 blade scalpel was then made incising the vagina mucosa down to the body of the cervix. The posterior vaginal epithelium was then dissected off the cervix until the peritoneum of the pouch of Devaughn was reached. This was then grasped and cut with Huerta scissors entering the peritoneal cavity. A long weighted speculum was then placed in the posterior cul-de-sac. Attention was then turned to the anterior vaginal wall epithelium which was grasped with pickups and dissected, along with the bladder, off of the cervix and the uterus until the peritoneal reflection was visualized. This was then grasped with pickups and incised with Metzenbaum scissors, entering the peritoneal cavity anteriorly. The ca bulb was palpated to confirm that the bladder was not perforated. The Conrad was then used to retract the bladder out of the operative field. A curved Olivia clamp was then used to clamp, cut and suture ligate the uterosacral ligament on the patient's left side. This was repeated on the contralateral side. Next, the vessels of the broad ligament including the uterine vessels were clamped, cut and suture ligated bilaterally. Finally, the utero-ovarian ligament was clamped cut and suture ligated; first with a tie on a passer and then with a Olivia stitch. The uterus and cervix were passed off the sterile field and sent to pathology. The fallopian tubes were identifiedbilaterally and excised using bovie electrocautery. The tubes were sent to pathology. The uterus and cervix were sent to pathology. On pelvic exam, a hard egg-sized mass was noted in the left cul-de-sac. The mass was grasped with forceps and pulled down and out of the vaginal opening. No significant vascular attachments were noted. The ovaries were palpated high in the pelvis and felt small and normal. The mass was sent to pathology for frozen section. The vaginal cuff was closed with interrupted figure of eight sutures using 0-vicryl. Anterior colporrhaphy: The vaginal epithelium overlying the anterior vaginal wall was grasped with two Allis clamps, injected with 0.25% Marcaine with epinephrine and a midline incision was made over the herniation of the anterior vaginal wall. The underlying pubocervical fascia was dissected off the overlying vaginal epithelium until the herniation of the pubocervical fascia was completely exposed. Hemostasis was achieved with electrosurgical cautery. The herniation was repaired in the traditional fashion using imbricating horizontal mattress sutures of 2-O PDS on a CT-1 needle. Once the hernation was completely repaired, the redundant vaginal epithelium was excised and the incision was closed with a running, locking 3-O vicryl suture. Excellent hemostasis was noted. Cystoscopy was then performed and Bilateral efflux of urine was seen from ureteral orifices. Posterior colporhaphy: A self-retaining retractor was used to retract the labia and vagina for adequate visualization and exposure. The vaginal epithelium overlying the posterior vaginal wall was grasped with two Allis clamps, injected with 0.25% Marcaine with epinephrine and a midline incision was made over the herniation of the posterior vaginal wall. The underlying rectovaginal fascia was dissected off the overlying vaginal epithelium until the herniation of the rectovaginal fascia was completely exposed. Hemostasis was achieved with electrosurgical cautery (more content not included)... Normal [facility] Pathology biopsy report Paul (Tiss)on 03-06-2025 AP DISCLAIMER Normal [facility] Comment on above: Order Comment: Speci men Type: TISSUE SPECIMENOrdering Facility: [facility] Address: [address] [place] [address] Result Comment: Yesica higgins Developed Test (LDT) Disclaimer: Performance characteristics of immunohistochemical, immunofluorescent, and chromogenic in-situ hybridization tests have been determined by the performing laboratory within [facility]'s [facility] Pathology and Laboratory Medicine Department ([facility], [facility], [facility], [facility], [facility], [facility], or [facility]) in a manner consistent with CLIA requirements. One or more of these tests may not have been cleared or approved by the FDA. [facility] is regulated under CLIA as qualified to perform high-complexity testing. These tests are used for clinical purposes. These should not be regarded as investigational or for research. Positive and negative controls stain appropriately. Performed By: #### 6 6121-5 ####[facility] LABORATORYCLIA [id number] [address] STATES OF STEPHANIE BLOCK FOR ADDITIONAL BIOMARKERS/MOLECULAR STUDIES A2 Normal [facility] Comment on above: Order Comment: Speci men Type: TISSUE SPECIMENOrdering Facility: [facility] Address: [address] [place] [address] Performed By: #### 6 6121-5 ####[facility]ITALCLIA [id number] [address] CASE REPORT Normal [facility] Comment on above: Order Comment: Speci men Type: TISSUE SPECIMENOrdering Facility: [facility] Address: [address] [place] [address] Result Comment: Surg ical Pathology Report Case: [id number] Authorizing Provider: Joanne Bautista MD Collected: 03/06/2025 01:53 PM Ordering Location: [place] [facility] [place] Received: 03/07/2025 08:43 AM Pathologist: Matt Dumont DO Intraop: Benji Obando MD Specimens: A) - Soft Tissue, Mass, Resection, pelvic mass for frozen B) - Uterus and Cervix C) - Fallopian Tube, Left, Resection D) - Fallopian Tube, Right, Resection Performed By: #### 6 6121-5 ####[facility] LABORATORYCLIA [id number] [address] CLINICAL HISTORY Normal [facility] Comment on above: Order Comment: Speci men Type: TISSUE SPECIMENOrdering Facility: [facility] Address: [address] [place] [address] Result Comment: Pre- op diagnosis: Uterovaginal prolapse, incomplete [N81.2] Urinary incontinence, unspecified type [R32] Performed By: #### 6 6121-5 ####[facility] LABORATORYCLIA [id number] [address] DIAGNOSIS COMMENT Normal [facility] Comment on above: Order Comment: Speci men Type: TISSUE SPECIMENOrdering Facility: [facility] Address: [address] [place] [address] Result Comment: A. I mmunohistochemical staining performed on part A shows the tumor is positive for SF1,calretinin, estrogen receptor (10%, weak intensity) and progesterone receptor (80%, moderate to strong intensity). The tumor is negative for cytokeratin AE1/AE3, CD34, CD10, Melan-A, STAT6, CD1 1 7 and DOG1. 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 The following staging protocol is based on a primary ovarian tumor, however, the relationship of the mass to the ovary is uncertain and correlation with clinical and intraoperative findings are necessary. The tumor cells are preset at the inked surface. Of note, the mitotic activity is approximately 12/10hpf. A p16 immunostain performed on block B3 (cervix) is negative, consistent with the above diagnosis. Slide A3 and SF1 immunostain were reviewed at the [facility] gynecologic pathology consensus conference via telepathology and Drs. 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 The case was also reviewed by Dr. 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 Performed By: #### 6 6121-5 ####[facility] [id number] [address] FINAL DIAGNOSIS Normal [facility] Comment on above: Order Comment: Speci men Type: TISSUE SPECIMENOrdering Facility: [facility] Address: [address] [place] [address] Result Comment: A. S oft tissue, left cul-de-sac, excision: - Granulosa cell tumor, adult type. - Minute fragment of fimbriated end of fallopian tube with no significant diagnostic alteration. - See comment. B. Uterus and cervix, hysterectomy: Cervix: - Cervix with changes consistent with uterovaginal prolapse. Endometrium: - Inactive endometrium. - Benign endometrial polyp. Myometrium: - Leiomyomata (2.4 cm in greatest dimension) with degenerative changes including calcific degeneration. Serosa: -Unremarkable serosal surface. C. Fallopian tube, left, salpingectomy: - Fallopian tube with benign paratubal cysts. D. Fallopian tube, right, salpingectomy: - Unremarkable fallopian tube. at 1437 EDT Performed By: #### 6 6121-5 ####[facility] LABORATORYIA [id number] [address] FINAL PERFORMING LAB Normal [facility] Comment on above: Order Comment: Speci men Type: TISSUE SPECIMENOrdering Facility: [facility] Address: [address] [place] [address] Result Comment: Diag nostic interpretation performed at: [facility], [address] [address] CLIA# [id number] French Comber: Joe Call MD Performed By: #### 6 6121-5 ####[facility] LABORATORYCLIA [id number] [address] GROSS DESCRIPTION Normal [facility] Comment on above: Order Comment: Speci men Type: TISSUE SPECIMENOrdering Facility: [facility] Address: [address] [place] [address] Result Comment: A. S oft Tissue, Mass, Resection Received fresh for frozen section diagnosis labeled pelvic mass is a roughly spherical mass. It weighs 4.7 x 4.3 x 3.2 cm and weighs 34.2 g. The external surface is smooth and glistening. Surface papillations are absent. The cut surface is solid, firm and is resendiz-white with yellow regions. Areas of hemorrhage, necrosis and calcifications are not seen cysts are not present. A 4.5 cm length of possible fallopian tube is present. An area resembling a possible distorted fimbriated end is present. A sales representatives section is submitted for frozen section permanent. Tissue is submitted as follows: A1 sales representatives frozen section permanent A2-A5 additional sales representatives sections (outer surface inked black) A6 area resembling possible fimbriated end totally submitted with area resembling possible fallopian tube totally submitted Gross examination performed at [facility], [address] [place] [address] KVB March 06, 2025 2:57 PM B. Uterus and Cervix Received in formalin labeled uterus and cervix is a specimen consisting of uterus with attached cervix weighing 71.7 g and measuring 8.7 x 4.0 x 3.2 cm. The serosal aspect is smooth and glistening. Bilateral fallopian tubes and ovaries are not attached. The ectocervix is unremarkable. The external cervical os is [place] in contour. Bilateral fallopian tubes and ovaries are not attached. The ectocervix is unremarkable. The external cervical os is [place] in contour. The endocervical canal measures 1.9 cm in length and displays erosions. An area resembling a and displays erosions. An area resembling a resendiz polyp-like structure is present measuring 0.7 x 0.6 x 0.3 cm it is at approximately the 11:00 aspect. The endometrial cavity is 4.5 cm in length and 2.0 cm in greatest width. The endometrium measures 0.1 cm in thickness and is resendiz-red and glistening. A resendiz polyp-like structure is present measuring 2.5 x 1.2 x 1.0 cm. It involves the anterior and posterior wall. The myometrium ranges from 1.3 to 1.5 cm in thickness and is distorted by 7 white whorled rubbery nodules ranging in size from 0.3 to 2.4 cm in greatest dimension. They are intramural and subserosal in location. The 2nd through 4th nodule are calcified. Hemorrhagic areas are not present. Tissue submitted as follows: B1 anterior cervix at 12:00 B2 polyp-like structure from endocervix totally submitted from 11 o'clock position B3 posterior cervix at 6:00 B4 anterior uterine wall full-thickness section B5 posterior uterine wall full-thickness section B6-B8 endometrial polyp-like structure sectioned and totally submitted B9-B11 largest white whorled rubbery nodule sectioned and totally submitted [id number] largest rubbery nodule sectioned and totally submitted following a brief period of decalcification B14 third largest nodule sectioned and totally submitted following a brief period of decalcification B15 fourth largest nodule sectioned and totally submitted following a brief period of decalcification C. Fallopian Tube, Left, Resection Received in formalin labeled left fallopian tube is a specimen resembling a fallopian tube measuring 2.9 cm in length. A fimbriated end is present and has a normal villous appearance. The specimen is sectioned. The fimbriated end is totally submitted with sales representatives sections of the fallopian tube in 1 cassette. D. Fallopian Tube, Right, Resection Received in formalin labeled fallopian tube right is a specimen consisting of a segment of fallopian tube measuring 4.0 cm in length. An area resembling a possible disrupted fimbriated end is present. The specimen is sectioned. The fimbriated end is totally submitted with sales representatives sections of the fallopian tube in 1 cassette. Gross examination performed at [facility], [address] [place] [address] KVB March 07, 2025 2:06 PM Performed By: #### 6 6121-5 ####[facility] LABORATORYCLIA [id number] [address] INTRAOPERATIVE DIAGNOSIS Normal [facility] Comment on above: Order Comment: Speci men Type: TISSUE SPECIMENOrdering Facility: [facility] Address: [address] [place] [address] Result Comment: A. 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 Dr. Obando. Dr. Murdock. Dr. Bruno. Intraoperative examination performed at [facility], [address] [place] [address] CLIA# [id number] Performed By: #### 6 6121-5 ####[facility] LABORATORYCLIA [id number] [address] SYNOPTIC REPORT Normal [facility] Comment on above: Order Comment: Speci men Type: TISSUE SPECIMENOrdering Facility: [facility] Address: [address] [place] [address] Result Comment: OVAR Y or FALLOPIAN TUBE or PRIMARY PERITONEUM OVARY OR FALLOPIAN TUBE OR PRIMARY PERITONEUM - All Specimens 8th Edition - Protocol posted: 05/18/2024 SPECIMEN Procedure: Simple hysterectomy Procedure: Bilateral salpingectomy Specimen Integrity: Not applicable Uterus Integrity: Intact TUMOR Tumor Site: left cul-de sac tumor Tumor Size: Greatest Dimension (Centimeters): 4.7 cm Histologic Type: Granulosa cell tumor, adult type Fallopian Tube Surface Involvement: Not identified Other Tissue / Organ Involvement: Not applicable Peritoneal / Ascitic Fluid Involvement: Not submitted / unknown REGIONAL LYMPH NODES Regional Lymph Node Status: Not applicable (no regional lymph nodes submitted or found) pTNM CLASSIFICATION (AJCC 8th Edition) Reporting of pT, pN, and (when applicable) pM categories is based on information available to the pathologist at the time the report is issued. As per the AJCC (Chapter 1, 8th Ed.) it is the managing physician's responsibility to establish the final pathologic stage based upon all pertinent information, including but potentially not limited to this pathology report. pT Category: pT1c2 pN Category: pN not assigned (no nodes submitted or found) FIGO STAGE FIGO Stage: IC2 Performed By: #### 6 6121-5 ####[facility] LABORATORYCLIA [id number] [place] [address] [place] NURSING PROGon 02-28-2025 NURSING PROG HNO ID: [id number] Author: ENMA LOPEZ APRN.HEMATOLOGY NURSE Service: Anesthesiology Author Type: Nurse Practitioner Type: Nursing Progress Note Filed: 02/28/2025 11:30 Note Text: Summary: Anesthesia Red dot concerns regarding cavernous hemangioma reviewed with anesthesia Dr. Rivers. Per last neuro note in 2013, ok to follow up as needed. Original mention of cavernous hemangioma was seen in MRI in 2002. However MRI in 2012 was without mention of cavernous hemangioma and CT head 06/07/24 without mention of cavernous hemangioma as well. Patient denies any PABLO or visual changes. Per anesthesia Dr. Rivers, ok to proceed with procedure without further optimization or work up. Normal [facility] Basic metabolic 2000 panelon 02-27-2025 Anion gap [Moles/Vol] 11 mmol/L 8 - 15 mmol/L [facility] Calcium [Mass/Vol] 9 mg/dL 8.5 - 10. 2 mg/dL [facility] Chloride [Moles/Vol] 104 mmol/L 98 - 10 7 mmol/L [facility] CO2 [Moles/Vol] 24 mmol/L 22 - 30 mmol/L [facility] Creatinine [Mass/Vol] 1.03 mg/dL High 0.58 - 0.96 mg/dL [facility] GFR/1.73 sq M.predicted among non-blacks MDRD (S/P/Bld) [Vol rate/Area] 55 mL/min/{1.73_m2} Low - PINF [facility] Comment on above: Estimated Glomerular Filtration Rate (eGFR) is calculated using the 2020 CKD-EPI creatinine equation. This equation utilizes serum creatinine, sex, and age as parameters. The creatinine assay has traceable calibration to isotope dilution-mass spectrometry. Refer to KDIGO guidelines for clinical interpretation. In patients with unstable renal function, e.g. those with acute kidney injury, the eGFR may not accurately reflect actual GFR. Glucose [Mass/Vol] 90 mg/dL 74 - 99 mg/dL [facility] Comment on above: The [place] Diabete s Association (ADA) provides guidance for cutoff values for fasting glucose and random glucose. The ADA defines fasting as no caloric intake for at least 8 hours. Fasting plasma glucose results between 100 to 125 mg/dL indicate increased risk for diabetes (prediabetes). Fasting plasma glucose results greater than or equal to 126 mg/dL meet the criteria for diagnosis of diabetes. In the absence of unequivocal hyperglycemia, results should be confirmed by repeat testing. In a patient with classic symptoms of hyperglycemia or hyperglycemic crisis, random plasma glucose results greater than or equal to 200 mg/dL meet the criteria for diagnosis of diabetes. Reference: Standards of Medical Care in Diabetes 2016, [place] Diabetes Association. Diabetes Care. 2016.39(Suppl 1). Interpretation and review of laboratory results Abnormal [facility] Potassium [Moles/Vol] 4.8 mmol/L 3.7 - 5.1 mmol/L [facility] Sodium [Moles/Vol] 139 mmol/L 136 - 144 mmol/L [facility] Urea nitrogen [Mass/Vol] 20 mg/dL 7 - 21 mg/dL [facility] Anion gap [Moles/Vol] 11 mmol/L Normal 8-15 [facility] Comment on above: Order Comment: Speci men Type: BLOOD SPECIMENOrdering Facility: [facility] Address: [address] [place] [address] [place] [address] Performed By: #### 2 4321-2 ####[facility] LABORATORYCLIA [id number] [place] [address] [place] Calcium [Mass/Vol] 9.0 mg/dL Normal 8.5-10.2 [facility] Comment on above: Order Comment: Speci men Type: BLOOD SPECIMENOrdering Facility: [facility] Address: [address] [place] [address] Performed By: #### 2 4321-2 ####[facility] LABORATORYCLIA [id number] [place] [address] [place] Chloride [Moles/Vol] 104 mmol/L Normal 98-107 [facility] Comment on above: Order Comment: Speci men Type: BLOOD SPECIMENOrdering Facility: [facility] Address: [address] [place] [address] Performed By: #### 2 4321-2 ####[facility] LABORATORYCLIA [id number] [place] [address] [place] CO2 [Moles/Vol] 24 mmol/L Normal 22-30 [facility] Comment on above: Order Comment: Speci men Type: BLOOD SPECIMENOrdering Facility: [facility] Address: [address] [place] [address] Performed By: #### 2 4321-2 ####[facility] LABORATORYCLIA [id number] [place] [address] [place] Creatinine [Mass/Vol] 1.03 mg/dL High 0.58-0.96 [facility] Comment on above: Order Comment: Speci men Type: BLOOD SPECIMENOrdering Facility: [facility] Address: [address] [place] [address] Performed By: #### 2 4321-2 ####[facility] LABORATORYCLIA [id number] [address] [place] Creatinine and Glomerular filtration rate.predicted panel (S/P/Bld) 55 mL/min/1.73m??? Low >=60 [facility] Comment on above: Order Comment: Speci men Type: BLOOD SPECIMENOrdering Facility: [facility] Address: [address] [place] [address] Result Comment: Nissa mated Glomerular Filtration Rate (eGFR) is calculated using the 2020 CKD-EPI creatinine equation. This equation utilizes serum creatinine, sex, and age as parameters. The creatinine assay has traceable calibration to isotope dilution-mass spectrometry. Refer to KDIGO guidelines for clinical interpretation. In patients with unstable renal function, e.g. those with acute kidney injury, the eGFR may not accurately reflect actual GFR. Performed By: #### 2 4321-2 ####[facility] LABORATORYCLIA [id number] [place] [address] [place] Glucose [Mass/Vol] 90 mg/dL Normal 74-99 [facility] Comment on above: Order Comment: Kodak anderson Type: BLOOD SPECIMENOrdering Facility: [facility] Address: [address] [place] [address] Result Comment: The [place] Diabetes Association (ADA) provides guidance for cutoff values for fasting glucose and random glucose. The ADA defines fasting as no caloric intake for at least 8 hours. Fasting plasma glucose results between 100 to 125 mg/dL indicate increased risk for diabetes (prediabetes). Fasting plasma glucose results greater than or equal to 126 mg/dL meet the criteria for diagnosis of diabetes. In the absence of unequivocal hyperglycemia, results should be confirmed by repeat testing. In a patient with classic symptoms of hyperglycemia or hyperglycemic crisis, random plasma glucose results greater than or equal to 200 mg/dL meet the criteria for diagnosis of diabetes. Reference: Standards of Medical Care in Diabetes 2016, [place] Diabetes Association. Diabetes Care. 2016.39(Suppl 1). Performed By: #### 2 4321-2 ####[facility] LABORATORYCLIA [id number] [place] [id number] [place] Potassium [Moles/Vol] 4.8 mmol/L Normal 3.7-5.1 [facility] Comment on above: Order Comment: [employer] anderson Type: BLOOD SPECIMENOrdering Facility: [facility] Address: [address] [id number] Performed By: #### 2 4321-2 ####[facility] LABORATORYCLIA [id number] [place] [id number] [place] Sodium [Moles/Vol] 139 mmol/L Normal 136-144 [facility] Comment on above: Order Comment: Speci men Type: BLOOD SPECIMENOrdering Facility: [facility] Address: [address] [id number] Performed By: #### 2 4321-2 ####[facility] LABORATORYCLIA [id number] [place] [id number] [place] Urea nitrogen [Mass/Vol] 20 mg/dL Normal 7-21 [facility] Comment on above: Order Comment: Speci men Type: BLOOD SPECIMENOrdering Facility: [facility] Address: [address] [id number] Performed By: #### 2 4321-2 ####[facility] LABORATORYCLIA [id number] [address] [place] CBC panel Auto (Bld)on 02-27 Erythrocyte distribution width (RBC) [Ratio] 11.8 % 11.5 - 15.0 % [facility] Hematocrit (Bld) [Volume fraction] 35.2 % Low 36.0 - 46.0 % [facility] Hemoglobin (Bld) [Mass/Vol] 11.8 g/dL 11.5 - 15.5 g/dL [facility] Interpretation and review of laboratory results Abnormal [facility] MCH (RBC) [Entitic mass] 34 pg 26.0 - 34.0 pg [facility] MCHC (RBC) [Mass/Vol] 33.5 g/dL 30.5 - 36.0 g/dL [facility] MCV (RBC) [Entitic vol] 101.4 fL High 80.0 - 100.0 fL [facility] Nucleated RBC (Bld) [#/Vol] NINF [facility] Platelet mean volume (Bld) [Entitic vol] 10.8 fL 9.0 - 12.7 fL [facility] Platelets (Bld) [#/Vol] 205 10*3/uL [facility] RBC (Bld) [#/Vol] 3.47 10*6/uL Low 3.90 - 5.20 m/uL [facility] WBC (Bld) [#/Vol] 6.12 10*3/uL [facility] Erythrocyte distribution width (RBC) [Ratio] 11.8 % Normal 11.5-15.0 [facility] Comment on above: Order Comment: Speci men Type: BLOOD SPECIMENOrdering Facility: [facility] Address: [address] [place] [address] Performed By: #### 5 8410-2 ####[facility] LABORATORYCLIA [id number] [address] [place] Hematocrit (Bld) [Volume fraction] 35.2 % Low 36.0-46.0 [facility] Comment on above: Order Comment: Speci men Type: BLOOD SPECIMENOrdering Facility: [facility] Address: [address] [place] [address] Performed By: #### 5 8410-2 ####[facility] LABORATORYCLIA [id number] [address] [place] Hemoglobin (Bld) [Mass/Vol] 11.8 g/dL Normal 11.5-15.5 [facility] Comment on above: Order Comment: Speci men Type: BLOOD SPECIMENOrdering Facility: [facility] Address: [address] [place] [address] Performed By: #### 5 8410-2 ####[facility] LABORATORYCLIA [id number] [address] MCH (RBC) [Entitic mass] 34.0 pg Normal 26.0-34.0 [facility] Comment on above: Order Comment: Speci men Type: BLOOD SPECIMENOrdering Facility: [facility] Address: [address] [place] [address] Performed By: #### 5 8410-2 ####[facility] LABORATORYCLIA [id number] [address] [place] [facility] MCHC (RBC) [Mass/Vol] 33.5 g/dL Normal 30.5-36.0 [facility] Comment on above: Order Comment: Speci men Type: BLOOD SPECIMENOrdering Facility: [facility] Address: [address] [place] [address] Performed By: #### 5 8410-2 ####[facility] LABORATORYCLIA [id number] [address] [place] MCV (RBC) [Entitic vol] 101.4 fL High 80.0-100.0 [facility] Comment on above: Order Comment: Speci men Type: BLOOD SPECIMENOrdering Facility: [facility] Address: [address] [place] [address] Performed By: #### 5 8410-2 ####[facility] LABORATORYCLIA [id number] [address] [place] Nucleated RBC (Bld) [#/Vol] 10*3/uL Normal <0.01 [facility] Comment on above: Order Comment: Speci men Type: BLOOD SPECIMENOrdering Facility: [facility] Address: [address] [place] [address] Performed By: #### 5 8410-2 ####[facility] LABORATORYCLIA [id number] [address] [place] [facility] Platelet mean volume (Bld) [Entitic vol] 10.8 fL Normal 9.0-12.7 [facility] Comment on above: Order Comment: Speci men Type: BLOOD SPECIMENOrdering Facility: [facility] Address: [address] [place] [address] Performed By: #### 5 8410-2 ####[facility] LABORATORYCLIA [id number] [address] [place] Platelets (Bld) [#/Vol] 205 10*3/uL Normal 150-400 [facility] Comment on above: Order Comment: Speci men Type: BLOOD SPECIMENOrdering Facility: [facility] Address: [address] [place] [address] Performed By: #### 5 8410-2 ####[facility] LABORATORYCLIA [id number] [address] [place] RBC (Bld) [#/Vol] 3.47 10*6/uL Low 3.90-5.20 [facility] Comment on above: Order Comment: Speci men Type: BLOOD SPECIMENOrdering Facility: [facility] Address: [address] [id number] Performed By: #### 5 8410-2 ####[facility] LABORATORYCLIA [id number] [address] WBC (Bld) [#/Vol] 6.12 10*3/uL Normal 3.70-11.00 [facility] Comment on above: Order Comment: Speci men Type: BLOOD SPECIMENOrdering Facility: [facility] Address: [address] [phone] Performed By: #### 5 8410-2 ####[facility] LABORATORYCLIA [id number] [place] [id number] [facility] HISTORY PHYSICALon HISTORY PHYSICAL HNO ID: [id number] Author: YESSI OSORIO APRN.HEMATOLOGY NURSE Service: ? Author Type: Nurse Practitioner Type: H&P Filed: 02/27/2025 12:21 Note Text: [facility] HISTORY AND PHYSICAL EXAMINATION SERVICE DATE: 02/27/2025 SERVICE TIME: 11:20 AM PRIMARY CARE PHYSICIAN: Chip Wiley MD Assessment Patient has the following medical conditions which may affect elvi-operative course: Pre-op examination see note for medical conditions which may affect elvi-operative course that were addressed at today's visit. Uterovaginal prolapse, incomplete Surgery scheduled 03/06/25. Urinary incontinence Surgery scheduled 03/06/25. HTN (hypertension) Losartan- Instructed to hold morning of surgery. Metoprolol- Instructed to take morning of surgery. Spironolactone- Instructed to hold morning of surgery. BP slightly elevated in PAT. Denies H/A, CP, vision changes. Will monitor and discuss with PCP. Partial seizure disorder (HCC) Patient states that has had 2 occurrences in the past. 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 Was not on any medication. She reports the last seizure was over 20 years ago. Cavernous Hemangioma Has not been seen by Neurology since 2013. Denies any PABLO or visual changes. CT head 06/07/24: FINDINGS: BRAIN AND EXTRA-AXIAL SPACES: Unremarkable. No intra- or extra-axial hemorrhage. No evidence of acute infarct. No intracranial mass or mass effect. There is preservation of the vera/white matter interface. Posterior fossa structures are unremarkable. Ventricles are appropriate for age. No hydrocephalus. Basal cisterns are patent. BONES/JOINTS: Unremarkable. No discrete lytic or blastic abnormalities. SINUSES: Unremarkable as visualized. Clear. MASTOID AIR CELLS: Unremarkable. Clear. ORBITS: Visualized globes, extraocular muscles, optic nerves and retrobulbar fat appear unremarkable. CT/Brain/Head without Contrast IMPRESSION: Negative head/brain CT without intravenous contrast. Hyperlipidemia No medication. Diet and lifestyle modification. Nonsustained paroxysmal supraventricular tachycardia (HCC) Metoprolol- Instructed to take morning of surgery. Denies any recent CP, palpitations, syncope, or near syncopal episodes. Follows with cardiology yearly- Dr. Richardson ANESTHESIA FINDINGS: Intubation History: No history of difficult intubation. No abnormal airway history Significant Anesthesia Considerations: none Airway History: No history of difficult airway No abnormal airway history Becerril Activity Status Index: METS: Climb a flight of stairs or walk up a hill (5.50 METs) DASI Score: 5.5 Patient denies any chest pain or undue shortness of breath with the above physical activity. Clinical Frailty Scale: 3. Well, with treated comorbid disease STOP-Bang Score: STOP-Bang Score: 0 ARISCAT Score: Age: >80 Preoperative SpO2: >=96% Respiratory infection in the last month: No Preoperative anemia: Yes Surgical incision: peripheral Duration of surgery: 2-3 hrs Emergency procedure: No ARISCAT Score: 43 I - PHYSICAL EVALUATION AIRWAY Patient intubated: No. DENTAL Dental findings: teeth intact. II - ANESTHESIA PLAN Anesthetic Plan: general Beta Patti Monitoring Plan Post Procedure Analgesic Plan Prepared for Surgery: CONSULTS: The following consults have been initiated at this time: anesthesia. Planned Anesthetic: general The Following Tests/Procedures Have Been Initiated: No orders entered in Epic per surgeon. BMP and CBC ordered in PAT per FLROENCE. REASON FOR VISIT: Mer Allen is a 79 year old female who is scheduled for * No surgery found * at the request of Dr. Joanne Bautista for routine HANDP. My final recommendation will be communicated back to the requesting physician by way of shared medical record or letter. Subjective The patient has the following: COVID-19 Immunization Status Current Care Gaps Covid-19 Vaccine (6 - 2024-25 season) Overdue since 07/31/2024 07/04/2024 Postponed until 08/30/2024 by Chip Wiley MD (Declined at this time) 12/10/2023 Imm Admin: COVID-19 vaccine, age 12+ yr, 2022- season (P[employer]) 08/19/2022 Imm Admin: COVID-19 vaccine, age 12+ yr, bivalent (PFIZER-BIONTECH) Only the first 3 history entries have been loaded, but more history exists. CHIEF COMPLAINT: The reason for this visit is to perform a comprehensive review of the patients past medical history, assess their current health status and obtain any additional testing required based on anesthesia guidelines. To assess and identify potential anesthesia problems, particularly those that may suggest potential complications or contraindications to the planned procedure. HPI: Patient is a 79 year old female who presents for presurgical testing. Patient has a history of uterovaginal prolapse. She reports that it has been present for (more content not included)... Normal [facility] UA DIP B/OOrdered By: Evelyn Barrios on 02-01-2025 Bilirubin Ql (U) Negative Neg [facility] Color/Appearance Clear, Yellow comment: [facility] Glucose Ql (U) Negative Neg mg/dL [facility] Hemoglobin Ql (U) Negative Neg [facility] Ketones Ql (U) Negative Neg [facility] Leukocytes Negative Neg [facility] Nitrite Ql (U) Negative Neg [facility] pH (U) 6.5 [pH] 4.5 - 8.0 [facility] Protein.monoclonal (U) [Mass/Vol] Negative Neg mg/dL [facility] Specific [place], Ur 1.01 1.005 - 1.030 [facility] Urobilinogen, Urine Normal Normal (<1.1) [facility] Javi 01-24-2025 CASSANDRA Telephone ([facility]) ALEJANDRO,MER J ([id number]) 1945 F Date Time Provider Department 01/24/25 JOANNE BAUTISTA During your visit today, we recorded the following information about you: Lucina Ferrer 01/24/2025 3:10 PM Signed Spoke with pt AND confirmed 03/06 surgery date at [facility], scheduled pre/post op appts and informed pt teaching/post op tele appts do not appear on Ivette Bustamante RN 02/15/2025 10:26 AM Signed Pt calling for confirmation of orders and surgery date and time. Previous notes reviewed. Appt dates reviewed. No further questions at this time. Allergies As of Date: 01/24/2025 Noted Allergy Reaction POISON YAZ 08/01/2011 4 - Hives 5 - Intolerance 9 - Itching AMLODIPINE 10/28/2017 7 - Swelling Comments: Caused severe leg swelling ERYTHROMYCIN BASE 06/28/2003 Comments: rash, gi upset FLUORESCEIN 09/28/2008 GADOLINIUM-CONTAINING CONTRAST ME*09/30/2005 HCTZ (HYDROCHLOROTHIAZIDE) 10/28/2017 2 - Rash Comments: Rash (took after tried on amlodipine) IV CONTRAST DYE (CONTRAST DYE) 04/22/2010 4 - Hives SULFA (SULFONAMIDE ANTIBIOTICS) 06/28/2003 Comments: rash, gi upset TETRACYCLINE 06/28/2003 Comments: severe diarrhea TRAMADOL 02/16/2006 Comments: hives, pablo, sweats,, rash Date Reviewed: 01/23/2025 Reviewed by: Joanne Bautista MD - Fully Assessed Reason for Visit: Future Appointment [256] Prescriptions as of 02/15/2025 - citalopram (CELEXA) 20 mg tablet Take 1 tablet by mouth once daily. - losartan (COZAAR) 100 mg tablet Take 1 tablet by mouth once daily. - metoprolol succinate ER (TOPROL XL) 50 mg 24 hr tablet Take 1 tablet by mouth once daily. - spironolactone (ALDACTONE) 25 mg tablet Take 1 tablet by mouth once daily. For BP - LORazepam (ATIVAN) 1 mg tablet Take 0.5-1 tablets by mouth three times a day as needed for anxiety for up to 90 days. - MV-MN/IRON FUM/FA/OMEGA3,6,9#3 (WOMEN'S MULTI ORAL) Take by mouth. - CALCIUM CITRATE/VITAMIN D3 (CALCIUM CITRATE + ORAL) Take by mouth. 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] 02/19/2010 Osteopenia [M85.80] 02/19/2010 Acute gastritis without mention of hemorrhage [*03/07/2011 05/08/2018 Urethral caruncle [N36.2] 08/01/2011 Uterine prolapse without mention of vaginal wal*08/01/2011 HTN (hypertension) [I10] 02/07/2013 Other and unspecified hyperlipidemia [E78.5] 02/28/2013 04/28/2018 Vitamin d deficiency [E55.9] 02/28/2013 Occipital neuralgia [M54.81] 03/23/2014 Medicare annual wellness visit, initial [Z00.00]04/24/2015 05/08/2018 Cerebellar hemangioma (HCC) [D18.02] 02/04/2021 Uterovaginal prolapse, incomplete [N81.2] 01/23/2025 Urinary incontinence [R32] 01/23/2025 Encounter Status:Closed by LUCINA FERRER on 01/24/25 Normal [facility] CNKlever 01-23-2025 CNOV Office Visit (GYURWP ) MER ALLEN ([id number]) 1945 F Date Time Provider Department 01/23/25 9:00 AM JOANNE BAUTISTA GYURWP During your visit today, we recorded the following information about you: Blood pressure Weight Height 102/78 60.1 kg 1.524 m Joanne Bautista MD 01/23/2025 9:25 AM Signed Female Pelvic Medicine AND Reconstructive Surgery Consult CHIEF COMPLAINT: Mer Allen is a 79 year old female who presents for consultation requested by Self-referred for an opinion regarding Pelvic Organ Prolapse . My final recommendations will be communicated back to the requesting physician by way of shared Medical record or letter to requesting physician via US mail. HISTORY OF PRESENT ILLNESS: Patient seen by Madeline Restrepo for uterovaginal prolapse and desires surgical repair. Of note, she had a thickened endometrial stripe on urodynamics. Medical and Symptom History: LMP: No LMP recorded. Patient is postmenopausal.; Menopause yes: ALLERGIES Allergen Reactions Poison Yaz Hives, Intolerance, Itching Amlodipine Swelling Caused severe leg swelling Erythromycin Base rash, gi upset Fluorescein Gadolinium-Containi* Hctz [Hydrochloroth* Rash Rash (took after tried on amlodipine) Iv Contrast Dye [Co* Hives Sulfa (Sulfonamide * rash, gi upset Tetracycline severe diarrhea Tramadol hives, pablo, sweats,, rash Current Outpatient Medications Medication Sig citalopram (CELEXA) 20 mg tablet Take 1 tablet by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 pneumothorax. No effusion. HEART: Unremarkable. Cardiac silhouette not enlarged. MEDIASTINUM: Central airways and mediastinal contour are unremarkable. BONES/JOINTS: Unremarkable. No acute fracture. SOFT TISSUES: Unremarkable. RAD/Chest PA and Lateral IMPRESSION: No radiographic evidence of acute cardiopulmonary disease. Electronically Signed: Dago Alvarenga MD at 22:29 EDT , CC: Dr. Ottoniel Ledesma MD; Dr. Chip Wiley MD Children'S Tutor: Signed Normal [facility] Emergency Department Summary on 06-07-2024 Emergency Department Summary [facility] Medical Records Department [address] [place] [address] Emergency Department Summary 06/07/24 MR#: [id number] Acct: [id number] Name: MER ALLEN Rep #: [id number] : 1945 79 From: Ottoniel Ledesma MD PCP: Dr. Chip Wiley MD Status:REG ER Location: ED HPI HPI - Fall History of Present Illness Chief Complaint: Fall Informant: patient and spouse/S.O. Occured/Mechanism Occurred: Today and Hours Mechanism/Context: Yes trip Usually ambulates: Without assistance Pain/Injury Pain Location: head and chest Quality of Pain: Dull and Aching Current Severity: Mild Maximum Severity: Mild Associated Symptoms Associated Symptoms: Negative for Parasthesias, Weakness, Loss of function, Inability to ambulate, Loss of consciousness or Amnesia Narrative Narrative: 79-year-old female with history of hypertension. Was having her grass today felt fine and when she backed up with the lawnmower she was pushing she tripped over a root fell into about a 4 foot deep hole that the [employer] had dug in her yard never filled it in. She has a history of a hemangioma on her brain and due to the head trauma she wanted that evaluated. She denies any LOC. No vomiting. She is on no blood thinners. Denies any neck pain. She also has mild right rib cage pain. No abdominal pain. No pain to her extremities. Prior similar symptoms: No Recent Illness/Hospitalization: No PFSH PFSH Medical History Nonsustained paroxysmal supraventricular tachycardia Vitreous detachment Occipital neuralgia Essential hypertension Hyperlipidemia Vitamin D deficiency Uterine prolapse Varicella Mumps Leiomyoma of uterus IBS (irritable bowel syndrome) Hiatal hernia Epilepsy Cerebellar hemangioma (2003) History of depression Home Medications ???Medication ???Instructions ???Recorded ???Last Taken ???Type citalopram 20 mg tablet 20 mg PO DAILY 01/31/14 Unknown History lorazepam 1 mg tablet 1 mg PO TID PRN Anxiety #10 TABLETS 09/26/16 Unknown Rx losartan 100 mg tablet 100 mg PO QDAY #90 tabs 01/05/18 Unknown Rx metoprolol succinate 50 mg 50 mg PO QDAY #90 tabs 12/14/18 Unknown Rx tablet,extended release 24 hr calcium citrate 315 mg-vitamin D3 1 tab PO DAILY 07/29/22 Unknown History 5 mcg (200 unit) tablet (Calcium Citrate + D) cholecalciferol (vitamin D3) 50 50 mcg PO DAILY 07/29/22 Unknown History mcg (2,000 unit) tablet ndmrshqy-aeo-gwctu ac 400 1 tab PO DAILY 07/29/22 Unknown History mcg-calcium carb 500 mg-vit K1 20 mcg tablet (Women's 50 Plus Multivitamin) spironolactone 25 mg tablet 25 mg PO DAILY 07/29/22 Unknown History Allergy/AdvReac Type Severity Reaction Status Date / Time hydrochlorothiazide Allergy Unknown Rash Verified 06/07/24 20:30 Tetracyclines Allergy Unknown Diarrhea Verified 06/07/24 20:30 amlodipine AdvReac Hives Verified 06/07/24 20:30 erythromycin base AdvReac Abd Verified 06/07/24 20:30 (Erythromycin Base) cramps/diarrhea fluorescein AdvReac Hives Verified 06/07/24 20:30 Gadolinium-MRI Contrast AdvReac Other Verified 06/07/24 20:30 Medium (Gadolinium-Contrast Medium - MRI) Iodinated Contrast Media AdvReac Hives Verified 06/07/24 20:30 (iodine contrast) Sulfa (Sulfonamide AdvReac Abd Verified 06/07/24 20:30 Antibiotics) cramps/diarrhea tramadol AdvReac Unknown Verified 06/07/24 20:30 Family History Sister CAD (coronary artery disease) Thyroid disorder Diabetes Mother Hypertension Father Heart disease Myocardial infarction Hypertension Cancer skin Emphysema lung Brother Diabetes Paranoid schizophrenia Migraines Grandmother Diabetes Grandfather Cancer stomach Grandmother Leukemia Surgical History History of hand surgery History of excision of lesion History of colonoscopy History of esophagogastroduodenoscopy (EGD) History of tonsillectomy and adenoidectomy Social History Smoking Status: Never smoker alcohol intake: never substance use type: does not use ROS ROS ED ROS Narrative Denies recent illness. Review of Systems ROS Unobtainable: Denies due to encephalopathy Constitutional Constitutional ED: Denies chills or fever(s) Eyes Eyes: Denies blurry vision ENT ENT ED: Denies ear pain Cardiovascular Cardiovascular: Denies chest pain Respiratory/Chest Respiratory/Chest: Denies cough Gastrointestinal Gastrointestinal: Denies abdominal pain Genitourinary Genitourinary ED: Denies hematuria Musculoskeletal Musculoskeletal: Denies arthralgias Integumentary Denies abscess Neurologic Neurologic: Denies headache(s) (more content not included)... Normal [facility] 05-13-2024 [facility] Telephone (INTMWS) MER ALLEN ([id number]) 1945 F Date Time Provider Department 05/13/24 CHIP WILEY INTWS During your visit today, we recorded the following information about you: Manjula Harley LPN 05/13/2024 12:04 PM Signed Form from [employer] was completed and faxed back for PA for lorazepam. Manjula Harley LPN 05/13/2024 2:06 PM Signed Rec'd approval from 04/13/24 to 05/13/2025. For lorazepam 1m Allergies As of Date: 05/13/2024 Noted Allergy Reaction POISON YAZ 08/01/2011 4 - Hives 5 - Intolerance 9 - Itching AMLODIPINE 10/28/2017 7 - Swelling Comments: Caused severe leg swelling ERYTHROMYCIN BASE 06/28/2003 Comments: rash, gi upset FLUORESCEIN 09/28/2008 GADOLINIUM-CONTAINING CONTRAST ME*09/30/2005 HCTZ (HYDROCHLOROTHIAZIDE) 10/28/2017 2 - Rash Comments: Rash (took after tried on amlodipine) IV CONTRAST DYE (CONTRAST DYE) 04/22/2010 4 - Hives SULFA (SULFONAMIDE ANTIBIOTICS) 06/28/2003 Comments: rash, gi upset TETRACYCLINE 06/28/2003 Comments: severe diarrhea TRAMADOL 02/16/2006 Comments: hives, pablo, sweats,, rash Date Reviewed: 02/20/2024 Reviewed by: Maurice Parker APRN.HEMATOLOGY NURSE - Fully Assessed Reason for Visit: Insurance Authorization [[id number]] Prescriptions as of 05/13/2024 - LORazepam (ATIVAN) 1 mg tablet Take 0.5-1 tablets by mouth three times a day as needed for anxiety for up to 90 days. - losartan (COZAAR) 100 mg tablet Take 1 tablet by mouth once daily. - citalopram (CELEXA) 20 mg tablet Take 1 tablet by mouth once daily. - metoprolol succinate ER (TOPROL XL) 50 mg 24 hr tablet Take 1 tablet by mouth once daily. - spironolactone (ALDACTONE) 25 mg tablet Take 1 tablet by mouth once daily. For BP - spironolactone (ALDACTONE) 25 mg tablet Take 1 tablet by mouth once daily. Short term supply until patient receives mail order - MV-MN/IRON FUM/FA/OMEGA3,6,9#3 (WOMEN'S MULTI ORAL) Take by mouth. - CALCIUM CITRATE/VITAMIN D3 (CALCIUM CITRATE + ORAL) Take by mouth. Problem List As Of Date 05/13/2024 Noted Resolved Disturbance of skin sensation [R20.9] 06/30/2003 04/24/2015 Tachycardia, unspecified [R00.0] 11/04/2005 09/08/2023 Anxiety state [F41.1] 11/04/2005 Routine physical examination [Z00.00] 02/19/2010 08/01/2011 Cavernous Hemangioma [D18.00] 02/19/2010 Partial seizure disorder (HCC) [G40.109] 02/19/2010 05/08/2018 Vitreous Detachment [H43.819] 02/19/2010 Osteopenia [M85.80] 02/19/2010 Acute gastritis without mention of hemorrhage [*03/07/2011 05/08/2018 Urethral caruncle [N36.2] 08/01/2011 Uterine prolapse without mention of vaginal wal*08/01/2011 HTN (hypertension) [I10] 02/07/2013 Other and unspecified hyperlipidemia [E78.5] 02/28/2013 04/28/2018 Vitamin d deficiency [E55.9] 02/28/2013 Occipital neuralgia [M54.81] 03/23/2014 Medicare annual wellness visit, initial [Z00.00]04/24/2015 05/08/2018 Cerebellar hemangioma (HCC) [D18.02] 02/04/2021 Encounter Status:Closed by MANJULA HARLEY on 05/13/24 Normal [facility] Absolute lymphocyte countOrd ered By: Jina Still on 02-20-2024 Lymphocytes Auto (Unsp spec) [#/Vol] 1.16 10*3/uL 0.83-4.51 [facility] Automated lymphocyte count a s percentage of total leukocytesOrdered By: Jina Still on 02-20-2024 Lymphocytes/100 WBC Auto (Unsp spec) 16.4 % 19-41 [facility] Basophil percentageOrdered B y: Jina Still on 02-20-2024 Basophil percentage 0 SEEN /hpf 0-5 [facility] Basophils/100 WBC (Bld) 0.6 % 0-1 [facility] Chloride [Moles/Vol] 106 mmol/L 98-107 [facility] Eosinophils/100 WBC (Bld) 0.7 % 0-5 [facility] Glucose [Mass/Vol] 121 mg/dL 74-106 [facility] Comment on above: Fasting Glucose resu lt from 100 to 125 mg/dL suggests IMPAIRED HOMEOSTASIS per A.D.A. criteria. Hemoglobin (Bld) [Mass/Vol] 12.4 g/dL 12.0-15.0 [facility] Monocytes/100 WBC (Bld) 5.2 % 0-10 [facility] Neutrophils (Bld) [#/Vol] 5.4 10*3/uL 2.0-7.7 [facility] Neutrophils/100 WBC (Bld) 76.8 % 47-70 [facility] Potassium [Moles/Vol] 4.2 mmol/L 3.5-5.1 [facility] Comment on above: Slight Hemolysis, Re sult may be falsely increased. Sodium [Moles/Vol] 138 mmol/L 136-145 [facility] WBC (Bld) [#/Vol] 7.1 10*3/uL 4.4-11.0 [facility] Bilirubin Test strip Ql (U)O rdered By: Jina Still on 02-20-2024 Bilirubin Ql (U) Negative Negative [facility] Determination of erythrocyte mean corpuscular volume (MCV)Ordered By: Jina Still on 02-20-2024 MCV (RBC) [Entitic vol] 97.4 fL 81-99 [facility] Erythrocyte distribution wid th ratioOrdered By: Jina Still on 02-20-2024 Erythrocyte distribution width (RBC) [Ratio] 11.8 % 11.6-14.6 [facility] Erythrocyte distribution wid th standard deviationOrdered By: Jina Still on 02-20-2024 Erythrocyte distribution width (RBC) [Entitic vol] 41.9 fL 35.1-43.9 [facility] Hematocrit Auto (Bld) [Volum e fraction]Ordered By: Jina Still on 02-20-2024 Hematocrit (Bld) [Volume fraction] 37.8 % 37-47 [facility] Immature granulocytes/100 WB C Auto (Bld)Ordered By: Jina Still on 02-20-2024 Immature granulocytes/100 WBC (Bld) 0.300 % 0.0-0.9 [facility] Comment on above: IG% - Immature Granu locytes (promyelocytes, myelocytes and metamyelocytes) > 1% indicates that a LEFT SHIFT is Present. Ketones Test strip Ql (U)Ord ered By: Jina Still on 02-20-2024 Ketones Ql (U) Negative Negative [facility] Laboratory - Chemistry and C hemistry - challengeOrdered By: Jina Still on 02-20-2024 CO2 [Moles/Vol] 26.0 mmol/L 21.0-32.0 [facility] Urea nitrogen/Creatinine [Mass ratio] 17.8 mg/mg 10-20 [facility] - Hematology and Cell countsOrdered By: Jina Still on 02-20-2024 MCH (RBC) [Entitic mass] 32.0 pg 27.0-32.0 [facility] MCHC (RBC) [Mass/Vol] 32.8 g/dL 32-36 [facility] Nucleated RBC/100 WBC (Bld) [Ratio] 0 % 0-5 [facility] Platelet mean volume (Bld) [Entitic vol] 10.7 fL 6.2-12.0 [facility] Platelets (Bld) [#/Vol] 241 10*3/uL 150-450 [facility] Mucus LM Ql (Urine sed)Order ed By: Jina Still on 02-20-2024 Mucus Ql (Urine sed) 0 SEEN /hpf [facility] Nitrite Test strip Ql (U)Ord ered By: Jina Still on 02-20-2024 Nitrite Ql (U) Negative Negative [facility] No Panel InformationOrdered By: Jina Still on 02-20-2024 Urine RBC 0-5 SEEN /hpf 0-5 [facility] Estimated Creatinine Clearance Calc 35.63 ml/min [facility] Estimated GFR (MDRD) Amer 63 mL/min >60 [facility] Comment on above: GFR Calc Estimated GFR (MDRD) Non-Af Amer 52 mL/min >60 [facility] Comment on above: Non- GFR Calc Protein Test strip Ql (U)Ord ered By: Jina Still on 02-20-2024 Protein Ql (U) 15 mg/dl Negative [facility] RBC Auto (Bld) [#/Vol]Ordere d By: Jina Still on 02-20-2024 RBC (Bld) [#/Vol] 3.88 10*6/uL 4.2-5.4 [facility] Serum or plasma calcium ozzy urement (mass/volume)Ordered By: Jina Still on 02-20-2024 Calcium [Mass/Vol] 8.9 mg/dL 8.5-10.1 [facility] Serum or plasma creatinine m easurement (mass/volume)Ordered By: Jina Still on 02-20-2024 Creatinine [Mass/Vol] 1.07 mg/dL 0.55-1.02 [facility] Comment on above: The validity of the calculated GFR & GFRAA in patients over 70 years has not been determined. Clinical correlation is essential. Serum or plasma urea nitroge n measurement (mass/volume)Ordered By: Jina Still on 02-20-2024 Urea nitrogen [Mass/Vol] 19 mg/dL 7-18 [facility] Squamous epithelial cells de tection in urine sediment by light microscopyOrdered By: Jina Still on 02-20-2024 Epithelial cells.squamous LM Ql (Urine sed) 0-5 SEEN /hpf 5-10 [facility] Thin prep Papanicolaou smear with manual screeningOrdered By: Jina Still on 02-20-2024 Thin prep Papanicolaou smear with manual screening 6 5-15 [facility] Urine blood detectionOrdered By: Jina Still on 02-20-2024 RBC Ql (U) 25 /ul Negative [facility] Urine clarityOrdered By: Barbi Still on 02-20-2024 Clarity (U) Clear Clear [facility] Urine color determinationOrd ered By: Jina Still on 02-20-2024 Color (U) Yellow Yellow [facility] Urine glucose detectionOrder ed By: Jina Still on 02-20-2024 Glucose Ql (U) Normal mg/dl Normal [facility] Urine leukocyte esterase det ection by dipstickOrdered By: Jina Still on 02-20-2024 Leukocyte esterase Test strip Ql (U) Negative Negative [facility] Urine pHOrdered By: Jina hammer on 02-20-2024 pH (U) 6.5 [pH] 5.0 - 8.0 [facility] Urine sediment bacteria coun t by microscopy (number/high power field)Ordered By: Jina Still on 02-20-2024 Bacteria LM.HPF (Urine sed) [#/Area] 0 /[HPF] None Seen [facility] Urine specific gravity measu rementOrdered By: Jina Still on 02-20-2024 Specific gravity (U) [Rel density] 1.010 1.002-1.03 0 [facility] Urine urobilinogen measureme ntOrdered By: Jina Still on 02-20-2024 Urobilinogen Ql (U) Normal mg/dl Normal [facility] XR FOOT GENERAL 3V AP/LAT/OB L RIGHTon 10-23-2023 [facility] XR Foot - right AP and Later al and obliqueon 10-23-2023 IMPRESSION: Fourth d igit fracture. Mild degenerative changes as described above. Children'S Tutor: AUGUST Transcribe Date/Time: Oct 23 2023 11:09A Dictated by : ERIC DE SOUZA MD This examination was interpreted and the report reviewed and electronically signed by: ERIC DE SOUZA MD on Oct 23 2023 11:15AM [facility] DIVISION OF RADIOLOGY * * *Final Report* * * DATE OF EXAM: Oct 23 2023 11:02AM WOX 5337 - XR FOOT 3V AP/LAT/OBL RT / PROCEDURE REASON: Foot pain, right * * * * Physician Interpretation * * * * EXAM TITLE: XR FOOT 3V AP/LAT/OBL RT EXAM DATE/TIME: 10/23/2023 11:02 AM COMPARISON: None CLINICAL INDICATION/HISTORY: Foot pain. TECHNIQUE: AP, lateral and oblique views of the right foot are presented. FINDINGS: Mildly displaced fracture noted in the shaft of the proximal phalanx in the fourth digit. Mild degenerative changes involving the first metatarsophalangeal joint and a few DIP/PIP joints. There appear be mild degenerative changes in the midfoot. The mineralization of the bones is normal. There is no significant soft tissue swelling. DIVISION OF RADIOLOGY Provider, [facility] - 10/23/2023 * * *Final Report* * * DATE OF EXAM: Oct 23 2023 11:02AM WOX 5337 - XR FOOT 3V AP/LAT/OBL RT / PROCEDURE REASON: Foot pain, right * * * * Physician Interpretation * * * * EXAM TITLE: XR FOOT 3V AP/LAT/OBL RT EXAM DATE/TIME: 10/23/2023 11:02 AM COMPARISON: None CLINICAL INDICATION/HISTORY: Foot pain. TECHNIQUE: AP, lateral and oblique views of the right foot are presented. FINDINGS: Mildly displaced fracture noted in the shaft of the proximal phalanx in the fourth digit. Mild degenerative changes involving the first metatarsophalangeal joint and a few DIP/PIP joints. There appear be mild degenerative changes in the midfoot. The mineralization of the bones is normal. There is no significant soft tissue swelling. IMPRESSION IMPRESSION: Fourth digit fracture. Mild degenerative changes as described above. Children'S Tutor: AUGUST Transcribe Date/Time: Oct 23 2023 11:09A Dictated by : ERIC DE SOUZA MD This examination was interpreted and the report reviewed and electronically signed by: ERIC DE SOUZA MD on Oct 23 2023 11:15AM EST [facility] Radiology Study observation (narrative) [facility] XR Foot - right AP and Later al and obliqueOrdered By: Ccf Provider on 10-23-2023 [facility] UA DIP, URINE (POC)on 2022 BILIRUBIN UA (POCT) Negative Negative [facility] CLARITY UA (POCT) Cloudy [facility] COLOR UA (POCT) Dark yellow [facility] GLUCOSE UA (POCT) Negative Negative mg/dL [facility] HEMOGLOBIN/BLOOD UA (POCT) Large Abnormal Negative [facility] KETONE UA (POCT) Trace Negative mg/dL [facility] LEUKOCYTES UA (POCT) Large Abnormal Negative [facility] NITRITE UA (POCT) Negative Negative [facility] PH UA (POCT) 5.5 4.5 - 8.0 [facility] Protein Ql (U) 100 mg/dL Abnormal Negative mg/dL [facility] SPECIFIC GRAVITY UA (POCT) 1.025 1.005 - 1.030 [facility] UROBILINOGEN UA (POCT) 0.2 E.U./dL Rhoda l E.U./dL [facility] XR Hand - bilateral PA and L ateral and Obliqueon 01-28-2023 IMPRESSION: No acute fracture. Degenerative disease of bilateral hands. Children'S Tutor: [facility] Transcribe Date/Time: Jan 28 2023 4:19P Dictated by : YESSI HANCOCK MD This examination was interpreted and the report reviewed and electronically signed by: YESSI HANCOCK MD on Jan 28 2023 4:24PM [facility] DIVISION OF RADIOLOGY * * *Final Report* * * DATE OF EXAM: Jan 27 2023 10:47AM WOX 5556 - XR HAND 3V PA/LAT/OBL KEHINDE / PROCEDURE REASON: Lump on finger of both hands * * * * Physician Interpretation * * * * EXAMINATION: XR HAND 3V PA/LAT/OBL KEHINDE CLINICAL HISTORY: Lump on finger of both hands Technique: XR HAND 3V PA/LAT/OBL KEHINDE -- BILATERAL with 3 views on 3 images Comparison: X-ray left hand 07/29/2021 RESULT: No acute fracture or dislocation. Mild right first metacarpophalangeal joint space narrowing. There is narrowing of multiple interphalangeal joints of the right hand with marginal osteophytes. No periarticular erosions. Mild left first metacarpophalangeal joint space narrowing. Narrowing of multiple interphalangeal joints of the left hand with marginal osteophytes. No periarticular erosions. DIVISION OF RADIOLOGY Provider, [facility] - 01/28/2023 * * *Final Report* * * DATE OF EXAM: Jan 27 2023 10:47AM WOX 5556 - XR HAND 3V PA/LAT/OBL KEHINDE / PROCEDURE REASON: Lump on finger of both hands * * * * Physician Interpretation * * * * EXAMINATION: XR HAND 3V PA/LAT/OBL KEHINDE CLINICAL HISTORY: Lump on finger of both hands Technique: XR HAND 3V PA/LAT/OBL KEHINDE -- BILATERAL with 3 views on 3 images Comparison: X-ray left hand 07/29/2021 RESULT: No acute fracture or dislocation. Mild right first metacarpophalangeal joint space narrowing. There is narrowing of multiple interphalangeal joints of the right hand with marginal osteophytes. No periarticular erosions. Mild left first metacarpophalangeal joint space narrowing. Narrowing of multiple interphalangeal joints of the left hand with marginal osteophytes. No periarticular erosions. IMPRESSION IMPRESSION: No acute fracture. Degenerative disease of bilateral hands. Children'S Tutor: P[facility] Transcribe Date/Time: Jan 28 2023 4:19P Dictated by : YESSI HANCOCK MD This examination was interpreted and the report reviewed and electronically signed by: YESSI HANCOCK MD on Jan 28 2023 4:24PM EST [facility] XR Hand - bilateral PA and L ateral and ObliqueOrdered By: Ccf Provider on 01-28-2023 [facility] CBC W Auto Differential pane l (Bld)on 01-27-2023 Basophils (Bld) [#/Vol] 0.04 10*3/uL <0.11 k/uL [facility] Basophils/100 WBC (Bld) 0.7 % [facility] Differential cell count method Nom (Bld) Auto [facility] Eosinophils (Bld) [#/Vol] 0.07 10*3/uL <0.46 k/uL [facility] Eosinophils/100 WBC (Bld) 1.2 % [facility] Erythrocyte distribution width (RBC) [Ratio] 11.3 % Low 11.5 - 15.0 % [facility] Hematocrit (Bld) [Volume fraction] 36.4 % 36.0 - 46.0 % [facility] Hemoglobin (Bld) [Mass/Vol] 12.0 g/dL 11.5 - 15.5 g/dL [facility] Immature granulocytes (Bld) [#/Vol] <0.10 k/uL [facility] Immature granulocytes/100 WBC (Bld) 0.3 % [facility] Lymphocytes (Bld) [#/Vol] 2.19 10*3/uL 1.00 - 4.00 k/uL [facility] Lymphocytes/100 WBC (Bld) 36.1 % [facility] MCH (RBC) [Entitic mass] 33.3 pg 26.0 - 34.0 pg [facility] MCHC (RBC) [Mass/Vol] 33.0 g/dL 30.5 - 36.0 g/dL [facility] MCV (RBC) [Entitic vol] 101.1 fL High 80.0 - 100.0 fL [facility] Monocytes (Bld) [#/Vol] 0.50 10*3/uL <0.87 k/uL [facility] Monocytes/100 WBC (Bld) 8.3 % [facility] Neutrophils (Bld) [#/Vol] 3.24 10*3/uL 1.45 - 7.50 k/uL [facility] Neutrophils/100 WBC (Bld) 53.4 % [facility] Nucleated RBC (Bld) [#/Vol] <0.01 k/uL [facility] Nucleated RBC/100 WBC (Bld) [Ratio] 0.0 /100 WBC [facility] Platelet mean volume (Bld) [Entitic vol] 11.0 fL 9.0 - 12.7 fL [facility] Platelets (Bld) [#/Vol] 211 10*3/uL 150 - 400 k/uL [facility] RBC (Bld) [#/Vol] 3.60 10*6/uL Low 3.90 - 5.20 m/uL [facility] WBC (Bld) [#/Vol] 6.06 10*3/uL 3.70 - 11.00 k/uL [facility] XR Hand - bilateral PA and L ateral and Obliqueon 01-27-2023 Radiology Study observation (narrative) [facility] UA DIP, URINE (POC)on 2021 BILIRUBIN UA (POCT) Negative Negative [facility] CLARITY UA (POCT) Cloudy [facility] COLOR UA (POCT) Yellow [facility] GLUCOSE UA (POCT) Negative Negative mg/dL [facility] HEMOGLOBIN/BLOOD UA (POCT) Trace-intact Abnormal Negative [facility] KETONE UA (POCT) Negative Negative mg/dL [facility] LEUKOCYTES UA (POCT) Small Abnormal Negative [facility] NITRITE UA (POCT) Negative Negative [facility] PH UA (POCT) 6.0 4.5 - 8.0 [facility] Protein Ql (U) Negative Negative mg/dL [facility] SPECIFIC GRAVITY UA (POCT) 1.015 1.005 - 1.030 [facility] UROBILINOGEN UA (POCT) 0.2 E.U./dL Rhoda l E.U./dL [facility] No Panel Informationon 07-29 Radiology Study observation (narrative) [facility] XR Hand - left PA and Latera l and Obliqueon 07-29-2021 IMPRESSION: Radiogra phic findings suggest osteoarthritis. No acute fracture or dislocation. Children'S Tutor: PSCB Transcribe Date/Time: Jul 29 2021 6:45P Dictated by : HOLLIE HARRIS MD This examination was interpreted and the report reviewed and electronically signed by: HOLLIE HARRIS MD on Jul 29 2021 6:47PM [facility] DIVISION OF RADIOLOGY * * *Final Report* * * DATE OF EXAM: Jul 29 2021 6:36PM WOX 5345 - XR HAND 3V PA/LAT/OBL LT / PROCEDURE REASON: multiple diagnoses * * * * Physician Interpretation * * * * EXAMINATION: XR HAND 3V PA/LAT/OBL LT HISTORY: Left dorsal hand and wrist pain following a fall today. Fall, initial encounter. Pain of left hand . TECHNIQUE: XR HAND 3V PA/LAT/OBL LT Laterality: LEFT Number of different views (projections): 3 M: XB_1 COMPARISON: There are no prior studies for comparison. RESULT: AP, lateral and oblique views of the left hand shows no acute osseous, articular or soft tissue abnormality. There is degenerative change with asymmetric joint space narrowing and periarticular osteophytosis involving the distal interphalangeal joints of the second through fifth digits and the interphalangeal joint of the thumb. Findings are compatible with osteoarthritis. There is no superimposed erosive process. DIVISION OF RADIOLOGY Provider, [facility] - 07/29/2021 * * *Final Report* * * DATE OF EXAM: Jul 29 2021 6:36PM WOX 5345 - XR HAND 3V PA/LAT/OBL LT / PROCEDURE REASON: multiple diagnoses * * * * Physician Interpretation * * * * EXAMINATION: XR HAND 3V PA/LAT/OBL LT HISTORY: Left dorsal hand and wrist pain following a fall today. Fall, initial encounter. Pain of left hand . TECHNIQUE: XR HAND 3V PA/LAT/OBL LT Laterality: LEFT Number of different views (projections): 3 M: XB_1 COMPARISON: There are no prior studies for comparison. RESULT: AP, lateral and oblique views of the left hand shows no acute osseous, articular or soft tissue abnormality. There is degenerative change with asymmetric joint space narrowing and periarticular osteophytosis involving the distal interphalangeal joints of the second through fifth digits and the interphalangeal joint of the thumb. Findings are compatible with osteoarthritis. There is no superimposed erosive process. IMPRESSION IMPRESSION: Radiographic findings suggest osteoarthritis. No acute fracture or dislocation. Children'S Tutor: PSCB Transcribe Date/Time: Jul 29 2021 6:45P Dictated by : HOLLIE HARRIS MD This examination was interpreted and the report reviewed and electronically signed by: HOLLIE HARRIS MD on Jul 29 2021 6:47PM [facility] XR Hand - left PA and Latera l and ObliqueOrdered By: Ccf Provider on 07-29-2021 [facility] XR Wrist - left PA and Later al and Obliqueon 07-29-2021 IMPRESSION: No Acute Fracture. Children'S Tutor: AUGUST Transcribe Date/Time: Jul 29 2021 6:47P Dictated by : HOLLIE HARRIS MD This examination was interpreted and the report reviewed and electronically signed by: HOLLIE HARRIS MD on Jul 29 2021 6:49PM [facility] DIVISION OF RADIOLOGY * * *Final Report* * * DATE OF EXAM: Jul 29 2021 6:36PM WOX 5270 - XR WRIST 3V PA/LAT/OBL LT / PROCEDURE REASON: multiple diagnoses * * * * Physician Interpretation * * * * EXAMINATION: XR WRIST 3V PA/LAT/OBL LT HISTORY: Left dorsal hand and wrist pain following a fall today. Fall, initial encounter. Wrist pain, left. TECHNIQUE: XR WRIST 3V PA/LAT/OBL LT Laterality: LEFT Number of different views (projections): 3 M: XB_1 COMPARISON: There are no prior studies for comparison. RESULT: 3 views of the left wrist show no acute osseous, articular or soft tissue abnormality. The radiocarpal and intercarpal articulations are intact. DIVISION OF RADIOLOGY Provider, [facility] - 07/29/2021 * * *Final Report* * * DATE OF EXAM: Jul 29 2021 6:36PM WOX 5270 - XR WRIST 3V PA/LAT/OBL LT / PROCEDURE REASON: multiple diagnoses * * * * Physician Interpretation * * * * EXAMINATION: XR WRIST 3V PA/LAT/OBL LT HISTORY: Left dorsal hand and wrist pain following a fall today. Fall, initial encounter. Wrist pain, left. TECHNIQUE: XR WRIST 3V PA/LAT/OBL LT Laterality: LEFT Number of different views (projections): 3 M: XB_1 COMPARISON: There are no prior studies for comparison. RESULT: 3 views of the left wrist show no acute osseous, articular or soft tissue abnormality. The radiocarpal and intercarpal articulations are intact. IMPRESSION IMPRESSION: No Acute Fracture. Children'S Tutor: AUGUST Transcribe Date/Time: Jul 29 2021 6:47P Dictated by : HOLLIE HARRIS MD This examination was interpreted and the report reviewed and electronically signed by: HOLLIE HARRIS MD on Jul 29 2021 6:49PM [facility] XR Sacrum and Coccyx 3 Views on 02-27-2021 IMPRESSION: Possible S3-4 fracture. Children'S Tutor: AUGUST Transcribe Date/Time: Feb 27 2021 8:29A Dictated by : YESSI FLAHERTY MD This examination was interpreted and the report reviewed and electronically signed by: YESSI FLAHERTY MD on Feb 27 2021 8:38AM [facility] DIVISION OF RADIOLOGY * * *Final Report* * * DATE OF EXAM: Feb 26 2021 10:39AM WOX 5246 - XR SACRUM/COCCYX 3V AP/LAT / PROCEDURE REASON: multiple diagnoses * * * * Physician Interpretation * * * * Sacrum/coccyx radiographs HISTORY: 75 years old Clinical information: Fall, initial encounter Tailbone injury, initial encounter Fell down steps and landed on tailbone on a rock TECHNIQUE: Images: XR SACRUM/COCCYX 3V AP/LAT Comparison: None. RESULT: Findings: Osteopenia. Possible fracture at the S3-4 level. Subchondral sclerosis subjacent to the SI joints. No erosions are seen. Superior hip joint spaces are maintained. Osteophyte formation involving the superior acetabulum. DIVISION OF RADIOLOGY Provider, [facility] - 02/27/2021 * * *Final Report* * * DATE OF EXAM: Feb 26 2021 10:39AM WOX 5246 - XR SACRUM/COCCYX 3V AP/LAT / PROCEDURE REASON: multiple diagnoses * * * * Physician Interpretation * * * * Sacrum/coccyx radiographs HISTORY: 75 years old Clinical information: Fall, initial encounter Tailbone injury, initial encounter Fell down steps and landed on tailbone on a rock TECHNIQUE: Images: XR SACRUM/COCCYX 3V AP/LAT Comparison: None. RESULT: Findings: Osteopenia. Possible fracture at the S3-4 level. Subchondral sclerosis subjacent to the SI joints. No erosions are seen. Superior hip joint spaces are maintained. Osteophyte formation involving the superior acetabulum. IMPRESSION IMPRESSION: Possible S3-4 fracture. Children'S Tutor: AUGUST Transcribe Date/Time: Feb 27 2021 8:29A Dictated by : YESSI FLAHERTY MD This examination was interpreted and the report reviewed and electronically signed by: YESSI FLAHERTY MD on Feb 27 2021 8:38AM EST [facility] XR Sacrum and Coccyx 3 Views Ordered By: Ccf Provider on 02-27-2021 [facility] XR Sacrum and Coccyx 3 Views on 02-26-2021 Radiology Study observation (narrative) [facility] CNNURSEon 02-20-2021 CNNURSE Nurse Visit (COVAMD) MER ALLEN ([id number]) 1945 F Date Time Provider Department 02/20/21 SILVESTRE LINCOLN, BLANCA DHALIWAL During your visit today, we recorded the following information about you: Allergies As of Date: 02/20/2021 Noted Allergy Reaction POISON YAZ 08/01/2011 4 - Hives 5 - Intolerance 9 - Itching AMLODIPINE 10/28/2017 7 - Swelling Comments: Caused severe leg swelling ERYTHROMYCIN BASE 06/28/2003 Comments: rash, gi upset FLUORESCEIN 09/28/2008 GADOLINIUM-CONTAINING CONTRAST ME*09/30/2005 HCTZ (HYDROCHLOROTHIAZIDE) 10/28/2017 2 - Rash Comments: Rash (took after tried on amlodipine) IV CONTRAST DYE (CONTRAST DYE) 04/22/2010 4 - Hives SULFA (SULFONAMIDE ANTIBIOTICS) 06/28/2003 Comments: rash, gi upset TETRACYCLINE 06/28/2003 Comments: severe diarrhea TRAMADOL 02/16/2006 Comments: hives, pablo, sweats,, rash Date Reviewed: 01/21/2021 Reviewed by: Concepción Cervantes LPN - Fully Assessed Order(s):[employer] SARS-COV-2 VACCINE 2D DOSE APPT [[id number]] Order #: [id number] Prescriptions as of 02/20/2021 Sig: LORAZEPAM 1 MG TABLET Take 0.5-1 tablets by mouth t* LOSARTAN 100 MG TABLET Take 1 tablet by mouth once d* CITALOPRAM 20 MG TABLET Take 1 tablet by mouth once d* METOPROLOL SUCCINATE ER 50 MG* Take 1 tablet by mouth once d* CHOLECALCIFEROL (VITAMIN D3) * Take 2 capsules by mouth once* X POLYMYXIN B SULFATE 10,000 UN* Use 1 Drop in the right eye f* Patient not taking: Reported on 04/28/2019 WOMEN'S MULTI ORAL Take by mouth. CALCIUM CITRATE + ORAL Take by mouth. Problem List As Of Date 02/20/2021 Noted Resolved Disturbance of skin sensation [R20.9] 06/30/2003 04/24/2015 TACHYCARDIA NOS [R00.0] 11/04/2005 Anxiety state [F41.1] 11/04/2005 Routine physical examination [Z00.00] 02/19/2010 08/01/2011 Cavernous Hemangioma [D18.00] 02/19/2010 Partial seizure disorder (HCC) [G40.109] 02/19/2010 05/08/2018 Vitreous Detachment [H43.819] 02/19/2010 Osteopenia [M85.80] 02/19/2010 Acute gastritis without mention of hemorrhage [*03/07/2011 05/08/2018 Urethral caruncle [N36.2] 08/01/2011 Uterine prolapse without mention of vaginal wal*08/01/2011 HTN (hypertension) [I10] 02/07/2013 Other and unspecified hyperlipidemia [E78.5] 02/28/2013 04/28/2018 Vitamin d deficiency [E55.9] 02/28/2013 Occipital neuralgia [M54.81] 03/23/2014 Medicare annual wellness visit, initial [Z00.00]04/24/2015 05/08/2018 Cerebellar hemangioma (HCC) [D18.02] 02/04/2021 Encounter Status:Open [facility] Chart Maintenanceon 04-10-20 17 Left ventricular Ejection fraction 55 % Invalid Interpretation Code [facility] Work Phone: Office Visiton 04-10-2017 Documentation of current medications (procedure) Done Invalid Interpretation Code [facility] Work Phone: Fall risk assessment No Invalid Interpretation Code [facility] Work Phone: Protein mass conc Done [facility] Work Phone: Lab Report: Catecholamines, 24 URon 10-17-2016 dopamine, urine 73 ug/L Invalid Interpretation Code Undefined [facility] Work Phone: [phone] dopamine, urine, 24 hour 179 ug/24h Invalid Interpretation Code 0-510 [facility] Work Phone: [phone] DOPAMINE,UR 73 ug/L Undefined [facility] Work Phone: [phone] EPINEPHRINE, UR 2 ug/L Undefined [facility] Work Phone: [phone] epinephrine, urine 2 ug/L Invalid Interpretation Code Undefined [facility] Work Phone: [phone] epinephrine, urine, 24 hour 5 ug/24h Invalid Interpretation Code 0-20 [facility] Work Phone: [phone] NOREPINEPH,UR 21 ug/L Undefined [facility] Work Phone: [phone] norepinephrine, urine 51 ug/24h Invalid Interpretation Code 0-135 [facility] Work Phone: [phone] norepinephrine, urine 21 ug/L Invalid Interpretation Code Undefined [facility] Work Phone: [phone] Lab Report: Metanephrine Fra c 24 HR URon 10-17-2016 metanephrine, urine 36 ug/L Invalid Interpretation Code Undefined [facility] Work Phone: [phone] metanephrine, urine, 24 hour 88 ug/24h Invalid Interpretation Code 45-290 [facility] Work Phone: [phone] normetanephrine, urine 116 ug/L Invalid Interpretation Code Undefined [facility] Work Phone: [phone] normetanephrine, urine, 24 hour 284 ug/24h Invalid Interpretation Code 82-500 [facility] Work Phone: [phone] Lab Report: Miscellaneous La b Procedureon 10-15-2016 GE use only - for [employer] import when terms are not otherwise specified . Invalid Interpretation Code [facility] Work Phone: [phone] MISC LAB TEST . [facility] Work Phone: [phone] Lab Report: Basic Metabolic Profile (BMP)on 10-10-2016 Anion gap 8 mmol/L Invalid Interpretation Code 5-15 [facility] Work Phone: [phone] Anion gap molar conc 8 mmol/L 5-[address] [facility] Work Phone: [phone] BUN/Creatinine Ratio 15.0 RATIO Invalid Interpretation Code 10-20 [facility] Work Phone: [phone] Calcium 8.3 mg/dL Low 8.5-10.1 [facility] Work Phone: [phone] Chloride 105 mmol/L Invalid Interpretation Code 98-107 [facility] Work Phone: [phone] CO2 28.0 mmol/L Invalid Interpretation Code 21.0-32.0 [facility] Work Phone: [phone] CO2 ppres (BldV) 28.0 mmol/L 21.0-32.0 [facility] Work Phone: [phone] Creatinine 0.73 mg/dL Invalid Interpretation Code 0.55-1.02 [facility] Work Phone: [phone] eGFR (non-black) 83 mL/min/{1.73_m2} Invalid Interpretation Code >60 [facility] Work Phone: [phone] eGFR (non-black) 100 mL/min/{1.73_m2} Invalid Interpretation Code >60 [facility] Work Phone: [phone] EST GFR - AA 100 mL/min >60 [facility] Work Phone: [phone] Glucose 89 mg/dL Invalid Interpretation Code 70-110 [facility] Work Phone: [phone] Glucose mass conc 89 mg/dL 70-110 [facility] Work Phone: [phone] Potassium 4.0 mmol/L Invalid Interpretation Code 3.5-5.1 [facility] Work Phone: [phone] Sodium 141 mmol/L Invalid Interpretation Code 136-145 [facility] Work Phone: [phone] Urea nitrogen 11 mg/dL Invalid Interpretation Code 7-18 [facility] Work Phone: [phone] Office Visiton 10-09-2016 Documentation of current medications (procedure) Done Invalid Interpretation Code [facility] Work Phone: [phone] Tobacco smoking status NHIS Never smoker [facility] Work Phone: [phone] Tobacco use CPHS Never smoker Invalid Interpretation Code [facility] Work Phone: [phone] Clinical Lists Updateon 0 Hematocrit (HCT) 35.1 % Low [facility] Work Phone: [phone] Hematocrit Volume Fraction (Bld) 35.1 % Low [facility] Work Phone: [phone] Hemoglobin (HGB) 11.8 g/dL Low [facility] [facility] Work Phone: [phone] Platelets 173 10*3/mm3 Invalid Interpretation Code [facility] Work Phone: [phone] Platelets #/vol (Bld) 173 10*3/mm3 [facility] Work Phone: [phone] WBC #/vol (Bld) 5.8 10*3/uL [facility] Work Phone: [phone] WBC (Leukocytes) 5.8 10*3/uL Invalid Interpretation Code [facility] Work Phone: [phone] Office Visiton 10-09-2015 cardiac risk group B Invalid Interpretation Code [facility] Work Phone: [phone] General cardiovascular disease 10Y risk [#] [place] Not enough information Invalid Interpretation Code [facility] Work Phone: [phone] Chart Maintenanceon 04-19-20 15 Erythrocytes (RBC) 3.90 10*6/uL [facility] Work Phone: [phone] RBC #/vol (Bld) 3.90 10*6/uL [facility] Work Phone: [phone] Replaced Document: Candace Hedrick GIDEON Observationson 02-14-2013 EKG QRS axis 8 deg [facility] Work Phone: [phone] electrocardiogram interpretation Sinus Bradycardia WITHIN NORMAL LIMITS Invalid Interpretation Code [facility] Work Phone: [phone] Interpretation Sinus Bradycardia [place] THIN NORMAL LIMITS [facility] Work Phone: [phone] P [place] 42 deg [facility] Work Phone: [phone] P wave axis, electrocardiogram 42 deg Invalid Interpretation Code [facility] Work Phone: [phone] [place] Interval 172 ms [facility] Work Phone: [place] interval, electrocardiogram 172 ms Invalid Interpretation Code [facility] Work Phone: [phone] Pulse (Heart Rate) 53 /min Invalid Interpretation Code [facility] Work Phone: [phone] QRS axis, electrocardiogram 8 deg Invalid Interpretation Code [facility] Work Phone: [phone] QRS Duration 90 ms [facility] Work Phone: [phone] QRS duration, electrocardiogram 90 ms Invalid Interpretation Code [facility] Work Phone: [phone] QT Interval new path ms [facility] Work Phone: [phone] QT interval, electrocardiogram new path ms Invalid Interpretation Code [facility] Work Phone: [phone] T [place] 27 deg [facility] Work Phone: [phone] T wave axis, electrocardiogram 27 deg Invalid Interpretation Code [facility] Work Phone: [phone] Clinical Lists Update: 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 Band form neutrophils/100 WBC (Bld) 61.8 % [facility] Work Phone: [phone] basophils as percent of blood leukocytes, manual count 0.3 % Invalid Interpretation Code [facility] Work Phone: [phone] eosinophils as percent of blood leukocytes, manual count 1.1 % Invalid Interpretation Code [facility] Work Phone: [phone] Lymphocytes/100 leukocytes 30.2 % Invalid Interpretation Code [facility] Work Phone: [phone] Lymphocytes/100 WBC (Bld) 30.2 % [facility] Work Phone: [phone] MCH 31.2 pg Invalid Interpretation Code [facility] Work Phone: [phone] MCH Entitic mass (RBC) 31.2 pg [facility] Work Phone: MCV 94.8 fL Invalid Interpretation Code [facility] Work Phone: [phone] MCV Entitic volume (RBC) 94.8 fL [facility] Work Phone: [phone] Monocytes/100 leukocytes 6.3 % Invalid Interpretation Code [facility] Work Phone: [phone] Monocytes/100 WBC (Bld) 6.3 % [facility] Work Phone: neutrophils, band form as percent of blood leukocytes, manual count 61.8 % Invalid Interpretation Code [facility] Work Phone: Vital Signs Date Time Vital Sign Value Performing Clinician Facility 05-03-2025 17:15-0400 Diastolic blood pressure 59 mm[Hg] Jina Stearns MD Work Phone: [facility] 05-03-2025 17:15-0400 Heart rate 54 /min Jina Stearns MD Work Phone: [facility] 05-03-2025 17:15-0400 Respiratory rate 9 /min Jina Stearns MD Work Phone: [facility] 05-03-2025 17:15-0400 SaO2% (BldA) [Mass fraction] 90 % Jina Stearns MD Work Phone: [facility] 05-03-2025 17:15-0400 Systolic blood pressure 148 mm[Hg] Jina Stearns MD Work Phone: [facility] 05-03-2025 15:00-0400 Body temperature 97.7 [degF] Jina Stearns MD Work Phone: [facility] 04-14-2025 09:59-0400 Body height 152.4 cm Jnia Stearns MD Work Phone: [facility] 04-14-2025 09:59-0400 Body mass index (BMI) [Ratio] 25.39 kg/m2 Jina Stearns MD Work Phone: [facility] 04-14-2025 09:59-0400 Body temperature 97.3 [degF] Jina Stearns MD Work Phone: [facility] 04-14-2025 09:59-0400 Body weight 58.97 kg Jina Stearns MD Work Phone: [facility] 04-14-2025 09:59-0400 Diastolic blood pressure 79 mm[Hg] Jina Stearns MD Work Phone: [facility] 04-14-2025 09:59-0400 Heart rate 58 /min Jina Stearns MD Work Phone: [facility] 04-14-2025 09:59-0400 SaO2% (BldA) [Mass fraction] 100 % Jina Stearns MD Work Phone: [facility] 04-14-2025 09:59-0400 Systolic blood pressure 154 mm[Hg] Jina Stearns MD Work Phone: [facility] 03-28-2025 09:30-0400 Body height 152.4 cm Madeline Restrepo AIR TWIST OPERATOR.HEMATOLOGY NURSE Work Phone: [facility] 03-28-2025 09:30-0400 Body mass index (BMI) [Ratio] 26.17 kg/m2 Madeline Restrepo AIR TWIST OPERATOR.HEMATOLOGY NURSE Work Phone: [facility] 03-28-2025 09:30-0400 Body weight 60.78 kg Madeline Restrepo AIR TWIST OPERATOR.HEMATOLOGY NURSE Work Phone: [facility] 02-27-2025 11:46-0400 Body height 152.[address] [place] [address] 02-27-2025 11:46-0400 Body mass index (BMI) [Ratio] 26.25 kg/m2 [address] [place] [address] 02-27-2025 11:46-0400 Body temperature 97.2 [degF] [address] [place] [address] 02-27-2025 11:46-0400 Body weight 60.[address] [place] [address] 02-27-2025 11:46-0400 Diastolic blood pressure 69 mm[Hg] Pst 1 [facility] 02-27-2025 11:46-0400 Heart rate 56 /min [address] [place] [address] 02-27-2025 11:46-0400 Respiratory rate 18 /min [address] 02-27-2025 11:46-0400 SaO2% (BldA) [Mass fraction] 100 % [address] [place] [address] 02-27-2025 11:46-0400 Systolic blood pressure 165 mm[Hg] Pst 1 [facility] 02-01-2025 09:48-0500 Body height 152.4 cm Luisa Barros APRN.HEMATOLOGY NURSE Work Phone: [facility] 02-01-2025 09:48-0500 Body mass index (BMI) [Ratio] 25.78 kg/m2 Luisa Barros APRN.HEMATOLOGY NURSE Work Phone: [facility] 02-01-2025 09:48-0500 Body weight 59.88 kg Luisa Barros APRN.HEMATOLOGY NURSE Work Phone: [facility] 02-01-2025 09:48-0500 Diastolic blood pressure 68 mm[Hg] Luisa Barros APRN.HEMATOLOGY NURSE Work Phone: [facility] 02-01-2025 09:48-0500 Systolic blood pressure 138 mm[Hg] Luisa Barros APRN.HEMATOLOGY NURSE Work Phone: [facility] 01-23-2025 08:45-0500 Body height 152.4 cm Joanne Bautista MD Work Phone: [facility] 01-23-2025 08:45-0500 Body mass index (BMI) [Ratio] 25.9 kg/m2 Joanne Bautista MD Work Phone: [facility] 01-23-2025 08:45-0500 Body weight 60.15 kg Joanne Bautista MD Work Phone: [facility] 01-23-2025 08:45-0500 Diastolic blood pressure 78 mm[Hg] Joanne Bautista MD Work Phone: [facility] 01-23-2025 08:45-0500 Systolic blood pressure 102 mm[Hg] Joanne Bautista MD Work Phone: [facility] 12-31-2024 10:29-0500 Body mass index (BMI) [Ratio] 26.61 kg/m2 Tasha Ferguson APRN.HEMATOLOGY NURSE Work Phone: [facility] 12-31-2024 10:29-0500 Body temperature 97 [degF] Tasha Ferguson APRN.HEMATOLOGY NURSE Work Phone: [facility] 12-31-2024 10:29-0500 Body weight 61.8 kg Tasha Ferguson APRN.HEMATOLOGY NURSE Work Phone: [facility] 12-31-2024 10:29-0500 Diastolic blood pressure 88 mm[Hg] Tasha Ferguson APRN.HEMATOLOGY NURSE Work Phone: [facility] 12-31-2024 10:29-0500 Heart rate 59 /min Tasha Ferguson APRN.HEMATOLOGY NURSE Work Phone: [facility] 12-31-2024 10:29-0500 Respiratory rate 21 /min Tasha Ferguson APRN.HEMATOLOGY NURSE Work Phone: [facility] 12-31-2024 10:29-0500 SaO2% (BldA) [Mass fraction] 94 % Tasha Ferguson APRN.HEMATOLOGY NURSE Work Phone: [facility] 12-31-2024 10:29-0500 Systolic blood pressure 140 mm[Hg] Tasha Ferguson APRN.HEMATOLOGY NURSE Work Phone: [facility] 12-27-2024 10:33-0500 Body height 152.4 cm Madeline Restrepo APRN.HEMATOLOGY NURSE Work Phone: [facility] 12-27-2024 10:33-0500 Body mass index (BMI) [Ratio] 26.56 kg/m2 Madeline Restrepo AIR TWIST OPERATOR.HEMATOLOGY NURSE Work Phone: [facility] 12-27-2024 10:33-0500 Body weight 61.69 kg Madeline Restrepo AIR TWIST OPERATOR.HEMATOLOGY NURSE Work Phone: [facility] 12-27-2024 10:33-0500 Diastolic blood pressure 84 mm[Hg] Madeline Restrepo AIR TWIST OPERATOR.HEMATOLOGY NURSE Work Phone: [facility] 12-27-2024 10:33-0500 Systolic blood pressure 138 mm[Hg] Madeline Restrepo AIR TWIST OPERATOR.HEMATOLOGY NURSE Work Phone: [facility] 12-22-2024 11:50-0500 Body mass index (BMI) [Ratio] 26.14 kg/m2 Rafi Pitt MD Work Phone: [facility] 12-22-2024 11:50-0500 Body temperature 97.81 [degF] Rafi Pitt MD Work Phone: [facility] 12-22-2024 11:50-0500 Body weight 62 kg Rafi Pitt MD Work Phone: [facility] 12-22-2024 11:50-0500 Diastolic blood pressure 77 mm[Hg] Rafi Pitt MD Work Phone: [facility] 12-22-2024 11:50-0500 Heart rate 52 /min Rafi Pitt MD Work Phone: [facility] 12-22-2024 11:50-0500 Respiratory rate 18 /min Rafi Pitt MD Work Phone: [facility] 12-22-2024 11:50-0500 SaO2% (BldA) [Mass fraction] 99 % Rafi Pitt MD Work Phone: [facility] 12-22-2024 11:50-0500 Systolic blood pressure 158 mm[Hg] Rafi Pitt MD Work Phone: [facility] 11-01-2024 07:47-0500 Body mass index (BMI) [Ratio] 25.25 kg/m2 Kaleigh Homero AIR TWIST OPERATOR.HEMATOLOGY NURSE Work Phone: [facility] 11-01-2024 07:47-0500 Body weight 59.88 kg Kaleigh Homero AIR TWIST OPERATOR.HEMATOLOGY NURSE Work Phone: [facility] 11-01-2024 07:47-0500 Diastolic blood pressure 86 mm[Hg] Kaleigh Kennebunk AIR TWIST OPERATOR.HEMATOLOGY NURSE Work Phone: [facility] 11-01-2024 07:47-0500 Systolic blood pressure 134 mm[Hg] Kaleigh Homero AIR TWIST OPERATOR.HEMATOLOGY NURSE Work Phone: [facility] 09-21-2024 11:35-0400 Diastolic blood pressure 72 mm[Hg] Joanna Yuly AIR TWIST OPERATOR.HEMATOLOGY NURSE Work Phone: [facility] 09-21-2024 11:35-0400 Systolic blood pressure 158 mm[Hg] Joanna Yuly AIR TWIST OPERATOR.HEMATOLOGY NURSE Work Phone: [facility] 09-21-2024 11:27-0400 Body mass index (BMI) [Ratio] 25.47 kg/m2 Joanna Yuly AIR TWIST OPERATOR.HEMATOLOGY NURSE Work Phone: [facility] 09-21-2024 11:27-0400 Body weight 60.4 kg Joanna Yuly AIR TWIST OPERATOR.HEMATOLOGY NURSE Work Phone: [facility] 09-21-2024 11:27-0400 Heart rate 60 /min Joanna Yuly AIR TWIST OPERATOR.HEMATOLOGY NURSE Work Phone: [facility] 09-21-2024 11:27-0400 SaO2% (BldA) [Mass fraction] 97 % Joanna Yuly AIR TWIST OPERATOR.HEMATOLOGY NURSE Work Phone: [facility] 07-12-2024 18:23-0400 Body mass index (BMI) [Ratio] 26.02 kg/m2 Reji Moomaw AIR TWIST OPERATOR.HEMATOLOGY NURSE Work Phone: [facility] 07-12-2024 18:23-0400 Body temperature 98.49 [degF] Reji Moomaw AIR TWIST OPERATOR.HEMATOLOGY NURSE Work Phone: [facility] 07-12-2024 18:23-0400 Body weight 61.7 kg Reji Moomaw AIR TWIST OPERATOR.HEMATOLOGY NURSE Work Phone: [facility] 07-12-2024 18:23-0400 Diastolic blood pressure 72 mm[Hg] Reji Moomaw AIR TWIST OPERATOR.HEMATOLOGY NURSE Work Phone: [facility] 07-12-2024 18:23-0400 Heart rate 64 /min Reji Moomaw AIR TWIST OPERATOR.HEMATOLOGY NURSE Work Phone: [facility] 07-12-2024 18:23-0400 Respiratory rate 16 /min Reji Moomaw AIR TWIST OPERATOR.HEMATOLOGY NURSE Work Phone: [facility] 07-12-2024 18:23-0400 SaO2% (BldA) [Mass fraction] 97 % Reji Camposw AIR TWIST OPERATOR.HEMATOLOGY NURSE Work Phone: [facility] 07-12-2024 18:23-0400 Systolic blood pressure 122 mm[Hg] Reji Patelomaw AIR TWIST OPERATOR.HEMATOLOGY NURSE Work Phone: [facility] 07-04-2024 10:53-0400 Body height 154 cm Chip Wiley MD Work Phone: [facility] 07-04-2024 10:53-0400 Body mass index (BMI) [Ratio] 25.34 kg/m2 Chip Wiley MD Work Phone: [facility] 07-04-2024 10:53-0400 Body temperature 97.59 [degF] Chip Wiley MD Work Phone: [facility] 07-04-2024 10:53-0400 Body weight 60.1 kg Chip Wiley MD Work Phone: [facility] 07-04-2024 10:53-0400 Diastolic blood pressure 82 mm[Hg] Chip Wiley MD Work Phone: [facility] 07-04-2024 10:53-0400 Heart rate 47 /min Chip Wiley MD Work Phone: [facility] 07-04-2024 10:53-0400 Respiratory rate 16 /min Chip Wiley MD Work Phone: [facility] 07-04-2024 10:53-0400 SaO2% (BldA) [Mass fraction] 99 % Chip Wiley MD Work Phone: [facility] 07-04-2024 10:53-0400 Systolic blood pressure 128 mm[Hg] Chip Wiley MD Work Phone: [facility] 02-20-2024 15:42-0400 Body temperature 98.6 [degF] [facility] 02-20-2024 15:42-0400 Diastolic blood pressure 89 mm[Hg] [facility] 02-20-2024 15:42-0400 Heart rate 87 /min [facility] 02-20-2024 15:42-0400 Respiratory rate 17 /min [facility] 02-20-2024 15:42-0400 SaO2% (BldA) [Mass fraction] 98 % [facility] 02-20-2024 15:42-0400 Systolic blood pressure 116 mm[Hg] [facility] 02-20-2024 11:49-0400 Body height 154.94 cm [facility] 02-20-2024 11:49-0400 Body mass index (BMI) [Ratio] 26.2 kg/m2 [facility] 02-20-2024 11:49-0400 Body weight 62.85 kg [facility] 10-23-2023 10:41-0500 Body temperature 97.9 [degF] Jil Jayy AIR TWIST OPERATOR.HEMATOLOGY NURSE Work Phone: [facility] 10-23-2023 10:41-0500 Body weight 62.51 kg Jil Jayy AIR TWIST OPERATOR.HEMATOLOGY NURSE Work Phone: [facility] 10-23-2023 10:41-0500 Diastolic blood pressure 62 mm[Hg] Jil Jayy AIR TWIST OPERATOR.HEMATOLOGY NURSE Work Phone: [facility] 10-23-2023 10:41-0500 Heart rate 68 /min Jil Jayy AIR TWIST OPERATOR.HEMATOLOGY NURSE Work Phone: [facility] 10-23-2023 10:41-0500 Respiratory rate 16 /min Jil Jayy AIR TWIST OPERATOR.HEMATOLOGY NURSE Work Phone: [facility] 10-23-2023 10:41-0500 SaO2% (BldA) [Mass fraction] 97 % Jil Jayy AIR TWIST OPERATOR.HEMATOLOGY NURSE Work Phone: [facility] 10-23-2023 10:41-0500 Systolic blood pressure 110 mm[Hg] Jil Jayy AIR TWIST OPERATOR.HEMATOLOGY NURSE Work Phone: [facility] 09-08-2023 09:25-0400 Body height 152.4 cm oJanna Franciscor AIR TWIST OPERATOR.HEMATOLOGY NURSE Work Phone: [facility] 09-08-2023 09:25-0400 Body weight 60.78 kg Joanna Yuly AIR TWIST OPERATOR.HEMATOLOGY NURSE Work Phone: [facility] 09-08-2023 09:25-0400 Diastolic blood pressure 72 mm[Hg] Joanna Yuly AIR TWIST OPERATOR.HEMATOLOGY NURSE Work Phone: [facility] 09-08-2023 09:25-0400 Heart rate 64 /min Joanna Yuly AIR TWIST OPERATOR.HEMATOLOGY NURSE Work Phone: [facility] 09-08-2023 09:25-0400 Respiratory rate 16 /min Joanna Yuly AIR TWIST OPERATOR.HEMATOLOGY NURSE Work Phone: [facility] 09-08-2023 09:25-0400 Systolic blood pressure 122 mm[Hg] Joanna Yuly AIR TWIST OPERATOR.HEMATOLOGY NURSE Work Phone: [facility] 03-10-2023 17:47-0400 Body temperature 98.49 [degF] Krislyn Aberegg PA Work Phone: [facility] 03-10-2023 17:47-0400 Body weight 62.6 kg Krislyn Aberegg PA Work Phone: [facility] 03-10-2023 17:47-0400 Diastolic blood pressure 78 mm[Hg] Krislyn Aberegg PA Work Phone: [facility] 03-10-2023 17:47-0400 Heart rate 70 /min Krislyn Aberegg PA Work Phone: [facility] 03-10-2023 17:47-0400 Respiratory rate 16 /min Krislyn Aberegg PA Work Phone: [facility] 03-10-2023 17:47-0400 SaO2% (BldA) [Mass fraction] 97 % Krislyn Aberegg PA Work Phone: [facility] 03-10-2023 17:47-0400 Systolic blood pressure 132 mm[Hg] Krislyn Aberegg PA Work Phone: [facility] 02-04-2023 10:06-0500 Diastolic blood pressure 79 mm[Hg] Dr. Chip Wiley Work Phone: [facility] 02-04-2023 10:06-0500 Heart rate 53 /min Dr. Chip Wiley Work Phone: [facility] 02-04-2023 10:06-0500 Systolic blood pressure 160 mm[Hg] Dr. Chip Wiley Work Phone: [facility] 02-04-2023 10:02-0500 Body height 154.[address] Chip Wiley Work Phone: [facility] 02-04-2023 10:02-0500 Body mass index (BMI) [Ratio] 25.9 kg/m2 Dr. Chip Wiley Work Phone: [facility] 02-04-2023 10:02-0500 Body weight 62.[address] Chip Wiley Work Phone: [facility] 02-04-2023 10:02-0500 Respiratory rate 18 /min Dr. Chip Wiley Work Phone: [facility] 02-04-2023 10:02-0500 SaO2% (BldA) [Mass fraction] 100 % Dr. Chip Wiley Work Phone: [facility] 01-27-2023 09:13-0500 [facility]FINANCE BROKER Work Phone: [facility] 01-27-2023 09:13-0500 Diastolic blood pressure 84 mm[Hg] Yaquelin Dickerson AIR TWIST OPERATOR.FINANCE BROKER Work Phone: [facility] 01-27-2023 09:13-0500 Heart rate 52 /min Yaquelin Dickerson AIR TWIST OPERATOR.FINANCE BROKER Work Phone: [facility] 01-27-2023 09:13-0500 Respiratory rate 12 /min Yaquelin Dickerson AIR TWIST OPERATOR.FINANCE BROKER Work Phone: [facility] 01-27-2023 09:13-0500 SaO2% (BldA) [Mass fraction] 97 % Yaquelin Dickerson AIR TWIST OPERATOR.FINANCE BROKER Work Phone: [facility] 01-27-2023 09:13-0500 Systolic blood pressure 134 mm[Hg] Yaquelin Dickerson AIR TWIST OPERATOR.FINANCE BROKER Work Phone: [facility] 11-12-2022 09:51-0500 Diastolic blood pressure 60 mm[Hg] Joanna Yuly AIR TWIST OPERATOR.HEMATOLOGY NURSE Work Phone: [facility] 11-12-2022 09:51-0500 Systolic blood pressure 132 mm[Hg] Joanna Yuly AIR TWIST OPERATOR.HEMATOLOGY NURSE Work Phone: [facility] 11-12-2022 09:48-0500 Body weight 62.14 kg Joanna Yuly AIR TWIST OPERATOR.HEMATOLOGY NURSE Work Phone: [facility] 11-12-2022 09:48-0500 Heart rate 47 /min Joanna Yuly AIR TWIST OPERATOR.HEMATOLOGY NURSE Work Phone: [facility] 11-12-2022 09:48-0500 Respiratory rate 12 /min Joanna Yuly AIR TWIST OPERATOR.HEMATOLOGY NURSE Work Phone: [facility] 11-12-2022 09:48-0500 SaO2% (BldA) [Mass fraction] 90 % Joanna Yuly AIR TWIST OPERATOR.HEMATOLOGY NURSE Work Phone: [facility] 08-13-2022 08:28-0400 Body temperature 97.81 [degF] Charly Enamorado AIR TWIST OPERATOR.HEMATOLOGY NURSE Work Phone: [facility] 08-13-2022 08:28-0400 Body weight 63.41 kg Charly Enamorado AIR TWIST OPERATOR.HEMATOLOGY NURSE Work Phone: [facility] 08-13-2022 08:28-0400 Diastolic blood pressure 90 mm[Hg] Charly Fei AIR TWIST OPERATOR.HEMATOLOGY NURSE Work Phone: [facility] 08-13-2022 08:28-0400 Heart rate 53 /min Charly Enamorado AIR TWIST OPERATOR.HEMATOLOGY NURSE Work Phone: [facility] 08-13-2022 08:28-0400 Respiratory rate 20 /min Charly Enamorado AIR TWIST OPERATOR.HEMATOLOGY NURSE Work Phone: [facility] 08-13-2022 08:28-0400 SaO2% (BldA) [Mass fraction] 99 % Charly Enamorado APRN.HEMATOLOGY NURSE Work Phone: [facility] 08-13-2022 08:28-0400 Systolic blood pressure 148 mm[Hg] Charly Enamorado APRN.HEMATOLOGY NURSE Work Phone: [facility] 07-28-2022 09:50-0400 Diastolic blood pressure 78 mm[Hg] Chip Wiley MD Work Phone: [facility] 07-28-2022 09:50-0400 Systolic blood pressure 128 mm[Hg] Chip Wiley MD Work Phone: [facility] 07-28-2022 09:17-0400 Body weight 63.05 kg Chip Wiley MD Work Phone: [facility] 07-28-2022 09:17-0400 Heart rate 60 /min Chip Wiley MD Work Phone: [facility] 05-29-2022 08:50-0400 Body temperature 97.7 [degF] Nurse Wstr Work Phone: [facility] 05-29-2022 08:50-0400 Body weight 65.14 kg Nurse Wstr Work Phone: [facility] 05-29-2022 08:50-0400 Diastolic blood pressure 88 mm[Hg] Nurse Wstr Work Phone: [facility] 05-29-2022 08:50-0400 Heart rate 56 /min Nurse Wstr Work Phone: [facility] 05-29-2022 08:50-0400 Respiratory rate 20 /min Nurse Wstr Work Phone: [facility] 05-29-2022 08:50-0400 SaO2% (BldA) [Mass fraction] 99 % Nurse Wstr Work Phone: [facility] 05-29-2022 08:50-0400 Systolic blood pressure 158 mm[Hg] Nurse Wstr Work Phone: [facility] 05-27-2022 08:34-0400 Diastolic blood pressure 78 mm[Hg] Yaquelin Dickerson AIR TWIST OPERATOR.FINANCE BROKER Work Phone: [facility] 05-27-2022 08:34-0400 Heart rate 54 /min Yaquelin Dickerson AIR TWIST OPERATOR.FINANCE BROKER Work Phone: [facility] 05-27-2022 08:34-0400 Systolic blood pressure 176 mm[Hg] Yaquelin Dickerson AIR TWIST OPERATOR.FINANCE BROKER Work Phone: [facility] 05-27-2022 08:29-0400 Body weight 65.32 kg Yaquelin Dickerson AIR TWIST OPERATOR.FINANCE BROKER Work Phone: [facility] 05-27-2022 08:29-0400 Respiratory rate 16 /min Yaquelin Dickerson AIR TWIST OPERATOR.FINANCE BROKER Work Phone: [facility] 04-10-2017 09:53-0400 BMI (Body Mass Index) 24.62 kg/m2 [facility] Work Phone: 04-10-2017 09:53-0400 Body weight 63.05 kg Elva Torres RN [facility] Work Phone: 04-10-2017 09:53-0400 BP Diastolic 80 mm[Hg] Sabine Ribeiro [facility] Work Phone: 04-10-2017 09:53-0400 BP Systolic 200 mm[Hg] Sabine Ribeiro [facility] Work Phone: 04-10-2017 09:53-0400 Height 160.02 cm Sabine Ribeiro [facility] Work Phone: 04-10-2017 09:53-0400 Pulse (Heart Rate) 66 /min Sabine Ribeiro [facility] Work Phone: 04-10-2017 09:53-0400 Respiratory Rate 18 /min Sabine Ribeiro [facility] Work Phone: 04-10-2017 09:53-0400 Weight 63.05 kg Sabine Ribeiro [facility] Work Phone: 10-09-2016 08:17-0500 BMI (Body Mass Index) 23.82 kg/m2 [facility] Work Phone: 10-09-2016 08:17-0500 BP Diastolic 70 mm[Hg] [facility] Work Phone: 10-09-2016 08:17-0500 BP Systolic 130 mm[Hg] [facility] Work Phone: 10-09-2016 08:17-0500 BSA (Body Surface Area) 1.64 m2 [facility] Work Phone: 10-09-2016 08:17-0500 Height 160.02 cm [facility] Work Phone: 10-09-2016 08:17-0500 Pulse (Heart Rate) 52 /min [facility] Work Phone: 10-09-2016 08:17-0500 Respiratory Rate 20 /min [facility] Work Phone: 10-09-2016 08:17-0500 Weight 61.01 kg [facility] Work Phone: 10-09-2015 09:03-0500 BP Diastolic 80 mm[Hg] [facility] Work Phone: 10-09-2015 09:03-0500 BP Systolic 160 mm[Hg] [facility] Work Phone: 02-14-2013 14:54-0400 Heart rate 53 /min [facility] Work Phone: Encounters Encounter Date Encounter Type Care Provider Facility Start: 05-03-2025 ambulatory JINA Dougherty [facility]ity:[facility] Start: 05-03-2025 End: 05-03-2025 Subsequent hospital visit by physician Jina Stearns MD Work Phone: [facility] 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] Start: 04-14-2025 End: 04-14-2025 Patient encounter procedure Jina Stearns MD Work Phone: [facility] Gynecology Oncology Start: 04-14-2025 End: 04-14-2025 ambulatory Jina Stearns MD Work Phone: [facility] Gynecology Oncology Comment on above: Postoperative nausea and vomiting (Primary Dx); Granulosa cell tumor Start: 04-06-2025 End: 04-06-2025 ambulatory Chip Wiley Facility:[facility] Start: 03-30-2025 End: 04-06-2025 Telephone encounter Joanne Bautista MD Work Phone: URO/Gynecology Start: 03-28-2025 End: 03-28-2025 Patient encounter procedure Madeline Restrepo APRN.HEMATOLOGY NURSE Work Phone: U[facility]/Gynecology Comment on above: Post-operative state (Primary Dx); Granulosa cell tumor Start: 03-28-2025 End: 03-28-2025 ambulatory MADELINE RESTREPO Facility:[facility] Start: 03-22-2025 End: 03-22-2025 ambulatory JOANNE BAUTISTA Facility:[facility] Start: 03-21-2025 ambulatory [facility] Facility:[facility] Start: 03-21-2025 End: 03-21-2025 Subsequent hospital visit by physician [facility] Work Phone: [facility] 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] Start: 03-17-2025 End: 03-17-2025 Telephone encounter Joanne Bautista MD Work Phone: URO/Gynecology Comment on above: Patient Question Start: 03-15-2025 End: 03-15-2025 Telephone encounter Joanne Bautista MD Work Phone: [facility] Comment on above: Patient Question Start: 03-07-2025 End: 03-07-2025 Telephone encounter Joanne Bautista MD Work Phone: [place] [facility] Start: 03-07-2025 End: 03-07-2025 ambulatory CHIP Simona INEZ URO/Gynecology Comment on above: Post-operative state (Primary Dx) Start: 03-07-2025 End: 03-07-2025 Telemedicine consultation with patient Uro Septic Cleaner Nurse Kin Bernstein Work Phone: URO/Gynecology Start: 03-06-2025 End: 03-06-2025 ambulatory JOANNE Liberty BAUTISTA Facility:[facility] Start: 03-01-2025 End: 03-01-2025 Phys/qhp telephone evaluation 5-10 min Joanne Bautista MD Work Phone: Urogynecology Comment on above: Uterovaginal prolaps e, incomplete (Primary Dx) Start: 03-01-2025 End: 03-01-2025 ambulatory JOANNE BAUTISTA Facility:[facility] Start: 02-27-2025 End: 02-27-2025 Preprocedural examination done Pst 1 [facility] Work Phone: Start: 02-27-2025 End: 02-27-2025 [facility] Pre Surgical Testing Comment on above: Pre-op examination; Uterovaginal prolapse, incomplete; Urinary incontinence, unspecified type; Primary hypertension; Partial seizure disorder (HCC); Cavernous hemangioma; Hyperlipidemia, unspecified hyperlipidemia type; Nonsustained paroxysmal supraventricular tachycardia (HCC) Start: 02-22-2025 Preprocedural examin ation done Pst 1 [facility] Start: 02-22-2025 Encounter for other preprocedural examination [facility] Start: 02-21-2025 End: 02-21-2025 ambulatory CHIP Simona WILEY URO/Gynecology Comment on above: Encounter for educat ion (Primary Dx) Start: 02-21-2025 End: 02-21-2025 Telemedicine consultation with patient Uro Septic Cleaner Nurse Kin Bernstein Work Phone: URO/Gynecology Start: 02-01-2025 End: 02-01-2025 ambulatory Luisa Barros APRN.HEMATOLOGY NURSE Work Phone: URO/Gynecology Comment on above: Procedure (UDS) Start: 02-01-2025 End: 02-01-2025 Patient encounter procedure Luisa Barros ISRRAEL.HEMATOLOGY NURSE Work Phone: URO/Gynecology Start: 02-01-2025 End: 02-01-2025 Patient encounter status Luisa Barros ISRRAEL.HEMATOLOGY NURSE Work Phone: [facility] Work Phone: Start: 01-24-2025 End: 01-24-2025 Telephone encounter Joanne Bautista MD Work Phone: [facility] Comment on above: Future Appointment Start: 01-23-2025 End: 01-23-2025 ambulatory CHIP D [facility] Facility:[facility] Start: 01-23-2025 End: 01-23-2025 Office outpatient visit 25 minutes Joanne Bautista MD Work Phone: URO/Gynecology Comment on above: Uterovaginal prolaps e, incomplete (Primary Dx); Urinary incontinence, unspecified type Start: 01-13-2025 End: 01-13-2025 Follow-up encounter Madeline Restrepo APRN.HEMATOLOGY NURSE Work Phone: URO/Gynecology Start: 01-02-2025 End: 01-02-2025 Telephone encounter Rafi Pitt MD Work Phone: [facility] Comment on above: Results (Urine cultu re negative) Start: 12-31-2024 End: 12-31-[address] [facility] Start: 12-31-2024 End: 12-31-2024 Patient encounter procedure Tasha Steve ARCOS.HEMATOLOGY NURSE Work Phone: [facility] Comment on above: Urinary frequency (P rimary Dx) Start: 12-30-2024 End: 12-30-2024 [facility] Start: 12-30-2024 End: 12-30-2024 Subsequent hospital visit by physician [facility]d [facility] Work Phone: Radiology Comment on above: Lower abdominal pain [R10.30] Start: 12-27-2024 End: 12-27-2024 ambulatory MADELINE RESTREPO Facility:[facility] Start: 12-27-2024 End: 12-27-2024 Patient encounter procedure Madeline Bower Lauro AIR TWIST OPERATOR.HEMATOLOGY NURSE Work Phone: URO/Gynecology Comment on above: Complete uterovagina l prolapse (Primary Dx); Lower abdominal pain Start: 12-22-2024 End: 12-22-2024 ambulatory [facility] Facility:[facility] Start: 12-22-2024 End: 12-22-2024 Office outpatient visit 25 minutes Raif Pitt MD Work Phone: [facility] Comment on above: Dysuria (Primary Dx) Start: 11-01-2024 End: 11-01-2024 ambulatory [facility] Facility:[facility] Start: 11-01-2024 End: 11-01-2024 Patient encounter procedure Kaleigh Pham AIR TWIST OPERATOR.HEMATOLOGY NURSE Work Phone: OB/Gynecology Comment on above: Complete uterine pro lapse (Primary Dx) Start: 09-28-2024 End: 09-28-2024 Telephone encounter Joanna Ortiz APRN.HEMATOLOGY NURSE Work Phone: [facility] Comment on above: Results Start: 09-26-2024 End: 09-27-2024 Telephone encounter Chip Wiley MD Work Phone: [facility] Comment on above: Results; Patient Upd ate Start: 09-23-2024 End: 09-23-2024 Telephone encounter Chip Wiley MD Work Phone: [facility] Comment on above: Results Start: 09-21-2024 End: 09-21-2024 Subsequent hospital visit by physician Rocky [facility] Work Phone: Radiology Comment on above: Right hip pain [M25. 551] Start: 09-21-2024 End: 09-21-2024 ambulatory SELF Facility:[facility] Start: 09-21-2024 End: 09-21-2024 Patient encounter procedure Joanna Ortiz APRN.HEMATOLOGY NURSE Work Phone: [facility] Comment on above: Right hip pain (Prim ernestine Dx) Start: 09-20-2024 End: 09-20-2024 Telephone encounter Chip Wiley MD Work Phone: [facility] Comment on above: Future Appointment Start: 07-14-2024 Telephone encounter Tesha Moses Noelle ARCOS.HEMATOLOGY NURSE Work Phone: [facility] Start: 07-13-2024 ambulatory Hermila greenwood RN NURSE [employer] Comment on above: Results, Lab Start: 07-12-2024 End: 07-12-2024 ambulatory CHIP WILEY Facility:[facility] Start: 07-12-2024 End: 07-12-2024 Patient encounter procedure Reji Tubbs ISRRAEL.HEMATOLOGY NURSE Work Phone: [facility] Comment on above: Burning with urinati on (Primary Dx) Start: 07-06-2024 Telephone encounter Chip wright MD Work Phone: [facility] Comment on above: Patient Question Start: 07-04-2024 End: 07-04-2024 ambulatory CHIP WILEY Facility:[facility] Start: 07-04-2024 End: 07-04-2024 Patient encounter procedure Chip Wiley MD Work Phone: [facility] Comment on above: Medicare annual well ness visit, subsequent (Primary Dx); Anxiety; Primary hypertension; Tachycardia, unspecified; Vitamin D deficiency; Cerebellar hemangioma (HCC); Screening for depression; Encounter for long-term current use of medication; Encounter for immunization Start: 06-07-2024 End: 06-07-2024 Emergency department patient visit Chip Wiley Facility:[facility] Start: 05-13-2024 Telephone encounter Chip wright MD Work Phone: [facility] Comment on above: Insurance Authorizat ion Start: 05-12-2024 Refill Chip christensen MD Work Phone: [facility] Comment on above: Refill Request Start: 02-20-2024 End: 02-20-2024 Emergency department patient visit [facility] Work Phone: Start: 02-20-2024 End: 02-20-2024 Patient encounter procedure Maurice Parker APRN.HEMATOLOGY NURSE Work Phone: [facility] Comment on above: Procedure not macy d out (Primary Dx) Start: 01-15-2024 [facility] Comment on above: Population Health Na vigation Outreach ([facility] AW[facility]) Start: 01-13-2024 Telephone encounter Joanna rowe APRN.HEMATOLOGY NURSE Work Phone: [facility] Comment on above: Lab Orders Start: 10-23-2023 End: 10-23-2023 Subsequent hospital visit by physician [facility] Work Phone: Radiology Comment on above: Foot pain, right [M7 9.671] Start: 10-23-2023 End: 10-23-2023 Patient encounter procedure Jil Jayy BRASHERHEMATOLOGY NURSE Work Phone: [facility] Comment on above: Foot pain, right (Pr imary Dx); Closed fracture of phalanx of right fourth toe, initial encounter Start: 09-25-2023 Refill Chip christensen MD Work Phone: [facility] Comment on above: Refill Request Start: 09-08-2023 End: 09-08-2023 Patient encounter procedure Joanna Ortiz APRN.HEMATOLOGY NURSE Work Phone: [facility] Comment on above: Medicare annual well ness visit, subsequent (Primary Dx); Encounter for immunization; Hemangioma of intracranial structures (HCC); Primary hypertension Start: 09-03-2023 Refill Chip christensen MD Work Phone: [facility] Comment on above: Refill Request Start: 07-22-2023 Manasa christensen MD Work Phone: [facility] Comment on above: Refill Request Start: 03-10-2023 End: 03-10-2023 Patient encounter procedure Irvin JENNINGS Work Phone: [facility] Comment on above: Urinary frequency (P rimary Dx) Start: 02-12-2023 Non-patient / Non-visit Dr. Nina Wiley Work Phone: [facility] Start: 02-12-2023 End: 02-12-[address] Chip Wiley Work Phone: [facility] Work Phone: Start: 02-12-2023 End: 02-12-[address] Chip Wiley Work Phone: [facility] Start: 02-04-2023 End: 02-04-[address] Chip Wiley Work Phone: [facility] Start: 02-02-2023 Orders Only Yaquelin Dickerson APRN.CNS Work Phone: [facility] Comment on above: Elevated serum creat inine (Primary Dx); Hyperlipidemia, unspecified hyperlipidemia type Start: 01-27-2023 End: 01-27-2023 Subsequent hospital visit by physician [facility] Work Phone: Radiology Comment on above: Lump on finger of evangelista th hands [R22.33] Start: 01-27-2023 End: 01-27-2023 Office outpatient visit 25 minutes Yaquelin Dickerson APRN.CNS Work Phone: [facility] Comment on above: Primary hypertension (Primary Dx); Vitamin D deficiency; Anxiety state; Skin lesions; Family history of skin cancer; Lump on finger of both hands Start: 12-30-2022 Refill Chip christensen MD Work Phone: [facility] Comment on above: Refill Request Start: 11-19-2022 Telephone encounter Chip wright MD Work Phone: [facility] Comment on above: Patient Question Start: 11-12-2022 End: 11-12-2022 Patient encounter procedure Joanna Yuly AIR TWIST OPERATOR.HEMATOLOGY NURSE Work Phone: [facility] Comment on above: Yeast dermatitis (Pr imary Dx); Itching in the vaginal area; Uterine prolapse; Tachycardia, unspecified Start: 10-02-2022 Refill Chip christensen MD Work Phone: [facility] Comment on above: Refill Request Start: 09-25-2022 Refill Chip christensen MD Work Phone: [facility] Comment on above: Refill Request Start: 08-25-2022 ambulatory Adela Agarwal AIR TWIST OPERATOR .HEMATOLOGY NURSE Work Phone: [facility] Comment on above: urine results Start: 08-25-2022 E-mail encounter melissa franks caregiver Adela Stefano AIR TWIST OPERATOR.HEMATOLOGY NURSE Work Phone: [facility] Start: 08-18-2022 Telephone encounter Chip wright MD Work Phone: [facility] Comment on above: Patient Question Start: 08-15-2022 Telephone encounter Chip wright MD Work Phone: [facility] Comment on above: Patient Question Start: 08-14-2022 Telephone encounter Isamar abdul PA-C Work Phone: [facility] Comment on above: Results Start: 08-13-2022 End: 08-13-2022 Patient encounter procedure Charly Enamorado AIR TWIST OPERATOR.HEMATOLOGY NURSE Work Phone: [facility] Comment on above: Burning with urinati on (Primary Dx) Start: 07-28-2022 End: 07-28-2022 Office outpatient visit 25 minutes Chip Wiley MD Work Phone: [facility] Comment on above: Primary hypertension (Primary Dx); Vitamin D deficiency; Leg swelling; Hypercholesterolemia; Encounter for long-term current use of medication Start: 07-11-2022 Telephone encounter Chip wright MD Work Phone: [facility] Comment on above: Patient Question Start: 05-29-2022 Telephone encounter Yaquelin pierce AIR TWIST OPERATOR.FINANCE BROKER Work Phone: [facility] Comment on above: Follow Up Start: 05-29-2022 End: 05-29-2022 Patient encounter procedure Nurse [facility] Work Phone: [facility] Comment on above: Hypertension, essent ial Start: 05-27-2022 End: 05-27-2022 Patient encounter procedure Yaquelin Tuan AIR TWIST OPERATOR.FINANCE BROKER Work Phone: [facility] Comment on above: Leg swelling (Primar y Dx); Tachycardia, unspecified; Primary hypertension; Encounter for immunization; Need for shingles vaccine Start: 05-26-2022 Telephone encounter Chip wright MD Work Phone: [facility] Comment on above: Patient Update Start: 07-29-2021 End: 07-29-2021 Subsequent hospital visit by physician Xr [facility] Work Phone: Radiology Comment on above: Fall, initial encoun ter [W19.XXXA] Start: 02-26-2021 End: 02-26-2021 Subsequent hospital visit by physician Xr [facility] Work Phone: Radiology Comment on above: Fall, initial encoun ter [W19.XXXA] Start: 04-24-2015 End: 05-08-2018 Patient encounter procedure Chip Wiley MD Work Phone: [facility] Start: 02-19-2010 End: 08-01-2011 Physical examination Chip Wiley MD Work Phone: [facility] Procedures Date Procedure Procedure Detail Performing Clinician Start: 05-03-2025 CONFIRM BLOOD TYPE Jina Stearns MD Work Phone: Start: 04-14-2025 Antibody screen JOANNE DESIR [facility] Comment on above: Order Comment: Speci men Type: BLOOD SPECIMENOrdering Facility: [facility] Address: [address] [place] [address] Performed By: #### T [id number] ####[facility] BLOOD BANKCLIA [id number] [place] [address] [place] Start: 03-22-2025 Inhibin a MADELINE RESTREPO Comment on above: Order Comment: Speci men Type: BLOOD SPECIMENOrdering Facility: [facility] Address: [address] [place] [address] Result Comment: INTE RPRETIVE INFORMATION: Inhibin-A (Dimer) Normal Cycling Females: Early Follicular Phase (-14 to -10):.. 1.8-17.3 pg/mL Mid Follicular Phase (-9 to -4):...... 3.5-31.7 pg/mL Late Follicular Phase (-3 to -1):..... 9.8-90.3 pg/mL Mid Cycle (Day 0):.................... 16.9-91.8 pg/mL Early Luteal (1 to 3):................ 16.1-97.5 pg/mL Mid Luteal (4 to 11):................. 3.9-87.7 pg/mL Late Luteal (12 to 14):............... 2.7-47.1 pg/mL IVF-Peak Levels:...................... 354.2-1690.0 pg/mL PCOS-Ovulatory:....................... 5.7-16.0 pg/mL Postmenopausal:....................... less than 6.9 pg/mL Normal Males:......................... less than 2.1 pg/mL This assay is performed using the [employer] DXI assay. Values may be elevated during normal . Preeclampsia, Down syndrome, and some cancers may increase Inhibin-A values. Performed By: [employer] [address] [place] [address] [address] Comber: Charly Serna MD, PhD CLIA Number: [id number] Performed By: #### I [facility] ####[facility] [id number] [place] [address] Start: 02-01-2025 Urnls dip stick/tabl et rgnt auto w/o microscopy Luisa Barros AIR TWIST OPERATOR.HEMATOLOGY NURSE Work Phone: Start: 12-31-2024 Urnls dip stick/tabl et rgnt auto w/o microscopy Tasha Ferguson AIR TWIST OPERATOR.HEMATOLOGY NURSE Work Phone: Start: 12-22-2024 Urnls dip stick/tabl et rgnt auto w/o microscopy Julia Long AIR TWIST OPERATOR.HEMATOLOGY NURSE Work Phone: Start: 07-12-2024 Urnls dip stick/tabl et rgnt auto w/o microscopy Julia Long AIR TWIST OPERATOR.HEMATOLOGY NURSE Work Phone: Start: 07-04-2024 Adult depression scr eening assessment Chip Wiley MD Work Phone: Start: 10-23-2023 Radex foot complete minimum 3 views Jil Hope AIR TWIST OPERATOR.HEMATOLOGY NURSE Work Phone: Start: 09-08-2023 INFLUENZA VACCINE, P RSV FREE, AGE 65+ YR, HIGH DOSE, QUADRIVALENT (FLUZONE HIGH-DOSE) Joanna Ortiz AIR TWIST OPERATOR.HEMATOLOGY NURSE Work Phone: Start: 03-10-2023 Urnls dip stick/tabl et rgnt auto w/o microscopy Tesha Johnson AIR TWIST OPERATOR.HEMATOLOGY NURSE Work Phone: Start: 02-12-2023 Radionuclide imaging of perfusion of myocardium under exercise stress Dr. Chip Wiley Work Phone: Start: 01-27-2023 Radex hand minimum 3 views Yaquelin Dickerson AIR TWIST OPERATOR.FINANCE BROKER Work Phone: Start: 08-13-2022 Urnls dip stick/tabl et rgnt auto w/o microscopy Tasha Ferguson AIR TWIST OPERATOR.HEMATOLOGY NURSE Work Phone: Start: 07-28-2022 Adult depression scr eening assessment Chip Wiley MD Work Phone: Start: 07-29-2021 Radex hand minimum 3 views Julia Long AIR TWIST OPERATOR.HEMATOLOGY NURSE Work Phone: Start: 07-22-2021 Adult depression scr eening assessment Chip Wiley MD Work Phone: Start: 02-26-2021 Radex sacrum & coccy x minimum 2 views Yaquelin Dickerson AIR TWIST OPERATOR.FINANCE BROKER Work Phone: Start: 04-10-2017 End: 04-10-2017 Documentation of current medications Elva Torres RN Start: 04-10-2017 End: 04-16-2017 Ambulatory BP Monitor 24 HR Nadeem Washington i, MD Start: 12-04-2016 End: 12-31-2016 Ambulatory BP Monitor 24 HR Donna Lee PA-C Work Phone: Start: 12-04-2016 End: 12-15-2016 Carotid duplex Nadeem Richardson MD Start: 12-03-2016 End: 12-03-2016 Follow Up BP Check Donna Gonzalez PA-C Work Phone: Start: 11-06-2016 End: 11-13-2016 24 hour holter monitor Nadeem Richardson MD Start: 10-09-2016 End: 10-17-2016 *24 hour urine for metanephrines Nadeem Richardson MD Start: 10-09-2016 End: 10-10-2016 *BMP Nadeem Richardson MD Start: 10-09-2016 End: 11-13-2016 *Plasma Metanephrines Nadeem Richardson MD Start: 10-09-2016 End: 10-09-2016 Follow Up Appt 6 months [facility] Start: 10-09-2016 End: 10-09-2016 MMM Nadeem Richardson MD Start: 10-09-2015 End: 10-09-2015 SHAYNE Richardson MD Start: 10-09-2015 End: 10-10-2015 Documentation of current medications Nadeem Richardson MD Start: 10-09-2015 End: 10-09-2015 Follow Up Appt 1 year Nadeem Richardson MD Start: 10-03-2014 End: 10-03-2014 SHAYNE Richardson MD Start: 10-03-2014 End: 10-03-2014 Follow Up Appt 1 year Nadeem Richardson MD Start: 10-06-2013 End: 10-06-2013 SHAYNE Richardson MD Start: 10-06-2013 End: 10-06-2013 Follow Up Appt 1 year Nadeem Richardson MD Start: 02-14-2013 End: 02-14-2013 Electrocardiogram, complete Donna Lee PA-C Work Phone: Start: 02-14-2013 End: 02-14-2013 Follow Up Appt 3 months Donna dolan PA-C Work Phone: Start: 02-14-2013 End: 02-14-2013 MM Donna Gonzalez PA-C Work Phone: Start: 10-12-2012 End: 10-12-2012 Follow Up Appt 1 year Nadeem Richardson MD Start: 02-24-2012 End: 03-10-2012 Ambulatory BP Monitor 24 HR Nadeem Washington i, MD Start: 02-24-2012 End: 05-09-2013 Follow Up Appt 6 months [facility] Start: 11-25-2011 End: 11-25-2011 Follow Up Appt 3 months [facility] Start: 11-25-2011 End: 05-09-2013 Remote 30 day ecg rev/report Nadeem murray MD Plan of Treatment Date Care Activity Detail Author Start: 04-28-2029 Urine microalbumin profile [facility] Start: 04-14-2028 Diabetes Screening Diabetes Screening [facility] Start: 02-28-2028 Diabetes Screening Diabetes Screening [facility] Start: 03-11-2027 Diabetes Screening Diabetes Screening [facility] Start: 01-27-2026 DIABETES SCREEN DIABETES SCREEN [facility] Start: 01-27-2026 Diabetes Screening Diabetes Screening [facility] Start: 07-31-2025 Influenza vaccination Influenza Vaccine (Season Ended) [facility] Start: 07-10-2025 End: 07-10-2025 Patient encounter procedure [facility] Comment on above: Medicare Wellness Start: 07-04-2025 Depression Screening Depression Screening [facility] [facility] Start: 05-27-2025 DIABETES SCREEN DIABETES SCREEN [facility] Start: 05-15-2025 End: 05-15-2025 ambulatory 05/15/2025 8:30 AM EDT Visit (SP) Office [facility] [address] [place] [address] Jina Stearns MD [address] [address] post op [facility] Comment on above: post op Start: 05-09-2025 End: 05-09-2025 Patient encounter procedure 05/09/2025 8:00 AM EDT Office Visit U[facility]/Gynecology [address] [place] [address] Madeline Restrepo, AIR TWIST OPERATOR.HEMATOLOGY NURSE [address] [place] [address] 6 week post op [facility]Gynecology Comment on above: 6 week post op Start: 04-14-2025 End: 04-14-2025 Patient encounter procedure 04/14/2025 10:00 AM EDT Visit (SP) Office [facility] [address] [place] [address] Jina Stearns MD [address] [address] CONSULT TO GYNECOLOGIC/ONCOL [facility] Comment on above: CONSULT TO GYNECOLOGIC/ONCOL Start: 03-28-2025 End: 03-28-2025 Patient encounter procedure 03/28/2025 10:00 AM EDT Office Visit URO/Gynecology [address] [place] [address] Madeline Restrepo, AIR TWIST OPERATOR.HEMATOLOGY NURSE [address] [place] [address] 2 week post op [facility]Gynecology Comment on above: 2 week post op Start: 03-21-2025 End: 03-21-2025 Patient encounter procedure 03/21/2025 10:00 AM EDT Appointment [facility] [address] [facility] [place] [address] 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] [facility] 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] Start: 03-07-2025 End: 03-07-2025 ambulatory 03/07/2025 8:30 AM EDT [facility] URO/Gynecology [address] [place] [address] POST OP TELEVISIT URO/Gynecology Comment on above: POST OP TELEVISIT Start: 03-06-2025 End: 03-06-2025 Admission to [facility] Comment on above: HYSTERECTOMY VAGINAL UTERUS 250G OR LESS REMOVAL TUBE(S) AND/OR OVARY(S) Start: 03-06-2025 End: 03-06-2025 Cmbnd anterpost colporraphy w/cysto w/ntrcl rpr COMBINED ANTERIOPOSTERIOR COLPORRHAPHY W/ENTEROCELE REPAIR INCLUDING CYSTOURETHROSCOPY WHEN PERFORMED Uterovaginal prolapse, incomplete Urinary incontinence, unspecified type 03/06/2025 3:45 PM EDT [facility] Start: 03-06-2025 End: 03-06-2025 Cystourethroscopy CYSTOSCOPY Uterovaginal prolapse, incomplete Urinary incontinence, unspecified type 03/06/2025 3:45 PM EDT [facility] Start: 03-06-2025 End: 03-06-2025 Sling operation stress incontinence SUSPENSION BLADDER SLING Uterovaginal prolapse, incomplete Urinary incontinence, unspecified type 03/06/2025 3:45 PM EDT [facility] Start: 03-06-2025 Subsequent hospital visit by physician [facility] Comment on above: Uterovaginal prolapse, incomplete [N81.2 ], Urinary incontinence, unspecified type [R32] Start: 03-06-2025 End: 03-06-2025 Vag hyst 250 gm/< w/rmvl tube&/ovary HYSTERECTOMY VAGINAL UTERUS 250G OR LESS REMOVAL TUBE(S) AND/OR OVARY(S) Uterovaginal prolapse, incomplete Urinary incontinence, unspecified type 03/06/2025 3:45 PM EDT [facility] Start: 03-06-2025 End: 03-06-2025 Vaginectomy partial removal vaginal wall VAGINECTOMY PARTIAL Uterovaginal prolapse, incomplete Urinary incontinence, unspecified type 03/06/2025 3:45 PM EDT [facility] Start: 03-06-2025 End: 03-06-2025 Admission to same day surgery center 03/06/2025 12:30 PM EDT - 03/06/2025 3:15 PM EDT Surgery [facility] [address] [place] [address] Joanne Bautista MD [address] [facility] 1 [place] [address] HYSTERECTOMY VAGINAL UTERUS 250G OR LESS REMOVAL TUBE(S) AND/OR OVARY(S) [facility] Comment on above: HYSTERECTOMY VAGINAL UTERUS 250G OR LESS REMOVAL TUBE(S) AND/OR OVARY(S) Start: 03-06-2025 End: 03-06-2025 Cmbnd anterpost colporraphy w/cysto w/ntrcl rpr COMBINED ANTERIOPOSTERIOR COLPORRHAPHY W/ENTEROCELE REPAIR INCLUDING CYSTOURETHROSCOPY WHEN PERFORMED Uterovaginal prolapse, incomplete Urinary incontinence, unspecified type 03/06/2025 12:30 PM EDT [facility] Start: 03-06-2025 End: 03-06-2025 Cystourethroscopy CYSTOSCOPY Uterovaginal prolapse, incomplete Urinary incontinence, unspecified type 03/06/2025 12:30 PM EDT [facility] Start: 03-06-2025 End: 03-06-2025 Sling operation stress incontinence SUSPENSION BLADDER SLING Uterovaginal prolapse, incomplete Urinary incontinence, unspecified type 03/06/2025 12:30 PM EDT [facility] Start: 03-06-2025 Subsequent hospital visit by physician 03/06/2025 12:30 PM EDT Hospital Encounter [facility] [address] [place] [address] Michele, Joanne Franks MD [address] [facility] [address] [place] [address] Uterovaginal prolapse, incomplete [N81.2], Urinary incontinence, unspecified type [R32] [facility] Comment on above: Uterovaginal prolapse, incomplete [N81.2 ], Urinary incontinence, unspecified type [R32] Start: 03-06-2025 End: 03-06-2025 Vag hyst 250 gm/< w/rmvl tube&/ovary HYSTERECTOMY VAGINAL UTERUS 250G OR LESS REMOVAL TUBE(S) AND/OR OVARY(S) Uterovaginal prolapse, incomplete Urinary incontinence, unspecified type 03/06/2025 12:30 PM EDT [facility] Start: 03-06-2025 End: 03-06-2025 Vaginectomy partial removal vaginal wall VAGINECTOMY PARTIAL Uterovaginal prolapse, incomplete Urinary incontinence, unspecified type 03/06/2025 12:30 PM EDT [facility] Start: 03-01-2025 End: 03-01-2025 Follow-up encounter Urogynecology Comment on above: follow up from S Start: 02-27-2025 End: 02-27-2025 ambulatory 02/27/2025 11:20 AM EDT PAT Pre Surgical Testing [address] [place] [address] 1. HYSTERECTOMY VAGINAL UTERUS 250G OR LESS REMOVAL TUBE(S) AND/OR OVARY(S) Pre Surgical Testing Comment on above: 1. HYSTERECTOMY VAGINAL UTERUS 250G OR L ESS REMOVAL TUBE(S) AND/OR OVARY(S) Start: 02-21-2025 End: 02-21-2025 ambulatory 02/21/2025 8:30 AM EDT [facility] URO/Gynecology [address] [place] [address] PRE OP TEACHING TELEVISIT URO/Gynecology Comment on above: PRE OP TEACHING TELEVISIT Start: 02-01-2025 End: 02-01-2025 ambulatory 02/01/2025 10:15 AM EST Procedure U[facility]/Gynecology [address] [place] [address] 2 week post op [facility]Gynecology Comment on above: 2 week post op Start: 01-23-2025 End: 01-23-2025 Patient encounter procedure 01/23/2025 9:00 AM EST Office Visit URO/Gynecology [address] [place] [address] Joanne Bautista MD [address] [place] [address] Surgical Consult [facility]/Gynecology Comment on above: Surgical Consult Start: 01-13-2025 End: 01-13-2025 Patient encounter procedure 01/13/2025 10:40 AM EST Office Visit [facility] [address] [place] [address] Chip Wiley MD [address] [place] [address] 6 month follow up [facility] Comment on above: 6 month follow up Start: 12-27-2024 End: 12-27-2024 Patient encounter procedure 12/27/2024 11:00 AM EST Office Visit URO/Gynecology [address] [place] [address] Madeline Restreop, AIR TWIST OPERATOR.HEMATOLOGY NURSE [address] [place] [address] Complete uterine prolapse [N81.3] [facility]/Gynecology Comment on above: Complete uterine prolapse [N81.3] Start: 12-14-2024 End: 03-05-2025 25-hydroxyvitamin D3 [Mass/volume] in Serum or Plasma VITAMIN D 25 HYDROXY Lab Routine Vitamin D deficiency Expected: 12/14/2024 (Approximate), Expires: 03/05/2025 [facility] Comment on above: Expected: 12/14/2024 (Approximate), Expi res: 03/05/2025 Start: 12-14-2024 End: 03-05-2025 CBC panel - Blood by Automated count COMPLETE BLOOD COUNT Lab Routine Primary hypertension Encounter for long-term current use of medication Expected: 12/14/2024 (Approximate), Expires: 03/05/2025 [facility] Work Phone: Comment on above: Expected: 12/14/2024 (Approximate), Expi res: 03/05/2025 Start: 12-14-2024 End: 03-05-2025 Comprehensive metabolic 2000 panel - Serum or Plasma COMPREHENSIVE METABOLIC PANEL Lab Routine Primary hypertension Encounter for long-term current use of medication Expected: 12/14/2024 (Approximate), Expires: 03/05/2025 [facility] Comment on above: Expected: 12/14/2024 (Approximate), Expi res: 03/05/2025 Start: 12-14-2024 End: 03-05-2025 Lipid 1996 panel - Serum or Plasma LIPID PANEL BASIC Lab Routine Primary hypertension Expected: 12/14/2024 (Approximate), Expires: 03/05/2025 [facility] Comment on above: Expected: 12/14/2024 (Approximate), Expi res: 03/05/2025 Start: 12-02-2024 BP Controlled (<130/80) BP Controlled (<130/80) [facility] Start: 11-30-2024 Advance Directive Discussion Advance Directive Discussion [facility] Start: 11-09-2024 End: 11-09-2024 ambulatory 11/09/2024 8:00 AM [facility] URO/Gynecology [address] [place] [address] Madeline Restrepo, AIR TWIST OPERATOR.HEMATOLOGY NURSE [address] [place] [address] Complete uterine prolapse [N81.3] URO/Gynecology Comment on above: Complete uterine prolapse [N81.3] Start: 11-01-2024 End: 11-01-2024 Patient encounter procedure 11/01/2024 7:30 AM EST Office Visit OB/Gynecology [address] [address] Kaleigh Pham APRN.HEMATOLOGY NURSE [address] [place] [address] Prolapse OB/Gynecology Comment on above: Prolapse Start: 10-23-2024 BP Controlled (<130/80) BP Controlled (<130/80) [facility] Start: 09-21-2024 End: 09-21-2024 Patient encounter procedure 09/21/2024 11:40 AM EDT Office Visit [facility] [address] [place], [place] [id number] Joanna Ortiz APRN.HEMATOLOGY NURSE [address] [place] [address] Pain right inner foot up to abd area x 2 weeks [facility] Comment on above: Pain right inner foot up to abd area x 2 weeks Start: 09-08-2024 Annual PCP Team Chronic Disease Visit Annual PCP Team Chronic Disease Visit [facility] Start: 09-08-2024 BP Controlled (<130/80) BP Controlled (<130/80) [facility] Start: 08-30-2024 Covid-19 Vaccine () Covid-19 Vaccine () [facility] Comment on above: Postponed from 04/09/2024 (Declined at t his time) Start: 07-31-2024 Covid-19 Vaccine () Covid-19 Vaccine () [facility] Start: 07-31-2024 Covid-19 Vaccine () Covid-19 Vaccine () [facility] Start: 07-31-2024 Influenza vaccination [facility] Start: 04-09-2024 Covid-19 Vaccine ( season) Covid-19 Vaccine () [facility] Start: 03-15-2024 End: 06-14-2024 25-hydroxyvitamin D3 [Mass/volume] in Serum or Plasma VITAMIN D 25 HYDROXY Lab Routine Vitamin D deficiency Expected: 03/15/2024, Expires: 06/14/2024 [facility] Work Phone: Comment on above: Expected: 03/15/2024, Expires: Start: 03-15-2024 End: 06-14-2024 CBC W Auto Differential panel - Blood CBC + DIFF Lab Routine Primary hypertension Expected: 03/15/2024, Expires: 06/14/2024 [facility] Work Phone: Comment on above: Expected: 03/15/2024, Expires: Start: 03-15-2024 End: 06-14-2024 Comprehensive metabolic 2000 panel - Serum or Plasma COMP METABOLIC PANEL Lab Routine Primary hypertension Expected: 03/15/2024, Expires: 06/14/2024 [facility] Work Phone: Comment on above: Expected: 03/15/2024, Expires: Start: 03-15-2024 End: 06-14-2024 Lipid 1996 panel - Serum or Plasma LIPID PANEL BASIC Lab Routine Hypercholesterolemia Expected: 03/15/2024, Expires: 06/14/2024 [facility] Work Phone: Comment on above: Expected: 03/15/2024, Expires: 4 Start: 02-20-2024 [facility] Start: 01-27-2024 BP CONTROLLED (<130/80) BP CONTROLLED (<130/80) [facility] Start: 01-22-2024 DIABETES SCREEN DIABETES SCREEN [facility] Start: 11-30-2023 Advance Directive Discussion Advance Directive Discussion [facility] Start: 11-30-2023 Behavioral Health Screening Behavioral Health Screening [facility] Start: 11-30-2023 Depression Assessment Depression Assessment [facility] Start: 11-12-2023 ANNUAL PCP TEAM CHRONIC DISEASE VISIT ANNUAL PCP TEAM CHRONIC DISEASE VISIT [facility] Start: 08-05-2023 End: 10-05-2023 Comprehensive metabolic 2000 panel - Serum or Plasma COMP METABOLIC PANEL Lab Routine Elevated serum creatinine Hyperlipidemia, unspecified hyperlipidemia type Expected: 08/05/2023 (Approximate), Expires: 10/05/2023 [facility] Work Phone: Comment on above: Expected: 08/05/2023 (Approximate), Expi res: 10/05/2023 Start: 08-05-2023 End: 10-05-2023 Lipid 1996 panel - Serum or Plasma LIPID PANEL BASIC Lab Routine Hyperlipidemia, unspecified hyperlipidemia type Expected: 08/05/2023 (Approximate), Expires: 10/05/2023 [facility] Work Phone: Comment on above: Expected: 08/05/2023 (Approximate), Expi res: 10/05/2023 Start: 07-31-2023 Covid-19 Vaccine ( season) Covid-19 Vaccine () [facility] Start: 07-31-2023 Influenza vaccination INFLUENZA (#1) [facility] Start: 07-28-2023 Adult depression screening assessment DEPRESSION SCREENING [facility] Start: 07-28-2023 ANNUAL PCP TEAM CHRONIC DISEASE VISIT ANNUAL PCP TEAM CHRONIC DISEASE VISIT [facility] Start: 07-28-2023 BP CONTROLLED (<130/80) BP CONTROLLED (<130/80) [facility] Start: 07-28-2023 SHINGRIX VACCINE (1 of 2) SHINGRIX VACCINE (1 of 2) [facility] Comment on above: Postponed from 1993 (Declined at t his time) Start: 01-27-2023 End: 03-29-2023 25-hydroxyvitamin D3 [Mass/volume] in Serum or Plasma [facility] Work Phone: Comment on above: Expected: 01/27/2023 (Approximate), Expi res: 03/29/2023 Expected: 01/27/2023 , Expires: 03/29/2023 Start: 01-27-2023 End: 03-29-2023 CBC panel - Blood by Automated count CBC Lab Routine Primary hypertension Encounter for long-term current use of medication Expected: 01/27/2023 (Approximate), Expires: 03/29/2023 [facility] Work Phone: Comment on above: Expected: 01/27/2023 (Approximate), Expi res: 03/29/2023 Start: 01-27-2023 End: 03-29-2023 Comprehensive metabolic 2000 panel - Serum or Plasma [facility] Work Phone: Comment on above: Expected: 01/27/2023 (Approximate), Expi res: 03/29/2023 Expected: 01/27/2023 , Expires: 03/29/2023 Start: 01-27-2023 End: 03-29-2023 Lipid 1996 panel - Serum or Plasma LIPID PANEL BASIC Lab Routine Hypercholesterolemia Expected: 01/27/2023 (Approximate), Expires: 03/29/2023 [facility] Work Phone: Comment on above: Expected: 01/27/2023 (Approximate), Expi res: 03/29/2023 Start: 01-27-2023 End: 03-29-2023 LIPID PANEL, NONFASTING [facility] Work Phone: Comment on above: Expected: 01/27/2023, Expires: Start: 12-19-2022 COVID-19 VACCINE (5 - Pfizer series) COVID-19 VACCINE (5 - Pfizer series) [facility] Start: 12-16-2022 ANNUAL PCP TEAM CHRONIC DISEASE VISIT ANNUAL PCP TEAM CHRONIC DISEASE VISIT [facility] Start: 11-30-2022 ADVANCE DIRECTIVE DISCUSSION ADVANCE DIRECTIVE DISCUSSION [facility] Start: 11-30-2022 DEPRESSION ASSESSMENT DEPRESSION ASSESSMENT [facility] Start: 10-14-2022 COVID-19 VACCINE (4 - Booster for Pfizer series) COVID-19 VACCINE (4 - Booster for Pfizer series) [facility] Start: 08-20-2022 End: 10-20-2022 Bacteria identified in Urine by Culture URINE CULTURE Microbiology Routine Dysuria Expected: 08/20/2022 (Approximate), Expires: 10/20/2022 [facility] Work Phone: Comment on above: Expected: 08/20/2022 (Approximate), Expi res: 10/20/2022 Start: 08-20-2022 End: 10-20-2022 Urinalysis complete panel - Urine URINALYSIS, WITH MICROSCOPIC Lab Routine Dysuria Expected: 08/20/2022 (Approximate), Expires: 10/20/2022 [facility] Work Phone: Comment on above: Expected: 08/20/2022 (Approximate), Expi res: 10/20/2022 Start: 07-31-2022 Influenza vaccination INFLUENZA (#1) [facility] Start: 07-22-2022 Adult depression screening assessment DEPRESSION SCREENING [facility] Start: 07-22-2022 BP CONTROLLED (<130/80) BP CONTROLLED (<130/80) [facility] Start: 05-27-2022 End: 07-27-2022 CBC W Auto Differential panel - Blood [facility] Work Phone: Comment on above: Expected: 05/27/2022, Expires: 2 Start: 05-27-2022 End: 07-27-2022 Natriuretic peptide.B prohormone N-Terminal [Mass/volume] in Serum or Plasma [facility] Work Phone: Comment on above: Expected: 05/27/2022, Expires: 2 Start: 01-31-2022 COVID-19 VACCINE (4 - Booster for Pfizer series) COVID-19 VACCINE (4 - Booster for Pfizer series) [facility] Start: 11-30-2021 ADVANCE DIRECTIVE DISCUSSION ADVANCE DIRECTIVE DISCUSSION [facility] Start: 11-30-2021 DEPRESSION ASSESSMENT DEPRESSION ASSESSMENT [facility] Start: 2018 RSV Vaccine (1 - 1-dose 75+ series) RSV Vaccine (1 - 1-dose 75+ series) [facility] Start: 04-10-2017 End: 04-10-2017 Appointment Appointment [facility] Work Phone: Start: 04-10-2017 End: 04-10-2017 Ambulatory BP Monitor 24 HR Ambulatory BP Monitor 24 HR [facility] Work Phone: Start: 04-10-2017 End: 04-10-2017 Follow Up Appt 6 months Follow Up Appt 6 months [facility] Work Phone: Start: 04-10-2017 End: 04-10-2017 MMM MMM [facility] Work Phone: Start: 12-04-2016 End: 12-04-2016 Ambulatory BP Monitor 24 HR Ambulatory BP Monitor 24 HR [facility] Work Phone: Start: 12-04-2016 End: 12-04-2016 Carotid duplex Carotid duplex [facility] Work Phone: Start: 12-03-2016 End: 12-03-2016 Follow Up BP Check Follow Up BP Check [facility] Work Phone: Start: 11-06-2016 End: 11-06-2016 24 hour holter monitor 24 hour holter monitor [facility] Work Phone: Start: 10-09-2016 End: 10-17-2016 *24 hour urine for metanephrines *24 hour urine for metanephrines [facility] Work Phone: Start: 10-09-2016 End: 10-10-2016 *BMP *BMP [facility] Work Phone: Start: 10-09-2016 End: 11-13-2016 *Plasma Metanephrines *Plasma Metanephrines [facility] Work Phone: Start: 10-09-2016 End: 10-09-2016 Follow Up Appt 6 months Follow Up Appt 6 months [facility] Work Phone: Start: 10-09-2016 End: 10-09-2016 MMM MMM [facility] Work Phone: Start: 10-09-2015 End: 10-09-2015 PARENTING SKILLS INSTRUCTOR PARENTING SKILLS INSTRUCTOR [facility] Work Phone: Start: 10-09-2015 End: 10-09-2015 Follow Up Appt 1 year Follow Up Appt 1 year [facility] Work Phone: Start: 10-03-2014 End: 10-03-2014 PARENTING SKILLS INSTRUCTOR PARENTING SKILLS INSTRUCTOR [facility] Work Phone: Start: 10-03-2014 End: 10-03-2014 Follow Up Appt 1 year Follow Up Appt 1 year [facility] Work Phone: Start: 10-06-2013 End: 10-06-2013 PARENTING SKILLS INSTRUCTOR PARENTING SKILLS INSTRUCTOR [facility] Work Phone: Start: 10-06-2013 End: 10-06-2013 Follow Up Appt 1 year Follow Up Appt 1 year [facility] Work Phone: Start: 02-14-2013 End: 02-14-2013 Electrocardiogram, complete EKG (In office) [facility] Work Phone: Start: 02-14-2013 End: 02-14-2013 Follow Up Appt 3 months Follow Up Appt 3 months [facility] Work Phone: Start: 02-14-2013 End: 02-14-2013 MMM MMM [facility] Work Phone: Start: 10-12-2012 End: 10-12-2012 Follow Up Appt 1 year Follow Up Appt 1 year [facility] Work Phone: Start: 02-24-2012 End: 02-24-2012 Ambulatory BP Monitor 24 HR Ambulatory BP Monitor 24 HR [facility] Work Phone: Start: 02-24-2012 End: 05-09-2013 Follow Up Appt 6 months Follow Up Appt 6 months [facility] Work Phone: Start: 11-25-2011 End: 11-25-2011 Follow Up Appt 3 months Follow Up Appt 3 months [facility] Work Phone: Start: 11-25-2011 End: 11-25-2011 Remote 30 day ecg rev/report 30 Day Holter Monitor [facility] Work Phone: Start: 06-13-2010 Pneumococcal Vaccine: 65+ (2 - PCV) Pneumococcal Vaccine: 65+ (2 - PCV) [facility] Start: 06-13-2010 Pneumococcal Vaccine: 65+ (2 of 2 - PCV) Pneumococcal Vaccine: 65+ (2 of 2 - PCV) [facility] Start: 06-13-2010 PNEUMOCOCCAL: 65+ (2 - PCV) PNEUMOCOCCAL: 65+ (2 - PCV) [facility] Start: 2003 RSV Vaccine (1 - 1-dose 60+ series) RSV Vaccine (1 - 1-dose 60+ series) [facility] Start: 1993 SHINGRIX VACCINE (1 of 2) SHINGRIX VACCINE (1 of 2) [facility] Bacteria identified in Urine by Culture URINE CULTURE Microbiology Routine Burning with urination Ordered: 08/13/2022 [facility] Work Phone: Comment on above: Ordered: 08/13/2022 Bacteria identified in Urine by Culture URINE CULTURE Microbiology Routine Urinary frequency 03/10/2023 6:21 PM EDT [facility] Work Phone: Bacteria identified in Urine by Culture URINE CULTURE Microbiology Routine Burning with urination Ordered: 07/12/2024 [facility] Work Phone: Comment on above: Ordered: 07/12/2024 Bacteria identified in Urine by Culture BACTERIAL CULTURE, URINE Microbiology Routine Dysuria Ordered: 12/22/2024 [facility] Work Phone: Comment on above: Ordered: 12/22/2024 Bacteria identified in Urine by Culture BACTERIAL CULTURE, URINE Microbiology Routine Urinary frequency Ordered: 12/31/2024 [facility] Work Phone: Comment on above: Ordered: 12/31/2024 CT Abdomen and Pelvi s W contrast IV CT ABD/PEL W IVCON Radiology Routine Granulosa cell tumor 03/21/2025 10:11 AM EDT [facility] Work Phone: CYTOLOGY NON-REGULATION SUPERVISOR [place] Work Phone: Comment on above: Release Upon Ordering for 1 Occurrences starting 05/03/2025, 1 completed End: 05-27-2023 Echocardiography ECHO Cardiology Routine Leg swelling Tachycardia, unspecified Primary hypertension 1 Occurrences starting 05/27/2022 until 05/27/2023 [facility] Work Phone: Comment on above: 1 Occurrences starting 05/27/2022 until 05/27/2023 Patient Education BPPV [facility] Work Phone: Patient referral [facility] Work Phone: PFIZER-BIONTECH COVI D-19 VACCINE, AGE 12+ YR (SERRATO TOP) PFIZER-BIONTECH COVID-19 VACCINE, AGE 12+ YR (SERRATO TOP) Immunization/Injection Routine Encounter for immunization 1 Occurrences starting 05/27/2022 [facility] Work Phone: Comment on above: 1 Occurrences starting 05/27/2022 Pneumococcal vaccination PNEUMOC OCCAL VACCINE (PREVNAR 20) Immunization/Injection Routine Encounter for immunization 1 Occurrences starting 05/27/2022 [facility] Work Phone: Comment on above: 1 Occurrences starting 05/27/2022 Tissue Pathology bio psy report SURGICAL PATHOLOGY Lab Routine Granulosa cell tumor Release Upon Ordering for 1 Occurrences starting 05/03/2025 [facility] Comment on above: Release Upon Ordering for 1 Occurrences starting 05/03/2025 URODYNAMICS WHI URODYNAMICS [facility]I Procedures Routine Uterovaginal prolapse, incomplete Ordered: 01/23/2025 [facility] Work Phone: Comment on above: Ordered: 01/23/2025 End: 01-26-2026 US Pelvis transvaginal US FEMALE PELVIS TRANSVAG Radiology Routine Lower abdominal pain 1 Occurrences starting 12/27/2024 until 01/26/2026 [facility] Work Phone: Comment on above: 1 Occurrences starting 12/27/2024 until 01/26/2026 US Pelvis transvaginal US FEMALE PELVIS TRANSVAG Radiology Routine Lower abdominal pain 12/30/2024 11:02 AM EST [facility] Work Phone: End: 02-26-2024 XR HAND GENERAL 3V PA/LAT/OBL BILATERAL XR HAND GENERAL 3V PA/LAT/OBL BILATERAL Radiology Routine Lump on finger of both hands 1 Occurrences starting 01/27/2023 until 02/26/2024 [facility] Work Phone: Comment on above: 1 Occurrences starting 01/27/2023 until 02/26/2024 XR HAND GENERAL 3V PA/LAT/OBL BILATERAL XR HAND GENERAL 3V PA/LAT/OBL BILATERAL Radiology Routine Lump on finger of both hands 01/27/2023 10:47 AM EST [facility] Work Phone: End: 10-21-2025 XR Pelvis and Hip - right AP and Lateral frog XR HIP GENERAL 3V PELV/AP/LAT RIGHT Radiology Routine Right hip pain 1 Occurrences starting 09/21/2024 until 10/21/2025 [facility] Work Phone: Comment on above: 1 Occurrences starting 09/21/2024 until 10/21/2025 XR Pelvis and Hip - right AP and Lateral frog XR HIP GENERAL 3V PELV/AP/LAT RIGHT Radiology Routine Right hip pain 09/21/2024 12:27 PM EDT [facility] Immunizations Immunization Date Immunization Notes Care Provider [facility] 07-04-2024 pneumococcal conjuga te (PCV20) vaccine, 20 valent (PREVNAR 20) Chip Wiley MD Work Phone: [facility] 07-04-2024 pneumococcal Conjuga te, unspecified formulation Chip Wiley MD Work Phone: [facility] 12-10-2023 COVID-19 vaccine, ag e 12+ yr, 2022- season ([employer]) Joanna Ortiz APRN.HEMATOLOGY NURSE Work Phone: [facility] 09-08-2023 influenza (HD-IIV4) vaccine, age 65+ yr, high dose, quadrivalent, PF (FLUZONE HIGH-DOSE) Joanna Ortiz AIR TWIST OPERATOR.HEMATOLOGY NURSE Work Phone: [facility] 09-08-2023 influenza virus vacc ine, unspecified formulation Chip Wiley MD Work Phone: [facility] 10-19-2022 influenza, high-dose , quadrivalent vaccine (FLUZONE HIGH DOSE QUADRIVALENT) Joanna Ortiz APRN.HEMATOLOGY NURSE Work Phone: [facility] Work Phone: 08-19-2022 COVID-19 booster vaccine, age 12+ yr, bivalent (PFIZER-BIONTECH) Adela Stefano AIR TWIST OPERATOR.[facility] Work Phone: [facility] Work Phone: 12-16-2021 influenza, high-dose , quadrivalent vaccine (FLUZONE HIGH DOSE QUADRIVALENT) Chip Wiley MD Work Phone: [facility] 10-03-2021 COVID-19 original vaccine, age 12+ yr, monovalent (PFIZER-BIONTECH - PURPLE TOP) Joanna Ortiz AIR TWIST OPERATOR.[facility] Work Phone: [facility] Work Phone: 02-20-2021 COVID-19 vaccine, ag e 12+ yr (PFIZER-BIONTECH - PURPLE TOP) Chip Wiley MD Work Phone: [facility] Work Phone: 01-30-2021 COVID-19 vaccine, ag e 12+ yr (PFIZER-BIONTECH - PURPLE TOP) Chip Wiley MD Work Phone: [facility] Work Phone: 04-28-2019 tetanus toxoid, redu anay diphtheria toxoid, and acellular pertussis vaccine, adsorbed Chip Wiley MD Work Phone: [facility] Work Phone: 06-13-2009 pneumococcal polysaccharide vaccine, 23 valent Chip Wiley MD Work Phone: [facility] Work Phone: 04-30-2004 tetanus and diphther ia toxoids, adsorbed, preservative free, for adult use (2 Lf of tetanus toxoid and 2 Lf of diphtheria toxoid) Chip Wiley MD Work Phone: [facility] Work Phone: Payers Date Payer Category Payer Self-pay [id number] 2016 Medicare UHC MEDICARE UHC MEDICARE ADVANTAGE PPO [id number] 2016-Present [phone] [address] [address] [place] [address] PPO [id number] 2016 Medicare UHC MEDICARE UHC MEDICARE ADVANTAGE PPO [id number] 2016-Present [phone] [address] [address] [place] [address] PPO [id number] 2016 Medicare (Managed Care) [facility] CARE ADVANTAGE PPO [id number] 2016 Unknown [id number] Unknown [id number] Unknown [id number] Social History Date Type Detail Facility Start: 06-19-2009 End: 07-28-2022 Tobacco smoking status NHIS Never smoked tobacco [facility] Start: 12-16-2021 End: 05-03-2025 Alcohol intake Current non-drinker of alcohol (finding) [facility] Start: 06-19-2009 End: 07-28-2022 Tobacco Comment exposed to father smoking when she was a child. Also her smoked for 12 years when they were first . [facility] Start: 1945 Sex Assigned At Female C [facility] Start: 01-27-2021 End: 08-13-2022 Exposure to SARS-CoV-2 (event) Not sure [facility] Start: 06-19-2009 End: 07-28-2022 Tobacco use and exposure Smokeless tobacco non-user [facility] Start: 02-04-2023 End: 02-20-2024 Tobacco smoking status NHIS Unknown if ever smoked [facility] Start: 05-27-2022 None [facility] Start: 05-27-2022 Homeless [facility] Start: 05-27-2022 Non-smoker [facility] Start: 03-10-2023 End: 09-08-2023 History of Social function [facility] Work Phone: Start: 03-10-2023 End: 09-08-2023 Tobacco use panel [facility] Work Phone: Adult Depression Screening Assessment 0 [facility] Work Phone: Start: 01-24-2021 Gender identity Identifies as female gender (finding) [facility] Start: 01-24-2021 Sexual orientation Heterosexual (fin yehuda) [facility] How often to you hav e a drink containing alcohol? Never [facility] Functional Status Date Assessment Result Facility 02-27-2025 Are you deaf, or do you have serious difficulty hearing No 02/27/2025 11:43 AM Yessi Beck APRN.HEMATOLOGY NURSE No [facility] 02-27-2025 Are you blind, or do you have serious difficulty seeing, even when wearing glasses No 02/27/2025 11:43 AM Yessi Beck APRN.CNP No [facility] 02-27-2025 Do you have serious difficulty walking or climbing stairs No 02/27/2025 11:43 AM Yessi Beck APRN.CNP No [facility] 02-27-2025 Do you have difficul ty dressing or bathing No 02/27/2025 11:43 AM Yessi Beck APRN.CNP No [facility] 02-27-2025 Because of a physica l, mental, or emotional condition, do you have difficulty doing errands alone such as visiting a physician's office or shopping No 02/27/2025 11:43 AM EDT Yessi Osorio APRN.HEMATOLOGY NURSE [facility] 04-24-2015 Are you deaf, or do you have serious difficulty hearing No 04/24/2015 12:42 PM EDT Adry Lazaro MA [facility] 04-24-2015 Are you blind, or do you have serious difficulty seeing, even when wearing glasses No 04/24/2015 12:42 PM EDT Adry Lazaro MA [facility] 04-24-2015 Do you have serious difficulty walking or climbing stairs No 04/24/2015 12:42 PM [place] Adry Lazaro MA [facility] 04-24-2015 Do you have difficul ty dressing or bathing No 04/24/2015 12:42 PM [place] Adry Lazaro MA [facility] 04-24-2015 Because of a physica l, mental, or emotional condition, do you have difficulty doing errands alone such as visiting a physician's office or shopping No 04/24/2015 12:42 PM [place] Adry Lazaro MA [facility] Mental Status Date Assessment Result Facility 02-27-2025 Because of a physica l, mental, or emotional condition, do you have serious difficulty concentrating, remembering, or making decisions No 02/27/2025 11:43 AM EDT Yessi Osorio APRN.HEMATOLOGY NURSE [facility] 02-20-2024 Cognitive function Level Of Cons ciousness Awake;Alert;Appropriate;Fol lows Commands [facility] Work Phone: 04-24-2015 Because of a physica l, mental, or emotional condition, do you have serious difficulty concentrating, remembering, or making decisions No 04/24/2015 12:42 PM EDT Adry Lazaro MA [facility] Clinical Notes 04-24-2015 to 05-03-2025 Brief Op Note - Macy Severino MD - 05/03/2025 1:16 PM EDTBrief Op Note - Macy Severino MD - 05/03/2025 1:16 PM EDTOperative Report [facility] [place] [facility] - 05/03/2025 10:52 AM EDT Note Date & Type Note Facility 05-03-2025 Surgery Surgical operation note BRIEF OPERATIVE / PROCEDURE NOTE LOG ID: [id number] SURGERY/PROCEDURE DATE: 05/03/2025 INCISION/PROCEDURE START TIME: 11:24 AM INCISION CLOSE/PROCEDURE END TIME: 12:41 PM SURGEON(S)/PROCEDURALIST(S) AND MANAGER DIESEL(S): Surgeons and Role: * Jina Stearns MD - Primary * Macy Severino MD - Resident - Assisting Music Education Adjunct Professor: Shukri Giles SA SURGERY/PROCEDURE(S): Bilateral - LAPAROSCOPY WITH OOPHORECTOMY AND SALPINGECTOMY - Wound Class: Clean - Incision Closure: Deep and Superficial Layers EXAM UNDER ANESTHESIA PELVIC / VAGINAL - Wound Class: Clean Contaminated - Incision Closure: No Incision / NA LAPAROSCOPY OF PERITONEAL CAVITY W/ BIOPSY - Wound Class: Clean - Incision Closure: Deep and Superficial Layers LAPAROSCOPIC OMENTECTOMY - Wound Class: Clean ANESTHESIA: General FINDINGS: See final operative report ESTIMATED BLOOD LOSS: 20 mls SPECIMENS: ID Type Source Tests Collected by Time Destination A : Pelvic Washings Wash Pelvic CYTOLOGY NON-REGULATION SUPERVISOR Jina Stearns MD 05/03/2025 11:29 AM B : RIGHT OVARY AND PORTION OF RIGHT FALLOPIAN TUBE Tissue Ovary, Right, Resection SURGICAL PATHOLOGY Jina Stearns MD 05/03/2025 11:46 AM C : LEFT OVARY AND PORTION OF LEFT FALLOPIAN TUBE Tissue Ovary, Left, Resection SURGICAL PATHOLOGY Jina Stearns MD 05/03/2025 12:05 PM D : BLADDER PERITONEUM BIOPSY Tissue Peritoneum, Biopsy SURGICAL PATHOLOGY Jina Stearns MD 05/03/2025 12:06 PM E : PERITONEUM RIGHT PARACOLIC GUTTER Tissue Peritoneum, Biopsy SURGICAL PATHOLOGY Jina Stearns MD 05/03/2025 12:09 PM F : PERITONEUM LEFT PARACOLIC GUTTER Tissue Peritoneum, Biopsy SURGICAL PATHOLOGY Jina Stearns MD 05/03/2025 12:12 PM G : OMENTUM Tissue Omentum, Biopsy SURGICAL PATHOLOGY Jina Stearns MD 05/03/2025 12:21 PM COMPLICATIONS: None CLOSURE TECHNIQUE: Primary PRE-OP/PRE-PROCEDURE DIAGNOSIS: Granulosa cell tumor POST-OP/POST-PROCEDURE DIAGNOSIS: Same as Preop Patient was accompanied to the next level of care by a licensed practitioner from the surgical team pending completion of this brief op note (or operative note) SIGNATURE: Macy Severino MD PATIENT NAME: Mer Allen DATE: May 03, 2025 TIME: 1:16 PM Cosigned by Jina Stearns MD at 05/03/2025 2:18 PM EDT Associated attestation - Jina Stearns MD - 05/03/2025 2:18 PM EDT Attending Note I personally saw and examined the patient. I reviewed the resident's note. I agree with the resident's assessment and plan unless otherwise noted. Signature: Jina Stearns MD Date: 05/03/2025 Time: 2:18 PM [facility] Work Phone: 05-03-2025 Surgical operation note BRIEF OPERATIVE / PROCEDURE NOTE LOG ID: [id number] SURGERY/PROCEDURE DATE: 05/03/2025 INCISION/PROCEDURE START TIME: 11:24 AM INCISION CLOSE/PROCEDURE END TIME: 12:41 PM SURGEON(S)/PROCEDURALIST(S) AND MANAGER DIESEL(S): Surgeons and Role: * Jina Stearns MD - Primary * Macy Severino MD - Resident - Assisting Music Education Adjunct Professor: Shukri Giles SA SURGERY/PROCEDURE(S): Bilateral - LAPAROSCOPY WITH OOPHORECTOMY AND SALPINGECTOMY - Wound Class: Clean - Incision Closure: Deep and Superficial Layers EXAM UNDER ANESTHESIA PELVIC / VAGINAL - Wound Class: Clean Contaminated - Incision Closure: No Incision / NA LAPAROSCOPY OF PERITONEAL CAVITY W/ BIOPSY - Wound Class: Clean - Incision Closure: Deep and Superficial Layers LAPAROSCOPIC OMENTECTOMY - Wound Class: Clean ANESTHESIA: General FINDINGS: See final operative report ESTIMATED BLOOD LOSS: 20 mls SPECIMENS: ID Type Source Tests Collected by Time Destination A : Pelvic Washings Wash Pelvic CYTOLOGY NON-REGULATION SUPERVISOR Jina Stearns MD 05/03/2025 11:29 AM B : RIGHT OVARY AND PORTION OF RIGHT FALLOPIAN TUBE Tissue Ovary, Right, Resection SURGICAL PATHOLOGY Jina Stearns MD 05/03/2025 11:46 AM C : LEFT OVARY AND PORTION OF LEFT FALLOPIAN TUBE Tissue Ovary, Left, Resection SURGICAL PATHOLOGY Jina Stearns MD 05/03/2025 12:05 PM D : BLADDER PERITONEUM BIOPSY Tissue Peritoneum, Biopsy SURGICAL PATHOLOGY Jina Stearns MD 05/03/2025 12:06 PM E : PERITONEUM RIGHT PARACOLIC GUTTER Tissue Peritoneum, Biopsy SURGICAL PATHOLOGY Jina Stearns MD 05/03/2025 12:09 PM F : PERITONEUM LEFT PARACOLIC GUTTER Tissue Peritoneum, Biopsy SURGICAL PATHOLOGY Jina Stearns MD 05/03/2025 12:12 PM G : OMENTUM Tissue Omentum, Biopsy SURGICAL PATHOLOGY Jina Stearns MD 05/03/2025 12:21 PM COMPLICATIONS: None CLOSURE TECHNIQUE: Primary PRE-OP/PRE-PROCEDURE DIAGNOSIS: Granulosa cell tumor POST-OP/POST-PROCEDURE DIAGNOSIS: Same as Preop Patient was accompanied to the next level of care by a licensed practitioner from the surgical team pending completion of this brief op note (or operative note) SIGNATURE: Macy Severino MD PATIENT NAME: Mer Allen DATE: May 03, 2025 TIME: 1:16 PM Cosigned by Jina Stearns MD at 05/03/2025 2:18 PM EDT Associated attestation - Jina Stearns MD - 05/03/2025 2:18 PM EDT Attending Note I personally saw and examined the patient. I reviewed the resident's note. I agree with the resident's assessment and plan unless otherwise noted. 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 Grossly normal upper abdomen. Cecum with moderately dense adherents to right pelvic brim. Bilateral ovaries densely adhere to vaginal cuff. No obvious disease. No ascites. SPECIMENS: Pelvic washings, right ovary and portion of fallopian tube, left ovary and portion of fallopian tube, omentum, bladder peritoneum, right and left paracolic gutter peritoneum EBL: 15 cc UOP: 150 cc COMPLICATIONS: None INDICATIONS FOR PROCEDURE: This is a 80 yo s/p TVH/BS found to have a posterior cul de sac mass consistent with adult type granulosa cell tumor. Postop CT did not show metastatic disease and tumor markers were normal however given retention of ovaries, I recommended return to OR to remove ovaries and complete surgical staging. After discussion of risks/benefits, she agreed. SURGERY DETAILS: Huddle was performed in preop and we confirmed administration of heparin. She was brought to the OR where general anesthesia was induced. SCDs were placed in bilateral lower extremities and legs in yellow fin stirrups. Arms were carefully tucked at sides. She was prepped and draped in the usual sterile fashion and timeout was performed. We confirmed administration of Ancef and OG tube in place. A 5 mm incision was made at Sen's point and veress needle introduced. Opening pressure was high and this was repeated with same result. Instead, a 5 mm port was placed using optiview technique. Once a pressure of 15 was reached, abdomen and pelvis were inspected - entry was atraumatic and no metastatic disease was seen. 3 additional ports were placed - 5 mm port in LLQ and above umbilicus and 11 mm port in RLQ. She was placed in Trendelenburg and washings were obtained. Ca was also placed at this time. The right round was transected and retroperitoneum developed. IP was skeletonized and coagulated and cut after ureteral course ascertained. The ovary was densely adherent to the vaginal cuff. A combination of Ligasure and blunt dissection was used to free the ovary; it was then placed in an endobag and removed from the body. This was repeated on the left side in the same fashion. Ligasure was then used to take peritoneal biopsies. The pelvis was irrigated and Chanda placed with good hemostasis. She was then flattened out and infracolic omentum found. We performed an infracolic omentectomy from the hepatic to splenic flexure with direct visualization of the transverse colon at all times. This was placed in an endobag and removed. Gas was shut off and ports were removed. The RLQ fascia was closed with a 0 vicryl figure of eight stitch. Skin was closed with 4-0 monocryl, skin glue. She was taken out of lithotomy, extubated, and taken to PACU in good condition after all counts were correct. Ca was removed prior to extubation. A digital sweep of the vaginal canal was performed by myself and it was ascertained that no instruments or other foreign bodies are retained within the cavity. PARTICIPATION IN SURGERY/PROCEDURE: I/primary surgeon/proceduralist performed the procedure with assistance. Jina Stearns MD, MPH Gynecologic Oncologist documented in this encounter [facility] 05-03-2025 Note HNO ID: [id number] Author: ROBBIE SINGH DO Service: Anesthesiology Author Type: Physician Type: Anesthesia Procedure Notes Filed: 05/03/2025 12:22 Note Text: ANESTHESIOLOGY PROCEDURE NOTE Airway General Information Procedure Start Time/Medication Administration: 05/03/2025 11:03 AM Procedure End Time: 05/03/2025 11:05 AM Patient location during procedure: OR Timeout Performed Pre-procedure: timeout performed Consent Obtained: Yes Patient identity confirmed: arm band Staffing Anesthesiologist: Robbie Singh DO Performed by: anesthesiologist Indications and Patient Condition Indications for airway management: anesthesia Preoxygenated: yes anesthesia circuit Patient position: sniffing Method: sleep Difficult Mask: No Final Airway Details Final airway type: endotracheal airway Final Endotracheal Airway: ETT Cuffed: yes Successful intubation technique: direct laryngoscopy Endotracheal tube insertion site: oral Blade: Funmi Blade size: #4 ETT size (mm): 7.0 Measured from: teeth Measurement (cm): 21 Placement verified by: capnometry Cormack-Lehane Classification: grade I - full view of glottis Number of attempts at approach: 1 Airway not difficult Comments Intubation in conjunction with hollow tile partition erector student. Student unable to obtain acceptable view of glottis at which point I took over. SIGNATURE: Robbie Singh DO PATIENT NAME: Mer Allen DATE: May 03, 2025 TIME: 12:20 PM CSN: [id number] [facility] 05-03-2025 Note HNO ID: [id number] Author: ORLANDO SAHNI APRN.BEESWAX BLEACHER Service: Anesthesiology Author Type: Nurse Eligibility Clerk Type: Anesthesia Procedure Notes Filed: 05/03/2025 11:34 Note Text: ANESTHESIOLOGY PROCEDURE NOTE PIV General Information Procedure Start Time/Medication Administration: 05/03/2025 11:03 AM Procedure End Time: 05/03/2025 11:03 AM Patient Location: OR Staffing BEESWAX BLEACHER: Orlando Sahni APRN.BEESWAX BLEACHER Performed by: KEYONA Preparation Sterility Preparation: hand hygiene performed prior to procedure, surgical cap used, mask used, skin prep agent completely dried prior to procedure Site Prep: Chloraprep Procedure Details Indication: need for IV access Needle Size/Type: 20 gauge angiocath Orientation: Left Location: Wrist Imaging Guidance Used: No SIGNATURE: Orlando Sahni APRN.CRNA PATIENT NAME: Mer Allen DATE: May 03, 2025 TIME: 11:33 AM CSN: [id number] [facility] 05-03-2025 Surgery Surgical operation note OPERATIVE/PROCEDURE REPORT LOG ID: [id number] SURGERY/PROCEDURE DATE: 05/03/2025 INCISION/PROCEDURE START TIME: 11:24 AM INCISION CLOSE/PROCEDURE END TIME: 12:41 PM SURGEON(S)/PROCEDURALIST(S) AND MANAGER DIESEL(S): Surgeons and Role: * Jina Stearns MD - Primary * Macy Severino MD - Resident - Assisting Music Education Adjunct Professor: Shukri Giles SA SURGERY/PROCEDURE(S): Exam under anesthesia Laparoscopic bilateral salpingo-oophorectomy Peritoneal biopsies Infracolic omentectomy PREOPERATIVE 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 Grossly normal upper abdomen. Cecum with moderately dense adherents to right pelvic brim. Bilateral ovaries densely adhere to vaginal cuff. No obvious disease. No ascites. SPECIMENS: Pelvic washings, right ovary and portion of fallopian tube, left ovary and portion of fallopian tube, omentum, bladder peritoneum, right and left paracolic gutter peritoneum EBL: 15 cc UOP: 150 cc COMPLICATIONS: None INDICATIONS FOR PROCEDURE: This is a 80 yo s/p TVH/BS found to have a posterior cul de sac mass consistent with adult type granulosa cell tumor. Postop CT did not show metastatic disease and tumor markers were normal however given retention of ovaries, I recommended return to OR to remove ovaries and complete surgical staging. After discussion of risks/benefits, she agreed. SURGERY DETAILS: Huddle was performed in preop and we confirmed administration of heparin. She was brought to the OR where general anesthesia was induced. SCDs were placed in bilateral lower extremities and legs in yellow fin stirrups. Arms were carefully tucked at sides. She was prepped and draped in the usual sterile fashion and timeout was performed. We confirmed administration of Ancef and OG tube in place. A 5 mm incision was made at Sen's point and veress needle introduced. Opening pressure was high and this was repeated with same result. Instead, a 5 mm port was placed using optiview technique. Once a pressure of 15 was reached, abdomen and pelvis were inspected - entry was atraumatic and no metastatic disease was seen. 3 additional ports were placed - 5 mm port in LLQ and above umbilicus and 11 mm port in RLQ. She was placed in Trendelenburg and washings were obtained. Ca was also placed at this time. The right round was transected and retroperitoneum developed. IP was skeletonized and coagulated and cut after ureteral course ascertained. The ovary was densely adherent to the vaginal cuff. A combination of Ligasure and blunt dissection was used to free the ovary; it was then placed in an endobag and removed from the body. This was repeated on the left side in the same fashion. Ligasure was then used to take peritoneal biopsies. The pelvis was irrigated and Chadna placed with good hemostasis. She was then flattened out and infracolic omentum found. We performed an infracolic omentectomy from the hepatic to splenic flexure with direct visualization of the transverse colon at all times. This was placed in an endobag and removed. Gas was shut off and ports were removed. The RLQ fascia was closed with a 0 vicryl figure of eight stitch. Skin was closed with 4-0 monocryl, skin glue. She was taken out of lithotomy, extubated, and taken to PACU in good condition after all counts were correct. Ca was removed prior to extubation. A digital sweep of the vaginal canal was performed by myself and it was ascertained that no instruments or other foreign bodies are retained within the cavity. PARTICIPATION IN SURGERY/PROCEDURE: I/primary surgeon/proceduralist performed the procedure with assistance. Jina Stearns MD, MPH Gynecologic Oncologist [facility] 05-03-2025 Hospital Discharge instructions Jina Stearns MD - 05/03/2025 10:43 AM EDT Restrictions after surgery: 1) No driving until anesthesia has worn off. Most people are fine to drive the next day. 2) No lifting more than 10 pounds for 4 weeks. Please call the office if you experience any of the followin) Fever > 100.4 F. 2) Nausea or vomiting. 3) Worsening pain. 4) Your are unable to empty your bladder. You can take tylenol 1000 mg every 8 hours for pain in addition to oxycodone 5 mg every 8 hours. You can taken Zofran (dissolve under the tongue) every 8 hours as needed for nausea. Please don't hesitate to call with any questions or concerns. I will call with your pathology results. These are usually available within 7 days. documented in this encounter [facility] 05-03-2025 History and physical note UPDATED HISTORY AND PHYSICAL EXAMINATION SERVICE DATE: 05/03/2025 SERVICE TIME: 1038 PHYSICAL EXAM MUST BE COMPLETED ON ADMISSION The History and Physical (completed in the past 30 days) has been reviewed and the patient has been examined. The contents accurately reflect the patient's condition with the following additions or revisions since the H&P was completed. Examination indicates no changes. LUNGS: Lungs clear to auscultation, Good diaphragmatic excursion CARDIAC: Normal S1 and S2; no rubs, murmurs, or gallops Provisional Diagnosis/Treatment Plan: Procedure(s) (LRB): LAPAROSCOPY WITH OOPHORECTOMY AND SALPINGECTOMY (Bilateral) EXAM UNDER ANESTHESIA PELVIC / VAGINAL (N/A) LAPAROSCOPY OF PERITONEAL CAVITY W/ BIOPSY (N/A) LAPAROSCOPIC OMENTECTOMY (N/A) This H&P can be found in the Electronic Medical Record dated 04/13/25. SIGNATURE: Jina Stearns MD PATIENT NAME: Mer Allen DATE: May 03, 2025 TIME: 10:38 AM [facility] 05-03-2025 History and physical note UPDATED HISTORY AND PHYSICAL EXAMINATION SERVICE DATE: 05/03/2025 SERVICE TIME: 1038 PHYSICAL EXAM MUST BE COMPLETED ON ADMISSION The History and Physical (completed in the past 30 days) has been reviewed and the patient has been examined. The contents accurately reflect the patient's condition with the following additions or revisions since the H&P was completed. Examination indicates no changes. LUNGS: Lungs clear to auscultation, Good diaphragmatic excursion CARDIAC: Normal S1 and S2; no rubs, murmurs, or gallops Provisional Diagnosis/Treatment Plan: Procedure(s) (LRB): LAPAROSCOPY WITH OOPHORECTOMY AND SALPINGECTOMY (Bilateral) EXAM UNDER ANESTHESIA PELVIC / VAGINAL (N/A) LAPAROSCOPY OF PERITONEAL CAVITY W/ BIOPSY (N/A) LAPAROSCOPIC OMENTECTOMY (N/A) This H&P can be found in the Electronic Medical Record dated 04/13/25. SIGNATURE: Jina Stearns MD PATIENT NAME: Mer Allen DATE: May 03, 2025 TIME: 10:38 AM documented in this encounter [facility] 04-25-2025 Note HNO ID: [id number] Author: ?, ?, ? Service: ? Author Type: ? Type: Nursing Progress Note Filed: 04/25/2025 16:18 Note Text: Jackson from blood bank called regarding patient type and screen per lab Conf. ABO will need to be done day of surgery on 05/03/25. [facility] 04-25-2025 Nurse Note aJckson from blood bank called regarding patient type and screen per lab Conf. ABO will need to be done day of surgery on 05/03/25. [facility] 04-25-2025 Nurse Note Jackson from blood bank called regarding patient type and screen per lab Conf. ABO will need to be done day of surgery on 05/03/25. 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 It was found in the posterior cul-de-sac during your recent hysterectomy. Your ovaries were not removed during that surgery. - I recommend laparoscopic surgery to remove both ovaries, perform random biopsies of the peritoneum (the lining of your abdomen), and remove a portion of the omentum (a fatty layer in the abdomen). This will allow us to confirm the tumor s origin, assess for any microscopic disease, and determine the stage of the cancer. - The surgery will involve four small incisions: one below your rib cage, two above your hip bones, and one above your belly button. The procedure will take about an hour, and you will go home the same day. - Risks of surgery include infection, bleeding, injury to surrounding structures (e.g., bowel or bladder), and blood clots. These risks are low, and I will take precautions to minimize them. - You will receive a scopolamine patch and additional medications to prevent nausea, as you experienced significant nausea after your last surgery. - After surgery, I will review the pathology results with my colleagues at our Tumor Board to determine if further treatment, such as observation or hormone-blocking therapy, is needed. Chemotherapy is unlikely to be necessary due to the slow-growing nature of this tumor. We discussed your recovery and current symptoms: - It is normal to experience changes in appetite, bowel habits, and energy levels after major surgery. These symptoms typically improve within 3 to 6 months. - Continue staying hydrated and eating as you are able. Let us know if your symptoms worsen or do not improve over time. We discussed your medical history and pre-surgical preparation: - You are in excellent health overall, and I believe you are a good candidate for this surgery. - You will need basic blood work before surgery, including kidney function, hemoglobin, and blood type. This can be done today or at your convenience before the surgery date. - On the morning of surgery, take your metoprolol and losartan (for blood pressure). Do not take spironolactone (Aldactone). You may take Celexa if you wish. We scheduled your surgery: - Your laparoscopic surgery is scheduled for May 03. If this date does not work for you, please call our office to reschedule. If you have any questions or concerns before surgery, please contact our office. documented in this encounter [facility] 04-14-2025 Note HNO ID: [id number] Author: JINA STEARNS MD Service: ? Author Type: Physician Type: Progress Notes Filed: 04/14/2025 11:00 Note Text: Gynecologic Oncology Consultation Note [facility] Referring provider: Dr. 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 She was noted to have a firm mass in the posterior cul de sac at time of recent TVH - this was removed and was noted to be an adult granulosa cell tumor. Preop US in Nov 2024 noted this hypoechoic slowly enlarging mass - noted back as early as 2018. She was referred given path findigs. Patient reports not feeling back to her pre-surgery self, with decreased appetite and loose bowel movements since the procedure. Denies N/V except for day of surgery. She experiences soreness when leaning or arching her back but denies significant pain or bleeding. Bladder function remains normal. She is slowly trending back towards feeling like herself. Denies any vaginal bleeding or discharge. Of note, she had severe nausea after anesthesia last time. Here today with her of 62 years. ROS: 14 point ROS negative unless indicated in above HPI. Medical history: PAST MEDICAL HISTORY Diagnosis Date - Cerebellar hemangioma (HCC) 2003 stable 2009 MRI (symptom was that felt like was being pushed forward) - Chronic tonsillitis resolved with tonsillectomy - Dyskinesia of esophagus - Dyspepsia and other specified disorders of function of stomach Dyspepsia - Epilepsy (HCC) - Essential hypertension, benign - Granulosa cell tumor - Hiatal hernia 2009 - Hyperlipidemia - Internal hemorrhoids without mention of complication - Irritable bowel syndrome colitis - had colonoscopy, otherwise benign - Mumps without mention of complication Mumps - Other specified cardiac dysrhythmias(427.89) 2003 tachycardia - benign on stress test; Dr. Richardson following - PMH - PAST MEDICAL HISTORY OF Epiretinal Membrane - Unspecified hemorrhoids without mention of complication 2002 Hemorrhoids - Unspecified visual loss 05/21/2005 - Varicella without mention of complication Chickenpox 2 seizure episodes ever. Surgical history: PAST SURGICAL HISTORY Procedure Laterality Date - ANES NRV/MUS/TND/FASC LOWER LEG/ANKLE/FOOT NOS benign growth excised from back of left leg - COLONOSCOPY FLX DX W/COLLJ SPEC WHEN PFRMD 2000 Colonoscopy - COLONOSCOPY FLX DX W/COLLJ SPEC WHEN PFRMD 03/07/11 - COLONOSCOPY FLX DX W/COLLJ SPEC WHEN PFRMD 07/02/16 Colonoscopy (MAC) - DILATION AND CURETTAGE DXAND/THER NONOBSTETRIC 1975 after spontaneous miscarriage - EGD TRANSORAL BIOPSY SINGLE/MULTIPLE 03/07/11 - ESOPHAGOGASTRODUODENOSCOPY TRANSORAL DIAGNOSTIC 07/02/16 EGD (MAC) - EXC CYST/ABERRANT BREAST TISSUE OPEN 1/> LESION benign growth excised left breast - OSTEOTOMY PHALANX FINGER EACH 2001 excision benign growth on left index finger twice - TONSILLECTOMY AND ADENOIDECTOMY Tonsil/adenoidectomy - UNLISTED SPECIAL DERMATOLOGICAL SERVICE/PROCED 1961 benign moles removed from thorax - UNLISTED SPECIAL DERMATOLOGICAL SERVICE/PROCED 2000 benign moles removed from left thigh AND rt. 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 No abnormal pap tests. No HRT. Family history: Family History Problem Relation Age of Onset - Hypertension Mother - Emphysema Father - Ischemic Heart Disease Father enlarged heart, of [place] - Coronary Artery Disease Father - Cancer Father skin cancer - Hypertension Father - Lipids Father - Coronary Artery Disease Sister - Thyroid Sister - Diabetes Sister - Diabetes Brother - Psychiatry Brother diagnosed in teens as paranoid schizophrenic - other (migraines) Brother - Diabetes Maternal Grandmother of complications of Type II diabetes - Cancer Maternal Grandfather Stomach - Blood Disease Paternal Grandmother Leukemia in 70's - Genitourinary () Son born with misplaced ureter; has enlarged kidneys Social history: Social History Tobacco Use - Smoking status: Never - Smokeless tobacco: Never - Tobacco comments: exposed to father smoking when she was a child. Also her smoked for 12 years when they were first . Vaping Use - Vaping status: Never Used Substance Use Topics - Alcohol use: No - Drug use: No . Medications: Current Outpatient Medications Medication Sig Dispense Refill - iv contrast (will be provided with radiology test) CT ABD/PEL -Inject, intravenously, once for 1 dose.No IV access, insert saline lock prior to the beginning of sedation, infusion, injection of imaging exam. Discontinue saline lock post exam. If Pt. has a central line or IVAD, may access for administration according to line specific nursing protocol. Once exam is complete flush line and (more content not included)... [facility] 04-14-2025 History of Present illness Narrative Gynecologic Oncology Consultation Note [facility] Referring provider: Dr. 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 She was noted to have a firm mass in the posterior cul de sac at time of recent TVH - this was removed and was noted to be an adult granulosa cell tumor. Preop US in Nov 2024 noted this hypoechoic slowly enlarging mass - noted back as early as 2018. She was referred given path findigs. Patient reports not feeling back to her pre-surgery self, with decreased appetite and loose bowel movements since the procedure. Denies N/V except for day of surgery. She experiences soreness when leaning or arching her back but denies significant pain or bleeding. Bladder function remains normal. She is slowly trending back towards feeling like herself. Denies any vaginal bleeding or discharge. Of note, she had severe nausea after anesthesia last time. Here today with her of 62 years. ROS: 14 point ROS negative unless indicated in above HPI. Medical history: PAST MEDICAL HISTORY Diagnosis Date Cerebellar hemangioma (HCC) 2003 stable 2009 MRI (symptom was that felt like was being pushed forward) Chronic tonsillitis resolved with tonsillectomy Dyskinesia of esophagus Dyspepsia and other specified disorders of function of stomach Dyspepsia Epilepsy (HCC) Essential hypertension, benign Granulosa cell tumor Hiatal hernia 2010 Hyperlipidemia Internal hemorrhoids without mention of complication Irritable bowel syndrome colitis - had colonoscopy, otherwise benign Mumps without mention of complication Mumps Other specified cardiac dysrhythmias(427.89) 2003 tachycardia - benign on stress test; Dr. Richardson following PMH - PAST MEDICAL HISTORY OF Epiretinal Membrane Unspecified hemorrhoids without mention of complication 2002 Hemorrhoids Unspecified visual loss 05/21/2005 Varicella without mention of complication Chickenpox 2 seizure episodes ever. Surgical history: PAST SURGICAL HISTORY Procedure Laterality Date ANES NRV/MUS/TND/FASC LOWER LEG/ANKLE/FOOT NOS benign growth excised from back of left leg COLONOSCOPY FLX DX W/COLLJ SPEC WHEN PFRMD 2000 Colonoscopy COLONOSCOPY FLX DX W/COLLJ SPEC WHEN PFRMD 03/07/11 COLONOSCOPY FLX DX W/COLLJ SPEC WHEN PFRMD 07/02/16 Colonoscopy (MAC) DILATION & CURETTAGE DX&/THER NONOBSTETRIC 1974 after spontaneous miscarriage EGD TRANSORAL BIOPSY SINGLE/MULTIPLE 03/07/11 ESOPHAGOGASTRODUODENOSCOPY TRANSORAL DIAGNOSTIC 07/02/16 EGD (MAC) EXC CYST/ABERRANT BREAST TISSUE OPEN 1/> LESION benign growth excised left breast OSTEOTOMY PHALANX FINGER EACH 2001 excision benign growth on left index finger twice TONSILLECTOMY & ADENOIDECTOMY <AGE 10 Tonsil/adenoidectomy UNLISTED SPECIAL DERMATOLOGICAL SERVICE/PROCED 1961 benign moles removed from thorax UNLISTED SPECIAL DERMATOLOGICAL SERVICE/PROCED 2000 benign moles removed from left thigh & rt. 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 No abnormal pap tests. No HRT. Family history: Family History Problem Relation Age of Onset Hypertension Mother Emphysema Father Ischemic Heart Disease Father enlarged heart, of [place] Coronary Artery Disease Father Cancer Father skin cancer Hypertension Father Lipids Father Coronary Artery Disease Sister Thyroid Sister Diabetes Sister Diabetes Brother Psychiatry Brother diagnosed in teens as paranoid schizophrenic other (migraines) Brother Diabetes Maternal Grandmother of complications of Type II diabetes Cancer Maternal Grandfather Stomach Blood Disease Paternal Grandmother Leukemia in 70's Genitourinary () Son born with misplaced ureter; has enlarged kidneys Social history: Social History Tobacco Use Smoking status: Never Smokeless tobacco: Never Tobacco comments: exposed to father smoking when she was a child. Also her smoked for 12 years when they were first . Vaping Use Vaping status: Never Used Substance Use Topics Alcohol use: No Drug use: No . Medications: Current Outpatient Medications Medication Sig Dispense Refill iv contrast (will be provided with radiology test) CT ABD/PEL -Inject, intravenously, once for 1 dose.No IV access, insert saline lock prior to the beginning of sedation, infusion, injection of imaging exam. Discontinue saline lock post exam. If Pt. has a central line or IVAD, may access for administration according to line specific nursing protocol. Once exam is complete flush line and de-access according to line specific nursing protocol in the CT contrast administration guidelines link. 1 each 0 diphenhydrAMINE (BENADRYL) 50 mg capsule Take 1 capsule by mouth as directed for 1 dose. one (1) hour prior to exam. 1 capsule 0 ondansetron orally disintegrating (ZOFRAN ODT) 4 mg disintegrating tablet Take 1 tablet by mouth every 8 hours as needed for nausea/vomiting. 30 tablet 0 citalopram (CELEXA) 20 mg tablet Take 1 tablet by mouth once daily. 90 tablet 3 losartan (COZAAR) 100 mg tablet Take 1 tablet by mouth once daily. 90 tablet 3 metoprolol succinate ER (TOPROL XL) 50 mg 24 hr tablet Take 1 tablet by mouth once daily. 90 tablet 3 spironolactone (ALDACTONE) 25 mg tablet Take 1 tablet by mouth once daily. For BP 90 tablet 3 MV-MN/IRON FUM/FA/OMEGA3,6,9#3 (WOMEN'S MULTI ORAL) Take 1 tablet by mouth once daily. CALCIUM CITRATE/VITAMIN D3 (CALCIUM CITRATE + ORAL) Take by mouth. LORazepam (ATIVAN) 1 mg tablet Take 0.5-1 tablets by mouth three times a day as needed for anxiety for up to 90 days. 10 tablet 0 No current facility-administered medications for this visit. PE: EGOG PS 0 BP 154/79 (BP Site: Left Arm, BP Position: Sitting, BP Cuff Size: Regular Adult) Pulse (!) 58 Ht 152.4 cm (5') Wt 59 kg (130 lb) SpO2 100% BMI 25.39 kg/m Gen: well-appearing, NAD Abd: no incisions, soft,NTTP, no rebound/guarding Pelvic: deferred Labs/Imaging: Pelvic US (12/30/24): IMPRESSION: 1. Uterus completely prolapsed at the time of the examination, requiring rivet machine operator to push back in to the pelvis with the probe. 2. Fibroid uterus. 3. Nonspecific hypoechoic structure left cul-de-sac, present since at least 2019 and described as left ovary, enlarged in the interim: Query pedunculated fibroid or other etiology. 4. Trace ascites in the cul-de-sac is of uncertain etiology and significance. CT A/P (03/21/25): IMPRESSION: Possible clumping of bowel loops in the pelvis. No obstruction. Attention on follow-up exam. 4 x 3.5 cm fluid collection in the right posterior pelvis. Left lower lobe tree-in-bud opacities favor infectious/inflammatory. FINAL DIAGNOSIS A. Soft tissue, left cul-de-sac, excision: - Granulosa cell tumor, adult type. - Minute fragment of fimbriated end of fallopian tube with no significant diagnostic alteration. - See comment. B. Uterus and cervix, hysterectomy: Cervix: - Cervix with changes consistent with uterovaginal prolapse. Endometrium: - Inactive endometrium. - Benign endometrial polyp. Myometrium: - Leiomyomata (2.4 cm in greatest dimension) with degenerative changes including calcific degeneration. Serosa: -Unremarkable serosal surface. C. Fallopian tube, left, salpingectomy: - Fallopian tube with benign paratubal cysts. D. Fallopian tube, right, salpingectomy: - Unremarkable fallopian tube. A/P: This is a 79 year old patient here for consultation for a adult type granulosa cell tumor - at least stage IC1 vs IIB. Granulosa cell tumor (D39.10) - I personally reviewed notes, images, and pathology report. - Reviewed adult-type granulosa cell tumor, a rare and indolent form of ovarian cancer. I suspect she is at least stage IC1 given surface involvement vs stage IIB as it is not clear if this mass was associated with the ovary. - CT showed no other intra-abdominal findings. Inhibins wnl. - I am recommending surgical staging with laparoscopic BSO, peritoneal biopsies, omentectomy to finalize stage before determine if adjuvant therapy is recommended. - We did discuss this type of ovarian cancer does not seem to have a genetic component. - Consented for surgery today. Plan for surgery 05/03/25. Surgery: - T+S, CBC, BMP - No PAT - Ancef, Heparin, SCD Severe postoperative nausea: - Need to alert anesthesia - Consider scop patch + homegoing antiemetics Jina Stearns MD, MPH Gynecologic Oncologist Medical Decision Making: Problems: Minimal: Self-limited or minor problem Moderate: New problem with uncertain prognosis Data: Unique source(s) for external note(s) reviewed: 3+ Unique test result(s) reviewed: 3+ Unique test(s) ordered: 3+ Independent interpretation of test from other physician/QHCP Risk: High: Decision on elective major surgery w/ risk factors Medical Decision Making Level: 5 - High documented in this encounter [facility] 04-06-2025 Telephone encounter Note Called and relayed results with patient. I told her best to follow-up with Dr. Ortiz to answer any further questions about the tumor or steps moving forward. I did tell her there was no lymphadenopathy on her CT scan. She has an appointment with Dr. Ortiz on April 14. Joanne Bautista MD [facility] 04-06-2025 Miscellaneous Notes Called and relayed results with patient. I told her best to follow-up with Dr. Ortiz to answer any further questions about the tumor or steps moving forward. I did tell her there was no lymphadenopathy on her CT scan. She has an appointment with Dr. Ortiz on April 14. Joanne Bautista MD Comment: Patient called in wanting results of her CT Scan from 03/21/25 == CT Abdominal/ Pelvis on 03/21/2025 Impression IMPRESSION: Possible clumping of bowel loops in the pelvis. No obstruction. Attention on follow-up exam. 4 x 3.5 cm fluid collection in the right posterior pelvis. Left lower lobe tree-in-bud opacities favor infectious/inflammatory. Children'S Tutor: PSCB Transcribe Date/Time: Mar 28 2025 12:28P Dictated by : JESSICA CALI MD This examination was interpreted and the report reviewed and electronically signed by: JESSICA CALI MD on Mar 28 2025 12:48PM EST Results-Findings * * *Final Report* * * DATE OF EXAM: Mar 21 2025 10:11AM [facility] 0530 - CT ABD/PEL W IVCON / PROCEDURE REASON: Granulosa cell tumor * * * * Physician Interpretation * * * * EXAMINATION: CT ABDOMEN AND PELVIS WITH IV CONTRAST CLINICAL HISTORY: Granulosa cell tumor. Status post hysterectomy and salpingectomy TECHNIQUE: CT of the abdomen and pelvis was performed using standard technique, scanning from just above the dome of the diaphragm to the symphysis pubis. MQ: CTAP_3 Contrast: IV: 100 ml of Omnipaque 350 : ml of CT Radiation dose: Integrated Dose-length product (DLP) for this visit = 472.01 mGy*cm. CT Dose Reduction Employed: Automated exposure control(AEC) and iterative recon COMPARISON: Pelvic ultrasound 12/30/2024, CT abdomen pelvis 07/28/2012 RESULT: Liver: No mass. Biliary: No bile duct dilation. Gallbladder is unremarkable. Spleen: No mass. No splenomegaly. Pancreas: No mass or duct dilation. Adrenals: No mass. Kidneys: Left renal cyst. No hydronephrosis. GI tract: No obstruction. Possible clumping of bowel loops in the pelvis series 2 image 83. Lymph nodes: No abdominal or pelvic lymphadenopathy. Mesentery/Peritoneum: No ascites or mass. Retroperitoneum: No mass. Vasculature: Aorta is not aneurysmal. Pelvis: 4 x 3.5 cm fluid collection the right posterior pelvis image 74. Bones/Soft Tissues: No acute osseous findings. Bones are osteopenic. Degenerative changes. Lower thorax: Mild tree-in-bud type opacities in the left lower lobe. Localizer images: No additional findings. Priyanka Rojas RN March 30, 2025 1:37 PM Patient called in wanting results of her CT Scan from 03/21/25 documented in this encounter [facility] 03-30-2025 Telephone encounter Note Comment: Patient called in wanting results of her CT Scan from 03/21/25 == CT Abdominal/ Pelvis on 03/21/2025 Impression IMPRESSION: Possible clumping of bowel loops in the pelvis. No obstruction. Attention on follow-up exam. 4 x 3.5 cm fluid collection in the right posterior pelvis. Left lower lobe tree-in-bud opacities favor infectious/inflammatory. Children'S Tutor: PSCB Transcribe Date/Time: Mar 28 2025 12:28P Dictated by : JESSICA CALI MD This examination was interpreted and the report reviewed and electronically signed by: JESSICA CALI MD on Mar 28 2025 12:48PM EST Results-Findings * * *Final Report* * * DATE OF EXAM: Mar 21 2025 10:11AM [facility] 0530 - CT ABD/PEL W IVCON / PROCEDURE REASON: Granulosa cell tumor * * * * Physician Interpretation * * * * EXAMINATION: CT ABDOMEN AND PELVIS WITH IV CONTRAST CLINICAL HISTORY: Granulosa cell tumor. Status post hysterectomy and salpingectomy TECHNIQUE: CT of the abdomen and pelvis was performed using standard technique, scanning from just above the dome of the diaphragm to the symphysis pubis. MQ: CTAP_3 Contrast: IV: 100 ml of Omnipaque 350 : ml of CT Radiation dose: Integrated Dose-length product (DLP) for this visit = 472.01 mGy*cm. CT Dose Reduction Employed: Automated exposure control(AEC) and iterative recon COMPARISON: Pelvic ultrasound 12/30/2024, CT abdomen pelvis 07/28/2012 RESULT: Liver: No mass. Biliary: No bile duct dilation. Gallbladder is unremarkable. Spleen: No mass. No splenomegaly. Pancreas: No mass or duct dilation. Adrenals: No mass. Kidneys: Left renal cyst. No hydronephrosis. GI tract: No obstruction. Possible clumping of bowel loops in the pelvis series 2 image 83. Lymph nodes: No abdominal or pelvic lymphadenopathy. Mesentery/Peritoneum: No ascites or mass. Retroperitoneum: No mass. Vasculature: Aorta is not aneurysmal. Pelvis: 4 x 3.5 cm fluid collection the right posterior pelvis image 74. Bones/Soft Tissues: No acute osseous findings. Bones are osteopenic. Degenerative changes. Lower thorax: Mild tree-in-bud type opacities in the left lower lobe. Localizer images: No additional findings. Priyanka Rojas RN March 30, 2025 1:37 PM [facility] 03-30-2025 Telephone encounter Note Patient called in wanting results of her CT Scan from 03/21/25 [facility] 03-28-2025 History of Present illness Narrative Images from the original note were not included. Female Pelvic Medicine & Reconstructive Surgery Post-Op Visit Recording using [employer] software for draft documentation of the visit was discussed with the patient/authorized sales representatives; all questions welcomed and answered. Patient/authorized sales representatives agreed to proceed Mer Allen is a 79 year old female who presents for a 3 Week post-op check s/p HYSTERECTOMY VAGINAL UTERUS 250G OR LESS REMOVAL TUBE(S) AND/OR OVARY(S) CYSTOSCOPY COMBINED ANTERIOPOSTERIOR COLPORRHAPHY W/ENTEROCELE REPAIR INCLUDING CYSTOURETHROSCOPY WHEN PERFORMED VAGINECTOMY PARTIAL. HPI: The patient is a 79-year-old female presenting for follow-up after recent surgery. The patient reports significant improvement in pain following recent surgery. She notes that the severe pain she experienced for months prior to the surgery has resolved. She mentions a phone call from her surgeon who discussed the tumor and mentioned the word cancer, describing it as slow-growing. The patient expresses a wish that her ovaries had been removed during the initial surgery, as she has been informed that further surgery to remove them may be necessary. She reports a small amount of light pinkish blood in her urine but denies any issues with bowel movements. She also notes mild itching and soreness, which she attributes to the sutures. CT A/P pending. Seeing Dr. Stearns in March. Post-op complications: no Bleeding: yes light and pink Pain: no Abnormal vaginal discharge: no Pathology: A. Soft tissue, left cul-de-sac, excision: - Granulosa cell tumor, adult type. - Minute fragment of fimbriated end of fallopian tube with no significant diagnostic alteration. - See comment. B. Uterus and cervix, hysterectomy: Cervix: - Cervix with changes consistent with uterovaginal prolapse. Endometrium: - Inactive endometrium. - Benign endometrial polyp. Myometrium: - Leiomyomata (2.4 cm in greatest dimension) with degenerative changes including calcific degeneration. Serosa: -Unremarkable serosal surface. C. Fallopian tube, left, salpingectomy: - Fallopian tube with benign paratubal cysts. D. Fallopian tube, right, salpingectomy: - Unremarkable fallopian tube. Metal Dresser offered:Patient declines SENSITIVE EXAM: The sensitive examination was discussed with the Patient or Patient's Authorized Foam Rubber Curer. As applicable, any other physician, advance practice provider, medical student, or other health professional student that will be observing or involved in the sensitive examination for educational or training purposes was discussed with the Patient or Authorized Foam Rubber Curer. The Patient or Authorized Foam Rubber Curer has agreed to proceed with the sensitive examination. (Sensitive examination includes inspection and/or palpation of the breasts, pelvis, prostate and anorectal regions). PFDI-20 Do you: Usually experience pressure in the lower abdomen? No (0) Usually experience heaviness or dullness in the pelvic area? No (0) Usually have a bulge or something falling out that you can see or feel in your vaginal area? No (0) Ever have to push on the vagina or around the rectum to have or complete a bowel movement? No (0) Usually experience a feeling of incomplete bladder emptying? No (0) Ever have to push up on a bulge in the vaginal area with your fingers to start or complete urination? No (0) Feel you need to strain too hard to have a bowel movement? No (0) Feel you have not completely emptied your bowels at the end of a bowel movement? Yes, not at all bothersome (1) Usually lose stool beyond your control if your stool is well formed? No (0) Usually lose stool beyond your control if your stool is loose? No (0) Usually lose gas from the rectum beyond your control? No (0) Usually have pain when you pass your stool? No (0) Experience a strong sense of urgency and have to de leon to the bathroom to have a bowel movement? No (0) Does part of your bowel ever pass through the rectum and bulge outside during or after a bowel movement? No (0) Usually experience frequent urination? No (0) Usually experience urine leakage associated with a feeling of urgency, that is, a strong sensation of needing to go to the bathroom? No (0) Usually experience urine leakage related to coughing, sneezing or laughing? No (0) Usually experience small amounts of urine leakage (that is, drops)? Yes, not at all bothersome (1) Usually experience difficulty emptying your bladder? No (0) Usually experience pain or discomfort in the lower abdomen or genital region? No (0) OBJECTIVE: Ht 5' 0 (1.52m) Wt 134 lb (60.8kg) BMI 26.17 kg/(m^2). General: Well appearing, alert, in no acute distress, well-hydrated, well nourished. Abdomen: Deferred Pelvic: Ext. Genitalia, No lesions or other abnormalities Vagina: Good vaginal support, Epithelium atrophic , and Suture material present Cervix: Absent Urethra: Normal, Supine cough stress test negative Bimanual: No tenderness, No masses Rectovaginal: Deferred ASSESMENT: Mer Allen is a 79 year old female who is post-op; stable and doing well post-operative course uncomplicated PLAN: Operative findings and pathology report reviewed, abnormal results granulosa cell tumor Seeing [facility] in March. - Follow-up 3 weeks. Madeline Restrepo APRN.CNP documented in this encounter [facility] 03-28-2025 Note HNO ID: [id number] Author: MADELINE RESTREPO APRN.CNP Service: ? Author Type: Nurse Practitioner Type: Progress Notes Filed: 03/28/2025 09:48 Note Text: Female Pelvic Medicine AND Reconstructive Surgery Post-Op Visit Recording using [employer] software for draft documentation of the visit was discussed with the patient/authorized sales representatives; all questions welcomed and answered. Patient/authorized sales representatives agreed to proceed Mer Allen is a 79 year old female who presents for a 3 Week post-op check s/p HYSTERECTOMY VAGINAL UTERUS 250G OR LESS REMOVAL TUBE(S) AND/OR OVARY(S) CYSTOSCOPY COMBINED ANTERIOPOSTERIOR COLPORRHAPHY W/ENTEROCELE REPAIR INCLUDING CYSTOURETHROSCOPY WHEN PERFORMED VAGINECTOMY PARTIAL. HPI: The patient is a 79-year-old female presenting for follow-up after recent surgery. The patient reports significant improvement in pain following recent surgery. She notes that the severe pain she experienced for months prior to the surgery has resolved. She mentions a phone call from her surgeon who discussed the tumor and mentioned the word cancer, describing it as slow-growing. The patient expresses a wish that her ovaries had been removed during the initial surgery, as she has been informed that further surgery to remove them may be necessary. She reports a small amount of light pinkish blood in her urine but denies any issues with bowel movements. She also notes mild itching and soreness, which she attributes to the sutures. CT A/P pending. Seeing Dr. Stearns in March. Post-op complications: no Bleeding: yes light and pink Pain: no Abnormal vaginal discharge: no Pathology: A. Soft tissue, left cul-de-sac, excision: - Granulosa cell tumor, adult type. - Minute fragment of fimbriated end of fallopian tube with no significant diagnostic alteration. - See comment. B. Uterus and cervix, hysterectomy: Cervix: - Cervix with changes consistent with uterovaginal prolapse. Endometrium: - Inactive endometrium. - Benign endometrial polyp. Myometrium: - Leiomyomata (2.4 cm in greatest dimension) with degenerative changes including calcific degeneration. Serosa: -Unremarkable serosal surface. C. Fallopian tube, left, salpingectomy: - Fallopian tube with benign paratubal cysts. D. Fallopian tube, right, salpingectomy: - Unremarkable fallopian tube. Metal Dresser offered:Patient declines SENSITIVE EXAM: The sensitive examination was discussed with the Patient or Patient's Authorized Foam Rubber Curer. As applicable, any other physician, advance practice provider, medical student, or other health professional student that will be observing or involved in the sensitive examination for educational or training purposes was discussed with the Patient or Authorized Foam Rubber Curer. The Patient or Authorized Foam Rubber Curer has agreed to proceed with the sensitive examination. (Sensitive examination includes inspection and/or palpation of the breasts, pelvis, prostate and anorectal regions). PFDI-20 Do you: Usually experience pressure in the lower abdomen? No (0) Usually experience heaviness or dullness in the pelvic area? No (0) Usually have a bulge or something falling out that you can see or feel in your vaginal area? No (0) Ever have to push on the vagina or around the rectum to have or complete a bowel movement? No (0) Usually experience a feeling of incomplete bladder emptying? No (0) Ever have to push up on a bulge in the vaginal area with your fingers to start or complete urination? No (0) Feel you need to strain too hard to have a bowel movement? No (0) Feel you have not completely emptied your bowels at the end of a bowel movement? Yes, not at all bothersome (1) Usually lose stool beyond your control if your stool is well formed? No (0) Usually lose stool beyond your control if your stool is loose? No (0) Usually lose gas from the rectum beyond your control? No (0) Usually have pain when you pass your stool? No (0) Experience a strong sense of urgency and have to de leon to the bathroom to have a bowel movement? No (0) Does part of your bowel ever pass through the rectum and bulge outside during or after a bowel movement? No (0) Usually experience frequent urination? No (0) Usually experience urine leakage associated with a feeling of urgency, that is, a strong sensation of needing to go to the bathroom? No (0) Usually experience urine leakage related to coughing, sneezing or laughing? No (0) Usually experience small amounts of urine leakage (that is, drops)? Yes, not at all bothersome (1) Usually experience difficulty emptying your bladder? No (0) Usually experience pain or discomfort in the lower abdomen or genital region? No (0) OBJECTIVE: Ht 5' 0 (1.52m) Wt 134 lb (60.8kg) BMI 26.17 kg/(m2). General: Well appearing, alert, in no acute distress, well-hydrated, well nourished. Abdomen: Deferred Pelvic: Ext. (more content not included)... [facility] 03-21-2025 History of Present illness Narrative Radiology Service Progress Note DATE OF SERVICE: March 21, 2025 TIME: 10:35 AM PATIENT IDENTITY VERIFICATION COMPLETED USING TWO (2) STANDARD IDENTIFIERS: Name and Date of confirmed by patient verbally. FALL SCREENING: Has the patient had 2 falls in the last year or 1 fall with injury or currently using an Ambulatory Assistive Device (Walker, Cane, Wheelchair, Crutches, etc.)? No PATIENT GENDER DATA: Assigned female at . status: : No status: NO. PATIENT RELEVANT IMPLANT DATA REVIEWED: Yes PATIENT PRESENTS WITH AN IMPLANTABLE OR ATTACHED ASSEMBLER ARRANGER: No ALLERGIES: Reviewed and unchanged CONTRAST ALLERGY: YES 13 HOUR PRE MEDICATION PREP WAS ADMINISTERED AND TAKEN.. EXAM: CT -CONTRAST INDUCED NEPHROPATHY RISK FACTORS: Patient age > 60 years CREATININE: Creatinine Date Value Ref Range Status 02/27/2025 1.03 (H) 0.58 - 0.96 mg/dL Final 03/11/2024 1.09 (H) 0.58 - 0.96 mg/dL Final 01/27/2023 1.11 (H) 0.58 - 0.96 mg/dL Final Estimated Glomerular Filtration Rate Date Value Ref Range Status 02/27/2025 55 (L) >=60 mL/min/1.73m Final Comment: Estimated Glomerular Filtration Rate (eGFR) is calculated using the 2020 CKD-EPI creatinine equation. This equation utilizes serum creatinine, sex, and age as parameters. The creatinine assay has traceable calibration to isotope dilution-mass spectrometry. Refer to KDIGO guidelines for clinical interpretation. In patients with unstable renal function, e.g. those with acute kidney injury, the eGFR may not accurately reflect actual GFR. eGFR- Date Value Ref Range Status 01/22/2021 >60 Final 01/22/2021 >60 Final P.O.C.T. RESULTS: POC done: Yes, See Lab Tab March 21, 2025 TREATMENT: N/A PERIPHERAL IV DATA: Ambulatory: A peripheral IV was started in the Right antecubital site with a Angio cath: 20 gauge. RADIOLOGY DEPARTMENT: CT; Exam(s) Completed: Abdomen/Pelvis SIGNATURE: RT Bharati(Nini) PATIENT NAME: Mer Allen DATE: March 21, 2025 TIME: 10:35 AM documented in this encounter [facility] 03-21-2025 Note HNO ID: [id number] Author: ROMINA CHENEY RT(R) Service: Radiology Author Type: Hotel Valet Attendant Type: Progress Notes Filed: 03/21/2025 10:36 Note Text: Radiology Service Progress Note DATE OF SERVICE: March 21, 2025 TIME: 10:35 AM PATIENT IDENTITY VERIFICATION COMPLETED USING TWO (2) STANDARD IDENTIFIERS: Name and Date of confirmed by patient verbally. FALL SCREENING: Has the patient had 2 falls in the last year or 1 fall with injury or currently using an Ambulatory Assistive Device (Walker, Cane, Wheelchair, Crutches, etc.)? No PATIENT GENDER DATA: Assigned female at . status: : No status: NO. PATIENT RELEVANT IMPLANT DATA REVIEWED: Yes PATIENT PRESENTS WITH AN IMPLANTABLE OR ATTACHED ASSEMBLER ARRANGER: No ALLERGIES: Reviewed and unchanged CONTRAST ALLERGY: YES 13 HOUR PRE MEDICATION PREP WAS ADMINISTERED AND TAKEN.. EXAM: CT -CONTRAST INDUCED NEPHROPATHY RISK FACTORS: Patient age > 60 years CREATININE: Creatinine Date Value Ref Range Status 02/27/2025 1.03 (H) 0.58 - 0.96 mg/dL Final 03/11/2024 1.09 (H) 0.58 - 0.96 mg/dL Final 01/27/2023 1.11 (H) 0.58 - 0.96 mg/dL Final Estimated Glomerular Filtration Rate Date Value Ref Range Status 02/27/2025 55 (L) >=60 mL/min/1.73m? Final Comment: Estimated Glomerular Filtration Rate (eGFR) is calculated using the 2020 CKD-EPI creatinine equation. This equation utilizes serum creatinine, sex, and age as parameters. The creatinine assay has traceable calibration to isotope dilution-mass spectrometry. Refer to KDIGO guidelines for clinical interpretation. In patients with unstable renal function, e.g. those with acute kidney injury, the eGFR may not accurately reflect actual GFR. eGFR- Date Value Ref Range Status 01/22/2021 >60 Final 01/22/2021 >60 Final P.O.C.T. RESULTS: POC done: Yes, See Lab Tab March 21, 2025 TREATMENT: N/A PERIPHERAL IV DATA: Ambulatory: A peripheral IV was started in the Right antecubital site with a Angio cath: 20 gauge. RADIOLOGY DEPARTMENT: CT; Exam(s) Completed: Abdomen/Pelvis SIGNATURE: RT Bharati(R) PATIENT NAME: Mer Allen DATE: March 21, 2025 TIME: 10:35 AM [facility] 03-17-2025 Telephone encounter Note Returned patients. Verified last name and . Patient reports that she is still having some vaginal bleeding and wanted to let the office know. Patient reports quarter size drops of reddish-brown blood on her pad, especially when she stands up. Patient is changing her pad 3, sometimes 4 times a day. Patient denies bright red blood and saturating pads at this time. Patient states that outside of this she is feeling well, denies any additional symptoms at this time and just worries about everything. This RN offered reassurance to the patient and answered all patient questions. Instructed patient to call back if she has additional questions or concerns. Patient stated understanding and was appreciative of the call back. Evelyn Barrios RN [facility] 03-17-2025 Miscellaneous Notes Returned patients. Verified last name and . Patient reports that she is still having some vaginal bleeding and wanted to let the office know. Patient reports quarter size drops of reddish-brown blood on her pad, especially when she stands up. Patient is changing her pad 3, sometimes 4 times a day. Patient denies bright red blood and saturating pads at this time. Patient states that outside of this she is feeling well, denies any additional symptoms at this time and just worries about everything. This RN offered reassurance to the patient and answered all patient questions. Instructed patient to call back if she has additional questions or concerns. Patient stated understanding and was appreciative of the call back. Evelyn Barrios RN Pt had surgery about 10 days ago and talked to Dr. Bautista about 2-3 days ago regarding an issue. She was told to call back if she was still having the same issue and she is. So she would like to speak to a nurse. Please call home number. documented in this encounter [facility] 03-17-2025 Telephone encounter Note Pt had surgery about 10 days ago and talked to Dr. Bautista about 2-3 days ago regarding an issue. She was told to call back if she was still having the same issue and she is. So she would like to speak to a nurse. Please call home number. [facility] 03-15-2025 Telephone encounter Note I called and spoke to the patient. She had some bright red spotting but now it is just dark blood. She only changed her pads three times per day. She has not burning or pain with urination. She is otherwise doing well. She notices the blood most when she is up moving around. She is not on any blood thinners. I gave her reassurance as well as bleeding precautions. She will contact us or proceed to the ER if her bleeding worsens. Joanne Bautista MD [facility] 03-15-2025 Miscellaneous Notes I called and spoke to the patient. She had some bright red spotting but now it is just dark blood. She only changed her pads three times per day. She has not burning or pain with urination. She is otherwise doing well. She notices the blood most when she is up moving around. She is not on any blood thinners. I gave her reassurance as well as bleeding precautions. She will contact us or proceed to the ER if her bleeding worsens. Joanne Bautista MD S: Post-op Pt with vaginal bleeding vs. Hematuria. Patient identified by name and . 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 She had a small spotting amount until yesterday when it increased to where the toilet is full of blood when she voids, period-like bleeding and she is changing pads every 2-3 hrs. Blood is bright to dark red with clots. Denies SOB, chest pain, lightheadedness, infection s/s, urinary symptoms. Denies pain. R: Advised that OV would be best to determine where bleeding is coming from and make emory her surgery sites are alright. Offered Visit tomorrow at [facility] with [facility]. Pt prefers to wait to hear Dr. Bautista's recommendation. Advised her to: -monitor bleeding, call back if it increases -stay hydrated - monitor for s/s infection - ED precautions discussed Will forward to Dr. Bautista. Alva Jennings RN PT just had hysterectomy and is experiencing bright red blood when she is urinating. documented in this encounter [facility] 03-15-2025 Telephone encounter Note S: Post-op Pt with vaginal bleeding vs. Hematuria. Patient identified by name and . 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 She had a small spotting amount until yesterday when it increased to where the toilet is full of blood when she voids, period-like bleeding and she is changing pads every 2-3 hrs. Blood is bright to dark red with clots. Denies SOB, chest pain, lightheadedness, infection s/s, urinary symptoms. Denies pain. R: Advised that OV would be best to determine where bleeding is coming from and make emory her surgery sites are alright. Offered Visit tomorrow at [facility] with [facility]. Pt prefers to wait to hear Dr. Bautista's recommendation. Advised her to: -monitor bleeding, call back if it increases -stay hydrated - monitor for s/s infection - ED precautions discussed Will forward to Dr. Bautista. Alva Jennings, RN [facility] 03-15-2025 Telephone encounter Note PT just had hysterectomy and is experiencing bright red blood when she is urinating. [facility] 03-07-2025 Note HNO ID: [id number] Author: JOANNE BAUTISTA MD Service: ? Author Type: Physician Type: Plan of Care Filed: 03/07/2025 09:12 Note Text: ---- Summary: postop pain ---- Called patient because she left a voicemail message on my phone that she was having a lot of pain from her surgery yesterday. She is status post Total vaginal hysterectomy Colpocleisis, perineoplasty and cystoscopy (anterior colporrhaphy, posterior colporrhaphy and enterocele repair with vaginectomy). She is now POD 1 and doing well. She had not taken pain medicine. Once she took an oxycodone she slept well. She just took two ibuprofen. We reviewed how to take pain meds. She has not other complaints. I told her I would be in touch with her when I have the pathology results. I answered all her questions and gave her reassurance. Joanne Bautista MD [facility] 03-07-2025 Plan of care note Summary: postop pain Called patient because she left a voicemail message on my phone that she was having a lot of pain from her surgery yesterday. She is status post Total vaginal hysterectomy Colpocleisis, perineoplasty and cystoscopy (anterior colporrhaphy, posterior colporrhaphy and enterocele repair with vaginectomy). She is now POD 1 and doing well. She had not taken pain medicine. Once she took an oxycodone she slept well. She just took two ibuprofen. We reviewed how to take pain meds. She has not other complaints. I told her I would be in touch with her when I have the pathology results. I answered all her questions and gave her reassurance. Joanne Bautista MD [facility] 03-07-2025 Miscellaneous Notes Summary: postop pain Called patient because she left a voicemail message on my phone that she was having a lot of pain from her surgery yesterday. She is status post Total vaginal hysterectomy Colpocleisis, perineoplasty and cystoscopy (anterior colporrhaphy, posterior colporrhaphy and enterocele repair with vaginectomy). She is now POD 1 and doing well. She had not taken pain medicine. Once she took an oxycodone she slept well. She just took two ibuprofen. We reviewed how to take pain meds. She has not other complaints. I told her I would be in touch with her when I have the pathology results. I answered all her questions and gave her reassurance. Joanne Bautista MD documented in this encounter [facility] 03-07-2025 Note HNO ID: [id number] Author: BRIDGETTE SANABRIA RN Service: ? Author Type: Registered Nurse Type: Progress Notes Filed: 03/07/2025 08:40 Note Text: Post-op visit Mer Allen is a 79 year old female who underwent Hysterectomy on 03/06/2025 for uterovaginal prolapse, urinary incontinence. Her immediate post-op course was uncomplicated and she was discharged home from [facility] on post-op day #0 Symptoms since surgery: Fever/chills: No. Patient experiencing sweating, this RN advised to periodically take her temperature and report if she has a reading at 100.4 or greater. Vaginal bleeding: No. Pain: Yes: Patient had extreme pain last night, chest pain and abdominal pain- likely attributed to gas pain from anesthesia, they called the hospital, she was advised to take oxycodone and she says she feels better. Patient reminded to rotate ibuprofen and tylenol every four hours for the first 72 hours to stay on top of the pain. Bladder complaints: No. Bowel complaints: No. Other issues: No. Operative findings: none noted as of this call- patient noted that Dr. Bautista found a tumor the size of an egg. Pathology: In process Reviewed and updated past medical, surgical, family, social history, medications and allergies. There were no vitals taken for this visit. Return for 03/28/25 at 10 am. Bridgette Sanabria RN [facility] 03-07-2025 History of Present illness Narrative Post-op visit Mer Allen is a 79 year old female who underwent Hysterectomy on 03/06/2025 for uterovaginal prolapse, urinary incontinence. Her immediate post-op course was uncomplicated and she was discharged home from [facility] on post-op day #0 Symptoms since surgery: Fever/chills: No. Patient experiencing sweating, this RN advised to periodically take her temperature and report if she has a reading at 100.4 or greater. Vaginal bleeding: No. Pain: Yes: Patient had extreme pain last night, chest pain and abdominal pain- likely attributed to gas pain from anesthesia, they called the hospital, she was advised to take oxycodone and she says she feels better. Patient reminded to rotate ibuprofen and tylenol every four hours for the first 72 hours to stay on top of the pain. Bladder complaints: No. Bowel complaints: No. Other issues: No. Operative findings: none noted as of this call- patient noted that Dr. Bautista found a tumor the size of an egg. Pathology: In process Reviewed and updated past medical, surgical, family, social history, medications and allergies. There were no vitals taken for this visit. Return for 03/28/25 at 10 am. Bridgette Sanabria RN documented in this encounter [facility] 03-06-2025 Note HNO ID: [id number] Author: STEPHANIE LLOYD RN Service: Nursing Author Type: Registered Nurse Type: Nursing Progress Note Filed: 03/06/2025 19:39 Note Text: After vomiting on the way to the restroom. Patient said she felt better and was ready to go home. [facility] 03-06-2025 Note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 blood-thinning medication, ask your surgeon when to resume taking it. If you are on oral hormone replacement (estrogen or progesterone), ask your surgeon if you need to stop this medication prior to surgery. Patients with diabetes Do not take morning diabetes medication (pills) on the morning of surgery If you are on insulin, ask your doctor about how to take your insulin on the morning of surgery. If your surgery is delayed, notify the nurse or check-in desk that you have diabetes. If you use inhalers for breathing, use them as needed prior to surgery and bring them to the hospital. For all other medications, you will receive individualized instructions on which medication(s) you should take on the morning of surgery. Oral medications should be taken a couple sips of water. Your doctor may order you medications to take in the preoperative area of the hospital on the day of surgery. These medications are used to improve pain control after surgery, and include: Acetaminophen (Tylenol) Gabapentin (Neurontin) Celecoxib (Celebrex) GENERAL Do not wear jewelry, body piercing(s), makeup, nail slovak, hairpins, or contacts on the day of surgery. Leave valuables and money at home or with family members. If you have Obstructive Sleep Apnea and use a CPAP/BiPAP machine, bring your mask, tubing, and machine with you on the day of surgery. If you are going home on the day of surgery, a responsible person must drive you home. It is suggested that someone stay with you for 24 hours. A substance abuse therapist or cabdriver is NOT a responsible caregiver. INFECTION PREVENTION Please notify your doctor if you have any signs of an infection (i.e. fever, severe cough, nasal congestion, pain with urination, abnormal vaginal discharge, etc). No shaving (abdominal or pubic hair) or douching the day before surgery. Hand washing is extremely important in preventing infection (for both you as the patient and for the caregivers). If you received a pre-surgery Chlorhexidine Soap Wash: Use the night before or the morning of your surgery. 1. Shampoo your hair and take a shower using your usual soap and shampoo. Rinse the shampoo and soap from your hair and body. 2. Turn off the water. Pour the chlorhexidine liquid onto your hands and apply it to your body. -- Do not use a washcloth to apply the liquid to your body. The antiseptic in chlorhexidine sticks to washcloth fibers. Chlorhexidine may cause discoloration of towels and washcloths. 3. Wash your entire body from your neck down to your feet. Do not use the wash near your eyes or ears. Wash thoroughly, paying special attention to your abdomen and belly button. 4. Turn the water on and rinse your entire body. 5. Do not use regular soap, conditioner, oils, lotions, powders, deodorants, or sprays when you are done. This will decrease the effectiveness of the chlorhexidine. 6. When you are done, pat yourself dry with a clean, soft towel. 7. Put on clean clothes or sleepwear. HOSPITALIZATION Before you leave the hospital, you typically need to be able to eat/drink, urinate, and have your pain controlled with oral medication. Your surgeon or other members of your surgeon s team will discuss any other specific medical issues related to your discharge with you. Your surgeon may order intermittent compression sleeves. These are massaging leg pumps to help prevent blood clots after surgery. It is also very important that you walk as soon as possible and as frequently as possible after surgery. This will help decrease your risk of blood clots, exercise your lungs and speed up your recovery after surgery. If you are admitted to the hospital overnight, you will be given an incentive spirometer, which is a breathing machine that will help make sure that you are taking deep breaths and expanding your lungs while in the hospital. [facility] TEAM At the [facility], we have a multidisciplinary team of caregivers that includes fellows, residents, nurse practitioners (roving machine operator), physician assistants (PAs), clinical nurse specialists (CNSs), nurses, medical assistants (MAs), patient care nursing assistants (PCNAs), social workers, case therapist and many others. We all have different roles and responsibilities but we all are here to help you. If you spend the night in the hospital, a physician from your care team will see you the day after your surgery. At times, scheduling does not permit your surgeon to see you in the hospital the day after surgery. If this occurs, another physician on the urogynecology care team will see you in the hospital. THE DAY BEFORE SURGERY If you are having surgery at [facility]: On the day before your surgery, you must call [phone] to find out your surgery arrival time. If you are having surgery at a [place] [facility] ([facility] [place], [facility]): You will receive a call the day before surgery to give you your surgery arrival time. THE DAY OF SURGERY/CHECK IN Surgery Location Parking Check-in Location [facility] [address] [place] [address] garage or production controller parking available DESK J1-1 A map is located in Your Surgical Guide Book. The online version of the surgical guide book can be found at: [email or web address] [facility] [address] [place], [place] Parking garage connected to hospital or production controller Registration desk, first floor, [facility] [address] [place], [place] Parking lot in front of building [address] (elevator to lower level) [facility] [address] [place], [place] Parking garage next to hospital or production controller Atrium, W1 Surgical Waiting Desk [facility] [address] [place], [place] Parking garage across from main entrance. Main entrance [facility] [place] [address], [place] Park in the back of the hospital, go to Entrance A. Take elevators to 1st floor and enter into the Surgery Department UROGYNECOLOGY POSTOP INSTRUCTIONS ACTIVITY Your surgical recovery will be unique to you and how you heal. In the first few days after surgery, you will probably feel sluggish. As you recover, you will gradually return to normal activities. It is important to push yourself to return to normal activities as you feel fit. Listen to your body in terms of increasing your activity level as you recover. You may walk and climb stairs right after surgery. Walking and stair climbing will not hurt your surgical repair. You may resume activities like lifting/running/high impact aerobic activities/sit-up as soon as you feel strong enough. Please do not do any bike or horseback riding for 2 weeks if you have had a midurethral sling. Do not put anything in the vagina for 6 weeks after surgery unless otherwise instructed by your doctor (including tampons, douching, sexual intercourse, etc). No driving while you are taking narcotic pain medication, or until you feel that you are ready and can safely slam the brakes if needed. Avoid sitting or lying in bed for more than 2 hours at a time while you are awake to reduce your risk of blood clots. You may return to work when directed by your physician. Please contact your doctor if you need any return to work letters or medical leave paperwork to be completed. PAIN MANAGEMENT After you go home, you should take the prescribed acetaminophen (Tylenol) and ibuprofen (Motrin) as directed. We recommend rotating the timing of these medications so that you are taking one of these medications every 3 to [address], you can help prevent pain. After the first 72 hours, you can take these medications as needed. These should be the first medications you use for pain. Applying ice packs to your incisions (abdominal or vulvar/perineal) for 20 minutes as often as needed may also help. Some pain medications can cause constipation so you should take a stool softener (i.e. Colace) or laxative (i.e. Miralax) while you are on these medications (see the following section on constipation). You may have been prescribed an opioid medication, also known as a narcotic pill. This is usually oxycodone. You may be familiar with the medication Percocet, which is a combination of oxycodone and acetaminophen. These opiate medications have side effects like nausea or vomiting, constipation, and sleepiness. You should only take them if your pain is not controlled by ibuprofen and/or acetaminophen. It is important to keep this stronger pain medication safely stored, as it is at great risk of being stolen or misused by family, friends, or even strangers. Please be sure to dispose of leftover pain medication after you have recovered. You may dispose of unused narcotic medications in the trash with an unpleasant substance such as coffee grounds or cat litter. You can also check FDA.gov to assess which medications can be safely flushed down the toilet. There are locations to dispose of unused medications at three [facility] locations: [facility] pharmacy, [facility] pharmacy, and the Pharmacy at the [facility] for [facility] (inside the parking garage on the first floor). CONSTIPATION You may not have a bowel movement for 3-5 days after surgery. This is normal. To help prevent constipation after your surgery, you may receive prescriptions to take including the following: Colace (docusate sodium) 100 mg (1 capsule) two times a day Miralax (polyethylene glycol) 17 g (1 measured capful or 1 packet) once a day. If you have not had a bowel movement 3 days after surgery, you may take the Miralax two times a day. If you have any discomfort because of the need to have a bowel movement, you may add milk of magnesia or magnesium citrate (available at your local pharmacy without a prescription) at any time. Do not take milk of magnesia or magnesium citrate if you have kidney failure. If you have loose or watery stools, stop taking the medications and call your doctor s office. OTHER MEDICATIONS If you were prescribed vaginal estrogen, you should resume it in 7-10 days after surgery unless you were instructed otherwise. Please check your discharge instructions about when to resume other medications. WOUND CARE If you have sheryl (abdominal incision), they need to be removed about 10-14 days after surgery. There will be dissolvable stitches under your skin that do not need to be removed. If you have band aids, steri strips, (paper tape) or a small gauze covered by tegarderm (clear tape) over your small abdominal incisions, these may be removed when you shower the day after surgery. Keep any incision clean, dry, and open to the air. Shower daily after surgery. No tub baths until wound is completely healed. If you have any abdominal incisions, wash them daily with a mild antibacterial soap and water. Pat your incision dry with a clean towel. Wash your hands frequently, especially before touching your incision, changing any dressings, after using the restroom, and before eating. CA CATHETER CARE You may go home with a Ca catheter in your bladder. You will need to follow up for a nurse visit within 3-10 days for removal. You will be called by the office to get this appointment if it is not listed below. General Principles on Catheter Care: Always wash your hands with soap and water before handling your catheter tubing or bag. It is important to empty your catheter bag before it gets too full. Keep the catheter tubing free of kinks and Ca bag below the level of your bladder. Keep your genital region and catheter tubing clean. Instructions on Catheter Plug Use: A catheter plug is used to occlude the end of the catheter so that it can be disconnected from the drainage bag during the day. You may be sent home with catheter plugs. Your postop nurse will give you instructions on how to use the plug before going home. The Ca catheter must be disconnected from its drainage tubing and bag. The plug can then be inserted into the open end of the catheter. The plug should fit snugly. While the plug is in place, your bladder will fill with urine. You must empty your bladder by removing the plug and draining the catheter over the toilet at least every 3 to 4 hours, or sooner if you feel an urge to urinate. After you have drained the catheter, replace the plug. The catheter should be reconnected to the drainage bag at night so that your bladder can continuously drain while you are sleeping. The plug can be washed every night before bedtime with soap and water. Store it in a clean plastic Ziploc bag when it is not in use. You can continue daytime catheter plugging until your scheduled voiding trial. WHAT TO EXPECT AT HOME Recovery from surgery is generally 4 weeks, but sometimes longer for more strenuous activity. It is normal to be very tired during this time. It is normal to have some drainage or a small amount of vaginal bleeding after surgery which may last up to 6 weeks. It is normal to have some bruising around the vaginal opening or on the buttocks if you had a vaginal surgery or around your incisions if you had an abdominal or laparoscopic surgery. If you had a laparoscopic surgery, you may experience gas pain, abdominal swelling, or shoulder pain for 24-72 hours after surgery. A warm shower, heating pad, and/or walking may help. WHEN TO CALL YOUR DOCTOR: If you cannot urinate for 3-5 hours or are only able to urinate small amounts. Fever (>100.4 F or 38.0 C) or chills. Incision problems such as redness, warmth, swelling, or foul-smelling drainage. Severe nausea or persistent vomiting. Bright red vaginal bleeding (soaking >1 pad/hour) Foul smelling vaginal drainage (note that some vaginal discharge is normal) Severe pain not relieved with pain medication. Pain and swelling in your legs, especially if it is only on one side and not the other. Pain with urination, cloudy urine, or foul-smelling urine. Or if you have any other problems or questions. CALL 911 OR GO TO THE EMERGENCY ROOM IF YOU HAVE: shortness of breath, difficulty breathing, or chest pain. UROGYNECOLOGY PHYSICIAN CONTACT INFORMATION During business hours, these numbers connect to your doctor s office. During the evening and weekends, these numbers will connect you to the answering service to speak with the doctor sleeping car conductor. Dr. Jacob Dr. [place] Dr. E[address] Dr. Campos Dr. Sandoval Dr. Gilliam Dr. Bautista Dr. Bundy Mariel Avila, HEMATOLOGY NURSE Madeline Restrepo, HEMATOLOGY NURSE Yessi Leach, HEMATOLOGY NURSE Luisa Barros, HEMATOLOGY NURSE Donna Singh, HEMATOLOGY NURSE Please DO NOT use [employer] for post-surgery concerns. documented in this encounter [facility] 02-01-2025 Note HNO ID: [id number] Author: JOANNE BAUTISTA MD Service: ? Author Type: Physician Type: Procedures Filed: 02/03/2025 08:37 Note Text: URODYNAMICS ID Verified by: Evelyn Barrios RN Did you watch the urodynamics video and or read the handout sent to you via [employer]? No, neither. See below. If you did not watch the video or read the PDF, what are your reasons? Other. Dr. Bautista discussed with the patient. URODYNAMIC PROCEDURE NOTE B/O UA: WNL HR CONSULTANT: Negative UROFLOWMETRY Voided vol: 305 mL Flow time: 1 min Q max: 21 mL/sec Q av mL/sec PVR: 20 mL CYSTOMETROGRAM Subtracted:Yes Video: No EMG: Yes First desire: 328 mL Strong desire: 386 mL Max. capacity: 428 mL Maximum filling detrusor pressure 3 cm of water Instability associated with urge: No Instability associated with leakage: No Leaks urine with valsalva /coughs: No Lowest Leak point pressure: N/A cm of water at N/A ml Was patient assessed for VLPP: Yes Was UPP done: No PRESSURE-FLOW VOIDING STUDY Voided: 486 mL Max Voiding Detrusor Pressure (Peak Pressure) -10cm H2O P det Q max (Max Flow) (Pressure at peak): -28 cm H2O Maximum Flow Rate: 19 mL/sec Average Flow Rate: 7 mL/sec Vaginal Packing for prolapse support: yes. Prolapse reduced with 3 swabs during the procedure. 32 swabs removed at the end of the procedure. Comments: Patient tolerated procedure well. Results sent to Dr. Bautista. Please use Urodynamic Graph. Luisa Barros NP was present for the procedure. ASSESSMENT: Filling and Storage: Bladder sensation is normal without bladder pain, without urgency and with normal detrusor function. Bladder capacity is normal. There is normal urethral closure and no evidence of urodynamic stress incontinence. Voiding: Overall voiding function is normal. Urine flow is continuous with a smooth flow curve. Detrusor function during voiding is normal consistent with a normal postvoid residual. Electromyography: Provocative maneuvers produced appropriate changes in waveforms. The EMG shows increased EMG activity with increased intraabdominal pressure. There was a decrease in the EMG activity during voiding consistent with normal function of the pelvic floor. Joanne Bautista MD [facility] 02-01-2025 Procedure note URODYNAMICS ID Verified by: Evelyn Barrios RN Did you watch the urodynamics video and or read the handout sent to you via [employer]? No, neither. See below. If you did not watch the video or read the PDF, what are your reasons? Other. Dr. Bautista discussed with the patient. URODYNAMIC PROCEDURE NOTE B/O UA: WNL HR CONSULTANT: Negative UROFLOWMETRY Voided vol: 305 mL Flow time: 1 min Q max: 21 mL/sec Q av mL/sec PVR: 20 mL CYSTOMETROGRAM Subtracted:Yes Video: No EMG: Yes First desire: 328 mL Strong desire: 386 mL Max. capacity: 428 mL Maximum filling detrusor pressure 3 cm of water Instability associated with urge: No Instability associated with leakage: No Leaks urine with valsalva /coughs: No Lowest Leak point pressure: N/A cm of water at N/A ml Was patient assessed for VLPP: Yes Was UPP done: No PRESSURE-FLOW VOIDING STUDY Voided: 486 mL Max Voiding Detrusor Pressure (Peak Pressure) -10cm H2O P det Q max (Max Flow) (Pressure at peak): -28 cm H2O Maximum Flow Rate: 19 mL/sec Average Flow Rate: 7 mL/sec Vaginal Packing for prolapse support: yes. Prolapse reduced with 3 swabs during the procedure. 32 swabs removed at the end of the procedure. Comments: Patient tolerated procedure well. Results sent to Dr. Bautista. Please use Urodynamic Graph. Luisa Barros NP was present for the procedure. ASSESSMENT: Filling and Storage: Bladder sensation is normal without bladder pain, without urgency and with normal detrusor function. Bladder capacity is normal. There is normal urethral closure and no evidence of urodynamic stress incontinence. Voiding: Overall voiding function is normal. Urine flow is continuous with a smooth flow curve. Detrusor function during voiding is normal consistent with a normal postvoid residual. Electromyography: Provocative maneuvers produced appropriate changes in waveforms. The EMG shows increased EMG activity with increased intraabdominal pressure. There was a decrease in the EMG activity during voiding consistent with normal function of the pelvic floor. Joanne Bautista MD [facility] 02-01-2025 Procedure note URODYNAMICS ID Verified by: Evelyn Barrios RN Did you watch the urodynamics video and or read the handout sent to you via [employer]? No, neither. See below. If you did not watch the video or read the PDF, what are your reasons? Other. Dr. Bautista discussed with the patient. URODYNAMIC PROCEDURE NOTE B/O UA: WNL HR CONSULTANT: Negative UROFLOWMETRY Voided vol: 305 mL Flow time: 1 min Q max: 21 mL/sec Q av mL/sec PVR: 20 mL CYSTOMETROGRAM Subtracted:Yes Video: No EMG: Yes First desire: 328 mL Strong desire: 386 mL Max. capacity: 428 mL Maximum filling detrusor pressure 3 cm of water Instability associated with urge: No Instability associated with leakage: No Leaks urine with valsalva /coughs: No Lowest Leak point pressure: N/A cm of water at N/A ml Was patient assessed for VLPP: Yes Was UPP done: No PRESSURE-FLOW VOIDING STUDY Voided: 486 mL Max Voiding Detrusor Pressure (Peak Pressure) -10cm H2O P det Q max (Max Flow) (Pressure at peak): -28 cm H2O Maximum Flow Rate: 19 mL/sec Average Flow Rate: 7 mL/sec Vaginal Packing for prolapse support: yes. Prolapse reduced with 3 swabs during the procedure. 32 swabs removed at the end of the procedure. Comments: Patient tolerated procedure well. Results sent to Dr. Bautista. Please use Urodynamic Graph. Luisa Barros NP was present for the procedure. ASSESSMENT: Filling and Storage: Bladder sensation is normal without bladder pain, without urgency and with normal detrusor function. Bladder capacity is normal. There is normal urethral closure and no evidence of urodynamic stress incontinence. Voiding: Overall voiding function is normal. Urine flow is continuous with a smooth flow curve. Detrusor function during voiding is normal consistent with a normal postvoid residual. Electromyography: Provocative maneuvers produced appropriate changes in waveforms. The EMG shows increased EMG activity with increased intraabdominal pressure. There was a decrease in the EMG activity during voiding consistent with normal function of the pelvic floor. Joanne Bautista MD documented in this encounter [facility] 01-24-2025 Telephone encounter Note Spoke with pt & confirmed 4 surgery date at [facility], scheduled pre/post op appts and informed pt teaching/post op tele appts do not appear on wedgiest [facility] 01-24-2025 Miscellaneous Notes Spoke with pt & confirmed 4/7 surgery date at [facility], scheduled pre/post op appts and informed pt teaching/post op tele appts do not appear on wedgiest documented in this encounter [facility] 01-23-2025 Instructions Joanne Bautista MD - 01/23/2025 9:06 AM EST Images from the original note were not included. URODYNAMICS What is Urodynamics? Urodynamics refers to a series of diagnostic tests that evaluate the function of the bladder and urethra. These tests may be recommended if you have urinary incontinence (leakage of urine), recurrent bladder infections, slow or weak urinary stream, incomplete bladder emptying or frequent urination. The tests provide important information to accurately diagnose and treat your bladder problems appropriately. What happens during Urodynamics? A catheter (soft, hollow tube) or special sensor will be carefully placed in your urethra and sometimes your rectum to perform the study. Your provider will decide which of the following tests need to be performed to help diagnose and treat your condition. Uroflowmetry: Measure the speed and amount of urine you void. You should come to the test feeling as though you need to urinate. Try not to empty your bladder one hour before your test. You will be asked to urinate into a commode with a funnel attached to a computer that measures your urine flow. Cystometrogram Study: Evaluates how your bladder holds urine, measures your bladder capacity and also determines how well you can control your bladder. Your bladder is filled with fluid using a catheter. In order to reproduce bladder symptoms, you should report any sensations you feel during the study. In addition, you may be asked to cough, bear down, stand or walk in place during the test. At the end of the study, you will be asked to urinate. Pressure Flow Study: This study determines if there is an obstruction. After your bladder is filled using a catheter, you will be asked to urinate as you normally would. The study simultaneously records the bladder pressure and the urine flow rate. Procedure Preparation: Please arrive with a comfortably full bladder. You may eat or drink anything prior to the study. Take your medication as normally scheduled, unless otherwise directed. The test typically takes about 45 minutes to an hour and a half to complete and is generally painless, so anesthesia is not necessary. You will be ablet o resume all previous activities, including driving, at the completion of the study. IF YOU FEEL YOU HAVE A URINARY TRACT INFECTION, PLEASE CALL OUR OFFICE AT LEAST 24 HOURS BEFORE YOUR APPOINTMENT SO AN ANTIBIOTIC CAN BE STARTED PRIOR TO YOUR TESTING. UROGYNECOLOGY POSTOP INSTRUCTIONS ACTIVITY Your surgical recovery will be unique to you and how you heal. In the first few days after surgery, you will probably feel sluggish. As you recover, you will gradually return to normal activities. It is important to push yourself to return to normal activities as you feel fit. Listen to your body in terms of increasing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 chronic illnesses with change Risk: Low: Low risk from testing/treatment Medical Decision Making Level: 3 - Low documented in this encounter [facility] 09-28-2024 Telephone encounter Note Patient notified, states naproxen has helped but when she sits can fell pressure. Patient will call and schedule follow up if needed. [facility] 09-28-2024 Miscellaneous Notes Patient notified, states naproxen has helped but when she sits can fell pressure. Patient will call and schedule follow up if needed. Please let patient know that her xray is back and overall stable, no significant issues seen. See if she started the naproxen and how her pain is currently doing. Thanks. documented in this encounter [facility] 09-28-2024 Telephone encounter Note Please let patient know that her xray is back and overall stable, no significant issues seen. See if she started the naproxen and how her pain is currently doing. Thanks. [facility] 09-27-2024 Telephone encounter Note Phoned patient and given provider's message below with verbalized understanding. Patient agreeable to try the naproxen. Patient will let provider know if it helps. [facility] 09-27-2024 Miscellaneous Notes Phoned patient and given provider's message below with verbalized understanding. Patient agreeable to try the naproxen. Patient will let provider know if it helps. Let her know the I would like to start with short term naproxen, twice daily for 2 weeks, take this with food. This is the more mild option of the two and I would like to see if it helps give her some pain relief. Script sent. Pt called and is notified of providers message and questions. Pt voices understanding. She states she doesn't take pain medication and would worry about the naproxen 500 mg twice daily or a prednisone taper interacting with her medications she already takes. I let her know that they would help with inflammation, which in turn helps with pain. Pt was asking if Joanna could tell her if they would interact with her medications and which you would recommend. Pt states she told the geoscience technician that the pain is in the R hip into the R leg and the R leg crease. She states the pain also goes into the R abdomen not quite over to the belly button and up to where you button and zip you pants at, slightly above belly button but below ribs. Pt states the pain is worse when she is sitting, and she has to sit on her L hip and prop the other leg up. Pt states when she is sitting the pain is a 9-10/10 pain, in her abdomen it is a pressure and in her hip and leg it is aching (like a bad bruise being pushed on). Pt reports the pain is better when she is up moving about a 5/10. Angelica Camilo Dye Stand Loader was e-mailed about this x-ray and she states, Just as a reminder we inform patients it will take 3-5 business days for routine exams. I will reach out to a Radiologist today regarding this patient.. Letitia Montanez RN Please let her know that xrays are taking a while to get readings back, if having persistent pain in the hip please see if she would like to try medications such as anti-inflammatories to help. We could do naproxen 500 mg twice daily or a prednisone taper. Can we check on this? Patient concern her 09-21-24 XR hip is still in process. documented in this encounter [facility] 09-27-2024 Telephone encounter Note Let her know the I would like to start with short term naproxen, twice daily for 2 weeks, take this with food. This is the more mild option of the two and I would like to see if it helps give her some pain relief. Script sent. [facility] 09-27-2024 Telephone encounter Note Pt called and is notified of providers message and questions. Pt voices understanding. She states she doesn't take pain medication and would worry about the naproxen 500 mg twice daily or a prednisone taper interacting with her medications she already takes. I let her know that they would help with inflammation, which in turn helps with pain. Pt was asking if Joanna could tell her if they would interact with her medications and which you would recommend. Pt states she told the geoscience technician that the pain is in the R hip into the R leg and the R leg crease. She states the pain also goes into the R abdomen not quite over to the belly button and up to where you button and zip you pants at, slightly above belly button but below ribs. Pt states the pain is worse when she is sitting, and she has to sit on her L hip and prop the other leg up. Pt states when she is sitting the pain is a 9-10/10 pain, in her abdomen it is a pressure and in her hip and leg it is aching (like a bad bruise being pushed on). Pt reports the pain is better when she is up moving about a 5/10. Angelicaamandeep Robertsanda Dye Stand Loader was e-mailed about this x-ray and she states, Just as a reminder we inform patients it will take 3-5 business days for routine exams. I will reach out to a Radiologist today regarding this patient.. Letitia Montanez RN [facility] 09-27-2024 Telephone encounter Note Please let her know that xrays are taking a while to get readings back, if having persistent pain in the hip please see if she would like to try medications such as anti-inflammatories to help. We could do naproxen 500 mg twice daily or a prednisone taper. [facility] 09-26-2024 Telephone encounter Note Can we check on this? [facility] 09-26-2024 Telephone encounter Note Patient concern her 09-21-24 XR hip is still in process. [facility] 09-23-2024 Telephone encounter Note Pt called in asking for x-ray results. I let her know results were still in progress. [facility] 09-23-2024 Miscellaneous Notes Pt called in asking for x-ray results. I let her know results were still in progress. documented in this encounter [facility] 09-21-2024 History of Present illness Narrative Radiology Service Progress Note PATIENT NAME: Mer Allen DATE OF SERVICE: September 21, 2024 TIME: 12:11 PM PATIENT IDENTITY VERIFICATION COMPLETED USING TWO (2) IDENTIFIERS: Name and Date of confirmed by patient verbally. FALL SCREENING: Has the patient had 2 falls in the last year or 1 fall with injury or currently using an Ambulatory Assistive Device (Walker, Cane, Wheelchair, Crutches, etc.)? No PATIENT GENDER DATA: Female. status: : No status: NO. PATIENT RELEVANT IMPLANT DATA REVIEWED: Yes PATIENT PRESENTS WITH AN IMPLANTABLE OR ATTACHED ASSEMBLER ARRANGER: No RADIOLOGY DEPARTMENT: General X-ray: Exam(s) Completed: Pelvis X-Ray: Pelvis with Hip Right PERIPHERAL IV DATA: Not applicable SIGNED BY: TESHA Ramos) September 21, 2024 12:11 PM documented in this encounter [facility] 09-21-2024 Note HNO ID: [id number] Author: SIS BEEBE RT(R) Service: ? Author Type: Hotel Valet Attendant Type: Progress Notes Filed: 09/21/2024 12:26 Note Text: Radiology Service Progress Note PATIENT NAME: Mer Allen DATE OF SERVICE: September 21, 2024 TIME: 12:11 PM PATIENT IDENTITY VERIFICATION COMPLETED USING TWO (2) IDENTIFIERS: Name and Date of confirmed by patient verbally. FALL SCREENING: Has the patient had 2 falls in the last year or 1 fall with injury or currently using an Ambulatory Assistive Device (Walker, Cane, Wheelchair, Crutches, etc.)? No PATIENT GENDER DATA: Female. status: : No status: NO. PATIENT RELEVANT IMPLANT DATA REVIEWED: Yes PATIENT PRESENTS WITH AN IMPLANTABLE OR ATTACHED ASSEMBLER ARRANGER: No RADIOLOGY DEPARTMENT: General X-ray: Exam(s) Completed: Pelvis X-Ray: Pelvis with Hip Right PERIPHERAL IV DATA: Not applicable SIGNED BY: RT Rachel(R) September 21, 2024 12:11 PM [facility] 09-21-2024 Note HNO ID: [id number] Author: JOANNA ORTIZ APRN.JOSE D Service: ? Author Type: Nurse Practitioner Type: Progress Notes Filed: 09/21/2024 12:21 Note Text: SUBJECTIVE Mer Allen is a 79 year old female here today for acute concern. Chief Complaint Patient presents with: Pain: right mid foot that radiates up into groin and around to back of hip HPI Mer Allen is a 79 year old female. She is an established patient of Chip Wiley MD. Here today for acute concerns. Pain started on the inside of the right foot, goes up the leg and around the hip to the back. Standing gives some relief. Tried taking aspirin and tylenol but not overly helpful. Onset was a few weeks ago. Gradually getting more bothersome. She did have a fall when out doing yard work. Went to ER after this. Not having new issues with constipation or diarrhea and no nausea. Pain seems to be mostly centered to the anterior right hip. Her medications were reviewed today and her list is now up to date. Medications Current Outpatient Medications Medication Sig citalopram (CELEXA) 20 mg tablet Take 1 tablet by mouth once daily. losartan (COZAAR) 100 mg tablet Take 1 tablet by mouth once daily. metoprolol succinate ER (TOPROL XL) 50 mg 24 hr tablet Take 1 tablet by mouth once daily. spironolactone (ALDACTONE) 25 mg tablet Take 1 tablet by mouth once daily. For BP LORazepam (ATIVAN) 1 mg tablet Take 0.5-1 tablets by mouth three times a day as needed for anxiety for up to 90 days. MV-MN/IRON FUM/FA/OMEGA3,6,9#3 (WOMEN'S MULTI ORAL) Take by mouth. CALCIUM CITRATE/VITAMIN D3 (CALCIUM CITRATE + ORAL) Take by mouth. No current facility-administered medications for this visit. ALLERGIES Allergen Reactions Poison Yaz Hives, Intolerance, Itching Amlodipine Swelling Caused severe leg swelling Erythromycin Base rash, gi upset Fluorescein Gadolinium-Containi* Hctz [Hydrochloroth* Rash Rash (took after tried on amlodipine) Iv Contrast Dye [Co* Hives Sulfa (Sulfonamide * rash, gi upset Tetracycline severe diarrhea Tramadol hives, pablo, sweats,, rash ACTIVE PROBLEM LIST Cerebellar Hemangioma (Hcc) - 02/04/2021 Comment: Reviewed prior evaluation by Dr. Hernandez Was stable, Last appointment 2013--to follow up just prn. Monitor for symptoms. Further eval as indicated Occipital Neuralgia - 03/23/2014 Vitamin D Deficiency - 02/28/2013 Htn (Hypertension) - 02/07/2013 Comment: 02/07/2013: Home BP Cuff Validated. 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 Also her smoked for 12 years when they were first . Vaping Use Vaping status: Never Used Substance Use Topics Alcohol use: No Drug use: No Review of Systems Respiratory: Negative. Cardiovascular: Negative. Musculoskeletal: Positive for arthralgias. OBJECTIVE BP 158/72 Pulse 60 Wt 133 lb 2.5 oz (60.4kg) SpO2 97% Physical Exam Vitals and nursing note reviewed. Constitutional: General: She is awake. She is not in acute distress. Appearance: Normal appearance. She is well-developed and well-groomed. She is not ill-appearing, toxic-appearing or diaphoretic. HENT: Head: Normocephalic. Right Ear: External ear normal. Left Ear: External ear normal. Nose: Nose normal. Eyes: General: Vision grossly intact. Conjunctiva/sclera: Conjunctivae normal. Pupils: Pupils are equal, round, and reactive to light. Neck: Vascular: No JVD. Trachea: Trachea normal. Cardiovascular: Pulses: Normal pulses. Pulmonary: Effort: Pulmonary effort is normal. No accessory muscle usage, prolonged expiration or respiratory distress. Musculoskeletal: Cervical back: Neck supple. Right hip: Tenderness present. No deformity, lacerations or crepitus. Decreased range of motion. Normal strength. Legs: Comments: Tender over the right anterior hip with hip inversion Skin: General: Skin is warm and dry. Capillary Refill: Capillary refill takes less than 2 seconds. Neurological: General: No focal deficit present. Mental Status: She is alert and oriented to person, place, and time. Mental status is at baseline. Psychiatric: Attention and Perception: Attention and perception normal. Mood and Affect: Mood and affect normal. Speech: Speech normal. Behavior: Behavior normal. Behavior is cooperative. Thought Content: Thought content normal. Cognition and Memory: Cognition and memory normal. Judgment: Judgment normal. ASSESSMENT/PLAN: 1. Right hip pain - ICD9: 719.45, ICD10: M25.551 Check xray, suspect OA but given her recent fall we will (more content not included)... [facility] 09-21-2024 History of Present illness Narrative Images from the original note were not included. SUBJECTIVE Mer Allen is a 79 year old female here today for acute concern. Chief Complaint Patient presents with: Pain: right mid foot that radiates up into groin and around to back of hip HPI Mer Allen is a 79 year old female. She is an established patient of Chip Wiley MD. Here today for acute concerns. Pain started on the inside of the right foot, goes up the leg and around the hip to the back. Standing gives some relief. Tried taking aspirin and tylenol but not overly helpful. Onset was a few weeks ago. Gradually getting more bothersome. She did have a fall when out doing yard work. Went to ER after this. Not having new issues with constipation or diarrhea and no nausea. Pain seems to be mostly centered to the anterior right hip. Her medications were reviewed today and her list is now up to date. Medications Current Outpatient Medications Medication Sig citalopram (CELEXA) 20 mg tablet Take 1 tablet by mouth once daily. losartan (COZAAR) 100 mg tablet Take 1 tablet by mouth once daily. metoprolol succinate ER (TOPROL XL) 50 mg 24 hr tablet Take 1 tablet by mouth once daily. spironolactone (ALDACTONE) 25 mg tablet Take 1 tablet by mouth once daily. For BP LORazepam (ATIVAN) 1 mg tablet Take 0.5-1 tablets by mouth three times a day as needed for anxiety for up to 90 days. MV-MN/IRON FUM/FA/OMEGA3,6,9#3 (WOMEN'S MULTI ORAL) Take by mouth. CALCIUM CITRATE/VITAMIN D3 (CALCIUM CITRATE + ORAL) Take by mouth. No current facility-administered medications for this visit. ALLERGIES Allergen Reactions Poison Yaz Hives, Intolerance, Itching Amlodipine Swelling Caused severe leg swelling Erythromycin Base rash, gi upset Fluorescein Gadolinium-Containi* Hctz [Hydrochloroth* Rash Rash (took after tried on amlodipine) Iv Contrast Dye [Co* Hives Sulfa (Sulfonamide * rash, gi upset Tetracycline severe diarrhea Tramadol hives, pablo, sweats,, rash ACTIVE PROBLEM LIST Cerebellar Hemangioma (Hcc) - 02/04/2021 Comment: Reviewed prior evaluation by Dr. Hernandez Was stable, Last appointment 2013--to follow up just prn. Monitor for symptoms. Further eval as indicated Occipital Neuralgia - 03/23/2014 Vitamin D Deficiency - 02/28/2013 Htn (Hypertension) - 02/07/2013 Comment: 02/07/2013: Home BP Cuff Validated. 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 Also her smoked for 12 years when they were first . Vaping Use Vaping status: Never Used Substance Use Topics Alcohol use: No Drug use: No Review of Systems Respiratory: Negative. Cardiovascular: Negative. Musculoskeletal: Positive for arthralgias. OBJECTIVE BP 158/72 Pulse 60 Wt 133 lb 2.5 oz (60.4kg) SpO2 97% Physical Exam Vitals and nursing note reviewed. Constitutional: General: She is awake. She is not in acute distress. Appearance: Normal appearance. She is well-developed and well-groomed. She is not ill-appearing, toxic-appearing or diaphoretic. HENT: Head: Normocephalic. Right Ear: External ear normal. Left Ear: External ear normal. Nose: Nose normal. Eyes: General: Vision grossly intact. Conjunctiva/sclera: Conjunctivae normal. Pupils: Pupils are equal, round, and reactive to light. Neck: Vascular: No JVD. Trachea: Trachea normal. Cardiovascular: Pulses: Normal pulses. Pulmonary: Effort: Pulmonary effort is normal. No accessory muscle usage, prolonged expiration or respiratory distress. Musculoskeletal: Cervical back: Neck supple. Right hip: Tenderness present. No deformity, lacerations or crepitus. Decreased range of motion. Normal strength. Legs: Comments: Tender over the right anterior hip with hip inversion Skin: General: Skin is warm and dry. Capillary Refill: Capillary refill takes less than 2 seconds. Neurological: General: No focal deficit present. Mental Status: She is alert and oriented to person, place, and time. Mental status is at baseline. Psychiatric: Attention and Perception: Attention and perception normal. Mood and Affect: Mood and affect normal. Speech: Speech normal. Behavior: Behavior normal. Behavior is cooperative. Thought Content: Thought content normal. Cognition and Memory: Cognition and memory normal. Judgment: Judgment normal. ASSESSMENT/PLAN: 1. Right hip pain - ICD9: 719.45, ICD10: M25.551 Check xray, suspect OA but given her recent fall we will confirm this and ensure no other apparent issues. - XR HIP GENERAL 3V PELV/AP/LAT RIGHT Portions of this note have been entered by ancillary staff. I have reviewed and when necessary edited, so that they are an adequate record of my encounter with this patient Please note that parts of this document were created using voice recognition software and therefore may contain grammatical errors. Patient verbalizes understanding of instructions from today's visit and in agreement with treatment plan. Questions answered. Agrees to call the office if questions, concerns of issues with acute symptoms not improving or if they worsen. See diagnoses and orders for additional plan(s). Allergies and medications were reviewed, list was updated, and refills given if needed. Past medical, surgical, social, and family history reviewed and updated as appropriate. Encouraged proper diet & exercise as well as compliance with taking medications. Age-appropriate health preventative measures were discussed. Return if symptoms worsen or fail to improve, for Keep next scheduled appointment.. DEBBIE Heard documented in this encounter [facility] 09-20-2024 Telephone encounter Note Pt called in to get an apt scheduled. Pt reports having pain from inner right foot up to groin area and then up to abdomen area. This has been going on for 2 weeks. Pt reports she had a fall 2 months ago where she was out mowing and fell into a trench. Pt reports was bruised and had a little trouble walking but never got evaluated from this. Pt scheduled for an apt 09/22/24 with provider/team. I noticed there was an apt for 09-21-24 @ 11:40 am. Left a message for pt to call back if she is interested in this and check to see if still open. India Castillo LPN [facility] 09-20-2024 Miscellaneous Notes Pt called in to get an apt scheduled. Pt reports having pain from inner right foot up to groin area and then up to abdomen area. This has been going on for 2 weeks. Pt reports she had a fall 2 months ago where she was out mowing and fell into a trench. Pt reports was bruised and had a little trouble walking but never got evaluated from this. Pt scheduled for an apt 09/22/24 with provider/team. I noticed there was an apt for 09-21-24 @ 11:40 am. Left a message for pt to call back if she is interested in this and check to see if still open. India Castillo LPN documented in this encounter [facility] 07-14-2024 Telephone encounter Note Patient notified of results, verbalized understanding of instructions given. Shital Hilton MA [facility] 07-14-2024 Miscellaneous Notes Patient notified of results, verbalized understanding of instructions given. Shital Hilton MA ----- Message from Tesha Johnson APRN.CNP sent at 07/14/2024 10:09 AM EDT ----- Please advise patient: Urine culture did not show clear evidence of infection. She may continue to take antibiotic if it has been helpful. Recommend follow up with PCP to ensure hematuria has resolved. Tesha Johnson CNP documented in this encounter [facility] 07-14-2024 Telephone encounter Note ----- Message from Tesha Johnson APRN.CNP sent at 07/14/2024 10:09 AM EDT ----- Please advise patient: Urine culture did not show clear evidence of infection. She may continue to take antibiotic if it has been helpful. Recommend follow up with PCP to ensure hematuria has resolved. Tesha Johnson CNP [facility] 07-13-2024 Telephone encounter Note Patient calling with request for lab result from 07/12/24 [facility] visit. Urine culture still in process, advised patient [facility] will call with final results. Patient denies any new or worsening symptoms of which a provider is not aware: Yes. Advised GO TO THE EMERGENCY ROOM OR CALL 911 IF:* You develop any new symptoms* Your condition worsens* You are concerned or anxious about your condition for any other reason. [facility] 07-13-2024 Miscellaneous Notes Patient calling with request for lab result from 07/12/24 [facility] visit. Urine culture still in process, advised patient [facility] will call with final results. Patient denies any new or worsening symptoms of which a provider is not aware: Yes. Advised GO TO THE EMERGENCY ROOM OR CALL 911 IF:* You develop any new symptoms* Your condition worsens* You are concerned or anxious about your condition for any other reason. documented in this encounter [facility] 07-12-2024 Note HNO ID: [id number] Author: REJI TUBBS APRN.HEMATOLOGY NURSE Service: ? Author Type: Nurse Practitioner Type: Progress Notes Filed: 07/12/2024 18:36 Note Text: This note was created using [email or web address]. Subjective Mer Allen is a 79 year old female. HPI Pt has had urinary burning, frequency, and urgency for the last three hours. Review of Systems Constitutional: Negative for fatigue and fever. Gastrointestinal: Positive for nausea. Negative for vomiting. Genitourinary: Positive for dysuria, frequency and urgency. Objective BP 122/72 Pulse 64 Temp 36.9 ?C (98.5 ?F) Resp 16 Wt 61.7 kg (136 lb 0.4 oz) SpO2 97% BMI 26.02 kg/m? Physical Exam Vitals and nursing note reviewed. Constitutional: General: She is not in acute distress. Appearance: Normal appearance. She is not ill-appearing. HENT: Head: Normocephalic. Mouth/Throat: Mouth: Mucous membranes are moist. Eyes: Conjunctiva/sclera: Conjunctivae normal. Cardiovascular: Rate and Rhythm: Normal rate and regular rhythm. Pulmonary: Effort: Pulmonary effort is normal. Breath sounds: Normal breath sounds. Musculoskeletal: General: Normal range of motion. Cervical back: Normal range of motion. Skin: General: Skin is warm and dry. Neurological: General: No focal deficit present. Mental Status: She is alert. Psychiatric: Mood and Affect: Mood normal. Behavior: Behavior normal. Assessment and Plan ASSESSMENT/PLAN: 1. Burning with urination - ICD9: 788.1, ICD10: R30.0 acute - UA positive for varsha esterase and hematuria - Send urine for culture. Informed patient that she will be notified tomorrow of results. Informed her that if the culture was negative and she still had ongoing symptoms she could complete the antibiotics but she would need to then follow-up with PCP for further evaluation. - Begin treatment with Macrobid 100 mg BID for 5 days - Patient education for prevention given - UA DIP, URINE (POC) - URINE CULTURE - NITROFURANTOIN MONOHYDRATE AND MACROCRYSTAL 100 MG ORAL CAP Reji Tubbs APRN.CNP [facility] 07-12-2024 History of Present illness Narrative This note was created using [email or web address]. Subjective Mer Allen is a 79 year old female. HPI Pt has had urinary burning, frequency, and urgency for the last three hours. Review of Systems Constitutional: Negative for fatigue and fever. Gastrointestinal: Positive for nausea. Negative for vomiting. Genitourinary: Positive for dysuria, frequency and urgency. Objective BP 122/72 Pulse 64 Temp 36.9 C (98.5 F) Resp 16 Wt 61.7 kg (136 lb 0.4 oz) SpO2 97% BMI 26.02 kg/m Physical Exam Vitals and nursing note reviewed. Constitutional: General: She is not in acute distress. Appearance: Normal appearance. She is not ill-appearing. HENT: Head: Normocephalic. Mouth/Throat: Mouth: Mucous membranes are moist. Eyes: Conjunctiva/sclera: Conjunctivae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 1.3 mg/dL 0.4 Alkaline Phosphatase 34 - 123 U/L 81 AST 13 - 35 U/L 24 Glucose 74 - 99 mg/dL 93 93 BUN 7 - 21 mg/dL 16 16 Creatinine 0.58 - 0.96 mg/dL 0.92 0.90 Sodium 136 - 144 mmol/L 140 140 Potassium 3.7 - 5.1 mmol/L 4.1 4.2 Chloride 97 - 105 mmol/L 105 104 CO2 22 - 30 mmol/L 27 25 Anion Gap 9 - 18 mmol/L 8 (L) 11 ALT 7 - 38 U/L 12 eGFR- >60 >60 eGFR-All Other Races . 59 >60 WBC 3.70 - 11.00 k/uL 5.15 RBC 3.90 - 5.20 m/uL 4.00 Hemoglobin 11.5 - 15.5 g/dL 13.0 Hematocrit 36.0 - 46.0 % 39.6 MCV 80.0 - 100.0 fL 99.0 MCH 26.0 - 34.0 pG 32.5 MCHC 30.5 - 36.0 g/dL 32.8 RDW-CV 11.5 - 15.0 % 11.6 Platelet Count 150 - 400 k/uL 221 MPV 9.0 - 12.7 fL 10.9 Absolute nRBC <0.01 k/uL <0.01 Cholesterol, Total <200 mg/dL 192 Triglyceride <150 mg/dL 76 HDL Cholesterol >39 mg/dL 50 LDL Cholesterol <100 mg/dL 127 (H) Non HDL Cholesterol <130 mg/dL 142 (H) Fasting Time hrs 12 VLDL Cholesterol <30 mg/dL 15 TC:HDL Ratio <5.10 3.84 LDL:HDL Ratio <2.54 2.54 (H) Total Cholesterol, Nonfasting <200 mg/dL 231 (H) Triglycerides, Nonfasting <150 mg/dL 92 HDL Cholesterol, Nonfasting >39 mg/dL 53 LDL Cholesterol, Nonfasting <100 mg/dL 160 (H) Non HDL Cholesterol, Nonfasting <130 mg/dL 178 (H) VLDL Cholesterol, Nonfasting <30 mg/dL 18 Total Chol/HDL Ratio, Nonfasting <5.10 mg/dL 4.36 LDL/HDL Ratio, Nonfasting <2.54 mg/dL 3.02 (H) Hemoglobin A1C 4.3 - 5.6 % 5.8 (H) 5.8 (H) Estimated Average Glucose mg/dL 120 120 Vitamin D 25 Hydroxy 31.0 - 80.0 ng/mL 25.7 (L) 33.4 Assessment and Plan ASSESSMENT/PLAN: 1. Leg swelling - ICD9: 729.81, ICD10: M79.89 (primary diagnosis) - ECHO - PERFLUTREN LIPID MICROSPHERES 1.1 MG/ML INJECTION IN NS 10 ML - SODIUM CHLORIDE 0.9 % (FLUSH) INJECTION SYRINGE - CONSULT TO CARDIOLOGY - CBC + DIFF - COMP METABOLIC PANEL - NT PRO BNP 2. Tachycardia, unspecified - ICD9: 785.0, ICD10: R00.0 - ECHO - PERFLUTREN LIPID MICROSPHERES 1.1 MG/ML INJECTION IN NS 10 ML - SODIUM CHLORIDE 0.9 % (FLUSH) INJECTION SYRINGE - CONSULT TO CARDIOLOGY - CBC + DIFF - COMP METABOLIC PANEL - NT PRO BNP 3. Primary hypertension - ICD9: 401.9, ICD10: I10 Suboptimal control. We will add spironolactone. Recheck blood pressure in 1 to 4 weeks. - ECHO - PERFLUTREN LIPID MICROSPHERES 1.1 MG/ML INJECTION IN NS 10 ML - SODIUM CHLORIDE 0.9 % (FLUSH) INJECTION SYRINGE - CONSULT TO CARDIOLOGY - CBC + DIFF - COMP METABOLIC PANEL - NT PRO BNP 4. Encounter for immunization - ICD9: V03.89, ICD10: Z23 - PNEUMOCOCCAL VACCINE (PREVNAR 20) - [employer] COVID-19 VACCINE, AGE 12+ YR (SERRATO TOP) 5. Need for shingles vaccine - ICD9: V04.89, ICD10: Z23 Presents with report of intermittent leg swelling, occasionally elevated blood pressure at home, sensation of facial flushing and needing to sit down. Recommend follow-up echocardiogram and appointment with apprentice embalmer at her earliest convenience. We will add spironolactone 25 mg daily to her medications. Continue with DASH diet, avoid NSAIDs. 1-4 week follow up visit. Yaquelin Dickerson APRN.CNS Medical Decision Making: Problems: Moderate: New problem with uncertain prognosis and 1+ chronic illnesses with change Data: Unique test(s) ordered: 3+ Risk: Moderate: Drug management Medical Decision Making Level: 4 - Moderate documented in this encounter [facility] 05-26-2022 Miscellaneous Notes noted Patient calls and states that her ankle have been swelling. Patient is on her feet all day. Swelling went away for about 4-5 days and it came back yesterday. Patient scheduled appointment with Yaquelin for tomorrow morning. Trudy Lindsey RN documented in this encounter [facility] 07-29-2021 History of Present illness Narrative Radiology Service Progress Note PATIENT NAME: Mer Allen DATE OF SERVICE: July 29, 2021 TIME: 6:27 PM PATIENT IDENTITY VERIFICATION COMPLETED USING TWO (2) IDENTIFIERS: Name and Date of confirmed by patient verbally. FALL SCREENING: Has the patient had 2 falls in the last year or 1 fall with injury or currently using an Ambulatory Assistive Device (Walker, Cane, Wheelchair, Crutches, etc.)? No PATIENT GENDER DATA: Female. status: : No status: NO. PATIENT RELEVANT IMPLANT DATA REVIEWED: Yes RADIOLOGY DEPARTMENT: General X-ray: Exam(s) Completed: Upper Extremity X-Ray(s): Wrist, left and Hand, left PERIPHERAL IV DATA: Not applicable SIGNED BY: RT Kt(R) July 29, 2021 6:27 PM documented in this encounter [facility] 02-26-2021 History of Present illness Narrative Radiology Service Progress Note PATIENT NAME: Mer Allen DATE OF SERVICE: February 26, 2021 TIME: 10:22 AM PATIENT IDENTITY VERIFICATION COMPLETED USING TWO (2) IDENTIFIERS: Name and Date of confirmed by patient verbally. FALL SCREENING: Has the patient had 2 falls in the last year or 1 fall with injury or currently using an Ambulatory Assistive Device (Walker, Cane, Wheelchair, Crutches, etc.)? Yes, Patient High Risk for Falls What interventions were put in place to prevent falls during this visit? Increased Observations by Caregivers PATIENT GENDER DATA: Female. status: : No status: NO. PATIENT RELEVANT IMPLANT DATA REVIEWED: Not Applicable RADIOLOGY DEPARTMENT: General X-ray: Exam(s) Completed: Spine X-Ray(s): Sacrum/Coccyx PERIPHERAL IV DATA: Not applicable SIGNED BY: Christiano Perea February 26, 2021 10:22 AM documented in this encounter [facility] 04-24-2015 History of Past i llness Narrative Problem Noted Date Resolved Date Medicare annual wellness visit, initial 04/24/20 15 05/08/2018 Other and unspecified hyperlipidemia 02/28/2013 04/28/2018 Acute gastritis without mention of hemorrhage 05/08/2018 Routine physical examination 02/19/201012/2010 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 Disturbance of skin sensation 06/30/2003 documented as of this encounter (statuses as of 05/26/2022) [facility] History of Past illness Narrative* Problem Noted Date Resolved Date Medicare annual wellness visit, initial 04/24/20 15 05/08/2018 Other and unspecified hyperlipidemia 02/28/2013 04/28/2018 Acute gastritis without mention of hemorrhage 05/08/2018 Routine physical examination 02/19/201012/2010 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 Disturbance of skin sensation 06/30/2003 documented as of this encounter (statuses as of 05/27/2022) [facility] History of Past illness Narrative* Problem Noted Date Resolved Date Medicare annual wellness visit, initial 04/24/20 15 05/08/2018 Other and unspecified hyperlipidemia 02/28/2013 04/28/2018 Acute gastritis without mention of hemorrhage 05/08/2018 Routine physical examination 02/19/201012/2010 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 Disturbance of skin sensation 06/30/2003 documented as of this encounter (statuses as of 05/29/2022) [facility] of Past illness Narrative* Problem Noted Date Resolved Date Medicare annual wellness visit, initial 04/24/20 15 05/08/2018 Other and unspecified hyperlipidemia 02/28/2013 04/28/2018 Acute gastritis without mention of hemorrhage 05/08/2018 Routine physical examination 02/19/201012/2010 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 Disturbance of skin sensation 06/30/2003 documented as of this encounter (statuses as of 06/03/2022) [facility] of Past illness Narrative* Problem Noted Date Resolved Date Medicare annual wellness visit, initial 04/24/20 15 05/08/2018 Other and unspecified hyperlipidemia 02/28/2013 04/28/2018 Acute gastritis without mention of hemorrhage 05/08/2018 Routine physical examination 02/19/201012/2010 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 Disturbance of skin sensation 06/30/2003 documented as of this encounter (statuses as of 07/11/2022) [facility] of [facility] illness Narrative* Problem Noted Date Resolved Date Medicare annual wellness visit, initial 04/24/20 15 05/08/2018 Other and unspecified hyperlipidemia 02/28/2013 04/28/2018 Acute gastritis without mention of hemorrhage 05/08/2018 Routine physical examination 02/19/201012/2010 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 Disturbance of skin sensation 06/30/2003 documented as of this encounter (statuses as of 07/29/2022) [facility] of [facility] illness Narrative* Problem Noted Date Resolved Date Medicare annual wellness visit, initial 04/24/20 15 05/08/2018 Other and unspecified hyperlipidemia 02/28/2013 04/28/2018 Acute gastritis without mention of hemorrhage 05/08/2018 Routine physical examination 02/19/201012/2010 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 Disturbance of skin sensation 06/30/2003 documented as of this encounter (statuses as of 08/13/2022) [facility] of [facility] illness Narrative* Problem Noted Date Resolved Date Medicare annual wellness visit, initial 04/24/20 15 05/08/2018 Other and unspecified hyperlipidemia 02/28/2013 04/28/2018 Acute gastritis without mention of hemorrhage 05/08/2018 Routine physical examination 02/19/201012/2010 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 Disturbance of skin sensation 06/30/2003 documented as of this encounter (statuses as of 08/15/2022) [facility] Narrative* Problem Noted Date Resolved Date Medicare annual wellness visit, initial 04/24/20 15 05/08/2018 Other and unspecified hyperlipidemia 02/28/2013 04/28/2018 Acute gastritis without mention of hemorrhage 05/08/2018 Routine physical examination 02/19/201012/2010 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 Disturbance of skin sensation 06/30/2003 documented as of this encounter (statuses as of 08/20/2022) [facility] Narrative* Problem Noted Date Resolved Date Medicare annual wellness visit, initial 04/24/20 15 05/08/2018 Other and unspecified hyperlipidemia 02/28/2013 04/28/2018 Acute gastritis without mention of hemorrhage 05/08/2018 Routine physical examination 02/19/201012/2010 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 Disturbance of skin sensation 06/30/2003 documented as of this encounter (statuses as of 08/25/2022) [facility] Narrative* Problem Noted Date Resolved Date Medicare annual wellness visit, initial 04/24/20 15 05/08/2018 Other and unspecified hyperlipidemia 02/28/2013 04/28/2018 Acute gastritis without mention of hemorrhage 05/08/2018 Routine physical examination 02/19/201012/2010 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 Disturbance of skin sensation 06/30/2003 documented as of this encounter (statuses as of 09/25/2022) [facility] N[facility]ative* Problem Noted Date Resolved Date Medicare annual wellness visit, initial 04/24/20 15 05/08/2018 Other and unspecified hyperlipidemia 02/28/2013 04/28/2018 Acute gastritis without mention of hemorrhage 05/08/2018 Routine physical examination 02/19/201012/2010 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 Disturbance of skin sensation 06/30/2003 documented as of this encounter (statuses as of 10/02/2022) [facility] Narrative* Problem Noted Date Resolved Date Medicare annual wellness visit, initial 04/24/20 15 05/08/2018 Other and unspecified hyperlipidemia 02/28/2013 04/28/2018 Acute gastritis without mention of hemorrhage 05/08/2018 Routine physical examination 02/19/201012/2010 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 Disturbance of skin sensation 06/30/2003 documented as of this encounter (statuses as of 11/12/2022) [facility] Narrative* Problem Noted Date Resolved Date Medicare annual wellness visit, initial 04/24/20 15 05/08/2018 Other and unspecified hyperlipidemia 02/28/2013 04/28/2018 Acute gastritis without mention of hemorrhage 05/08/2018 Routine physical examination 02/19/201012/2010 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 Disturbance of skin sensation 06/30/2003 documented as of this encounter (statuses as of 11/24/2022) [facility] Narrative* Problem Noted Date Resolved Date Medicare annual wellness visit, initial 04/24/20 15 05/08/2018 Other and unspecified hyperlipidemia 02/28/2013 04/28/2018 Acute gastritis without mention of hemorrhage 05/08/2018 Routine physical examination 02/19/201012/2010 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 Disturbance of skin sensation 06/30/2003 documented as of this encounter (statuses as of 12/30/2022) [facility] Narrative* Problem Noted Date Resolved Date Medicare annual wellness visit, initial 04/24/20 15 05/08/2018 Other and unspecified hyperlipidemia 02/28/2013 04/28/2018 Acute gastritis without mention of hemorrhage 05/08/2018 Routine physical examination 02/19/201012/2010 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 Disturbance of skin sensation 06/30/2003 documented as of this encounter (statuses as of 01/27/2023) [facility]arrative* Problem Noted Date Resolved Date Medicare annual wellness visit, initial 04/24/20 15 05/08/2018 Other and unspecified hyperlipidemia 02/28/2013 04/28/2018 Acute gastritis without mention of hemorrhage 05/08/2018 Routine physical examination 02/19/201012/2010 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 Disturbance of skin sensation 06/30/2003 documented as of this encounter (statuses as of 02/02/2023) [facility]* Problem Noted Date Resolved Date Medicare annual wellness visit, initial 04/24/20 15 05/08/2018 Other and unspecified hyperlipidemia 02/28/2013 04/28/2018 Acute gastritis without mention of hemorrhage 05/08/2018 Routine physical examination 02/19/201012/2010 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 Disturbance of skin sensation 06/30/2003 documented as of this encounter (statuses as of 03/11/2023) [facility] N[facility]ative* Problem Noted Date Diagnosed Date Resolved Date Medicare annual wellness visit, initial 04/24/2015 05/08/2018 Other and unspecified hyperlipidemia 02/28/2013 04/28/2018 Acute gastritis without mention of hemorrhage 03/07/20 11 05/08/2018 Routine physical examination 02/19/2010 08/01/2011 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07/2018 Disturbance of skin sensation 06/30/2003 04/24/2015 documented as of this encounter (statuses as of 07/24/2023) [facility] Narrative* Problem Noted Date Diagnosed Date Resolved Date Medicare annual wellness visit, initial 04/24/2015 05/08/2018 Other and unspecified hyperlipidemia 02/28/2013 04/28/2018 Acute gastritis without mention of hemorrhage 03/07/20 11 05/08/2018 Routine physical examination 02/19/2010 08/01/2011 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07/2018 Tachycardia, unspecified 11/04/200508/2023 Disturbance of skin sensation 06/30/2003 04/24/2015 documented as of this encounter (statuses as of 09/08/2023) [facility] Narrative* Problem Noted Date Diagnosed Date Resolved Date Medicare annual wellness visit, initial 04/24/2015 05/08/2018 Other and unspecified hyperlipidemia 02/28/2013 04/28/2018 Acute gastritis without mention of hemorrhage 03/07/20 11 05/08/2018 Routine physical examination 02/19/2010 08/01/2011 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07/2018 Tachycardia, unspecified 11/04/200508/2023 Disturbance of skin sensation 06/30/2003 04/24/2015 documented as of this encounter (statuses as of 09/25/2023) [facility] Narrative* Problem Noted Date Diagnosed Date Resolved Date Medicare annual wellness visit, initial 04/24/2015 05/08/2018 Other and unspecified hyperlipidemia 02/28/2013 04/28/2018 Acute gastritis without mention of hemorrhage 03/07/2005/08/2018 Routine physical examination 02/19/2010 08/01/2011 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07/2018 Tachycardia, unspecified 11/04/200508/2023 Disturbance of skin sensation 06/30/2003 04/24/2015 documented as of this encounter (statuses as of 10/23/2023) [facility]05[facility] History of Past illness Narrative* Problem Noted Date Diagnosed Date Resolved Date Medicare annual wellness visit, initial 04/24/2015 05/08/2018 Other and unspecified hyperlipidemia 02/28/2013 04/28/2018 Acute gastritis without mention of hemorrhage 03/07/20 11 05/08/2018 Routine physical examination 02/19/2010 08/01/2011 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07/2018 Tachycardia, unspecified 11/04/200508/2023 Disturbance of skin sensation 06/30/2003 04/24/2015 documented as of this encounter (statuses as of 01/13/2024) [facility] History of Past illness Narrative* Problem Noted Date Diagnosed Date Resolved Date Medicare annual wellness visit, initial 04/24/2015 05/08/2018 Other and unspecified hyperlipidemia 02/28/2013 04/28/2018 Acute gastritis without mention of hemorrhage 03/07/20 11 05/08/2018 Routine physical examination 02/19/2010 08/01/2011 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07/2018 Tachycardia, unspecified 11/04/200508/2023 Disturbance of skin sensation 06/30/2003 04/24/2015 documented as of this encounter (statuses as of 01/15/2024) [facility] History of Past illness Narrative* Problem Noted Date Diagnosed Date Resolved Date Medicare annual wellness visit, initial 04/24/2015 05/08/2018 Other and unspecified hyperlipidemia 02/28/2013 04/28/2018 Acute gastritis without mention of hemorrhage 03/07/2005/08/2018 Routine physical examination 02/19/2010 08/01/2011 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07/2018 Tachycardia, unspecified 11/04/200508/2023 Disturbance of skin sensation 06/30/2003 04/24/2015 documented as of this encounter (statuses as of 02/20/2024) [facility] Diagnosis Leg swelling- Primary Swelling of limb Tachycardia, unspecified Primary hypertension Unspecified essential hypertension Encounter for immunization Need for other specified prophylactic vaccination against single bacterial disease Need for shingles vaccine Need for prophylactic vaccination and inoculation against other viral diseases [facility] Hypertension, essential Unspecified essential hypertension [facility] Diagnosis Primary hypertension- Primary Unspecified essential hypertension Vitamin D deficiency Unspecified vitamin D deficiency Leg swelling Swelling of limb Hypercholesterolemia Pure hypercholesterolemia Encounter for long-term current use of medication [facility] Diagnosis Burning with urination- Primary Dysuria [facility]* Diagnosis Dysuria- Primary [facility] Diagnosis Primary hypertension Unspecified essential hypertension [facility] Diagnosis Tachycardia, unspecified Primary hypertension Unspecified essential hypertension [facility] Diagnosis Yeast dermatitis- Primary Candidiasis of skin and nails Itching in the vaginal area Pruritus of genital organs Uterine prolapse Uterine prolapse without mention of vaginal wall prolapse Tachycardia, unspecified [facility] Diagnosis Yeast dermatitis Candidiasis of skin and nails [facility] Diagnosis Anxiety Anxiety state, unspecified [facility] Diagnosis Primary hypertension- Primary Unspecified essential hypertension Vitamin D deficiency Unspecified vitamin D deficiency Anxiety state Anxiety state, unspecified Skin lesions Family history of skin cancer Family history of other specified malignant neoplasm Lump on finger of both hands [facility] Diagnosis Elevated serum creatinine- Primary Other nonspecific findings on examination of blood Hyperlipidemia, unspecified hyperlipidemia type [facility]* Diagnosis Onset Date Resolution Status Essential hypertension chron ic Hyperlipidemia chronic Nonsustained paroxysmal supraventricular tachycardia [facility] Work Phone: Evaluation note* Diagnosis Urinary frequency- Primary [facility] Diagnosis Anxiety state Anxiety state, unspecified [facility]* Diagnosis Medicare annual wellness visit, subsequent- Primary Routine general medical examination at a health care facility Encounter for immunization Need for other specified prophylactic vaccination against single bacterial disease Hemangioma of intracranial structures (HCC) Hemangioma of intracranial structures Primary hypertension Unspecified essential hypertension [facility] Diagnosis Primary hypertension Unspecified essential hypertension Anxiety Anxiety state, unspecified Tachycardia, unspecified documented in this encounter [facility] note* Diagnosis Foot pain, right- Primary Pain in limb Closed fracture of phalanx of right fourth toe, initial encounter [facility] Diagnosis Primary hypertension- Primary Unspecified essential hypertension Hypercholesterolemia Pure hypercholesterolemia Vitamin D deficiency Unspecified vitamin D deficiency documented in this encounter [facility] noteNo assessment information availableWWadsworth-[facility] Work Phone: Evaluation note* Diagnosis Procedure not carried out- Primary Procedure not carried out for other reasons documented in this encounter [facility] note* Diagnosis Anxiety state Anxiety state, unspecified [facility]* Diagnosis Burning with urination- Primary Dysuria [facility] Diagnosis HTN (hypertension)- Primary Unspecified essential hypertension Vitamin D deficiency Unspecified vitamin D deficiency Other and unspecified hyperlipidemia Osteopenia Disorder of bone and cartilage, unspecified Medicare annual wellness visit, subsequent- Primary Routine general medical examination at a health care facility Anxiety Anxiety state, unspecified Primary hypertension Unspecified essential hypertension Tachycardia, unspecified Vitamin D deficiency Unspecified vitamin D deficiency Cerebellar hemangioma (HCC) Hemangioma of intracranial structures Screening for depression Encounter for long-term current use of medication Encounter for immunization Need for other specified prophylactic vaccination against single bacterial disease [facility] Diagnosis HTN (hypertension)- Primary Unspecified essential hypertension Vitamin D deficiency Unspecified vitamin D deficiency Other and unspecified hyperlipidemia Osteopenia Disorder of bone and cartilage, unspecified Lump on finger of both hands [facility]* Diagnosis HTN (hypertension)- Primary Unspecified essential hypertension Vitamin D deficiency Unspecified vitamin D deficiency Other and unspecified hyperlipidemia Osteopenia Disorder of bone and cartilage, unspecified Fall, initial encounter Pain of left hand Pain in limb Wrist pain, left Pain in joint, forearm [facility]* Diagnosis HTN (hypertension)- Primary Unspecified essential hypertension Vitamin D deficiency Unspecified vitamin D deficiency Other and unspecified hyperlipidemia Osteopenia Disorder of bone and cartilage, unspecified Fall, initial encounter Tailbone injury, initial encounter [facility] Diagnosis HTN (hypertension)- Primary Unspecified essential hypertension Vitamin D deficiency Unspecified vitamin D deficiency Other and unspecified hyperlipidemia Osteopenia Disorder of bone and cartilage, unspecified Right hip pain- Primary Pain in joint, pelvic region and thigh [facility]* Diagnosis HTN (hypertension)- Primary Unspecified essential hypertension Vitamin D deficiency Unspecified vitamin D deficiency Other and unspecified hyperlipidemia Osteopenia Disorder of bone and cartilage, unspecified Right hip pain Pain in joint, pelvic region and thigh [facility]* Diagnosis HTN (hypertension)- Primary Unspecified essential hypertension Vitamin D deficiency Unspecified vitamin D deficiency Other and unspecified hyperlipidemia Osteopenia Disorder of bone and cartilage, unspecified Right hip pain- Primary Pain in joint, pelvic region and thigh [facility] Diagnosis HTN (hypertension)- Primary Unspecified essential hypertension Vitamin D deficiency Unspecified vitamin D deficiency Other and unspecified hyperlipidemia Osteopenia Disorder of bone and cartilage, unspecified Complete uterine prolapse- Primary Uterine prolapse without mention of vaginal wall prolapse documented in this encounter [facility] note* Diagnosis HTN (hypertension)- Primary Unspecified essential hypertension Vitamin D deficiency Unspecified vitamin D deficiency Other and unspecified hyperlipidemia Osteopenia Disorder of bone and cartilage, unspecified Dysuria- Primary documented in this encounter [facility] note* Diagnosis HTN (hypertension)- Primary Unspecified essential hypertension Vitamin D deficiency Unspecified vitamin D deficiency Other and unspecified hyperlipidemia Osteopenia Disorder of bone and cartilage, unspecified Complete uterovaginal prolapse- Primary Uterovaginal prolapse, complete Lower abdominal pain Abdominal pain, other specified site documented in this encounter [facility] note* Diagnosis HTN (hypertension)- Primary Unspecified essential hypertension Vitamin D deficiency Unspecified vitamin D deficiency Other and unspecified hyperlipidemia Osteopenia Disorder of bone and cartilage, unspecified Lower abdominal pain Abdominal pain, other specified site documented in this encounter [facility] note* Diagnosis HTN (hypertension)- Primary Unspecified essential hypertension Vitamin D deficiency Unspecified vitamin D deficiency Other and unspecified hyperlipidemia Osteopenia Disorder of bone and cartilage, unspecified Urinary frequency- Primary documented in this encounter [facility] note* Diagnosis HTN (hypertension)- Primary Unspecified essential hypertension Vitamin D deficiency Unspecified vitamin D deficiency Other and unspecified hyperlipidemia Osteopenia Disorder of bone and cartilage, unspecified Uterovaginal prolapse, incomplete- Primary Urinary incontinence, unspecified type Uterovaginal prolapse, incomplete Urinary incontinence, unspecified type * Assessment & Plan Note - Joanne Bautista MD - 01/23/2025 9:25 AM ESTAssociated Problem(s): Uterovaginal prolapse, incomplete We discussed the patient's options which include expectant management, pelvic floor physical therapy, pessary or surgery. We discussed the patient's options which include expectant management, pelvic floor physical therapy, pessary or surgery. The risk associated with Anterior colporrhaphy is bladder perforation, postoperative voiding dysfunction, and ureteral obstruction. Also, there is a risk of recurrent anterior vaginal wall prolapse. Risk of posterior repair includes pain with intercourse and recurrent prolapse. We discussed the patient's options for treatment of stress urinary incontinence which include expectant management, pelvic floor physical therapy, pessary or surgery (i.e. midurethral sling or intraurethral bulking agent). We discussed the risks of midurethral sling which include bleeding, infection, damage to adjacent organs including but not limited to bowel and bladder, mesh erosion, persistant incontinence, recurrent incontinence, irritative voiding symptoms, urinary retention that might require temporary self-catheterization and possibly a return to the operating room for midline sling lysis. Finally, numbnesson the overlying skin may occur as well as a change in your urinary stream (i.e. slower). Plan TVH, bilateral salpingectomy, Colpocleisis, perineoplasty and cystoscopy (anterior colporrhaphy, posterior colporrhaphy and enterocele repair with vaginectomy) and possible midurethral sling. Wewill make a final plan once we have the results of her bladder testing. Orders: SURGICAL REQUEST - ELECTIVE (06/2020) URODYNAMICS WHI oxyCODONE IR (ROXICODONE) 5 mg immediate release tablet; Take 1 tablet by mouth every 6 hours as needed for pain (after surgery) for up to 3 days. For pain after surgery as needed. Best to use tylenol and ibuprofen first and then add oxycodone in as needed. ondansetron (ZOFRAN) 4 mg tablet; Take 1 tablet by mouth every 8 hours as needed for nausea/vomiting for up to 3 days. SURGICAL REQUEST - ELECTIVE (06/2020) * Assessment & Plan Note - Joanne Bautista MD - 01/23/2025 9:25 AM ESTAssociated Problem(s): Urinary incontinence We will make a final plan once we have the results of her bladder testing. We will need to do preoperative urodynamics to check for occult stress urinary incontinence. Orders: SURGICAL REQUEST - ELECTIVE (06/2020) [facility] Diagnosis HTN (hypertension)- Primary Unspecified essential hypertension Vitamin D deficiency Unspecified vitamin D deficiency Other and unspecified hyperlipidemia Osteopenia Disorder of bone and cartilage, unspecified Uterovaginal prolapse, incomplete- Primary Urinary incontinence, unspecified type Urinary incontinence, unspecified type- Primary Encounter for urine test Laboratory examination, unspecified Uterovaginal prolapse, incomplete Urinary incontinence, unspecified type documented in this encounter [facility] note* Diagnosis HTN (hypertension)- Primary Unspecified essential hypertension Vitamin D deficiency Unspecified vitamin D deficiency Other and unspecified hyperlipidemia Osteopenia Disorder of bone and cartilage, unspecified Uterovaginal prolapse, incomplete- Primary Urinary incontinence, unspecified type Encounter for education- Primary Counseling NOS Uterovaginal prolapse, incomplete Urinary incontinence, unspecified type documented in this encounter 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 Denies any recent CP, palpitations, syncope, or near syncopal episodes. Follows with cardiology yearly- Dr. Richardson * Assessment & Plan Note - Yessi Osorio APRN.CNP - 02/27/2025 11:38 AM EDT Associated Problem(s): Hyperlipidemia No medication. Diet and lifestyle modification. * Assessment & Plan Note - Yessi Osorio APRN.CNP - 02/27/2025 11:38 AM EDT Associated Problem(s): Cavernous hemangioma Has not been seen by Neurology since 2013. Denies any PABLO or visual changes. CT head 06/07/24: FINDINGS: BRAIN AND EXTRA-AXIAL SPACES: Unremarkable. No intra- or extra-axial hemorrhage. No evidence of acute infarct. No intracranial mass or mass effect. There is preservation of the vera/white matter interface. Posterior fossa structures are unremarkable. Ventricles are appropriate for age. No hydrocephalus. Basal cisterns are patent. BONES/JOINTS: Unremarkable. No discrete lytic or blastic abnormalities. SINUSES: Unremarkable as visualized. Clear. MASTOID AIR CELLS: Unremarkable. Clear. ORBITS: Visualized globes, extraocular muscles, optic nerves and retrobulbar fat appear unremarkable. CT/Brain/Head without Contrast IMPRESSION: Negative head/brain CT without intravenous contrast. * Assessment & Plan Note - Yessi Osorio APRN.CNP - 02/27/2025 11:30 AM EDT Associated Problem(s): Partial seizure disorder (HCC) Patient states that has had 2 occurrences in the past. 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 Was not on any medication. She reports the last seizure was over 20 years ago. * Assessment & Plan Note - Yessi Osorio APRN.CNP - 02/22/2025 11:57 AM EDT Associated Problem(s): HTN (hypertension) Losartan- Instructed to hold morning of surgery. Metoprolol- Instructed to take morning of surgery. Spironolactone- Instructed to hold morning of surgery. BP slightly elevated in PAT. Denies H/A, CP, vision changes. Will monitor and discuss with PCP. * Assessment & Plan Note - Yessi Osorio APRN.CNP - 02/22/2025 11:56 AM EDT Associated Problem(s): Urinary incontinence Surgery scheduled 03/06/25. * Assessment & Plan Note - Yessi Osorio APRN.CNP - 02/22/2025 11:55 AM EDT Associated Problem(s): Uterovaginal prolapse, incomplete Surgery scheduled 03/06/25. * Assessment & Plan Note - Yessi Osorio APRN.CNP - 02/22/2025 11:54 AM EDT Associated Problem(s): Pre-op examination see note for medical conditions which may affect elvi-operative course that were addressed at today's visit. 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 Plan TVH, bilateral salpingectomy, Colpocleisis, perineoplasty and cystoscopy (anterior colporrhaphy, posterior colporrhaphy and enterocele repair with vaginectomy). No anti-incontinence procedure needed based on urodynamics. I answered all her questions and gave her reassurance. 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 Follow-up with your PCP, if symptoms worsen return to [facility] Work Phone: Reason for referral (narrative)* Diagnostic Procedure Only (Routine) - Closed Specialty Diagnoses / Procedures Referred By Contac t Referred To Contact XR IMAGING Diagnoses Lump on finger of both hands Procedures XR HAND GENERAL 3V PA/LAT/OBL BILATERAL RADEX HAND MINIMUM 3 VIEWS Yaquelin Dickerson APRN.FINANCE BROKER [address] [place] [address] [place] [address] Referral ID Status Reason Start Date Expiration Date V isits Requested Visits Authorized [id number] Closed Auto-Generate d Referral 01/27/2023 02/26/2024 1 1 [facility] for referral (narrative)* Diagnostic Procedure Only (Urgent) - Closed Specialty Diagnoses / Procedures Referred By Contac t Referred To Contact XR IMAGING Diagnoses Fall, initial encounter Wrist pain, left Procedures XR WRIST GENERAL 3V PA/LAT/OBL LT X-RAY WRIST COMPLET MIN 3 VIEWS Julia Long APRN.HEMATOLOGY NURSE [address] [place] [address] [place] [address] Referral ID Status Reason Start Date Expiration Date V isits Requested Visits Authorized Closed Auto-Generate d Referral 07/29/2021 11/29/2021 1 1 * Diagnostic Procedure Only (Urgent) - Closed Specialty Diagnoses / Procedures Referred By Contac t Referred To Contact XR IMAGING Diagnoses Fall, initial encounter Pain of left hand Procedures XR HAND GENERAL 3V PA/LAT/OBL LT X-RAY HAND MINIMUM 3 VIEWS Julia Long APRN.CNP [address] [place] [address] [place] [address] Referral ID Status Reason Start Date Expiration Date V isits Requested Visits Authorized Closed Auto-Generate d Referral 07/29/2021 11/29/2021 1 1 [facility] for referral (narrative)* Diagnostic Procedure Only (Routine) - Closed Specialty Diagnoses / Procedures Referred By Contac t Referred To Contact XR IMAGING Diagnoses Right hip pain Procedures XR HIP GENERAL 3V PELV/AP/LAT RIGHT RADEX HIP UNILATERAL WITH PELVIS 2-3 VIEWS Joanna Ortiz APRN.HEMATOLOGY NURSE [address] [place] [address] [place] [address] Referral ID Status Reason Start Date Expiration Date V isits Requested Visits Authorized [id number] Closed Auto-Generate d Referral 09/21/2024 10/21/2025 1 1 [facility] for referral (narrative)* Diagnostic Procedure Only (Routine) - New Request Specialty Diagnoses / Procedures Referred By Contac t Referred To Contact US IMAGING Diagnoses Lower abdominal pain Procedures US FEMALE PELVIS TRANSVAG US TRANSVAGINAL Madleine Restrepo APRN.HEMATOLOGY NURSE [address] [place] [address] [place] [address] Referral ID Status Reason Start Date Expiration Date Visits Requested Visits Authorized [id number] New Request Auto-Generat ed Referral 12/27/2024 01/26/2026 1 1 [facility] for visit Narrative* Diagnostic Procedure Only (Urgent) - Closed Specialty Diagnoses / Procedures Referred By Contac t Referred To Contact XR IMAGING Diagnoses Foot pain, right Procedures XR FOOT GENERAL 3V AP/LAT/OBL RIGHT RADEX FOOT COMPLETE MINIMUM 3 VIEWS Jil Hope APRN.HEMATOLOGY NURSE [address] [place] [address] [place] [address] Referral ID Status Reason Start Date Expiration Date V isits Requested Visits Authorized [id number] Closed Auto-Generate d Referral 10/23/2023 11/21/2024 1 1 [facility] for visit Narrative* Diagnostic Procedure Only (Routine) - Closed Specialty Diagnoses / Procedures Referred By Contac t Referred To Contact XR IMAGING Diagnoses Lump on finger of both hands Procedures XR HAND GENERAL 3V PA/LAT/OBL BILATERAL RADEX HAND MINIMUM 3 VIEWS Yaquelin Dickerson, AIR TWIST OPERATOR.FINANCE BROKER [address] [place] [address] [place] [address] Referral ID Status Reason Start Date Expiration Date V isits Requested Visits Authorized [id number] Closed Auto-Generate d Referral 01/27/2023 02/26/2024 1 1 [facility] for visit Narrative* Diagnostic Procedure Only (Urgent) - Closed Specialty Diagnoses / Procedures Referred By Contac t Referred To Contact XR IMAGING Diagnoses Fall, initial encounter Wrist pain, left Procedures XR WRIST GENERAL 3V PA/LAT/OBL LT X-RAY WRIST COMPLET MIN 3 VIEWS Julia Long, AIR TWIST OPERATOR.HEMATOLOGY NURSE [address] [place] [id number] [place] [address] Referral ID Status Reason Start Date Expiration Date V isits Requested Visits Authorized [id number] Closed Auto-Generate d Referral 07/29/2021 11/29/2021 1 1 [facility] for visit Narrative* Diagnostic Procedure Only (Routine) - Closed Specialty Diagnoses / Procedures Referred By Contac t Referred To Contact XR IMAGING Diagnoses Right hip pain Procedures XR HIP GENERAL 3V PELV/AP/LAT RIGHT RADEX HIP UNILATERAL WITH PELVIS 2-3 VIEWS Joanna Ortiz, AIR TWIST OPERATOR.HEMATOLOGY NURSE [address] [place] [address] [place] [address] Referral ID Status Reason Start Date Expiration Date V isits Requested Visits Authorized [id number] Closed Auto-Generate d Referral 09/21/2024 10/21/2025 1 1 [facility] for visit Narrative* MRI/CT (Routine) - Closed Specialty Diagnoses / Procedures Referred By Contac t Referred To Contact CT IMAGING Diagnoses Granulosa cell tumor Procedures CT ABD/PEL W IVCON CT ABD & PELVIS W/CONTRAST Joanne Bautista MD [address] [place] [address] Phone: tel: fax: [place] [address] Referral ID Status Reason Start Date Expiration Date V isits Requested Visits Authorized [id number] Closed Auto-Generate d Referral 03/17/2025 04/16/2026 [facility] Auth/Cert (Routine) Specialty Diagnoses / Procedures Referred By Kathryn sharp Referred To Contact Diagnoses 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] Procedures LAPAROSCOPY W/RMVL ADNEXAL STRUCTURES PELVIC EXAMINATION W/ANESTHESIA OTHER THAN LOCAL L'SCOPE W/BIOPSY SINGLE/MULTIPLE OMNTC EPIPLOECTOMY RESCJ OMENTUM SPX UNLISTED LAPAROSCOPIC PX ABD PERTONEUM & OMENTUM LAPAROSCOPY WITH OOPHORECTOMY AND SALPINGECTOMY EXAM UNDER ANESTHESIA PELVIC / VAGINAL LAPAROSCOPY OF PERITONEAL CAVITY W/ BIOPSY LAPAROSCOPIC OMENTECTOMY [place] SURGERY OR [address] [place] [address] Referral ID Status Reason Start Date Expiration Date Visits Re quested Visits Authorized [id number] 1 1 [facility] Summary Purpose Family History Relationship Condition Age at Onset Recorded Date/T jessica sister Coronary artery disease Unknown Disorder of thyroid Unknown Diabetes mellitus Unknown mother Hypertension Unknown father Cardiac disease Unknown Myocardial infarction Unknown Hypertension Unknown Malignant neoplasm Unknown Pulmonary emphysema Unknown brother Diabetes mellitus Unknown Paranoid schizophrenia Unknown Migraine headache Unknown grandmother Diabetes mellitus Unknown grandfather Malignant neoplasm Unknown grandmother Leukemia Unknown Advance Directives Documents on File Type Date Recorded 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 Advance Directive(s) 07/02/2016 9:22 AM Advance Directive(s) 06/19/2016 2:46 PM Documents on File Type Date Recorded 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 Advance Directive(s) 07/02/2016 9:22 AM Advance Directive(s) 06/19/2016 2:46 PM Advance Directive Response Recorded Date/ Time Living Will No June 12, 2019 10:29pm Power of Child Welfare Worker No June 12 9 10:29pm Advance Directive Response Recorded Date/ Time Living Will No February 20, 2024 1:27pm Power of Child Welfare Worker No February 19 1:27pm Reason for Referral Specialty Diagnoses / Procedures Referred By Kathryn sharp Referred To Contact Cardiology Diagnoses Leg swelling Tachycardia, unspecified Primary hypertension Procedures CONSULT TO CARDIOLOGY OFFICE/OUTPATIENT NEW HIGH MDM 60-74 MINUTES Yaquelin Dickerson, AIR TWIST OPERATOR.FINANCE BROKER [address] [place] [address] Referral ID Status Reason Start Date Expiration Date Visits Requested Visits Authorized [id number] Pending Review PCP Requested Referral 05/27/2022 05/27/2023 1 1 Specialty Diagnoses / Procedures Referred By Contac t Referred To [facility] Diagnoses Leg swelling Tachycardia, unspecified Primary hypertension Procedures ECHO ECHO TTHRC R-T 2D W/WOM-MODE COMPL SPEC&COLR D Yaquelin Dickerson, AIR TWIST OPERATOR.FINANCE BROKER [address] [place] [address] [facility] [address] [place] [address] Referral ID Status Reason Start Date Expiration Date Visits Requested Visits Authorized [id number] Pending Review Auto-Generat ed Referral 05/27/2022 05/27/2023 1 1 Specialty Diagnoses / Procedures Referred By Contac t Referred To Contact Orthopedics Diagnoses Lump on finger of both hands Procedures CONSULT TO ORTHOPAEDICS OFFICE/OUTPATIENT [facility] MDM 60-74 MINUTES Yaquelin Dickerson, AIR TWIST OPERATOR.FINANCE BROKER [address] [place] [id number] Referral ID Status Reason Start Date Expiration Date Visits Requested Visits Authorized [id number] Authorized PCP Requested Referral 01/27/2023 01/27/2024 1 1 Specialty Diagnoses / Procedures Referred By Contac t Referred To Contact XR IMAGING Diagnoses Lump on finger of both hands Procedures XR HAND GENERAL 3V PA/LAT/OBL BILATERAL RADEX HAND MINIMUM 3 VIEWS Yaquelin Dickerson, AIR TWIST OPERATOR.FINANCE BROKER [address] [place] [address] Xr Imaging Referral ID Status Reason Start Date Expiration Date V isits Requested Visits Authorized [id number] Closed Auto-Generate d Referral 01/27/2023 02/26/2024 1 1 Specialty Diagnoses / Procedures Referred By Contac t Referred To Contact Dermatology Diagnoses Skin lesions Family history of skin cancer Procedures CONSULT TO DERMATOLOGY Yaquelin Dickerson, AIR TWIST OPERATOR.FINANCE BROKER [address] [place] [address] Referral ID Status Reason Start Date Expiration Date Visits Requested Visits Authorized [id number] Ref Not Required PCP Requested Referral 01/27/2023 01/27/2024 1 1 Specialty Diagnoses / Procedures Referred By Contac t Referred To Contact Podiatry Diagnoses Closed fracture of phalanx of right fourth toe, initial encounter Procedures CONSULT TO PODIATRY OFFICE/OUTPATIENT [facility] 60-74 MINUTES Jil Hope, AIR TWIST OPERATOR.HEMATOLOGY NURSE [address] [place] [phone] Referral ID Status Reason Start Date Expiration Date Visits Requested Visits Authorized [id number] Pending Review PCP Requested Referral 10/22/2024 1 1 Specialty Diagnoses / Procedures Referred By Contac t Referred To Contact XR IMAGING Diagnoses Foot pain, right Procedures XR FOOT GENERAL 3V AP/LAT/OBL RIGHT RADEX FOOT COMPLETE MINIMUM 3 VIEWS Jil Hope, AIR TWIST OPERATOR.HEMATOLOGY NURSE [address] [place] [phone] [place] [address] Referral ID Status Reason Start Date Expiration Date V isits Requested Visits Authorized [id number] Closed Auto-Generate d Referral 10/23/2023 11/21/2024 1 1 Specialty Diagnoses / Procedures Referred By Contac t Referred To Contact Diagnoses Anxiety state Chip Wiley MD [address] [place] [address] Referral ID Status Reason Start Date Expiration Date V isits Requested Visits Authorized [id number] Pending Review 1 1 Specialty Diagnoses / Procedures Referred By Contac t Referred To Contact Diagnoses Complete uterine prolapse Procedures CONSULT TO FEMALE UROLOGY/URO GYNECOLOGY OFFICE/OUTPATIENT [facility] 60 MINUTES Kaleigh Pham, AIR TWIST OPERATOR.HEMATOLOGY NURSE [address] [place] [address] Referral ID Status Reason Start Date Expiration Date Visits Requested Visits Authorized [id number] Authorized PCP Requested Referral 11/01/2024 11/01/2025 1 1 Chief Complaint and Reason for Visit Chief Complaint 6 M FU HTN, SVT Reason for Visit Essential hypertensi on Hyperlipidemia Nonsustained paroxysmal supraventricular tachycardia Chief Complaint DIZZINESS Additional Source Comments INFORMATION SOURCE (unrecogn ized section and content) DATE CREATED AUTHOR 03/09/2021 [facility] DATE CREATED AUTHOR AUTHOR'S ORGANIZ ATION 04/08/2025 [facility] DATE CREATED AUTHOR AUTHOR'S ORGANIZ ATION 04/08/2025 [facility] DATE CREATED AUTHOR AUTHOR'S ORGANIZ ATION 05/03/2025 [facility] Source Comments (unrecognize d section and content) In the event this informatio n is protected by the Federal Confidentiality of Alcohol and Drug Abuse Patient Records regulations: The Federal rules restrict any use of the information to criminally investigate or prosecute any alcohol or drug abuse patient.[facility] the event this information is protected by the Federal Confidentiality of Alcohol and Drug Abuse Patient Records regulations: The Federal rules restrict any use of the information to criminally investigate or prosecute any alcohol or drug abuse patient.[facility] CenterIn the event this information is protected by the Federal Confidentiality of Alcohol and Drug Abuse Patient Records regulations: The Federal rules restrict any use of the information to criminally investigate or prosecute any alcohol or drug abuse patient.[facility] Center[facility] the event this information is protected by the Federal Confidentiality of Alcohol and Drug Abuse Patient Records regulations: The Federal rules restrict any use of the information to criminally investigate or prosecute any alcohol or drug abuse patient.[facility] the event this information is protected by the Federal Confidentiality of Alcohol and Drug Abuse Patient Records regulations: The Federal rules restrict any use of the information to criminally investigate or prosecute any alcohol or drug abuse patient.[facility] CenterIn the event this information is protected by the Federal Confidentiality of Alcohol and Drug Abuse Patient Records regulations: The Federal rules restrict any use of the information to criminally investigate or prosecute any alcohol or drug abuse patient.[facility] CenterIn the event this information is protected by the Federal Confidentiality of Alcohol and Drug Abuse Patient Records regulations: The Federal rules restrict any use of the information to criminally investigate or prosecute any alcohol or drug abuse patient.[facility] the event this information is protected by the Federal Confidentiality of Alcohol and Drug Abuse Patient Records regulations: The Federal rules restrict any use of the information to criminally investigate or prosecute any alcohol or drug abuse patient.[facility] Center[facility] the event this information is protected by the Federal Confidentiality of Alcohol and Drug Abuse Patient Records regulations: The Federal rules restrict any use of the information to criminally investigate or prosecute any alcohol or drug abuse patient.[facility] CenterIn the event this information is protected by the Federal Confidentiality of Alcohol and Drug Abuse Patient Records regulations: The Federal rules restrict any use of the information to criminally investigate or prosecute any alcohol or drug abuse patient.[facility] CenterIn the event this information is protected by the Federal Confidentiality of Alcohol and Drug Abuse Patient Records regulations: The Federal rules restrict any use of the information to criminally investigate or prosecute any alcohol or drug abuse patient.[facility] CenterIn the event this information is protected by the Federal Confidentiality of Alcohol and Drug Abuse Patient Records regulations: The Federal rules restrict any use of the information to criminally investigate or prosecute any alcohol or drug abuse patient.[facility] CenterIn the event this information is protected by the Federal Confidentiality of Alcohol and Drug Abuse Patient Records regulations: The Federal rules restrict any use of the information to criminally investigate or prosecute any alcohol or drug abuse patient.[facility] CenterIn the event this information is protected by the Federal Confidentiality of Alcohol and Drug Abuse Patient Records regulations: The Federal rules restrict any use of the information to criminally investigate or prosecute any alcohol or drug abuse patient.[facility] CenterIn the event this information is protected by the Federal Confidentiality of Alcohol and Drug Abuse Patient Records regulations: The Federal rules restrict any use of the information to criminally investigate or prosecute any alcohol or drug abuse patient.[facility] CenterIn the event this information is protected by the Federal Confidentiality of Alcohol and Drug Abuse Patient Records regulations: The Federal rules restrict any use of the information to criminally investigate or prosecute any alcohol or drug abuse patient.[facility] CenterIn the event this information is protected by the Federal Confidentiality of Alcohol and Drug Abuse Patient Records regulations: The Federal rules restrict any use of the information to criminally investigate or prosecute any alcohol or drug abuse patient.[facility] CenterIn the event this information is protected by the Federal Confidentiality of Alcohol and Drug Abuse Patient Records regulations: The Federal rules restrict any use of the information to criminally investigate or prosecute any alcohol or drug abuse patient.[facility] CenterIn the event this information is protected by the Federal Confidentiality of Alcohol and Drug Abuse Patient Records regulations: The Federal rules restrict any use of the information to criminally investigate or prosecute any alcohol or drug abuse patient.[facility] CenterIn the event this information is protected by the Federal Confidentiality of Alcohol and Drug Abuse Patient Records regulations: The Federal rules restrict any use of the information to criminally investigate or prosecute any alcohol or drug abuse patient.[facility] CenterIn the event this information is protected by the Federal Confidentiality of Alcohol and Drug Abuse Patient Records regulations: The Federal rules restrict any use of the information to criminally investigate or prosecute any alcohol or drug abuse patient.[facility] CenterIn the event this information is protected by the Federal Confidentiality of Alcohol and Drug Abuse Patient Records regulations: The Federal rules restrict any use of the information to criminally investigate or prosecute any alcohol or drug abuse patient.[facility] CenterIn the event this information is protected by the Federal Confidentiality of Alcohol and Drug Abuse Patient Records regulations: The Federal rules restrict any use of the information to criminally investigate or prosecute any alcohol or drug abuse patient.[facility] CenterIn the event this information is protected by the Federal Confidentiality of Alcohol and Drug Abuse Patient Records regulations: The Federal rules restrict any use of the information to criminally investigate or prosecute any alcohol or drug abuse patient.[facility] CenterIn the event this information is protected by the Federal Confidentiality of Alcohol and Drug Abuse Patient Records regulations: The Federal rules restrict any use of the information to criminally investigate or prosecute any alcohol or drug abuse patient.[facility] CenterIn the event this information is protected by the Federal Confidentiality of Alcohol and Drug Abuse Patient Records regulations: The Federal rules restrict any use of the information to criminally investigate or prosecute any alcohol or drug abuse patient.[facility] CenterIn the event this information is protected by the Federal Confidentiality of Alcohol and Drug Abuse Patient Records regulations: The Federal rules restrict any use of the information to criminally investigate or prosecute any alcohol or drug abuse patient.[facility] CenterIn the event this information is protected by the Federal Confidentiality of Alcohol and Drug Abuse Patient Records regulations: The Federal rules restrict any use of the information to criminally investigate or prosecute any alcohol or drug abuse patient.[facility] CenterIn the event this information is protected by the Federal Confidentiality of Alcohol and Drug Abuse Patient Records regulations: The Federal rules restrict any use of the information to criminally investigate or prosecute any alcohol or drug abuse patient.[facility] CenterIn the event this information is protected by the Federal Confidentiality of Alcohol and Drug Abuse Patient Records regulations: The Federal rules restrict any use of the information to criminally investigate or prosecute any alcohol or drug abuse patient.[facility] CenterIn the event this information is protected by the Federal Confidentiality of Alcohol and Drug Abuse Patient Records regulations: The Federal rules restrict any use of the information to criminally investigate or prosecute any alcohol or drug abuse patient.[facility] CenterIn the event this information is protected by the Federal Confidentiality of Alcohol and Drug Abuse Patient Records regulations: The Federal rules restrict any use of the information to criminally investigate or prosecute any alcohol or drug abuse patient.[facility] CenterIn the event this information is protected by the Federal Confidentiality of Alcohol and Drug Abuse Patient Records regulations: The Federal rules restrict any use of the information to criminally investigate or prosecute any alcohol or drug abuse patient.[facility] CenterIn the event this information is protected by the Federal Confidentiality of Alcohol and Drug Abuse Patient Records regulations: The Federal rules restrict any use of the information to criminally investigate or prosecute any alcohol or drug abuse patient.[facility] CenterIn the event this information is protected by the Federal Confidentiality of Alcohol and Drug Abuse Patient Records regulations: The Federal rules restrict any use of the information to criminally investigate or prosecute any alcohol or drug abuse patient.[facility] [facility] CenterIn the event this information is protected by the Federal Confidentiality of Alcohol and Drug Abuse Patient Records regulations: The Federal rules restrict any use of the information to criminally investigate or prosecute any alcohol or drug abuse patient.[facility] CenterIn the event this information is protected by the Federal Confidentiality of Alcohol and Drug Abuse Patient Records regulations: The Federal rules restrict any use of the information to criminally investigate or prosecute any alcohol or drug abuse patient.[facility] CenterIn the event this information is protected by the Federal Confidentiality of Alcohol and Drug Abuse Patient Records regulations: The Federal rules restrict any use of the information to criminally investigate or prosecute any alcohol or drug abuse patient.[facility] CenterIn the event this information is protected by the Federal Confidentiality of Alcohol and Drug Abuse Patient Records regulations: The Federal rules restrict any use of the information to criminally investigate or prosecute any alcohol or drug abuse patient.[facility] CenterIn the event this information is protected by the Federal Confidentiality of Alcohol and Drug Abuse Patient Records regulations: The Federal rules restrict any use of the information to criminally investigate or prosecute any alcohol or drug abuse patient.[facility] CenterIn the event this information is protected by the Federal Confidentiality of Alcohol and Drug Abuse Patient Records regulations: The Federal rules restrict any use of the information to criminally investigate or prosecute any alcohol or drug abuse patient.[facility] CenterIn the event this information is protected by the Federal Confidentiality of Alcohol and Drug Abuse Patient Records regulations: The Federal rules restrict any use of the information to criminally investigate or prosecute any alcohol or drug abuse patient.[facility] CenterIn the event this information is protected by the Federal Confidentiality of Alcohol and Drug Abuse Patient Records regulations: The Federal rules restrict any use of the information to criminally investigate or prosecute any alcohol or drug abuse patient.[facility] CenterIn the event this information is protected by the Federal Confidentiality of Alcohol and Drug Abuse Patient Records regulations: The Federal rules restrict any use of the information to criminally investigate or prosecute any alcohol or drug abuse patient.[facility] CenterIn the event this information is protected by the Federal Confidentiality of Alcohol and Drug Abuse Patient Records regulations: The Federal rules restrict any use of the information to criminally investigate or prosecute any alcohol or drug abuse patient.[facility] CenterIn the event this information is protected by the Federal Confidentiality of Alcohol and Drug Abuse Patient Records regulations: The Federal rules restrict any use of the information to criminally investigate or prosecute any alcohol or drug abuse patient.[facility] CenterIn the event this information is protected by the Federal Confidentiality of Alcohol and Drug Abuse Patient Records regulations: The Federal rules restrict any use of the information to criminally investigate or prosecute any alcohol or drug abuse patient.[facility] CenterIn the event this information is protected by the Federal Confidentiality of Alcohol and Drug Abuse Patient Records regulations: The Federal rules restrict any use of the information to criminally investigate or prosecute any alcohol or drug abuse patient.[facility] CenterIn the event this information is protected by the Federal Confidentiality of Alcohol and Drug Abuse Patient Records regulations: The Federal rules restrict any use of the information to criminally investigate or prosecute any alcohol or drug abuse patient.[facility] CenterIn the event this information is protected by the Federal Confidentiality of Alcohol and Drug Abuse Patient Records regulations: The Federal rules restrict any use of the information to criminally investigate or prosecute any alcohol or drug abuse patient.[facility] CenterIn the event this information is protected by the Federal Confidentiality of Alcohol and Drug Abuse Patient Records regulations: The Federal rules restrict any use of the information to criminally investigate or prosecute any alcohol or drug abuse patient.[facility] CenterIn the event this information is protected by the Federal Confidentiality of Alcohol and Drug Abuse Patient Records regulations: The Federal rules restrict any use of the information to criminally investigate or prosecute any alcohol or drug abuse patient.[facility] CenterIn the event this information is protected by the Federal Confidentiality of Alcohol and Drug Abuse Patient Records regulations: The Federal rules restrict any use of the information to criminally investigate or prosecute any alcohol or drug abuse patient.[facility] CenterIn the event this information is protected by the Federal Confidentiality of Alcohol and Drug Abuse Patient Records regulations: The Federal rules restrict any use of the information to criminally investigate or prosecute any alcohol or drug abuse patient.[facility] the event this information is protected by the Federal Confidentiality of Alcohol and Drug Abuse Patient Records regulations: The Federal rules restrict any use of the information to criminally investigate or prosecute any alcohol or drug abuse patient.[facility] CenterIn the event this information is protected by the Federal Confidentiality of Alcohol and Drug Abuse Patient Records regulations: The Federal rules restrict any use of the information to criminally investigate or prosecute any alcohol or drug abuse patient.[facility] CenterIn the event this information is protected by the Federal Confidentiality of Alcohol and Drug Abuse Patient Records regulations: The Federal rules restrict any use of the information to criminally investigate or prosecute any alcohol or drug abuse patient.[facility]In the event this information is protected by the Federal Confidentiality of Alcohol and Drug Abuse Patient Records regulations: The Federal rules restrict any use of the information to criminally investigate or prosecute any alcohol or drug abuse patient.[facility] CenterIn the event this information is protected by the Federal Confidentiality of Alcohol and Drug Abuse Patient Records regulations: The Federal rules restrict any use of the information to criminally investigate or prosecute any alcohol or drug abuse patient.[facility] CenterIn the event this information is protected by the Federal Confidentiality of Alcohol and Drug Abuse Patient Records regulations: The Federal rules restrict any use of the information to criminally investigate or prosecute any alcohol or drug abuse patient.[facility] CenterIn the event this information is protected by the Federal Confidentiality of Alcohol and Drug Abuse Patient Records regulations: The Federal rules restrict any use of the information to criminally investigate or prosecute any alcohol or drug abuse patient.[facility] CenterIn the event this information is protected by the Federal Confidentiality of Alcohol and Drug Abuse Patient Records regulations: The Federal rules restrict any use of the information to criminally investigate or prosecute any alcohol or drug abuse patient.[facility] CenterIn the event this information is protected by the Federal Confidentiality of Alcohol and Drug Abuse Patient Records regulations: The Federal rules restrict any use of the information to criminally investigate or prosecute any alcohol or drug abuse patient.[facility] CenterIn the event this information is protected by the Federal Confidentiality of Alcohol and Drug Abuse Patient Records regulations: The Federal rules restrict any use of the information to criminally investigate or prosecute any alcohol or drug abuse patient.[facility] CenterIn the event this information is protected by the Federal Confidentiality of Alcohol and Drug Abuse Patient Records regulations: The Federal rules restrict any use of the information to criminally investigate or prosecute any alcohol or drug abuse patient.[facility] CenterIn the event this information is protected by the Federal Confidentiality of Alcohol and Drug Abuse Patient Records regulations: The Federal rules restrict any use of the information to criminally investigate or prosecute any alcohol or drug abuse patient.[facility] Reason for Visit (unrecogniz ed section and content) Reason Comments Patient Update Reason Comments Ankle Pain Specialty Diagnoses / Procedures Referred By Contac t Referred To Contact Internal Medicine / INTERNAL MEDICINE Diagnoses swelling ankles Procedures 4C EST Yaquelin Santos, AIR TWIST OPERATOR.FINANCE BROKER [address] [place] [address] Referral ID Status Reason Start Date Expiration Date Visits Re quested Visits Authorized [id number] Closed 05/27/2022 11/29/2022 1 1 Reason Comments Follow Up Reason Comments Nurse Visit Pt denied SOB, chest pain missed medications, caffeine use Reason Comments Patient Question Reason Comments F/U 6 months Specialty Diagnoses / Procedures Referred By Contac t Referred To Contact Internal Medicine / INTERNAL MEDICINE Diagnoses 6 month follow-up Procedures 4C EST Chip Wiley MD [address] [place] [address] Chip Wiley MD [address] [place] [address] Referral ID Status Reason Start Date Expiration Date Visits Re quested Visits Authorized [id number] Closed 07/28/2022 11/29/2022 1 1 Reason Comments UTI Burning with urinati on x 1 week Reason Comments Results Reason Onset Date Comments Refill Request 09/25/2022 Reason Onset Date Comments Refill Request 10/02/2022 Reason Comments Rash under breast red bur ns and itches x 1 weekstreated with cream OTC Reason Onset Date Comments Refill Request 12/30/2022 Reason Comments F/U 6 months Reason Comments Urinary Frequency burning and pain, di fficulty urinating x 2 days Reason Onset Date Comments Refill Request 07/22/2023 Reason Comments Yearly Exam Reason Onset Date Comments Refill Request 09/25/2023 Reason Comments Pain (foot) Toe and foot pain x3 days Reason Comments Lab Orders Reason Onset Date Comments Population Health Navigation Outreach 01/15/2024 [facility] Reason Comments Refill Request Reason Onset Date Comments Refill Request 05/12/2024 Reason Comments Insurance Authorization Reason Comments Urinary Problem burning and pain wit h urination x 3 hours Reason Comments Results, Lab Reason Comments Medicare Wellness Exam Reason Comments Radiology XR Specialty Diagnoses / Procedures Referred By Contac t Referred To Contact Radiology / [facility] Diagnoses Main Lobby Fall, initial encounter [W19.XXXA] Tailbone injury, initial encounter [S39.92XA] Procedures XR GENERAL 7 Dickerson, Yaquelin, AIR TWIST OPERATOR.FINANCE BROKER [address] [place] [address] [facility] [address] [place] [address] Referral ID Status Reason Start Date Expiration Date Visits Re quested Visits Authorized [id number] Closed 02/26/2021 11/29/2021 1 1 Reason Comments Future Appointment Reason Comments Pain right mid foot that radiates up into groin and around to back of hip Reason Comments Results Patient Update Reason Comments Prolapse Reason Comments Urinary Problem Burning, frequency, dysuria, urgency x 2 weeks Reason Comments New Patient Reason Comments Radiology US Specialty Diagnoses / Procedures Referred By Contac t Referred To Contact US IMAGING Diagnoses Lower abdominal pain Procedures US FEMALE PELVIS TRANSVAG US TRANSVAGINAL Madeline Restrepo, AIR TWIST OPERATOR.HEMATOLOGY NURSE [address] [place] [address] [place] [address] Referral ID Status Reason Start Date Expiration Date V isits Requested Visits Authorized [id number] Closed Auto-Generate d Referral 12/27/2024 01/26/2026 1 1 Reason Comments Urinary Problem Wants to make sure u ti is really gone Reason Comments Results Urine culture negati ve Reason Onset Date Comments Results 01/13/2025 Reason Comments Established Patient Surgical consult Reason Comments Procedure UDS Specialty Diagnoses / Procedures Referred By Contac t Referred To Contact [facility] Diagnoses Uterovaginal prolapse, incomplete Procedures URODYNAMICS WHI COMPLX CYSTOMETRO W/VOID PRESS&URETHRAL PROFILE Joanne Bautista MD [address] [facility] [address] Phone: tel:[phone] fax: [facility] [address] [place] [address] Referral ID Status Reason Start Date Expiration Date V isits Requested Visits Authorized [id number] Closed Auto-Generate d Referral 01/23/2025 01/23/2026 1 1 Reason Comments Pre-Op Visit Post-Op Visit Reason Comments Prolapse Reason Comments Post Op Telephone call Reason Comments Post Op Reason Comments Consult Specialty Diagnoses / Procedures Referred By Contac t Referred To Contact Diagnoses Granulosa cell tumor Procedures CONSULT TO GYNECOLOGIC/ONCOLOGY OFFICE/OUTPATIENT [facility] 60 MINUTES Jina Stearns MD [address] [facility] [address] [place] [address] Phone: tel: fax: Referral ID Status Reason Start Date Expiration Date V isits Requested Visits Authorized [id number] Closed PCP Requested Referral Auto-Generated Referral 03/17/2025 03/17/2026 1 1 Care Teams (unrecognized sec tion and content) Customer Account Specialist Relationship Specialty Start Date End Date Chip Wiley MD [address] [place], [place] [id number] PCP - General Internal Medicine 10/05/12 Customer Account Specialist Relationship Specialty Start Date End Date Chip Wiley MD [address] [place], [place] [id number] PCP - General Internal Medicine 10/05/12 Customer Account Specialist Relationship Specialty Start Date End Date Chip Wiley MD [address] [place], [place] [id number] PCP - General Internal Medicine 10/05/12 Customer Account Specialist Relationship Specialty Start Date End Date Chip Wiley MD [address] [facility] [place] [address] PCP - General Internal Medicine 10/05/12 Customer Account Specialist Relationship Specialty Start Date End Date Chip Wiley MD [facility] [place] [address] PCP - General Internal Medicine 10/05/12 Customer Account Specialist Relationship Specialty Start Date End Date Chip Wiley MD [address] [place] [address], [place] [address] PCP - General Internal Medicine 10/05/12 Customer Account Specialist Relationship Specialty Start Date End Date Chip Wiley MD [address] [place] [address], [place] [address] PCP - General Internal Medicine 10/05/12 Customer Account Specialist Relationship Specialty Start Date End Date Chip Wiley MD [address] [place] [address], [place] [address] PCP - General Internal Medicine 10/05/12 Customer Account Specialist Relationship Specialty Start Date End Date Chip Wiley MD [address] [place] [address], [place] [address] PCP - General Internal Medicine 10/05/12 Customer Account Specialist Relationship Specialty Start Date End Date Chip Wiley MD [address] [place] [address], [place] [address] PCP - General Internal Medicine 10/05/12 Customer Account Specialist Relationship Specialty Start Date End Date Chip Wiley MD [address] [place] [address], [place] [address] PCP - General Internal Medicine 10/05/12 Customer Account Specialist Relationship Specialty Start Date End Date Chip Wiley MD [address] [place] [address], [place] [address] PCP - General Internal Medicine 10/05/12 Customer Account Specialist Relationship Specialty Start Date End Date Chip Wiley MD [address] [place] [address] PCP - General Internal Medicine 10/05/12 Customer Account Specialist Relationship Specialty Start Date End Date Chip Wiely MD [address] [place] [address] PCP - General Internal Medicine 10/05/12 Team Status: Active Member Role Status Dates Dr. Chip Wiley MD Family Provider Active Dr. Chip Wiley MD Primary Care Provider Active Team Status: Inactive Member Role Status Dates Dr. Chip Wiley MD Primary Care Provider, Referr ing Provider Active Viviana Ojeda STOCK PITCHER, STOCK PITCHER-C Attending Provider Active Team Status: Active Member Role Status Dates Dr. Chip Wiley MD Primary Care Provider Active Dr. Nadeem Richardson MD Attending Provider Active Team Status: Inactive Member Role Status Dates Dr. Chip Wiley MD Primary Care Provider Active Viviana Ojeda STOCK PITCHER, STOCK PITCHER-C Attending Provider, Referring P ирина Active Customer Account Specialist Relationship Specialty Start Date End Date Chip Wiley MD [address] [place] [address] PCP - General Internal Medicine 10/05/12 Customer Account Specialist Relationship Specialty Start Date End Date Chip Wiley MD [address] [place], [place] [address] PCP - General Internal Medicine 10/05/12 Customer Account Specialist Relationship Specialty Start Date End Date Chip Wiley MD [address] [place] [address] PCP - General Internal Medicine 10/05/12 Customer Account Specialist Relationship Specialty Start Date End Date Chip Wiley MD [address] [facility] [place] [address] PCP - General Internal Medicine 10/05/12 Team Status: Inactive Member Role Status Dates Dr. Chip Wiley MD Primary Care Provider Active Dr. Solitario Oakes MD Emergency Provider Active Customer Account Specialist Relationship Specialty Start Date End Date Chip Wiley MD [address] [facility] [place] [address] PCP - General Internal Medicine 10/05/12 Customer Account Specialist Relationship Specialty Start Date End Date Chip Wiley MD [address] [facility] [place] [address] PCP - General Internal Medicine 10/05/12 Customer Account Specialist Relationship Specialty Start Date End Date Chip Wiley MD [address] [facility] [place] [address] PCP - General Internal Medicine 10/05/12 Customer Account Specialist Relationship Specialty Start Date End Date Chip Wiley MD [address] [facility] [place] [address] PCP - General Internal Medicine 10/05/12 Customer Account Specialist Relationship Specialty Start Date End Date Chip Wiley MD [address] [facility] [place] [address] PCP - General Internal Medicine 10/05/12 Customer Account Specialist Relationship Specialty Start Date End Date Chip Wiley MD [address] [facility] [place] [address] PCP - General Internal Medicine 10/05/12 Customer Account Specialist Relationship Specialty Start Date End Date Chip Wiley MD [address] [place] [address] PCP - General Internal Medicine 10/05/12 Customer Account Specialist Relationship Specialty Start Date End Date Chip Wiley MD [address] [place] [address] PCP - General Internal Medicine 10/05/12 Customer Account Specialist Relationship Specialty Start Date End Date Chip Wiley MD [address] [place] [address] PCP - General Internal Medicine 10/05/12 Customer Account Specialist Relationship Specialty Start Date End Date Chip Wiley MD [address] [place] [address] PCP - General Internal Medicine 10/05/12 Customer Account Specialist Relationship Specialty Start Date End Date Chip Wiley MD [address] [place] [address] PCP - General Internal Medicine 10/05/12 Customer Account Specialist Relationship Specialty Start Date End Date Chip Wiley MD [address] [place] [address] PCP - General Internal Medicine 10/05/12 Customer Account Specialist Relationship Specialty Start Date End Date Chip Wiley MD [address] [place] [address] PCP - General Internal Medicine 10/05/12 Customer Account Specialist Relationship Specialty Start Date End Date Chip Wiley MD [address] [place] [address] PCP - General Internal Medicine 10/05/12 Customer Account Specialist Relationship Specialty Start Date End Date Chip Wiley MD [address] [place] [address] PCP - General Internal Medicine 10/05/12 Yaquelin Dickerson, AIR TWIST OPERATOR.FINANCE BROKER [address] [place] [address] Stock Associate Internal Medicine 11/07/24 Joanna Ortiz AIR TWIST OPERATOR.HEMATOLOGY NURSE [address] [place] [address] Stock Associate Internal Medicine 11/07/24 Customer Account Specialist Relationship Specialty Start Date End Date Chip Wiley MD [address] [place] [address] PCP - General Internal Medicine 10/05/12 Yaquelin Dickerson, AIR TWIST OPERATOR.FINANCE BROKER [address] [place] [address] Stock Associate Internal Medicine 11/07/24 Joanna Ortiz AIR TWIST OPERATOR.HEMATOLOGY NURSE [address] [place] [address] Stock Associate Internal Medicine 11/07/24 Customer Account Specialist Relationship Specialty Start Date End Date Chip Wiley MD [address] [place] [address] PCP - General Internal Medicine 10/05/12 Yaquelin Dickerson, AIR TWIST OPERATOR.FINANCE BROKER [address] [place] [address] Stock Associate Internal Medicine 11/07/24 oJanna Ortiz AIR TWIST OPERATOR.HEMATOLOGY NURSE [address] [place] [address] [facility] Internal Medicine 11/07/24 Customer Account Specialist Relationship Specialty Start Date End Date Chip Wiley MD [address] [place] [address] PCP - General Internal Medicine 10/05/12 Yaquelin Dickerson, AIR TWIST OPERATOR.FINANCE BROKER [address] [place] [address] Stock Associate Internal Medicine 11/07/24 Joanna Ortiz AIR TWIST OPERATOR.HEMATOLOGY NURSE [address] [place] [address] [facility] Internal Medicine 11/07/24 Customer Account Specialist Relationship Specialty Start Date End Date Chip Wiley MD [address] [place] [address] PCP - General Internal Medicine 10/05/12 Yaquelin Dickerson, AIR TWIST OPERATOR.FINANCE BROKER [address] [place] [address] [facility] Internal Medicine 11/07/24 Joanna Ortiz AIR TWIST OPERATOR.HEMATOLOGY NURSE [address] [place] [address] [facility] Internal Medicine 11/07/24 Customer Account Specialist Relationship Specialty Start Date End Date Chip Wiley MD [address] [place] [address] PCP - General Internal Medicine 10/05/12 Yaquelin Dickerson, AIR TWIST OPERATOR.FINANCE BROKER [address] [facility] [place] [address] Stock Associate Internal Medicine 11/07/24 Joanna Ortiz APRN.HEMATOLOGY NURSE [address] [place] [address] Stock Associate Internal Medicine 11/07/24 Customer Account Specialist Relationship Specialty Start Date End Date Chip Wiley MD [address] [place] [address] PCP - General Internal Medicine 10/05/12 Yaquelin Dickerson APRN.FINANCE BROKER [address] [place] [address] Stock Associate Internal Medicine 11/07/24 Joanna Ortiz APRN.HEMATOLOGY NURSE [address] [place] [address] Stock Associate Internal Medicine 11/07/24 Customer Account Specialist Relationship Specialty Start Date End Date Chip Wiley MD [address] [place] [address] PCP - General Internal Medicine 10/05/12 Yaquelin Dickerson APRN.FINANCE BROKER [address] [place] [address] Stock Associate Internal Medicine 11/07/24 Joanna Ortiz APRN.HEMATOLOGY NURSE [address] [place] [address] Stock Associate Internal Medicine 11/07/24 Customer Account Specialist Relationship Specialty Start Date End Date Chip Wiley MD [address] [place] [address] PCP - General Internal Medicine 10/05/12 Yaquelin Dickerson, ISRRAEL.FINANCE BROKER [address] [place] [address] Stock Associate Internal Medicine 11/07/24 Joanna Ortiz APRN.HEMATOLOGY NURSE [address] [place] [address] Stock Associate Internal Medicine 02/21/25 Customer Account Specialist Relationship Specialty Start Date End Date Chip Wiley MD [address] [place] [address] PCP - General Internal Medicine 10/05/12 Yaquelin Dickerson AIR TWIST OPERATOR.FINANCE BROKER [address] [place] [address] [facility] Internal Medicine 11/07/24 Joanna Ortiz APRN.HEMATOLOGY NURSE [address] [place] [address] [facility] Internal Medicine 02/21/25 Customer Account Specialist Relationship Specialty Start Date End Date Chip Wiley MD [address] [place] [address] PCP - General Internal Medicine 10/05/12 Yaquelin Dickerson AIR TWIST OPERATOR.FINANCE BROKER [address] [place] [address] [facility] Internal Medicine 11/07/24 Joanna Ortiz APRN.HEMATOLOGY NURSE [address] [place] [address] [employer] [facility] Internal Medicine 02/21/25 Customer Account Specialist Relationship Specialty Start Date End Date Chip Wiley MD [address] [facility] [place] [address] PCP - General Internal Medicine 10/05/12 Yaquelin Dickerson, AIR TWIST OPERATOR.FINANCE BROKER [address] [facility] [place] [address] [employer] Associate Internal Medicine 11/07/24 Joanna Ortiz AIR TWIST OPERATOR.HEMATOLOGY NURSE [address] [facility] [place] [address] [facility] Internal Medicine 02/21/25 Customer Account Specialist Relationship Specialty Start Date End Date Chip Wiley MD [address] [facility] [place] [address] PCP - General Internal Medicine 10/05/12 Yaquelin Dickerson, AIR TWIST OPERATOR.FINANCE BROKER [address] [facility] [place] [address] [facility] Internal Medicine 11/07/24 Joanna Ortiz AIR TWIST OPERATOR.HEMATOLOGY NURSE [address] [place] [place] [address] [facility] Internal Medicine 02/21/25 Customer Account Specialist Relationship Specialty Start Date End Date Chip Wiley MD [address] [facility] [place] [address] PCP - General Internal Medicine 10/05/12 Yaquelin Dickerson, AIR TWIST OPERATOR.FINANCE BROKER [address] [facility] [place] [address] [facility] Associate Internal Medicine 11/07/24 Joanna Ortiz AIR TWIST OPERATOR.HEMATOLOGY NURSE [address] [place] [address] [employer] Associate Internal Medicine 02/21/25 Customer Account Specialist Relationship Specialty Start Date End Date Chip Wiley MD [address] [place] [address] PCP - General Internal Medicine 10/05/12 Yaquelin Dickerson, AIR TWIST OPERATOR.FINANCE BROKER [address] [facility] [place] [address] Stock Associate Internal Medicine 11/07/24 Joanna Ortiz APRN.HEMATOLOGY NURSE [address] [facility] [place] [address] [facility] Associate Internal Medicine 02/21/25 Customer Account Specialist Relationship Specialty Start Date End Date Chip Wiley MD [address] [facility] [place] [address] PCP - General Internal Medicine 10/05/12 Yaquelin Dickerson, AIR TWIST OPERATOR.FINANCE BROKER [address] [place] [address] [facility] Associate Internal Medicine 11/07/24 Joanna Ortiz APRN.HEMATOLOGY NURSE [address] [place] [place] [address] [facility] Internal Medicine 02/21/25 Customer Account Specialist Relationship Specialty Start Date End Date Chip Wiley MD [address] [facility] [place] [address] PCP - General Internal Medicine 10/05/12 Joanna Ortiz AIR TWIST OPERATOR.HEMATOLOGY NURSE [address] [place] [address] [employer] Internal Medicine 02/21/25 Yaquelin DickersonISRRAEL.FINANCE BROKER [address] [place] [address] [facility] Internal Medicine 04/19/25 Goals (unrecognized section and content) Goals may be documented in a n alternate sectionGoals may be documented in an alternate section Scheduled Active and Recently Administ ered Medications (unrecognized section and content) Medication Order 05/01/2025 05/02/2025 05/03/2025 acetaminophen 975 mg tab(s) (TYLENOL) (COMPLETED) 975 mg, ORAL, PRE-OP ONCE, 1 dose, On Thu05/03/25 at 1100, Preprocedure 0958 (Given - Provid er: Venus Pierre RN) celecoxib 400 mg cap(s) (CeleBREX) (COMPLETED) 400 mg, ORAL, PRE-OP ONCE, 1 dose, On Thu05/03/25 at 1100, Preprocedure 0958 (Given - Provid er: Venus Pierre RN) heparin 5,000 Units injection (COMPLETED) 5,000 Units, SUBCUTANEOUS, PRE-OP ONCE, 1 dose, On Thu05/03/25 at 1100, ADMINISTER IN PRE-OP AREA Day of Surgery Pre Op Order, Preprocedure 1002 (Given - Provid er: Venus Pierre RN) scopolamine (delivers 1 mg over 3 days) 1 patch (TRANSDERM-SCOP) (CANCELED) 1 patch, TRANSDERMAL, EVERY 72 HOURS, First dose on Thu05/03/25 at 1030, Until Discontinued, Apply patch behind ear. Each time a new patch is needed it should be placed behind the alternate ear from the previous patch. Remove old patch. Each transdermal system contains 1.5 mg scopolamine base and delivers 1 mg over 3 days., Preprocedure 1016 (Given - Provid er: Venus Pierre RN) scopolamine - REMOVE PATCH(Linked Group 1) EVERY 72 HOURS, THIS IS USED ONLY TO DOCUMENT PATCH REMOVAL. Use Remvd Patch action. scopolamine - VERIFY patch(Linked Group 1) EVERY 8 HOURS, THIS IS USED ONLY TO DOCUMENT THAT THE PATCH IS VERIFIED ON OR OFF PER ORDER. Use Patch On or Patch Off action. 1830 (Due) Continuous Medication Order 05/01/2025 05/02/2025 05/03/2025 lactated ringers iv infusion 5-30 mL/hr, INTRAVENOUS, CONTINUOUS, Starting on Thu05/03/25 at 1300, Until Aide 05/04/25 at 0303, Recovery or Phase I (only) 1300 (Due) PRN Medication Order 05/01/2025 05/02/2025 05/03/2025 BUPivacaine HCl injection (SENSORCAINE) (CANCELED) X (OR/PROCEDURE) PRN, Starting on Thu05/03/25 at 1241, Until Thu05/03/25 at 1256, Intraprocedure 1241 (Given - Provid er: Jina Stearns MD) fentaNYL 50 mcg/mL 50 mcg injection (SUBLIMAZE) (COMPLETED) 50 mcg, INTRAVENOUS, EVERY 5 MINUTES NEEDED, 2 doses, Starting on Thu05/03/25 at 1237, Until 05/03/25 at 1311, FIRST LINE THERAPY for mild, moderate, or severe pain, Every 5 minutes. Use if patient unable to tolerate oral therapy. Hold for respiratory rate less than 12 Max total dose: 100 mcg, Recovery or Phase I (only) 1300 (Given - Provid er: Joanne Singh RN)1311 (Given - Provider: Joanne Singh RN) HYDROmorphone (PF) 0.5 mg injection (DILAUDID) 0.5 mg, INTRAVENOUS, EVERY 10 MINUTES NEEDED, 4 doses, Starting on Thu05/03/25 at 1237, Until Aide 05/04/25 at 0303, SECOND LINE THERAPY for mild, moderate, or severe pain, Every 10 minutes. Use if patient unable to tolerate oral therapy. Hold for respiratory rate less than 12 Max total dose: 2 mg Caution: IV hydromorphone is approximately 8 times MORE POTENT than IV morphine. For example, hydromorphone 1mg IV = morphine 8mg IV, Recovery or Phase I (only) 1350 (Given - Provid er: Joanne Singh RN) NaCl 0.9% irrigation solution (CANCELED) X (OR/PROCEDURE) PRN, Starting on Thu05/03/25 at 1215, Until Thu05/03/25 at 1256, Intraprocedure 1215 (Given - Provid er: Jina Stearns MD) oxyCODONE IR 5 mg tab(s) (ROXICODONE) 5 mg, ORAL, NEEDED, 1 dose, Starting on Thu05/03/25 at 1237, Until Aide 05/04/25 at 0303, Moderate Pain (4-6) - Enteral, Recovery or Phase I (only) prochlorperazine 5 mg injection (COMPAZINE) 5 mg, INTRAVENOUS, NEEDED, 1 dose, Starting on Thu05/03/25 at 1237, Until Aide 05/04/25 at 0303, Nausea/Vomiting - First Line - Parenteral, If still nauseated 10 min after first line antiemetic dose, proceed to second line antiemetic Protect From Light, Recovery or Phase I (only) Linked Groups Order Group 1: scopolamine - REMOVE PATCHJump to med EVERY 72 HOURS, THIS IS USED ONLY TO DOCUMENT PATCH REMOVAL. Use Remvd Patch action. And scopolamine - VERIFY patchJump to med EVERY 8 HOURS, THIS IS USED ONLY TO DOCUMENT THAT THE PATCH IS VERIFIED ON OR OFF PER ORDER. Use Patch On or Patch Off action. FOR RECORDS PERTAINING TO PATIENTS WHO ARE OR HAVE BEEN ENROLLED IN A CHEMICAL DEPENDENCY/SUBSTANCEABUSE PROGRAM, SOME INFORMATION MAY BE OMITTED. This clinical summary was aggregated from multiple sources. Caution should be exercised in using it in the provision of clinical care. This summary normalizes information from multiple sources, and as a consequence, information in this document may materially change the coding, format and clinical context of patient data. In addition, data may be omitted in some cases. CLINICAL DECISIONS SHOULD BE BASED ON THE PRIMARY CLINICAL RECORDS. [employer] provides no warranty or guarantee of the accuracy or completeness of information in this document.
--- NOTE | 2025-05-06 02:57 | CT_ITS ---
PROCEDURE: ABDOMEN/PELVIS W IV CONT ONLY 05/06/2025 REASON FOR EXAM: LOWER ABD PAIN; RECENT BILAT OOPHORECTOMY TECHNIQUE: Abdomen and pelvis CT with intravenous contrast. Coronal and Sagittal reconstruction series were provided. PATIENT PREPARATION: Per protocol CONTRAST: 62 mL Isovue 370 One or more dose reduction techniques were used (e.g., Automated exposure control, adjustment of the mA and/or kV according to patient size, use of iterative reconstruction technique. RADIATION DOSE SUMMARY: CTDlvol: 8.7 mGy DLP: 447 mGycm COMPARISON: None FINDINGS: Lower chest: Lung bases are clear. Mild cardiomegaly with a small pericardial effusion. There is subcutaneous emphysema in the anterior chest wall. Liver: Normal size. No mass. Gallbladder: Mildly hydropic, without radiodense stones. Wall thickness measures 3 mm. No pericholecystic fluid. Spleen: Normal size. Pancreas: Normal size without evidence of mass surrounding inflammation or ductal dilation. Adrenals: Unremarkable Kidneys: No hydronephrosis or stone Bladder: There is a small amount of intraluminal air at the anti dependent aspect. Reproductive Organs: Prior hysterectomy. Adnexal regions are unremarkable. Bowel: There is wall thickening involving the splenic flexure of the colon. Fluid density contents throughout the colon, suggestive of diarrheal illness. Scant colonic diverticulosis. Appendix: The appendix is not identified. There is no inflammatory process identified in the right lower quadrant to suggest appendicitis. Lymph nodes: No significant lymphadenopathy. Vasculature: Mild diffuse atherosclerotic calcifications are noted. Peritoneum / Retroperitoneum: There is a small amount of free fluid in the right posterior pelvis. No significant intraperitoneal air. Bones: Degenerative changes of the spine. Transitional lumbosacral anatomy. Soft tissues: There is extensive subcutaneous emphysema throughout the anterior and lateral abdominal and pelvic roper. Foci of air track into the inguinal regions and thighs, including deep in the thighs along the course of the femoral vessels. There is air present within the left rectus sheath. CT/Abdomen/Pelvis W IV Cont ONLY IMPRESSION: 1. There is extensive subcutaneous emphysema throughout the chest and abdomina l wall, and tracking into the groin and thigh. This includes air within the left rectus sheath and deep between the thigh musc ulature. Recommend ROVING CARRIER consultation. Additionally, correlate with symptoms to exclude necrotizing fasciitis. 2. Wall thickening and inflammatory stranding at the splenic flexure of the co oscar may represent colitis (which may be of infectious, ischemic, or inflammatory etiology). 3. Small amount of intraluminal urinary bladder air may be the result of recen t instrumentation, otherwise consider emphysematous cystitis. 4. Small amount of pelvic free fluid is likely postoperative. 5. Borderline thickening of the gallbladder wall, without radiodense stones. Consider ultrasound if there is concern for acute cholecystitis. 6. Mild cardiomegaly with small pericardial effusion. [place] Alert: Extensive subcutaneous emphysema The critical information above was relayed directly by me by telephone to Freeman Reeves on 05/06/2025 at 3:23 am with readback verification. Reading Location: [facility]
[2025-05-06 03:00] VITALS: BP 161/57; PULSE 58; RESP 14; O2SAT 98
[2025-05-06 04:05] LABS: Anion Gap 14 (5-15); BUN 31 mg/dL (4-19); BUN/Creat Ratio 24.3 RATIO (10-20); Calcium,Total 9.7 mg/dL (7.6-11.0); Carbon Dioxide 22.3 mmol/L (21.0-32.0); Chloride 102 mmol/L (98-108); Creatinine, Serum 1.27 mg/dL (0.70-1.20); EST Glomerular Filtration Rate 42 (>60); Estimated Creatinine Clearance 28.46 ml/min (50-250); Glucose 127 mg/dL (70-99); Potassium 4.4 mmol/L (3.3-5.1); Sodium Level 138 mmol/L (133-145)
[2025-05-06 04:50] VITALS: BP 142/79; PULSE 62; RESP 14; TEMP 36.6; O2SAT 98
== END 2025-05-06 04:51 | disposition home or self-care (01) ==
PROVIDERS: Emergency Provider Emergency Medicine; PCP Internal Medicine; Visit Provider Emergency Medicine
DX: K52.9 Noninfective gastroenteritis and colitis, unspecified (principal); K59.00 Constipation, unspecified
CPT/HCPCS: 74177; 80048; 85025; 96374; 96375; 99285; Q9967; A4216